=== PATIENT | female | born 1955 | race Caucasian/White ===

== ENCOUNTER 2017-06-16 15:26 | Emergency (ER) | payer OTHER, MEDICARE, SELFPAY | END 2017-06-16 17:50 | disposition home or self-care (01) | PROVIDERS: Emergency Provider Emergency Medicine; Family Provider Family Medicine; Visit Provider Emergency Medicine | DX: S00.83XA Contusion of other part of head, initial encounter (principal); S80.00XA Contusion of unspecified knee, initial encounter; W01.198A Fall on same level from slipping, tripping and stumbling with subsequent striking against other object, initial encounter; Y93.01 Activity, walking, marching and hiking; Y92.241 Library as the place of occurrence of the external cause; S16.1XXA Strain of muscle, fascia and tendon at neck level, initial encounter; S39.012A Strain of muscle, fascia and tendon of lower back, initial encounter; J45.909 Unspecified asthma, uncomplicated; F41.9 Anxiety disorder, unspecified; F32.9 Major depressive disorder, single episode, unspecified; Z88.0 Allergy status to penicillin; Z88.2 Allergy status to sulfonamides; Z88.8 Allergy status to other drugs, medicaments and biological substances; Z91.048 Other nonmedicinal substance allergy status; Z79.82 Long term (current) use of aspirin; Z79.4 Long term (current) use of insulin; Z79.51 Long term (current) use of inhaled steroids; Z79.52 Long term (current) use of systemic steroids; Z79.899 Other long term (current) drug therapy | CPT/HCPCS: 70450; 70486; 72125; 72131; 72170; 73562; 99282 ==

== ENCOUNTER → 2017-08-04 11:59 | Outpatient (CLI) | payer MEDICARE, OTHER, SELFPAY ==
[2017-08-04 14:32] LABS: Anion Gap 13.1 mEq/L (5-15); Blood Urea Nitrogen 47 mg/dL (7-18); Carbon Dioxide 25 mmol/L (21.0-32.0); Chloride 108 mmol/L (98-107); Creatinine,Serum 1.56 mg/dL (0.55-1.02); Estimated Glomerular Filt Rate 34 ml/min (>60); GFR (African American) 41 ML/MIN (>60); Glucose 170 mg/dL (74-106); Potassium 5.1 mmoL/L (3.5-5.1); Sodium 141 mmol/L (136-145)
== END ==
PROVIDERS: PCP Family Medicine; Visit Provider Internal Medicine Endocrinology, Diabetes & Metabolism
DX: N18.3 Chronic kidney disease, stage 3 (moderate) (principal); E87.5 Hyperkalemia
CPT/HCPCS: 36415; 80048

== ENCOUNTER → 2017-10-31 08:14 | Outpatient (CLI) | payer MEDICARE, SELFPAY ==
--- NOTE | 2017-10-31 08:17 | XR_ITS ---
XR DEXA axial skeleton HISTORY: ITS.REASON: OSTEOPOSIS, POST MENOPAUSAL, STAGE III CHRONIC KIDNEY DISEASE ORDERING PHYSICIAN: James Lang PATIENT AGE: 62 years COMPARISON: 10/05/2016 FINDINGS: The BMD measured at the left femoral neck is 0.692 g/cm squared with a T score of -2.5. This is considered Osteoporotic according to the World Health Organization criteria. Fracture risk is high. The hip density has decreased by 1% compared to the previous study. IMPRESSION: Osteoporosis with high fracture risk. Treatment recommended. Recommend follow-up exam October 2018
== END ==
PROVIDERS: Family Provider Family Medicine; PCP Family Medicine; Visit Provider Internal Medicine Nephrology
DX: Z78.0 Asymptomatic menopausal state (principal); M81.0 Age-related osteoporosis without current pathological fracture; N18.3 Chronic kidney disease, stage 3 (moderate)
CPT/HCPCS: 77080

== ENCOUNTER → 2017-11-03 14:28 | Outpatient (CLI) | payer MEDICARE, SELFPAY ==
[2017-11-03 14:37] LABS: Microscopic, Urine URINE MICROSCOPIC (MICROSCOPIC)
[2017-11-03 15:44] LABS: Basophils # 0.1 K/mm3 (0-0.2); Basophils % 0.6 % (0.1-2.0); Eosinophils # 0.2 K/mm3 (0.0-0.4); Eosinophils % 2.3 % (0.1-12.0); Hematocrit 38.1 % (37.0-47.0); Hemoglobin 12.3 g/dL (12.2-16.2); Lymphocytes # 1.5 K/mm3 (0.7-4.5); Lymphocytes % 16.2 K/mm3 (10-50); Mean Corpuscular HGB Conc 32.2 g/dL (31.8-35.4); Mean Corpuscular Hemoglobin 28.5 pg (27.0-31.2); Mean Corpuscular Volume 88.5 fl (81-99); Mean Platelet Volume 8.3 fl (7.4-10.4); Monocytes # 0.4 K/mm3 (0.1-1.0); Monocytes % 4.2 % (1.7-9.3); Neutrophils % 76.7 % (37.0-80.0); Platelet Count 216 K/mm3 (142-424); Red Blood Count 4.31 M/mm3 (4.20-5.40); Red Cell Distribution Width 15.1 % (11.5-17.5); White Blood Count 9.1 K/mm3 (4.8-10.8)
[2017-11-03 17:19] LABS: Appearance,Urine CLEAR (Clear); Bilirubin,Urine Negative (Negative); Blood, Urine Negative (Negative); Color,Urine YELLOW (Yellow); Glucose,Urine (UA) Negative (Negative); Ketones,Urine Negative (Negative); Leukocyte Esterase,Urine Negative (Negative); Nitrate,Urine Negative (Negative); PH,Urine 5.5 (5.0-8.5); Protein,Urine 2+ (Negative); Specific Gravity, Urine >= 1.030 (1.005-1.030); Urobilinogen,Urine 0.2 EU/dl (0.2)
[2017-11-03 17:58] LABS: Albumin Level 3.3 gm/dL (3.4-5.0); Anion Gap 14.3 mEq/L (5-15); Blood Urea Nitrogen 40 mg/dL (7-18); Calcium 8.8 mg/dL (8.5-10.1); Carbon Dioxide 27 mmol/L (21.0-32.0); Chloride 106 mmol/L (98-107); Creatinine,Serum 2.09 mg/dL (0.55-1.02); Estimated Glomerular Filt Rate 24 ml/min (>60); GFR (African American) 29 ML/MIN (>60); Glucose 251 mg/dL (74-106); Phosphorous 4.6 mg/dL (2.4-4.9); Potassium 5.3 mmoL/L (3.5-5.1); Sodium 142 mmol/L (136-145); Uric Acid 6.3 mg/dL (2.6-7.2)
[2017-11-05 06:41] LABS: Creatinine, Urine 167.7 mg/dL (Not Estab.); Microalbumin, Urine 326.7 ug/mL (Not Estab.)
[2017-11-06 05:46] LABS: Vitamin D 25 Hydroxy 41.2 ng/mL (30.0-100.0)
[2017-11-07 11:57] LABS: Calcium, Ionized 5.1 mg/dL (4.5-5.6); Parathyroid Hormone Intact 69 pg/mL (15-65)
== END ==
PROVIDERS: Visit Provider Internal Medicine Nephrology
DX: N18.3 Chronic kidney disease, stage 3 (moderate) (principal)
CPT/HCPCS: 36415; 80069; 81001; 82043; 82330; 82570; 82652; 83970; 84550; 85025

== ENCOUNTER → 2017-11-06 13:17 | Outpatient (POV) | payer MEDICARE, SELFPAY | PROVIDERS: Family Provider Family Medicine; PCP Family Medicine; Visit Provider Internal Medicine Nephrology | DX: Z00.00 Encounter for general adult medical examination without abnormal findings (principal) ==

== ENCOUNTER → 2018-03-09 09:31 | Outpatient (CLI) | payer MEDICARE, SELFPAY ==
[2018-03-09 10:36] LABS: Albumin Level 3.1 gm/dL (3.4-5.0); Anion Gap 11.6 mEq/L (5-15); Blood Urea Nitrogen 36 mg/dL (7-18); Carbon Dioxide 28 mmol/L (21.0-32.0); Chloride 109 mmol/L (98-107); Creatinine,Serum 1.64 mg/dL (0.55-1.02); Estimated Glomerular Filt Rate 32 ml/min (>60); GFR (African American) 39 ML/MIN (>60); Glucose 157 mg/dL (74-106); Potassium 4.6 mmoL/L (3.5-5.1); Sodium 144 mmol/L (136-145)
== END ==
PROVIDERS: PCP Family Medicine; Visit Provider Internal Medicine Nephrology
DX: N18.3 Chronic kidney disease, stage 3 (moderate) (principal)
CPT/HCPCS: 36415; 80069; 82652; 84080; 84681

== ENCOUNTER → 2018-03-19 13:15 | Outpatient (POV) | payer MEDICARE, SELFPAY | PROVIDERS: Family Provider Family Medicine; PCP Family Medicine; Visit Provider Internal Medicine Nephrology | DX: Z00.00 Encounter for general adult medical examination without abnormal findings (principal) ==

== ENCOUNTER → 2018-07-12 16:48 | Outpatient (CLI) | payer MEDICARE, SELFPAY ==
--- NOTE | 2018-07-12 16:54 | XR_ITS ---
XR foot LT min 3V HISTORY: ITS.REASON: LT FOOT PAIN ORDERING PHYSICIAN: Amaury Knight MD PATIENT AGE: 62 years COMPARISON: 01/15/2010 FINDINGS: There is irregularity of the distal aspect of the fifth metatarsal. This is unchanged may be due to old injury. Deformities involve the distal aspect of the first metatarsal consistent with prior bunionectomy. No acute fracture or dislocation. No lytic or blastic change. No significant arthritic change IMPRESSION: No change with no acute finding
== END ==
PROVIDERS: PCP Family Medicine; Visit Provider Family Medicine
DX: M79.672 Pain in left foot (principal)
CPT/HCPCS: 73630

== ENCOUNTER → 2018-09-27 12:01 | Outpatient (CLI) | payer MEDICARE, SELFPAY ==
--- NOTE | 2018-09-27 12:17 | XR_ITS ---
XR wrist LT min 3V HISTORY injury with pain ITS.REASON: LT HAND PAIN ORDERING PHYSICIAN: DIANA Sandoval PATIENT AGE: 63 years Comparison: None FINDINGS: Osteoarthritic changes are present at the first metacarpocarpal joint with some periarticular calcification. No acute fracture or dislocation. IMPRESSION: No acute finding
--- NOTE | 2018-09-27 12:17 | XR_ITS ---
XR hand LT min 3V HISTORY: Posttraumatic pain ITS.REASON: LT HAND PAIN ORDERING PHYSICIAN: DIANA Sandoval PATIENT AGE: 63 years COMPARISON: None FINDINGS: No obvious fracture or dislocation. There are osteoarthritic changes of the first metacarpal carpal joint with some bony debris about that joint. IMPRESSION: Osteoarthritis, no acute finding
[2018-09-27 12:22] LABS: Basophils % 0.4 % (0.1-2.0); Eosinophils # 0.1 K/mm3 (0.0-0.4); Eosinophils % 0.9 % (0.1-12.0); Hemoglobin 12.1 g/dL (12.2-16.2); Lymphocytes # 1.1 K/mm3 (0.7-4.5); Lymphocytes % 11.8 % (10-50); Mean Corpuscular HGB Conc 30.9 g/dL (31.8-35.4); Mean Corpuscular Volume 90.4 fl (81-99); Monocytes # 0.4 K/mm3 (0.1-1.0); Monocytes % 3.6 % (1.7-9.3); Neutrophils # 8.1 K/mm3 (1.8-7.8); Neutrophils % 83.4 % (37.0-80.0); Platelet Count 197 K/mm3 (142-424); Red Blood Count 4.32 M/mm3 (4.20-5.40); Red Cell Distribution Width 15.4 % (11.5-17.5); White Blood Count 9.7 K/mm3 (4.8-10.8)
[2018-09-27 12:50] LABS: Alanine Aminotransferase 28 U/L (12-78); Albumin Level 3.4 gm/dL (3.4-5.0); Alkaline Phosphatase 77 U/L (46-116); Anion Gap 13.6 mEq/L (5-15); Aspartate Amino Transferase 15 U/L (15-37); Bilirubin,Total 0.3 mg/dL (0.2-1.0); Blood Urea Nitrogen 34 mg/dL (7-18); CKMB Relative Index 2.9 U/L (0-4.0); Calcium 9.2 mg/dL (8.5-10.1); Carbon Dioxide 27 mmol/L (21.0-32.0); Chloride 107 mmol/L (98-107); Creatine Kinase 55 U/L (26-192); Creatine Kinase MB 1.6 ng/ml (0.0-3.6); Creatinine,Serum 1.48 mg/dL (0.55-1.02); Estimated Glomerular Filt Rate 36 ml/min (>60); Free T4 (Free Thyroxine) 0.84 ng/dl (0.76-1.46); GFR (African American) 43 ML/MIN (>60); Globulin 3.3 gm/dl (1.3-3.2); Glucose 206 mg/dL (74-106); Potassium 4.6 mmoL/L (3.5-5.1); Sodium 143 mmol/L (136-145); Thyroid Stimulating Hormone 1.12 uIU/ml (0.358-3.740); Total Protein,Serum 6.7 gm/dL (6.4-8.2); Troponin I < 0.02 ng/ml (0.00-0.06)
[2018-09-28 09:01] LABS: Vitamin B12 1431 pg/mL (232-1245)
== END ==
PROVIDERS: PCP Family Medicine; Visit Provider Physician Assistant
DX: R07.9 Chest pain, unspecified (principal); R42 Dizziness and giddiness; M79.642 Pain in left hand; M25.532 Pain in left wrist; Z79.899 Other long term (current) drug therapy
CPT/HCPCS: 36415; 73110; 73130; 80053; 82550; 82553; 82607; 82652; 84439; 84443; 84484; 85025; 93005

== ENCOUNTER → 2018-09-28 09:25 | Outpatient (CLI) | payer MEDICARE, SELFPAY | PROVIDERS: PCP Family Medicine; Visit Provider Family Medicine | DX: R07.9 Chest pain, unspecified (principal); R42 Dizziness and giddiness | CPT/HCPCS: 93225; 93226 ==

== ENCOUNTER → 2018-10-02 09:58 | Outpatient (CLI) | payer MEDICARE, SELFPAY ==
--- NOTE | 2018-10-02 10:02 | CA_ITS ---
PROCEDURE: 2-D M-mode and color Doppler study INDICATIONS FOR THE TEST: Chest pain COPD Heart Murmur Tobacco Smoking Palpitations Fatigue SyncopeX Edema HypertensionXDiabetes MellitusX Rheumatic Fever SOB JOYCE Obesity HyperlipidemiaX Family History HD Additional History DIZZINESS,PRE SYNCOPE PATIENT INFORMATION HEIGHT: 64 WEIGHT:171 GENDER: Female B/P:152/78 2-D/M-MODE INTERPRETATION: 2-D MEASUREMENTS OBSERVED VALUES IN CMS Right Ventricular Dimension (RVDd) 2.5 Interventricular Septum (Thickness)(IVsd) .9 Left Ventricular Internal Dimensions(LVIDd) 5.6 Left Ventricular Posterior Wall (Thickness)(LVPWd) 1.2 Aortic Root 3.9 Aortic Cusp Separation 2.1 Left Atrial Dimensions (LAD) 3.7 2D 1. Left atrium is mildly enlarged, left ventricle is normal size, mild concentric left ventricular hypertrophy, visually estimated ejection fraction 55% with no regional wall motion abnormality. 2. The right atrium and right ventricle are normal size and contractility. 3. The aortic valve is minimally thickened and fibrosed. 4. The mitral and tricuspid valvular grossly normal. 5. The pulmonic valve is poorly visualized. 6. No significant pericardial effusion noted. DOPPLER INTERROGATION: Doppler interrogation of the aortic, mitral and tricuspid valvular presence of mild mitral and tricuspid regurgitation, tricuspid regurgitation jet velocity is inadequate for calculation of the right ventricular systolic pressure, grade 1 diastolic dysfunction seen without tissue Doppler evidence of raised left atrial pressure. CONCLUSION: 1. Mildly enlarged left atrium, normal left ventricular size, mild concentric left ventricular hypertrophy, visually estimated ejection fraction 55% with no regional wall motion abnormality, grade 1 diastolic dysfunction seen without tissue Doppler evidence of raised left atrial pressure. 2. Mild mitral and tricuspid regurgitation 3. No significant pericardial effusion noted.
== END ==
PROVIDERS: PCP Family Medicine; Visit Provider Physician Assistant
DX: R42 Dizziness and giddiness (principal); R55 Syncope and collapse
CPT/HCPCS: 93306

== ENCOUNTER → 2018-10-22 07:53 | Outpatient (CLI) | payer MEDICARE, SELFPAY ==
[2018-10-22 07:57] LABS: Microscopic, Urine URINE MICROSCOPIC (MICROSCOPIC)
[2018-10-22 08:16] LABS: Basophils # 0.1 K/mm3 (0-0.2); Basophils % 0.8 % (0.1-2.0); Eosinophils # 0.3 K/mm3 (0.0-0.4); Eosinophils % 3.8 % (0.1-12.0); Hematocrit 35.8 % (37.0-47.0); Hemoglobin 11.6 g/dL (12.2-16.2); Lymphocytes # 2.5 K/mm3 (0.7-4.5); Lymphocytes % 28.3 % (10-50); Mean Corpuscular HGB Conc 32.3 g/dL (31.8-35.4); Mean Corpuscular Volume 86.7 fl (81-99); Mean Platelet Volume 8.4 fl (7.4-10.4); Monocytes # 0.5 K/mm3 (0.1-1.0); Monocytes % 5.9 % (1.7-9.3); Neutrophils # 5.3 K/mm3 (1.8-7.8); Neutrophils % 61.2 % (37.0-80.0); Platelet Count 213 K/mm3 (142-424); Red Blood Count 4.14 M/mm3 (4.20-5.40); Red Cell Distribution Width 15.1 % (11.5-17.5); White Blood Count 8.7 K/mm3 (4.8-10.8)
[2018-10-22 08:31] LABS: Appearance,Urine SL CLOUDY (Clear); Bilirubin,Urine Negative (Negative); Blood, Urine 2+ (Negative); Color,Urine YELLOW (Yellow); Glucose,Urine (UA) Negative (Negative); Ketones,Urine Negative (Negative); Leukocyte Esterase,Urine 2+ (Negative); Nitrate,Urine Negative (Negative); Protein,Urine 1+ (Negative); Urobilinogen,Urine 0.2 EU/dl (0.2)
[2018-10-22 09:14] LABS: Bacteria,Urine 2+ /lpf; RBC,Urine Occasional #/hpf (0-3); Squamous Epithelial Cell,Urine Occasional #/hpf (0-5)
[2018-10-22 09:24] LABS: Creatinine,Urine Random 85 mg/dL (20-320); Total Protein,Urine Random 76.7 mg/dL (0.0-11.9)
[2018-10-22 11:13] LABS: Albumin Level 3.4 gm/dL (3.4-5.0); Anion Gap 13.9 mEq/L (5-15); Blood Urea Nitrogen 40 mg/dL (7-18); Calcium 9.5 mg/dL (8.5-10.1); Carbon Dioxide 26 mmol/L (21.0-32.0); Chloride 108 mmol/L (98-107); Creatinine,Serum 1.73 mg/dL (0.55-1.02); Estimated Glomerular Filt Rate 30 ml/min (>60); GFR (African American) 36 ML/MIN (>60); Glucose 85 mg/dL (74-106); Phosphorous 4.2 mg/dL (2.4-4.9); Potassium 3.9 mmoL/L (3.5-5.1); Sodium 144 mmol/L (136-145)
[2018-10-23 07:08] LABS: Vitamin D 25 Hydroxy 59.5 ng/mL (30.0-100.0)
[2018-10-24 08:15] LABS: Parathyroid Hormone Intact 73 pg/mL (15-65)
[2018-10-25 07:09] LABS: Osteocalcin 5.9 ng/mL (.); Tandem-R Ostase 13.8 ug/L (.)
[2018-10-26 07:12] LABS: N-Telopeptide Cross-linked 14.9 nmol BCE/L (6.2-19.0)
== END ==
PROVIDERS: Visit Provider Internal Medicine Nephrology
DX: M81.0 Age-related osteoporosis without current pathological fracture (principal); N18.3 Chronic kidney disease, stage 3 (moderate); R82.90 Unspecified abnormal findings in urine
CPT/HCPCS: 36415; 80069; 81001; 82523; 82570; 82652; 83937; 83970; 84080; 84155; 85025; 87086; 87088; 87186

== ENCOUNTER → 2018-11-05 12:57 | Outpatient (POV) | payer MEDICARE, SELFPAY | PROVIDERS: Visit Provider Internal Medicine Nephrology | DX: Z00.00 Encounter for general adult medical examination without abnormal findings (principal) ==

== ENCOUNTER → 2019-03-15 12:53 | Outpatient (CLI) | payer MEDICARE, SELFPAY ==
--- NOTE | 2019-03-15 12:57 | CT_ITS ---
PROCEDURE: CT KNEE LT WO CON CLINICAL HISTORY: DERANGEMENT OF LT KNEE COMPARISON: No exams were available for comparison TECHNIQUE: Axial images obtained with sagittal and coronal reformats. All CT scans at the facility use one or more dose reduction, viz: automated exposure control, ma/kV adjustment per patient size (including targeted exams where dose is matched to indication, i.e. head), or iterative reconstruction technique. FINDINGS: No fracture or dislocation. No lytic or blastic change. Moderate to severe osteoarthritic changes are present at the patellofemoral joint and mild to moderate osteoarthritic changes are present at the medial compartment. There is a small knee joint effusion with a small Simpson's cyst measuring approximately 3 cm. The anterior and posterior cruciate ligaments are identified and have an unremarkable CT appearance although tears cannot be excluded by CT without intra-articular contrast. Fluid is present in the suprapatellar region. No hematomas are apparent. No soft tissue masses IMPRESSION: Osteoarthritic changes most severe patellofemoral joint with knee joint effusion and small Simpson's cyst. No acute fracture Dictated by: Leonel Allan MD 03/15/2019 19:10 Electronically signed by Leonel Allan MD in [place] 03/16/2019 06:39
== END ==
PROVIDERS: PCP Family Medicine; Visit Provider Family Medicine
DX: M23.92 Unspecified internal derangement of left knee (principal)
CPT/HCPCS: 73700

== ENCOUNTER → 2019-04-22 10:54 | Outpatient (CLI) | payer MEDICARE, SELFPAY ==
--- NOTE | 2019-04-22 11:02 | XR_ITS ---
PROCEDURE: XR DEXA AXIAL SKELETON CLINICAL HISTORY: OSTEOPOROSIS COMPARISON: No exams were available for comparison FINDINGS: The density of the left hip is 0.707 grams/centimeter sq with a T-score of -2.4 consistent with osteopenia. IMPRESSION: Osteopenia with moderate fracture risk. Treatment advised. Suggest follow-up exam April 2021 Dictated by: Leonel Allan MD 04/22/2019 11:45 Electronically signed by Leonel Allan MD in [place] 04/24/2019 06:18
== END ==
PROVIDERS: PCP Family Medicine; Visit Provider Internal Medicine Nephrology
DX: M81.0 Age-related osteoporosis without current pathological fracture (principal)
CPT/HCPCS: 77080

== ENCOUNTER → 2019-05-16 08:43 | Outpatient (CLI) | payer MEDICARE, SELFPAY ==
[2019-05-16 09:01] LABS: Basophils # 0.1 K/mm3 (0-0.2); Basophils % 0.9 % (0.1-2.0); Eosinophils # 0.2 K/mm3 (0.0-0.4); Eosinophils % 2.4 % (0.1-12.0); Hematocrit 38.4 % (37.0-47.0); Hemoglobin 12.1 g/dL (12.2-16.2); Lymphocytes # 1.8 K/mm3 (0.7-4.5); Lymphocytes % 22.2 % (10-50); Mean Corpuscular HGB Conc 31.4 g/dL (31.8-35.4); Mean Corpuscular Hemoglobin 28.5 pg (27.0-31.2); Mean Corpuscular Volume 90.7 fl (81-99); Monocytes # 0.4 K/mm3 (0.1-1.0); Monocytes % 5.1 % (1.7-9.3); Neutrophils # 5.6 K/mm3 (1.8-7.8); Neutrophils % 69.4 % (37.0-80.0); Platelet Count 246 K/mm3 (142-424); Red Blood Count 4.23 M/mm3 (4.20-5.40); Red Cell Distribution Width 15.7 % (11.5-17.5)
[2019-05-16 11:05] LABS: Albumin Level 3.3 gm/dL (3.4-5.0); Blood Urea Nitrogen 49 mg/dL (7-18); Calcium 8.8 mg/dL (8.5-10.1); Carbon Dioxide 24 mmol/L (21.0-32.0); Chloride 104 mmol/L (98-107); Creatinine,Serum 1.58 mg/dL (0.55-1.02); Estimated Glomerular Filt Rate 33 ml/min (>60); GFR (African American) 40 ML/MIN (>60); Glucose 257 mg/dL (74-106); Phosphorous 3.6 mg/dL (2.4-4.9); Sodium 136 mmol/L (136-145)
[2019-05-21 15:00] LABS: Tandem-R Ostase 12.1 ug/L (.)
== END ==
PROVIDERS: Visit Provider Internal Medicine Nephrology
DX: N18.3 Chronic kidney disease, stage 3 (moderate) (principal); M81.0 Age-related osteoporosis without current pathological fracture
CPT/HCPCS: 36415; 80069; 84080; 85025

== ENCOUNTER → 2019-05-20 12:26 | Outpatient (POV) | payer MEDICARE, SELFPAY | PROVIDERS: Visit Provider Internal Medicine Nephrology | DX: Z00.00 Encounter for general adult medical examination without abnormal findings (principal) ==

== ENCOUNTER → 2019-06-04 11:47 | Outpatient (CLI) | payer MEDICARE, SELFPAY ==
--- NOTE | 2019-06-04 11:50 | CA_ITS ---
APPROVED REPORT Bilateral Lower Extremity Venous Study for DVT. Proof Carrier: DONNIE Indications Lower Extremity Pain: Lower Extremity Edema: Left Vein Imaging CFV (L): compressive, spontaneous, phasic, augmentation SFJ (L): compressive, spontaneous, phasic, augmentation FEM (L): compressive, spontaneous, phasic, augmentation POP (L): Partially Compressible, Thrombus DFV (L): compressive, spontaneous, phasic, augmentation PTV (L): Compressible GSV (L): Compressible Peroneals (L):Not Visualized Findings Acute DVT is visualized in the POPLITEAL vein of the left lower extremity. PARTIAL COMPRESSIBILTY AND PARTIAL COLOR FLOW REPORT CALLED TO [facility] Conclusion Acute DVT is visualized in the POPLITEAL vein of the left lower extremity. PARTIAL COMPRESSIBILTY AND PARTIAL COLOR FLOW REPORT CALLED TO [facility] Electronically signed by : Leonel Allan MD 06/05/2019 19:08:57
== END ==
PROVIDERS: PCP Family Medicine; Visit Provider Family Medicine
DX: M79.662 Pain in left lower leg (principal); M79.89 Other specified soft tissue disorders
CPT/HCPCS: 93971

== ENCOUNTER → 2019-09-27 16:21 | Outpatient (CLI) | payer MEDICARE, SELFPAY ==
--- NOTE | 2019-09-27 16:29 | XR_ITS ---
PROCEDURE: XR MULTIPLE SPINE 6+V CLINICAL INDICATION: BACK PAIN COMPARISON: LS5 LUMBAR SPINE 5 VIEWS from 05/12/[address] LUMBAR SPINE W/O CONTRAST from 06/16/2017 FINDINGS: Thoracic spine: Epidural stimulator device is present at the T8-T9 level. There is mild multilevel degenerative disc disease in the midthoracic spine with mild wedge deformity involving T6, T7, and T8 which may be chronic. No lytic or blastic change evident. There is mild midthoracic kyphosis. Lumbar spine: Postsurgical changes with prior posterior fusion with inter pedicular screws at L3-L4 and L5 with connecting rods with prominent bony bridging laterally with bony hypertrophy. There is normal alignment with degenerative disc disease at L2-L3 L3-L4 and L4-5 and L5-S1. Prior laminectomy at L3-L4 and L5. These findings are similar when compared to 05/12/2015 IMPRESSION: 1. Thoracic spondylosis with kyphosis with mild wedging of mid dorsal vertebral bodies which may be chronic. 2. Postsurgical and degenerative changes of the lumbar spine as described above not significantly changed Dictated by: Leonel Allan MD 09/27/2019 18:47 Electronically signed by Leonel Allan MD in [place] 09/27/2019 18:47
== END ==
PROVIDERS: PCP Family Medicine; Visit Provider Family Medicine
DX: S39.012A Strain of muscle, fascia and tendon of lower back, initial encounter (principal)
CPT/HCPCS: 72084

== ENCOUNTER → 2019-11-05 11:12 | Outpatient (CLI) | payer MEDICARE, SELFPAY ==
[2019-11-05 12:04] LABS: Creatinine,Urine Random 71 mg/dL (Not Estab.)
[2019-11-05 13:31] LABS: Albumin Level 4.1 g/dl (3.5-5.0); Anion Gap 10.7 mEq/L (5-15); Blood Urea Nitrogen 46 mg/dl (7-17); Calcium 9.4 mg/dl (8.4-10.2); Carbon Dioxide 23 mmol/L (22.0-30.0); Chloride 107 mmol/L (98-107); Estimated Glomerular Filt Rate 25 ml/min (>60); GFR (African American) 30 ML/MIN (>60); Glucose 203 mg/dl (74-100); Phosphorous 4.6 mg/dl (2.5-4.5); Potassium 4.7 mmoL/L (3.5-5.1); Sodium 136 mmol/L (136-145)
[2019-11-06 08:42] LABS: Vitamin D 25 Hydroxy 43.4 ng/mL (30.0-100.0)
[2019-11-08 11:20] LABS: Tandem-R Ostase 16.2 ug/L (.)
== END ==
PROVIDERS: Visit Provider Internal Medicine Nephrology
DX: M81.0 Age-related osteoporosis without current pathological fracture (principal); N18.3 Chronic kidney disease, stage 3 (moderate)
CPT/HCPCS: 36415; 80069; 82570; 82652; 84080; 84155

== ENCOUNTER → 2020-03-19 17:33 | Outpatient (CLI) | payer MEDICARE, SELFPAY ==
[2020-03-19 17:42] LABS: Microscopic, Urine URINE MICROSCOPIC (MICROSCOPIC)
[2020-03-19 17:54] LABS: Appearance,Urine CLEAR (Clear); Basophils # 0.1 K/mm3 (0-0.2); Basophils % 0.6 % (0.1-2.0); Bilirubin,Urine Negative (Negative); Blood, Urine Negative (Negative); Color,Urine YELLOW (Yellow); Eosinophils # 0.2 K/mm3 (0.0-0.4); Eosinophils % 1.5 % (0.1-12.0); Glucose,Urine (UA) 3+ (Negative); Hematocrit 36.4 % (37.0-47.0); Hemoglobin 11.7 g/dL (12.2-16.2); Ketones,Urine Negative (Negative); Leukocyte Esterase,Urine Negative (Negative); Lymphocytes # 1.7 K/mm3 (0.7-4.5); Lymphocytes % 17.5 % (10-50); Mean Corpuscular Hemoglobin 28.5 pg (27.0-31.2); Mean Platelet Volume 8.5 fl (7.4-10.4); Monocytes # 0.5 K/mm3 (0.1-1.0); Monocytes % 4.7 % (1.7-9.3); Neutrophils # 7.2 K/mm3 (1.8-7.8); Neutrophils % 75.6 % (37.0-80.0); Nitrate,Urine Negative (Negative); PH,Urine 5.5 (5.0-8.5); Platelet Count 201 K/mm3 (142-424); Protein,Urine 2+ (Negative); Red Cell Distribution Width 16.3 % (11.5-17.5); Specific Gravity, Urine >= 1.030 (1.005-1.030); Urobilinogen,Urine 0.2 EU/dl (0.2); White Blood Count 9.6 K/mm3 (4.8-10.8)
[2020-03-19 18:00] LABS: Amorphous Sediment,Urine 1+ /lpf; Squamous Epithelial Cell,Urine Occasional #/hpf (0-5)
[2020-03-19 18:01] LABS: Creatinine,Urine Random 128 mg/dL (Not Estab.)
[2020-03-19 18:41] LABS: Albumin Level 3.6 g/dl (3.5-5.0); Blood Urea Nitrogen 49 mg/dl (7-17); Calcium 9.9 mg/dl (8.4-10.2); Carbon Dioxide 23 mmol/L (22.0-30.0); Chloride 109 mmol/L (98-107); Estimated Glomerular Filt Rate 25 ml/min (>60); GFR (African American) 30 ML/MIN (>60); Glucose 312 mg/dl (74-100); Phosphorous 4.6 mg/dl (2.5-4.5); Sodium 137 mmol/L (136-145)
[2020-03-19 18:54] LABS: Intact Parathyroid Hormone 39.6 pg/mL (7.5-53.5)
[2020-03-19 18:59] LABS: 25-OH Vitamin D, Total 55.1 ng/mL (30-100)
[2020-03-24 04:24] LABS: Osteocalcin 0.6 ng/mL (.)
[2020-03-24 09:07] LABS: Tandem-R Ostase 16.6 ug/L (.)
[2020-03-25 05:35] LABS: N-Telopeptide Cross-linked 16.4 nmol BCE/L (6.2-19.0)
== END ==
PROVIDERS: Visit Provider Internal Medicine Nephrology
DX: M81.0 Age-related osteoporosis without current pathological fracture (principal); Z79.899 Other long term (current) drug therapy
CPT/HCPCS: 36415; 80069; 81001; 82306; 82523; 82570; 83937; 83970; 84080; 84155; 85025

== ENCOUNTER → 2020-03-23 09:19 | Outpatient (POV) | payer MEDICARE, SELFPAY ==
[2020-03-23 11:30] LABS: Chloride 111 mmol/L (98-107)
[2020-03-23 11:31] LABS: Potassium 5.3 mmoL/L (3.5-5.1); Sodium 141 mmol/L (136-145)
[2020-03-23 11:33] LABS: Blood Urea Nitrogen 39 mg/dl (7-17); Estimated Glomerular Filt Rate 28 ml/min (>60); GFR (African American) 34 ML/MIN (>60)
[2020-03-23 11:34] LABS: Anion Gap 10.3 mEq/L (5-15); Calcium 9.4 mg/dl (8.4-10.2); Carbon Dioxide 25 mmol/L (22.0-30.0); Glucose 102 mg/dl (74-100)
== END ==
PROVIDERS: Visit Provider Internal Medicine Nephrology
DX: N18.3 Chronic kidney disease, stage 3 (moderate) (principal)
CPT/HCPCS: 36415; 80048

== ENCOUNTER → 2020-05-07 11:33 | Outpatient (CLI) | payer MEDICARE, SELFPAY ==
[2020-05-07 12:49] LABS: Cholesterol 278 mg/dl (140-200)
[2020-05-07 12:50] LABS: Chol/HDL Ratio 5.9 (1-3.5); HDL Cholesterol 47 mg/dl (40-60)
[2020-05-07 13:00] LABS: Direct LDL Cholesterol 53.24 mg/dL (100-129)
[2020-05-07 13:02] LABS: Triglycerides 1519 mg/dl (30-150)
== END ==
PROVIDERS: Visit Provider Internal Medicine Endocrinology, Diabetes & Metabolism
DX: E78.2 Mixed hyperlipidemia (principal); E11.65 Type 2 diabetes mellitus with hyperglycemia; E11.29 Type 2 diabetes mellitus with other diabetic kidney complication; E11.49 Type 2 diabetes mellitus with other diabetic neurological complication; E87.5 Hyperkalemia; N18.30 Chronic kidney disease, stage 3 unspecified; Z68.28 Body mass index [BMI] 28.0-28.9, adult; Z79.4 Long term (current) use of insulin
CPT/HCPCS: 36415; 80061

== ENCOUNTER 2020-06-09 11:54 | Observation (INO) | payer MEDICARE, SELFPAY ==
[2020-06-09] VITALS (10 sets, daily range): BP systolic 80–135; BP diastolic 52–70; PULSE 66–76; RESP 16–20; TEMP 36.3–37; O2SAT 96–100; BMI 25.8; BMI 28.3; BMI 27.6
--- NOTE | 2020-06-09 12:26 | HMH.EDUTC ---
[facility] [place] Clinical Impression: Acute kidney injury, Dehydration Disposition: Still a Patient Condition on Discharge: Good Referrals: Amaury Knight MD [Primary Care Provider] - Medical Decision Making - Domenico Inquiry Pt receiving controlled substance: No Domenico was queried for this patient: No Vital Signs: 06/09/20 12:21 06/09/20 12:49 06/09/20 12:59 Temperature 97.8 F 98.0 F Temperature Source Oral Oral Pulse Rate [Radial] 66 71 Respiratory Rate 19 20 Blood Pressure [Orthostatic Lying Right Arm] 129/69 Blood Pressure [Orthostatic Sitting Right Arm] 113/63 Blood Pressure [Orthostatic Standing Right Arm] 110/58 L Blood Pressure [Right Arm] 80/63 L 109/52 L Blood Pressure Mean [Right Arm] 68 71 Blood Pressure Source [Right Arm] Automatic Cuff Automatic Cuff Blood Pressure Position [Right Arm] Sitting Sitting 02 Sat by Pulse Oximetry 99 100 Oxygen Delivery Method Room Air 06/09/20 13:00 06/09/20 13:47 Temperature Temperature Source Pulse Rate [Radial] 71 66 Respiratory Rate 18 18 Blood Pressure [Orthostatic Lying Right Arm] Blood Pressure [Orthostatic Sitting Right Arm] Blood Pressure [Orthostatic Standing Right Arm] Blood Pressure [Right Arm] 129/56 L 121/60 Blood Pressure Mean [Right Arm] 80 80 Blood Pressure Source [Right Arm] Automatic Cuff Automatic Cuff Blood Pressure Position [Right Arm] Sitting Sitting 02 Sat by Pulse Oximetry 96 97 Oxygen Delivery Method Room Air Room Air - Lab Data Lab Results 06/09/20 12:34: Urine Color Yellow, Urine Appearance Clear, Urine pH 5.0, Ur Specific [place] >= 1.030, Urine Protein 2+, Urine Glucose (UA) Negative, Urine Ketones Negative, Urine Blood Negative, Urine Nitrate Negative, Urine Bilirubin Negative, Urine Urobilinogen 0.2, Ur Leukocyte Esterase Negative, Urine RBC 3-5, Urine WBC 3-5, Ur Squamous Epith Cells 3-5 06/09/20 12:34: WBC 13.5 H, RBC 4.38, Hgb 12.6, Hct 40.2, MCV 91.7, MCH 28.8, MCHC 31.4 L, RDW 16.4, Plt Count 260, MPV 8.9, Neut % (Auto) 76.3, Lymph % (Auto) 17.4, [place] % (Auto) 4.4, Eos % (Auto) 1.4, Baso % (Auto) 0.5, Neut # (Auto) 10.3 H, Lymph # (Auto) 2.3, [place] # (Auto) 0.6, Eos # (Auto) 0.2, Baso # (Auto) 0.1 06/09/20 12:34: Sodium 134 L, Potassium 5.2 H, Chloride 102, Carbon Dioxide 21 L, Anion Gap 16.2 H, BUN 86 H, Creatinine 3.90 H, Estimated Creat Clear 17, Estimated GFR 12 L*, Est GFR ( Amer) 14 L*, Glucose 276 H, Calcium 9.6, Total Bilirubin 0.5, AST 27, ALT 25, Alkaline Phosphatase 88, Troponin I 0.01, Total Protein 6.8, Albumin 4.3, Globulin 2.5, Albumin/Globulin Ratio 1.7 Result diagrams: 06/09/20 12:34 06/09/20 12:34 Orders (Tests/Meds): ED MEDICATIONS Generic Name Dose Route Start Last Admin Trade Name Freq PRN Reason Stop Dose Admin Sodium Chloride 1,000 mls @ 100 mls/hr 06/09/20 13:15 Sod Chlor 0.9% 1000ml Bag IV 07/09/20 13:14 .Q10H MANUEL Discontinued Medications Generic Name Dose Route Start Last Admin Trade Name Freq PRN Reason Stop Dose Admin Sodium Chloride 1,000 ml 06/09/20 13:09 06/09/20 13:13 Sodium Chloride 0.9% 1000ml Bag IV 06/09/20 13:10 1,000 ml BOLUS ONE Administration ORDERS Category Date Time Status Troponin I Q3H Lab 06/09/20 16:00 Ordered Troponin I Q3H Lab 06/09/20 19:00 Ordered Medical Decision Narrative: Due to patient complaining of near syncope and feeling off in her head with vision disturbances and initially low BP recommended that patient be sent to ED for further treatment and evaluation discussed with patient and patient agreed to transfer to the ED, Called ED and spoke with Kathy Sumner RN and patient was transferred via wheelchair [facility] [place] - General Stated complaint: feeling weak, nausea, dizzy Time Seen by Provider: 06/09/20 12:26 Mode of Arrival: Ambulatory Source of Information: Patient Limitations: No Limitations Description of Symptoms (Recalled from Triage Doc. by RN): FATIGUE, DIZZINES
--- NOTE | 2020-06-09 12:38 | HMH.EDGENADL ---
ED Disposition Clinical Impression: Acute kidney injury, Dehydration Disposition: Admitted as Observation Condition on Discharge: Fair - Critical Care Critical Care Time: Yes Attestation: On 06/09/20, the high probability of a clinically significant, sudden or life threatening deterioration of the following system(s) required my full and direct attention, intervention and personal management. The time I documented below is in addition to time spent performing reported procedures but includes the following listed in this critical care notation. Total Critical Care Time: 35 Vital system(s) involved:: Renal Failure My critical care processes included: Assessment & monitoring of V/S, Initial and Re-exams, Data Review/Interpretation, Coordinating Care, Medication Orders and management, Documentation Medical Decision Making - Medical Records Medical records reviewed: Yes: I reviewed the patient's medical records. MR Comment: Reviewed prior echocardiogram result, below. prior labs reviewed, BUN and creatinine 39 and 1.8 on 03/23/2020. - Domenico Inquiry Pt receiving controlled substance: No Vital Signs: 06/09/20 12:21 06/09/20 12:49 06/09/20 12:59 Temperature 97.8 F 98.0 F Temperature Source Oral Oral Pulse Rate Pulse Rate [Radial] 66 71 Respiratory Rate 19 20 Blood Pressure Blood Pressure [Orthostatic Lying Right Arm] 129/69 Blood Pressure [Orthostatic Sitting Right Arm] 113/63 Blood Pressure [Orthostatic Standing Right Arm] 110/58 L Blood Pressure [Right Arm] 80/63 L 109/52 L Blood Pressure Mean [Right Arm] 68 71 Blood Pressure Source Blood Pressure Source [Right Arm] Automatic Cuff Automatic Cuff Blood Pressure Position Blood Pressure Position [Right Arm] Sitting Sitting 02 Sat by Pulse Oximetry 99 100 Oxygen Delivery Method Room Air 06/09/20 13:00 06/09/20 13:47 06/09/20 14:34 Temperature Temperature Source Pulse Rate Pulse Rate [Radial] 71 66 66 Respiratory Rate 18 18 20 Blood Pressure Blood Pressure [Orthostatic Lying Right Arm] Blood Pressure [Orthostatic Sitting Right Arm] Blood Pressure [Orthostatic Standing Right Arm] Blood Pressure [Right Arm] 129/56 L 121/60 129/60 Blood Pressure Mean [Right Arm] 80 80 83 Blood Pressure Source Blood Pressure Source [Right Arm] Automatic Cuff Automatic Cuff Automatic Cuff Blood Pressure Position Blood Pressure Position [Right Arm] Sitting Sitting Sitting 02 Sat by Pulse Oximetry 96 97 98 Oxygen Delivery Method Room Air Room Air 06/09/20 15:15 Temperature 98.6 F Temperature Source Oral Pulse Rate 68 Pulse Rate [Radial] Respiratory Rate 16 Blood Pressure 120/70 Blood Pressure [Orthostatic Lying Right Arm] Blood Pressure [Orthostatic Sitting Right Arm] Blood Pressure [Orthostatic Standing Right Arm] Blood Pressure [Right Arm] Blood Pressure Mean [Right Arm] Blood Pressure Source Automatic Cuff Blood Pressure Source [Right Arm] Blood Pressure Position Sitting Blood Pressure Position [Right Arm] 02 Sat by Pulse Oximetry Oxygen Delivery Method Room Air - Lab Data Lab Results 06/09/20 12:34: Urine Color Yellow, Urine Appearance Clear, Urine pH 5.0, Ur Specific [place] >= 1.030, Urine Protein 2+, Urine Glucose (UA) Negative, Urine Ketones Negative, Urine Blood Negative, Urine Nitrate Negative, Urine Bilirubin Negative, Urine Urobilinogen 0.2, Ur Leukocyte Esterase Negative, Urine RBC 3-5, Urine WBC 3-5, Ur Squamous Epith Cells 3-5 06/09/20 12:34: WBC 13.5 H, RBC 4.38, Hgb 12.6, Hct 40.2, MCV 91.7, MCH 28.8, MCHC 31.4 L, RDW 16.4, Plt Count 260, MPV 8.9, Neut % (Auto) 76.3, Lymph % (Auto) 17.4, [place] % (Auto) 4.4, Eos % (Auto) 1.4, Baso % (Auto) 0.5, Neut # (Auto) 10.3 H, Lymph # (Auto) 2.3, [place] # (Auto) 0.6, Eos # (Auto) 0.2, Baso # (Auto) 0.1 06/09/20 12:34: Sodium 134 L, Potassium 5.2 H, Chloride 102, Carbon Dioxide 21 L, Anion Gap 16.2 H, BUN 86 H, Creatinine 3.90 H, Estimated Creat Clear 17, Estimat
--- NOTE | 2020-06-09 12:49 | CT_ITS ---
PROCEDURE: CT HEAD/BRAIN WO CON CLINICAL INDICATION: dizziness, balance off dizziness and weakness with headache COMPARISON: CT HEADWO CT head/brain wo con from 11/06/2017 TECHNIQUE: Axial images obtained. All CT scans at the facility use one or more dose reduction, viz: automated exposure control, ma/kV adjustment per patient size (including targeted exams where dose is matched to indication, i.e. head), or iterative reconstruction technique. FINDINGS: No midline shift, mass effect, intracranial hemorrhage, hydrocephalus, or extra-axial fluid collection is evident. The calvarium has an unremarkable appearance. No mastoid effusion. No sinus air-fluid level. IMPRESSION: No acute intracranial finding Dictated by: Leonel Allan MD 06/09/2020 14:09 Leonel Allan MD in [place] 06/09/2020 14:09
[2020-06-09 12:58] LABS: Microscopic, Urine URINE MICROSCOPIC (MICROSCOPIC)
--- NOTE | 2020-06-09 12:58 | ECG_ITS ---
APPROVED REPORT Exam: Resting ECG HR:70 bpm ECG Measurements Heart Rate 70 AXES DC 164 P 16 QRSd 106 QRS -37 QT 422 T 6 QTc 455 Conclusion Normal sinus rhythm Left axis deviation Minimal voltage criteria for LVH, may be normal variant Septal infarct, age undetermined Abnormal ECG Electronically signed by : Kenny Sylvester, 06/10/2020 05:29:20
[2020-06-09 12:59] LABS: Appearance,Urine CLEAR (Clear); Basophils # 0.1 K/mm3 (0-0.2); Basophils % 0.5 % (0.1-2.0); Bilirubin,Urine Negative (Negative); Blood, Urine Negative (Negative); Color,Urine YELLOW (Yellow); Eosinophils # 0.2 K/mm3 (0.0-0.4); Eosinophils % 1.4 % (0.1-12.0); Glucose,Urine (UA) Negative (Negative); Hematocrit 40.2 % (37.0-47.0); Hemoglobin 12.6 g/dL (12.2-16.2); Ketones,Urine Negative (Negative); Leukocyte Esterase,Urine Negative (Negative); Lymphocytes # 2.3 K/mm3 (0.7-4.5); Lymphocytes % 17.4 % (10-50); Mean Corpuscular HGB Conc 31.4 g/dL (31.8-35.4); Mean Corpuscular Hemoglobin 28.8 pg (27.0-31.2); Mean Corpuscular Volume 91.7 fl (81-99); Mean Platelet Volume 8.9 fl (7.4-10.4); Monocytes # 0.6 K/mm3 (0.1-1.0); Monocytes % 4.4 % (1.7-9.3); Neutrophils # 10.3 K/mm3 (1.8-7.8); Neutrophils % 76.3 % (37.0-80.0); Nitrate,Urine Negative (Negative); Platelet Count 260 K/mm3 (142-424); Protein,Urine 2+ (Negative); Red Blood Count 4.38 M/mm3 (4.20-5.40); Red Cell Distribution Width 16.4 % (11.5-17.5); Specific Gravity, Urine >= 1.030 (1.005-1.030); Urobilinogen,Urine 0.2 EU/dl (0.2); White Blood Count 13.5 K/mm3 (4.8-10.8)
[2020-06-09 13:00] LABS: Chloride 102 mmol/L (98-107); Potassium 5.2 mmoL/L (3.5-5.1); Sodium 134 mmol/L (136-145)
[2020-06-09 13:02] LABS: Creatinine Clearance Estimated 17 mL/min (50-200); Estimated Glomerular Filt Rate 12 ml/min (>60); GFR (African American) 14 ML/MIN (>60)
[2020-06-09 13:03] LABS: Alanine Aminotransferase 25 U/L (12-78); Albumin Level 4.3 g/dl (3.5-5.0); Albumin/Globulin Ratio 1.7 (1.1-1.8); Alkaline Phosphatase 88 U/L (38-126); Anion Gap 16.2 mEq/L (5-15); Aspartate Amino Transferase 27 U/L (14-36); Bilirubin,Total 0.5 mg/dl (0.2-1.3); Calcium 9.6 mg/dl (8.4-10.2); Carbon Dioxide 21 mmol/L (22.0-30.0); Globulin 2.5 g/dL (1.3-3.2); Glucose 276 mg/dl (74-100); Total Protein,Serum 6.8 g/dl (6.3-8.2)
[2020-06-09 13:05] LABS: Blood Urea Nitrogen 86 mg/dl (7-17)
[2020-06-09 13:17] LABS: Troponin I 0.01 ng/ml (0.00-0.034)
--- NOTE | 2020-06-09 13:33 | XR_ITS ---
PROCEDURE: XR CHEST 2V CLINICAL HISTORY: weakness Weakness, COMPARISON: CR CXR CHEST(2 VIEWS-NOT PORTABLE) from 04/18/2013 FINDINGS: The cardiomediastinal silhouette and pulmonary vascularity are within normal limits. The lungs are clear without infiltrates, suspicious nodules, or pleural effusions. There is an epidural stimulator device present in the mid to lower thoracic region. IMPRESSION: No change with no acute finding Dictated by: Leonel Allna MD 06/09/2020 14:02 Leonel Allan MD in [place] 06/09/2020 14:02
[2020-06-09 14:50] LABS: Coronavirus 19 IgG Antibody Negative (Negative); Coronavirus 19 IgM Antibody Negative (Negative)
--- NOTE | 2020-06-09 17:05 | HMH.HP ---
*Admission Date: 06/09/20 <Shyla Bethea - 06/09/20 17:32> *Chief complaint: hypotension <Shyla Bethea - 06/09/20 17:32> *History of present illness: Ms. Murry is a 64-year-old female with a history of type 2 diabetes mellitus, kidney disease with right nephrectomy in 1999, fibromyalgia, arthritis, tendinitis in the left shoulder, irritable bowel syndrome, asthma, allergic rhinitis, rheumatoid arthritis, and factor 5 Leiden deficiency who initially presented to urgent treatment center not feeling well for about a week. She was then transferred over to the emergency room for evaluation. The following is from [facility] narrative.: Sent from the urgent treatment center. She says she has not felt right for a week. Her main symptoms today seem to be dizziness and weakness. No focal weakness, just generalized weakness. She describes her dizziness as both feeling like she is off balance when she tries to walk but also a sensation of presyncope. She has no loss of vision. She told the nurse that she sometimes sees random things at home, like visual hallucinations, frogs and other objects. She denies headache. However, she says she hurts all over. No specific chest pain or shortness of breath. No numbness or weakness of the extremities except for generalized weakness. No difficulty speaking. She has chronic tinnitus in her ear for years, has seen ear nose and throat for this. She also has some chronic complaints. States that she gets intermittent right upper quadrant pain. She has irritable bowel syndrome and gets constipation and diarrhea. She has chronic pain in her left hip and uses Voltaren gel. Chronic tinnitus as noted above. With evaluation in the emergency room CBC showed an elevated white blood cell count at 13,500 with a hemoglobin of 12.6 and hematocrit of 40.2. Differential was normal. Blood chemistries showed sodium of 134, potassium of 5.2, BUN 86 and a creatinine of 3.9. Her estimated GFR was 12. Blood sugar was 276. Liver function studies were all normal and troponin I was 0.01. Her urine showed 2+ protein. Covid IgG and IgM were both negative. Chest x-ray showed no change with no acute finding. CT of the brain without contrast revealed no acute intracranial finding. On admission to the ER blood pressure was noted to be 80/63. Been improved to 129/69. She was given a liter of IV fluids bolus and started on normal saline at 100 an hour. She was then admitted for further evaluation and treatment. To note: Patient is followed by an livestock broker, flame cutting machine operator, ophthalmic surgical assistant, dance coach, pain management, and ophthalmology. At the time of this exam patient states she feels much better after receiving the IV fluids in the emergency room. She states she has had diarrhea since yesterday and nausea but no vomiting. She has been trying to drink fluids. She denies chest pain. She has exertional shortness of breath. She states her blood sugars have been elevated at home. <Shyla Bethea 06/09/20 17:32> [facility] History Medical History: Reports:: Anxiety, Arrhythmia, Asthma, Deep Vein Thrombosis (Left leg 06/2019), Diabetes Mellitus Type 1, Diabetes Mellitus Type 2, Hyperlipidemia, Hypertension, Renal Disease, Renal Insufficiency Denies:: Cancer, MRSA <Mamta Betheahy 06/09/20 17:32> *Have you ever received a pneumonia vaccine?: No <Shyla Bethea 06/09/20 17:32> *Have you received a flu vaccine this season?: Yes <Shyla Bethea 06/09/20 17:32> Other Medical History: Reports: Anemia (Received iron), Arthritis (osteo), Cataracts (Bilateral cataract removal), Fibromyalgia, Sinus Problems <Shyla Bethea 06/09/20 17:32> Laterality Cases: Right: Carpal Tunnel Release, Bilateral: Arthroscopy Knee, Arthroscopy Shoulder, Tonsillectomy <Shyla Bethea 06/09/20 17:32> Other Surgeries: Yes: Hysterectomy-Partial, Tubal Ligation, Other <Shyla Bethea 06/09/20 17:32> Amputation: No <Shyla Bethea 06/09/20 17
[2020-06-09 17:17] LABS: POC Glucose,Bedside 270 (70-110)
--- NOTE | 2020-06-09 18:54 | PC.NURSE ---
End of shift note. Patient was admitted for CHANDRAKANT. She is a/ox4. She is on RA. Patients has a 20g in RAC with NS @ 100ml/hr. Patient is a diabetic and had a blood sugar of 270 at 1600, 10units were given per sliding scale protocol. Patient denies any pain just a little discomfort in her back. Patient is wearing TEDS for VTE. Patient is independent and uses the toilet for voiding. Patient has been very pleasant. Will continue to monitor.
[2020-06-09 21:10] LABS: POC Glucose,Bedside 247 (70-110)
[2020-06-10 04:00] VITALS: BP 121/56; PULSE 70; RESP 17; TEMP 36.4; O2SAT 95
--- NOTE | 2020-06-10 04:27 | PC.NURSE ---
A&OX4. PT HAS TOLERATED RA WELL THROUGHOUT SHIFT. RESPIRATIONS REGULAR AND UNLABORED. LUNG SOUNDS BILATERALLY CLEAR. HAND ECHO VASCULAR TECH EQUAL. +2 PULSES NOTED THROUGHOUT. ACTIVE BOWEL SOUNDS HEARD IN ALL 4 QUADRANTS. SOFT AND NONTENDER ABDOMEN. NO BM REPORTED. PT VOIDS PER BATHROOM INDEPENDENTLY.NO EDEMA NOTED. SKIN CDI. NO REPORTS OF PAIN THUS FAR. NS INFUSING AT 100ML/HR. PT HAS TEDS ON. PT IS CURRENTLY LYING IN BED SLEEPING. BED IN LOWEST POSITION. CALL LIGHT WITHIN REACH. VSS. WILL CONTINUE TO MONITOR.
[2020-06-10 05:22] VITALS: BMI 28.3
[2020-06-10 05:40] LABS: POC Glucose,Bedside 210 (70-110)
[2020-06-10 06:36] LABS: Chloride 110 mmol/L (98-107); Potassium 5.1 mmoL/L (3.5-5.1); Sodium 137 mmol/L (136-145)
[2020-06-10 06:39] LABS: Creatinine Clearance Estimated 25 mL/min (50-200); Estimated Glomerular Filt Rate 18 ml/min (>60); GFR (African American) 22 ML/MIN (>60)
[2020-06-10 06:40] LABS: Anion Gap 11.1 mEq/L (5-15); Carbon Dioxide 21 mmol/L (22.0-30.0); Glucose 183 mg/dl (74-100)
[2020-06-10 07:28] LABS: Calcium 8.2 mg/dl (8.4-10.2)
[2020-06-10 08:00] VITALS: BP 108/52; PULSE 70; RESP 17; TEMP 36.8; O2SAT 98
--- NOTE | 2020-06-10 08:45 | HMH.ACPN2 ---
<Shyla Bethea - Last Filed: 06/10/20 08:45> Internal Medicine - PN: Subj *Date: 06/10/20 *Time: 08:45 Interval history: Patient did sleep during the night. After breakfast this morning she developed some abdominal discomfort with bloating. She denies chest pain and shortness of breath. She ambulates to the bathroom without difficulty. Blood chemistries this morning showed a sodium of 137 and potassium of 5.1. BUN is 87 and creatinine is down to 2.7. GFR is 18. Exam Vital signs and Labs for Last 24 Hours: Temp Pulse Resp BP Pulse Ox 97.5 F L 70 17 121/56 L 95 06/10/20 04:00 06/10/20 04:00 06/10/20 04:00 06/10/20 04:00 06/10/20 04:00 Laboratory Results - last 24 hr 06/09/20 12:34: Urine Color Yellow, Urine Appearance Clear, Urine pH 5.0, Ur Specific [place] >= 1.030, Urine Protein 2+, Urine Glucose (UA) Negative, Urine Ketones Negative, Urine Blood Negative, Urine Nitrate Negative, Urine Bilirubin Negative, Urine Urobilinogen 0.2, Ur Leukocyte Esterase Negative, Urine RBC 3-5, Urine WBC 3-5, Ur Squamous Epith Cells 3-5 06/09/20 12:34: WBC 13.5 H, RBC 4.38, Hgb 12.6, Hct 40.2, MCV 91.7, MCH 28.8, MCHC 31.4 L, RDW 16.4, Plt Count 260, MPV 8.9, Neut % (Auto) 76.3, Lymph % (Auto) 17.4, [place] % (Auto) 4.4, Eos % (Auto) 1.4, Baso % (Auto) 0.5, Neut # (Auto) 10.3 H, Lymph # (Auto) 2.3, [place] # (Auto) 0.6, Eos # (Auto) 0.2, Baso # (Auto) 0.1 06/09/20 12:34: Sodium 134 L, Potassium 5.2 H, Chloride 102, Carbon Dioxide 21 L, Anion Gap 16.2 H, BUN 86 H, Creatinine 3.90 H, Estimated Creat Clear 17, Estimated GFR 12 L*, Est GFR ( Amer) 14 L*, Glucose 276 H, Calcium 9.6, Total Bilirubin 0.5, AST 27, ALT 25, Alkaline Phosphatase 88, Troponin I 0.01, Total Protein 6.8, Albumin 4.3, Globulin 2.5, Albumin/Globulin Ratio 1.7 06/09/20 12:34: SARS-CoV-2 IgG Ab (Rapid) Negative, SARS-CoV-2 IgM Ab (Rapid) Negative 06/09/20 16:29: POC Glucose 270 H 06/09/20 20:00: POC Glucose 247 H 06/10/20 05:30: POC Glucose 210 H 06/10/20 06:18: Sodium 137, Potassium 5.1, Chloride 110 H, Carbon Dioxide 21 L, Anion Gap 11.1, BUN 87 H, Creatinine 2.70 H D, Estimated Creat Clear 25, Estimated GFR 18 L*, Est GFR ( Amer) 22 L D, Glucose 183 H D, Calcium 8.2 L D I & O for Last 24 hours: Intake & Output 06/07/20 06/08/20 06/09/20 06/10/20 11:59 11:59 11:59 11:59 Intake Total 2058 Balance 2058 Weight 166 lb 5 oz - Constitutional no acute distress - *Routine Respiratory Exam Present: CTA bilaterally (Anteriorly and posteriorly) - *Routine Cardiovascular Exam Present: RRR - *Routine Abdominal Exam Present: soft, normoactive bowel sounds, distended. Absent: tenderness - *Routine Extremities Exam Absent: edema, calf tenderness - *Routine Neurological Exam Present: alert, oriented X3 Assessment and Plan (1) Acute kidney injury Status: Acute Category: Medical Code(s): N17.9 - Acute kidney failure, unspecified (2) Acquired solitary kidney Status: Chronic Category: Medical Code(s): Z90.5 - Acquired absence of kidney (3) Dehydration Status: Acute Category: Medical Code(s): E86.0 - Dehydration (4) Headache Status: Acute Qualifiers: Headache type: unspecified Headache chronicity pattern: acute headache Intractability: not intractable Category: Medical Code(s): R51 - Headache (5) Type 2 diabetes mellitus Status: Chronic Category: Medical Code(s): E11.9 - Type 2 diabetes mellitus without complications (6) Hyperglycemia due to diabetes mellitus Status: Chronic Category: Medical Code(s): E11.65 - Type 2 diabetes mellitus with hyperglycemia (7) Rheumatoid arthritis Status: Chronic Category: Medical Code(s): M06.9 - Rheumatoid arthritis, unspecified (8) Asthma Status: Chronic Category: Medical Code(s): J45.909 - Unspecified asthma, uncomplicated (9) Allergic rhinitis Status: Chronic Category: Medical Code(s): J30.9 - Allergic rhinitis, u
--- NOTE | 2020-06-10 09:22 | P.CONPHA_ITS ---
[facility] Pharmacy VTE Monitoring - Patient Demographics Admission date: 06/09/20 Report Date: 06/10/20 Time: 09:23 Allergies/Adverse Reactions: Patient Allergies Penicillins [PENICILLINS] Allergy (Intermediate, Verified 02/10/19 12:08) I-RASH adhesive tape Allergy (Unknown, Verified 06/09/20 15:31) Unknown allergy reaction pseudoephedrine [PSEUDOEPHEDRINE] Allergy (Unknown, Verified 02/10/19 12:08) TONGUE PEELS Sulfa (Sulfonamide Antibiotics) [SULFA (SULFONAMIDE ANTIBIOTICS)] Allergy (Unknown, Verified 02/10/19 12:08) KIDNEYS Height: 1.63 m Weight: 75.438 kg Patient Problems: Current Active Problems Headache (Acute) Acute kidney injury (Acute) Dehydration (Acute) Acquired solitary kidney (Chronic) Type 2 diabetes mellitus (Chronic) Hyperglycemia due to diabetes mellitus (Chronic) Rheumatoid arthritis (Chronic) Asthma (Chronic) Allergic rhinitis (Chronic) Prerenal azotemia (Acute) - VTE Risk Labs: VTE Related Lab Results Hgb 12.6 g/dL (12.2-16.2) 06/09/20 12:34 Hct 40.2 % (37.0-47.0) 06/09/20 12:34 Plt Count 260 K/mm3 (142-424) 06/09/20 12:34 BUN 87 mg/dl (7-17) H 06/10/20 06:18 Creatinine 2.70 mg/dl (0.52-1.04) H D 06/10/20 06:18 Estimated Creat Clear 25 mL/min (50-200) 06/10/20 06:18 Was VTE Risk Assessment Performed: Yes VTE Score: 4 VTE Risk Level: Low Risk Clinical Trial Participant: No - Prophylaxis VTE Prophylaxis Ordered?: Yes Types of VTE Prophylaxis: TEDS Knee High Location of Applied Device: Bilateral Lower Extremeties
--- NOTE | 2020-06-10 09:35 | HMH.PHAINT ---
Medication reconciliation completed using pharmacy claims data and patient interview.
[2020-06-10 12:05] LABS: POC Glucose,Bedside 250 (70-110)
[2020-06-10 14:36] VITALS: BMI 28.2
[2020-06-10 14:48] LABS: Blood Urea Nitrogen 87 mg/dl (7-17)
[2020-06-10 15:41] VITALS: BP 102/66; PULSE 76; RESP 17; TEMP 36.5; O2SAT 99
[2020-06-10 16:38] LABS: POC Glucose,Bedside 207 (70-110)
--- NOTE | 2020-06-10 16:50 | PC.NURSE ---
Routine reassessment completed. No acute changes noted. Lungs CTA, Heart at RR. BS present x4 quad. Pt. denies pain and needs, will continue to monitor.
--- NOTE | 2020-06-10 19:45 | PC.NURSE ---
Report given to Martine Brown RN.
[2020-06-10 20:00] VITALS: BP 129/59; PULSE 80; RESP 18; TEMP 36.9; O2SAT 95
[2020-06-10 21:44] LABS: POC Glucose,Bedside 429 (70-110)
[2020-06-11 04:00] VITALS: BP 138/72; PULSE 70; RESP 17; TEMP 36.5; O2SAT 93
--- NOTE | 2020-06-11 04:12 | PC.NURSE ---
Pt is alert and oriented. Pt rested well with eyes closed this shift thus far. No acute changes noted from previous shift. Follows commands appropriately. Tolerated RA well with no c/o SOA. RR noted even and unlabored. Bilateral lungs noted clear t/o upon auscultation. C/o of mild abdominal discomfort with palpation to lower abdomen. Denies N/V/D. No edema noted. TEDS noted to BLE. Tolerates independent ambulation in room well. VSS. Remains safe. Call light within reach. Will continue to monitor.
[2020-06-11 05:37] VITALS: BMI 29.0
[2020-06-11 06:00] LABS: POC Glucose,Bedside 192 (70-110)
[2020-06-11 06:50] LABS: Basophils # 0.1 K/mm3 (0-0.2); Basophils % 0.5 % (0.1-2.0); Eosinophils # 0.3 K/mm3 (0.0-0.4); Eosinophils % 2.9 % (0.1-12.0); Hematocrit 33.5 % (37.0-47.0); Hemoglobin 10.5 g/dL (12.2-16.2); Lymphocytes # 2.3 K/mm3 (0.7-4.5); Lymphocytes % 25.9 % (10-50); Mean Corpuscular HGB Conc 31.3 g/dL (31.8-35.4); Mean Corpuscular Hemoglobin 28.9 pg (27.0-31.2); Mean Corpuscular Volume 92.4 fl (81-99); Mean Platelet Volume 9.2 fl (7.4-10.4); Monocytes # 0.5 K/mm3 (0.1-1.0); Monocytes % 5.6 % (1.7-9.3); Neutrophils # 5.6 K/mm3 (1.8-7.8); Neutrophils % 65.1 % (37.0-80.0); Platelet Count 156 K/mm3 (142-424); Red Blood Count 3.63 M/mm3 (4.20-5.40); Red Cell Distribution Width 16.2 % (11.5-17.5); White Blood Count 8.7 K/mm3 (4.8-10.8)
[2020-06-11 06:55] LABS: Chloride 112 mmol/L (98-107); Potassium 4.7 mmoL/L (3.5-5.1); Sodium 139 mmol/L (136-145)
[2020-06-11 06:58] LABS: Anion Gap 10.7 mEq/L (5-15); Blood Urea Nitrogen 67 mg/dl (7-17); Carbon Dioxide 21 mmol/L (22.0-30.0); Creatinine Clearance Estimated 30 mL/min (50-200); Estimated Glomerular Filt Rate 21 ml/min (>60); GFR (African American) 26 ML/MIN (>60)
[2020-06-11 06:59] LABS: Calcium 7.8 mg/dl (8.4-10.2); Glucose 208 mg/dl (74-100)
[2020-06-11 08:00] VITALS: BP 165/65; PULSE 71; RESP 16; TEMP 36.8; O2SAT 99
--- NOTE | 2020-06-11 08:45 | HMH.ACPN2 ---
<Felisa Tabor - Last Filed: 06/11/20 08:45> Internal Medicine - PN: Subj *Date: 06/11/20 *Time: 08:45 Interval history: Patient states she is feeling better today. This is the first day she has been up and moving around her room. She slept better last night and ate a good breakfast this morning. Exam Vital signs and Labs for Last 24 Hours: Temp Pulse Resp BP Pulse Ox 97.7 F 70 17 138/72 93 L 06/11/20 04:00 06/11/20 04:00 06/11/20 04:00 06/11/20 04:00 06/11/20 04:00 Laboratory Results - last 24 hr 06/10/20 06:18: BUN 87 H 06/10/20 11:43: POC Glucose 250 H 06/10/20 16:12: POC Glucose 207 H 06/10/20 21:28: POC Glucose 429 H* 06/11/20 05:43: POC Glucose 192 H 06/11/20 06:16: WBC 8.7 D, RBC 3.63 L, Hgb 10.5 L, Hct 33.5 L, MCV 92.4, MCH 28.9, MCHC 31.3 L, RDW 16.2, Plt Count 156 D, MPV 9.2, Neut % (Auto) 65.1, Lymph % (Auto) 25.9, [place] % (Auto) 5.6, Eos % (Auto) 2.9, Baso % (Auto) 0.5, Neut # (Auto) 5.6, Lymph # (Auto) 2.3, [place] # (Auto) 0.5, Eos # (Auto) 0.3, Baso # (Auto) 0.1 06/11/20 06:16: Sodium 139, Potassium 4.7, Chloride 112 H, Carbon Dioxide 21 L, Anion Gap 10.7, BUN 67 H, Creatinine 2.30 H, Estimated Creat Clear 30, Estimated GFR 21 L, Est GFR ( Amer) 26 L, Glucose 208 H, Calcium 7.8 L I & O for Last 24 hours: Intake & Output 06/08/20 06/09/20 06/10/20 06/11/20 11:59 11:59 11:59 11:59 Intake Total 2419 / 2419 1863 / 1863 Output Total 1500 / 1500 Balance 2419 / 2419 363 / 363 Weight 166 lb 5 oz 170 lb 2 oz - Constitutional no acute distress - *Routine Respiratory Exam Present: CTA bilaterally - *Routine Cardiovascular Exam Present: RRR - *Routine Abdominal Exam Present: soft, normoactive bowel sounds. Absent: tenderness - *Routine Extremities Exam Absent: cyanosis, clubbing, edema - *Routine Skin Exam Present: warm. Absent: rash - *Routine Neurological Exam Present: alert, oriented X3 Assessment and Plan (1) Acute kidney injury Status: Acute Category: Medical Code(s): N17.9 - Acute kidney failure, unspecified (2) Acquired solitary kidney Status: Chronic Category: Medical Code(s): Z90.5 - Acquired absence of kidney (3) Dehydration Status: Acute Category: Medical Code(s): E86.0 - Dehydration (4) Headache Status: Acute Qualifiers: Headache type: unspecified Headache chronicity pattern: acute headache Intractability: not intractable Category: Medical Code(s): R51 - Headache (5) Type 2 diabetes mellitus Status: Chronic Category: Medical Code(s): E11.9 - Type 2 diabetes mellitus without complications (6) Hyperglycemia due to diabetes mellitus Status: Chronic Category: Medical Code(s): E11.65 - Type 2 diabetes mellitus with hyperglycemia (7) Rheumatoid arthritis Status: Chronic Category: Medical Code(s): M06.9 - Rheumatoid arthritis, unspecified (8) Asthma Status: Chronic Category: Medical Code(s): J45.909 - Unspecified asthma, uncomplicated (9) Allergic rhinitis Status: Chronic Category: Medical Code(s): J30.9 - Allergic rhinitis, unspecified (10) Prerenal azotemia Status: Acute Category: Medical Code(s): R79.89 - Other specified abnormal findings of blood chemistry - Assessment and plan all Dx Assessment and Plan for all problems:: Patient's creatinine is still elevated. We will continue IV fluids and recheck function tomorrow. <Amaury Knight - Last Filed: 06/11/20 09:41> Internal Medicine - PN: Subj *Date: 06/11/20 *Time: 09:39 Exam Vital signs and Labs for Last 24 Hours: Temp Pulse Resp BP Pulse Ox 97.7 F 70 17 138/72 93 L 06/11/20 04:00 06/11/20 04:00 06/11/20 04:00 06/11/20 04:00 06/11/20 04:00 Laboratory Results - last 24 hr 06/10/20 06:18: BUN 87 H 06/10/20 11:43: POC Glucose 250 H 06/10/20 16:12: POC Glucose 207 H 06/10/20 21:28: POC Glucose 429 H* 06/11/20 05:43: POC Glucose 192 H 06/11/20 06:16: WBC 8.7 D
[2020-06-11 11:49] LABS: POC Glucose,Bedside 313 (70-110)
[2020-06-11 16:00] VITALS: BP 145/72; PULSE 79; RESP 16; TEMP 36.8; O2SAT 97
[2020-06-11 16:22] LABS: POC Glucose,Bedside 256 (70-110)
--- NOTE | 2020-06-11 17:44 | PC.NURSE ---
patient has done well this shift. independent in room. continues with fluids. vitals stable. no complaints. fsbs has been coming down. brought home insulin and it was packaged by pharmacy. everything remains within normal limits. will continue to monitor.
[2020-06-11 20:00] VITALS: BP 147/74; PULSE 80; RESP 16; TEMP 36.6; O2SAT 100
[2020-06-11 21:45] VITALS: O2SAT 100
[2020-06-11 21:57] LABS: POC Glucose,Bedside 366 (70-110)
--- NOTE | 2020-06-12 03:56 | PC.NURSE ---
A&OX4. PT HAS TOLERATED RA WELL THROUGHOUT SHIFT. RESPIRATIONS REGULAR AND UNLABORED. LUNG SOUNDS BILATERALLY CLEAR. 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 +2 PULSES NOTED THROUGHOUT. ACTIVE BOWEL SOUNDS HEARD IN ALL 4 QUADRANTS. SOFT AND NONTENDER ABDOMEN. NO BM REPORTED. PT VOIDS PER BATHROOM INDEPENDENTLY. CLEAR YELLOW URINE NOTED. NO EDEMA NOTED. SKIN CDI. NO REPORTS OF PAIN THUS FAR. NS INFUSING AT 100ML/HR. PT HAS TEDS ON. IV WAS LEAKING AND A NEW ONE WAS INSERTED. PT TOLERATED WELL. PT IS CURRENTLY LYING IN BED SLEEPING. BED IN LOWEST POSITION. CALL LIGHT WITHIN REACH. VSS. WILL CONTINUE TO MONITOR
[2020-06-12 04:00] VITALS: BP 171/85; PULSE 76; RESP 16; TEMP 36.7; O2SAT 97
[2020-06-12 05:00] VITALS: BMI 29.9
[2020-06-12 06:04] LABS: POC Glucose,Bedside 102 (70-110)
[2020-06-12 07:16] LABS: Chloride 116 mmol/L (98-107); Sodium 141 mmol/L (136-145)
[2020-06-12 07:19] LABS: Blood Urea Nitrogen 59 mg/dl (7-17); Creatinine Clearance Estimated 43 mL/min (50-200); Estimated Glomerular Filt Rate 30 ml/min (>60); GFR (African American) 37 ML/MIN (>60)
[2020-06-12 07:20] LABS: Carbon Dioxide 20 mmol/L (22.0-30.0); Glucose 103 mg/dl (74-100)
[2020-06-12 08:00] VITALS: BP 159/78; PULSE 68; RESP 18; TEMP 36.6; O2SAT 99
--- NOTE | 2020-06-12 08:49 | HMH.ACPN2 ---
<Felisa Tabor - Last Filed: 06/12/20 08:49> Internal Medicine - PN: Subj *Date: 06/12/20 *Time: 08:49 Interval history: Patient states she is feeling much better today. She has been up and moving around her room. Her weakness has improved. She is eating well and denies any pain and is anxious to go home. Exam Vital signs and Labs for Last 24 Hours: Temp Pulse Resp BP Pulse Ox 98.1 F 76 16 171/85 H 97 06/12/20 04:00 06/12/20 04:00 06/12/20 04:00 06/12/20 04:00 06/12/20 04:00 Laboratory Results - last 24 hr 06/11/20 11:35: POC Glucose 313 H* 06/11/20 16:08: POC Glucose 256 H 06/11/20 21:40: POC Glucose 366 H* 06/12/20 05:57: POC Glucose 102 06/12/20 06:35: Sodium 141, Potassium 5.0, Chloride 116 H, Carbon Dioxide 20 L, Anion Gap 10.0, BUN 59 H, Creatinine 1.70 H D, Estimated Creat Clear 43, Estimated GFR 30 L, Est GFR ( Amer) 37 L D, Glucose 103 H, Calcium 8.0 L I & O for Last 24 hours: Intake & Output 06/09/20 06/10/20 06/11/20 06/12/20 11:59 11:59 11:59 11:59 Intake Total 2419 / 2419 2343 / 2343 3374 / 3374 Output Total 1500 / 1500 1050 / 1050 Balance 2419 / 2419 843 / 843 2324 / 2324 Weight 166 lb 5 oz 170 lb 2 oz 175 lb 6.4 oz - Constitutional no acute distress - *Routine Respiratory Exam Present: CTA bilaterally - *Routine Cardiovascular Exam Present: RRR - *Routine Abdominal Exam Present: soft, normoactive bowel sounds. Absent: tenderness - *Routine Extremities Exam Absent: cyanosis, clubbing, edema - *Routine Skin Exam Present: warm. Absent: rash - *Routine Neurological Exam Present: alert, oriented X3 Assessment and Plan (1) Acute kidney injury Status: Acute Category: Medical Code(s): N17.9 - Acute kidney failure, unspecified (2) Acquired solitary kidney Status: Chronic Category: Medical Code(s): Z90.5 - Acquired absence of kidney (3) Dehydration Status: Acute Category: Medical Code(s): E86.0 - Dehydration (4) Headache Status: Acute Qualifiers: Headache type: unspecified Headache chronicity pattern: acute headache Intractability: not intractable Category: Medical Code(s): R51 - Headache (5) Type 2 diabetes mellitus Status: Chronic Category: Medical Code(s): E11.9 - Type 2 diabetes mellitus without complications (6) Hyperglycemia due to diabetes mellitus Status: Chronic Category: Medical Code(s): E11.65 - Type 2 diabetes mellitus with hyperglycemia (7) Rheumatoid arthritis Status: Chronic Category: Medical Code(s): M06.9 - Rheumatoid arthritis, unspecified (8) Asthma Status: Chronic Category: Medical Code(s): J45.909 - Unspecified asthma, uncomplicated (9) Allergic rhinitis Status: Chronic Category: Medical Code(s): J30.9 - Allergic rhinitis, unspecified (10) Prerenal azotemia Status: Acute Category: Medical Code(s): R79.89 - Other specified abnormal findings of blood chemistry - Assessment and plan all Dx Assessment and Plan for all problems:: Patient's creatinine has improved and she is stable to be discharged home. <Amaury Knight - Last Filed: 06/12/20 15:22> Internal Medicine - PN: Subj *Date: 06/12/20 *Time: 15:22 Exam Vital signs and Labs for Last 24 Hours: Temp Pulse Resp BP Pulse Ox 97.9 F 68 18 159/78 H 99 06/12/20 08:00 06/12/20 08:00 06/12/20 08:00 06/12/20 08:00 06/12/20 08:00 Laboratory Results - last 24 hr 06/11/20 16:08: POC Glucose 256 H 06/11/20 21:40: POC Glucose 366 H* 06/12/20 05:57: POC Glucose 102 06/12/20 06:35: Sodium 141, Potassium 5.0, Chloride 116 H, Carbon Dioxide 20 L, Anion Gap 10.0, BUN 59 H, Creatinine 1.70 H D, Estimated Creat Clear 43, Estimated GFR 30 L, Est GFR ( Amer) 37 L D, Glucose 103 H, Calcium 8.0 L I & O for Last 24 hours: Intake & Output 06/10/20 06/11/20 06/12/20 06/13/20 11:59 11:59 11:59 11:59 Intake Total 2419 / 2419 2343 / 2343 3734 / 3734 Output
--- NOTE | 2020-06-12 12:33 | HMH.DCSUM ---
General - General Admission date:: 06/09/20 <Amaury Knight - 07/05/20 21:55> 06/09/20 <Felisa Tabor - 06/12/20 12:40> Discharge date: 06/12/20 <Felisa Tabor - 06/12/20 12:40> HPI HPI: Ms. Murry is a 64-year-old female with a history of type 2 diabetes mellitus, kidney disease with right nephrectomy in 1999, fibromyalgia, arthritis, tendinitis in the left shoulder, irritable bowel syndrome, asthma, allergic rhinitis, rheumatoid arthritis, and factor 5 Leiden deficiency who initially presented to urgent treatment center not feeling well for about a week. She was then transferred over to the emergency room for evaluation. The following is from [facility] narrative.: Sent from the urgent treatment center. She says she has not felt right for a week. Her main symptoms today seem to be dizziness and weakness. No focal weakness, just generalized weakness. She describes her dizziness as both feeling like she is off balance when she tries to walk but also a sensation of presyncope. She has no loss of vision. She told the nurse that she sometimes sees random things at home, like visual hallucinations, frogs and other objects. She denies headache. However, she says she hurts all over. No specific chest pain or shortness of breath. No numbness or weakness of the extremities except for generalized weakness. No difficulty speaking. She has chronic tinnitus in her ear for years, has seen ear nose and throat for this. She also has some chronic complaints. States that she gets intermittent right upper quadrant pain. She has irritable bowel syndrome and gets constipation and diarrhea. She has chronic pain in her left hip and uses Voltaren gel. Chronic tinnitus as noted above. With evaluation in the emergency room CBC showed an elevated white blood cell count at 13,500 with a hemoglobin of 12.6 and hematocrit of 40.2. Differential was normal. Blood chemistries showed sodium of 134, potassium of 5.2, BUN 86 and a creatinine of 3.9. Her estimated GFR was 12. Blood sugar was 276. Liver function studies were all normal and troponin I was 0.01. Her urine showed 2+ protein. Covid IgG and IgM were both negative. Chest x-ray showed no change with no acute finding. CT of the brain without contrast revealed no acute intracranial finding. On admission to the ER blood pressure was noted to be 80/63. Been improved to 129/69. She was given a liter of IV fluids bolus and started on normal saline at 100 an hour. She was then admitted for further evaluation and treatment. To note: Patient is followed by an collision repair technician, manager financial, labor and employment paralegal, sanitation worker, pain management, and ophthalmology. At the time of this exam patient states she feels much better after receiving the IV fluids in the emergency room. She states she has had diarrhea since yesterday and nausea but no vomiting. She has been trying to drink fluids. She denies chest pain. She has exertional shortness of breath. She states her blood sugars have been elevated at home. <Felisa Tabor - 06/12/20 12:40> Hospital Course Hospital Course: Patient was admitted and started on IV fluids. It was felt her acute symptoms were likely related to prerenal azotemia. She felt better after her first liter of fluids. Labs were repeated and did improve. Her head CT showed nothing acute as did her chest x-ray. She was able to began eating and ambulate without difficulty. Her azotemia improved but her renal functions were not quite back to baseline. She was kept for another few days on IV fluids and by 06/12/2020, her BUN was down to 59 and her creatinine was down to 1.70. She was felt stable to be discharged home. <Felisa Tabor - 06/12/20 12:40> Objective Vital signs: Temp Pulse Resp BP Pulse Ox 97.9 F 68 18 159/78 H 99 06/12/20 08:00 06/12/20 08:00 06/12/20 08:00 06/12/20 08:00 06/12/20 08:00 <Amaury Knight -
== END 2020-06-12 09:26 | disposition home or self-care (01) ==
LOC: UTC 11:57 → ER 12:27 → 2ND 15:40
PROVIDERS: Emergency Medicine; Admitting Provider Family Medicine; Emergency Provider Nurse Practitioner; PCP Family Medicine; Visit Provider Family Medicine
DX: N17.9 Acute kidney failure, unspecified (principal); Z90.5 Acquired absence of kidney; E11.65 Type 2 diabetes mellitus with hyperglycemia; M06.9 Rheumatoid arthritis, unspecified; E86.0 Dehydration; I10 Essential (primary) hypertension; D68.51 Activated protein C resistance; E78.5 Hyperlipidemia, unspecified; Z88.0 Allergy status to penicillin; Z88.2 Allergy status to sulfonamides; Z88.8 Allergy status to other drugs, medicaments and biological substances; Z79.51 Long term (current) use of inhaled steroids; Z79.52 Long term (current) use of systemic steroids; Z79.4 Long term (current) use of insulin; Z79.82 Long term (current) use of aspirin; Z79.899 Other long term (current) drug therapy
CPT/HCPCS: 36415; 70450; 71046; 80048; 80053; 81001; 82962; 84484; 85025; 86328; 93005; 96365; 99284; G0378

== ENCOUNTER → 2020-07-02 16:47 | Outpatient (CLI) | payer MEDICARE, SELFPAY ==
[2020-07-02 17:07] LABS: Basophils % 0.4 % (0.1-2.0); Eosinophils # 0.4 K/mm3 (0.0-0.4); Eosinophils % 3.8 % (0.1-12.0); Hematocrit 40.8 % (37.0-47.0); Hemoglobin 12.3 g/dL (12.2-16.2); Lymphocytes # 1.7 K/mm3 (0.7-4.5); Lymphocytes % 16.8 % (10-50); Mean Corpuscular HGB Conc 30.2 g/dL (31.8-35.4); Mean Corpuscular Hemoglobin 27.4 pg (27.0-31.2); Mean Corpuscular Volume 90.6 fl (81-99); Mean Platelet Volume 8.2 fl (7.4-10.4); Monocytes # 0.6 K/mm3 (0.1-1.0); Neutrophils # 7.6 K/mm3 (1.8-7.8); Neutrophils % 73.1 % (37.0-80.0); Platelet Count 247 K/mm3 (142-424); Red Blood Count 4.51 M/mm3 (4.20-5.40); Red Cell Distribution Width 16.4 % (11.5-17.5); White Blood Count 10.4 K/mm3 (4.8-10.8)
[2020-07-02 17:30] LABS: Blood Urea Nitrogen 46 mg/dl (7-17); Calcium 9.5 mg/dl (8.4-10.2); Carbon Dioxide 21 mmol/L (22.0-30.0); Chloride 110 mmol/L (98-107); Estimated Glomerular Filt Rate 27 ml/min (>60); GFR (African American) 32 ML/MIN (>60); Glucose 169 mg/dl (74-100); Phosphorous 3.4 mg/dl (2.5-4.5); Sodium 140 mmol/L (136-145); Uric Acid 5.5 mg/dl (2.5-6.2)
== END ==
PROVIDERS: Visit Provider Internal Medicine Nephrology
DX: N18.30 Chronic kidney disease, stage 3 unspecified (principal)
CPT/HCPCS: 36415; 80048; 80069; 84550; 85025

== ENCOUNTER → 2020-07-13 14:57 | Outpatient (CLI) | payer MEDICARE, SELFPAY | PROVIDERS: PCP Family Medicine; Visit Provider Family Medicine | DX: Z20.822 Contact with and (suspected) exposure to COVID-19 (principal); U07.1 COVID-19 | CPT/HCPCS: U0003 ==

== ENCOUNTER 2020-07-23 16:01 | Emergency (ER) | payer MEDICARE, SELFPAY ==
[2020-07-23] VITALS (7 sets, daily range): BP systolic 131–189; BP diastolic 61–83; PULSE 61–82; RESP 17–20; TEMP 37.2; O2SAT 95–100; BMI 29.2
--- NOTE | 2020-07-23 16:33 | CT_ITS ---
PROCEDURE: CT HEAD/BRAIN WO CON CLINICAL INDICATION: headache worse than any previous Left-sided headache COMPARISON: CT CT HEAD/BRAIN WO CON from 06/09/2020 TECHNIQUE: Axial images obtained. All CT scans at the facility use one or more dose reduction, viz: automated exposure control, ma/kV adjustment per patient size (including targeted exams where dose is matched to indication, i.e. head), or iterative reconstruction technique. FINDINGS: No midline shift, mass effect, intracranial hemorrhage, hydrocephalus, or extra-axial fluid collection is evident. Subacute right occipital cortical infarction the right posterior cerebral artery distribution and has developed since 06/09/2020. There also mild encephalomalacia change in the left frontal parietal junction. The calvarium has an unremarkable appearance. No mastoid effusion. No sinus air-fluid level. IMPRESSION: Subacute right occipital cortical infarct which has developed since 06/09/2020 Dictated by: Leonel Allan MD 07/23/2020 20:43 Leonel Allan MD in [place] 07/23/2020 20:43
--- NOTE | 2020-07-23 16:34 | HMH.EDEYEP ---
ED Disposition Clinical Impression: Occipital infarction Disposition: Xfer Short-Term Hosp Condition on Discharge: Fair Referrals: Amaury Knight MD [Primary Care Provider] - Time of Disposition: 19:39 - Critical Care Critical Care Time: No Attestation: On 07/23/20, the high probability of a clinically significant, sudden or life threatening deterioration of the following system(s) required my full and direct attention, intervention and personal management. The time I documented below is in addition to time spent performing reported procedures but includes the following listed in this critical care notation. Medical Decision Making - Medical Records Medical records reviewed: Yes: I reviewed the patient's medical records. MR Comment: 64 year old female here with C/O PERIODICALLY DARK SHADOWING ON HER LEFT EYE FOR APPROX ABOUT A WEEK. She has already had a CT scan about a month ago for the same problem and this showed no acute findings; She is unable to see an eye doctor because of Covid 19. Hence she came to the ER as she wanted a head CT. CT of the head today showed the following subacute right occipital cortical infarct, right posterior cerebral distribution. New from comparison of 06/09/2020. Vital signs are stable at this time; I spoke to Dr. Rudea at [facility] stroke team and he has accepted patient; patient will be transferred by ambulance, as a full work-up will be done at and hence he advised we do not need to do further work-up at this time - Domenico Inquiry Pt receiving controlled substance: No Vital Signs: 07/23/20 16:02 07/23/20 16:29 07/23/20 16:36 Temperature 98.9 F Temperature Source Oral Pulse Rate [Left Radial] 82 79 73 Respiratory Rate 20 Blood Pressure [Right Arm] 160/75 H 167/75 H 167/75 H Blood Pressure Mean [Right Arm] 103 105 105 Blood Pressure Source [Right Arm] Automatic Cuff Automatic Cuff Automatic Cuff Blood Pressure Position [Right Arm] Sitting Sitting Sitting 02 Sat by Pulse Oximetry 97 100 95 Oxygen Delivery Method Room Air Room Air Room Air 07/23/20 17:23 07/23/20 18:36 Temperature Temperature Source Pulse Rate [Left Radial] 69 61 Respiratory Rate Blood Pressure [Right Arm] 131/61 166/73 H Blood Pressure Mean [Right Arm] 84 104 Blood Pressure Source [Right Arm] Automatic Cuff Automatic Cuff Blood Pressure Position [Right Arm] Sitting Sitting 02 Sat by Pulse Oximetry 96 98 Oxygen Delivery Method Room Air Room Air - Lab Data Lab results reviewed: Yes: I reviewed the patient's lab results. Lab Results 07/23/20 19:15: WBC 10.5, RBC 4.23, Hgb 11.1 L, Hct 37.7, MCV 89.3, MCH 26.3 L, MCHC 29.5 L, RDW 16.1, Plt Count 239, MPV 8.1, Neut % (Auto) 80.2 H, Lymph % (Auto) 13.3, [place] % (Auto) 3.4, Eos % (Auto) 2.3, Baso % (Auto) 0.9, Neut # (Auto) 8.5 H, Lymph # (Auto) 1.4, [place] # (Auto) 0.4, Eos # (Auto) 0.3, Baso # (Auto) 0.1 07/23/20 19:15: Sodium 140, Potassium 5.6 H, Chloride 109 H, Carbon Dioxide 26, Anion Gap 10.6, BUN 38 H, Creatinine 1.90 H, Estimated Creat Clear 37, Estimated GFR 27 L, Est GFR ( Amer) 32 L, Glucose 100, Calcium 9.6, Total Bilirubin 0.5, AST 30, ALT 19, Alkaline Phosphatase 81, Total Protein 7.0, Albumin 4.2, Globulin 2.8, Albumin/Globulin Ratio 1.5 Result diagrams: 07/23/20 19:15 07/23/20 19:15 Orders (Tests/Meds): ED MEDICATIONS Discontinued Medications Generic Name Dose Route Start Last Admin Trade Name Rosalba PRN Reason Stop Dose Admin Ketorolac Tromethamine 60 mg 07/23/20 16:38 07/23/20 17:04 Ketorolac 60mg/2ml Vial IM 07/23/20 16:39 60 mg ONCE ONE Administration ORDERS Category Date Time Status CT head/brain wo con Stat Cat Scan 07/23/20 16:33 Taken Comprehensive Metabolic Panel Stat Lab 07/23/20 19:15 Results Renal Function Panel Routine Lab 07/23/20 19:15 Received Troponin I Stat Lab 07/23/20 19:15 Results EKG Request [ECG Request by /Nse] Stat Y 07/23/20
--- NOTE | 2020-07-23 17:07 | PC.NURSE ---
WENT IN AND SPOKE WITH PT REGARDING HER REFUSAL OF HER CT SCAN SHE IS JUST CONCERNED THAT SHE NEEDS A PRECERT I ADVISED HER WE DID NOT DUE PRECERTS IN THE ER AND INSURANCES DID NOT REQUIRE THEM SO I DID ADVISE HER I COULD NOT GUARANTEE HER WHAT INSURANCE WOULD PAY. SHE HAS DECIDED THAT SHE WANTS THE CT SO RADIOLOGY CALLED BACK
--- NOTE | 2020-07-23 17:57 | PC.NURSE ---
pt to rad
--- NOTE | 2020-07-23 18:22 | PC.NURSE ---
MD AWARE OF CT SCAN RESULTS FROM [facility].
--- NOTE | 2020-07-23 19:22 | PC.NURSE ---
call out to [facility] MD Stroke team
[2020-07-23 19:25] LABS: Basophils # 0.1 K/mm3 (0-0.2); Basophils % 0.9 % (0.1-2.0); Eosinophils # 0.3 K/mm3 (0.0-0.4); Eosinophils % 2.3 % (0.1-12.0); Hematocrit 37.7 % (37.0-47.0); Hemoglobin 11.1 g/dL (12.2-16.2); Lymphocytes # 1.4 K/mm3 (0.7-4.5); Lymphocytes % 13.3 % (10-50); Mean Corpuscular HGB Conc 29.5 g/dL (31.8-35.4); Mean Corpuscular Hemoglobin 26.3 pg (27.0-31.2); Mean Corpuscular Volume 89.3 fl (81-99); Mean Platelet Volume 8.1 fl (7.4-10.4); Monocytes # 0.4 K/mm3 (0.1-1.0); Monocytes % 3.4 % (1.7-9.3); Neutrophils # 8.5 K/mm3 (1.8-7.8); Neutrophils % 80.2 % (37.0-80.0); Platelet Count 239 K/mm3 (142-424); Red Blood Count 4.23 M/mm3 (4.20-5.40); Red Cell Distribution Width 16.1 % (11.5-17.5); White Blood Count 10.5 K/mm3 (4.8-10.8)
--- NOTE | 2020-07-23 19:25 | PC.NURSE ---
on the phone with
[2020-07-23 19:28] LABS: Chloride 109 mmol/L (98-107); Potassium 5.6 mmoL/L (3.5-5.1); Sodium 140 mmol/L (136-145)
[2020-07-23 19:30] LABS: Alanine Aminotransferase 19 U/L (12-78); Aspartate Amino Transferase 30 U/L (14-36); Blood Urea Nitrogen 38 mg/dl (7-17); Creatinine Clearance Estimated 37 mL/min (50-200); Estimated Glomerular Filt Rate 27 ml/min (>60); GFR (African American) 32 ML/MIN (>60)
--- NOTE | 2020-07-23 19:30 | PC.NURSE ---
GLUCOSE 73, ORANGE JUICE GIVEN TO PT. PT SITTING ON THE BED DRINKING OJ WITH NO COMPLAINTS AT THIS TIME. REPORT GIVEN TO Kathy SHAW RN
[2020-07-23 19:31] LABS: Albumin Level 4.2 g/dl (3.5-5.0); Albumin/Globulin Ratio 1.5 (1.1-1.8); Alkaline Phosphatase 81 U/L (38-126); Anion Gap 10.6 mEq/L (5-15); Bilirubin,Total 0.5 mg/dl (0.2-1.3); Calcium 9.6 mg/dl (8.4-10.2); Carbon Dioxide 26 mmol/L (22.0-30.0); Globulin 2.8 g/dL (1.3-3.2); Glucose 100 mg/dl (74-100)
[2020-07-23 19:42] LABS: Albumin Level 3.9 g/dl (3.5-5.0); Chloride 109 mmol/L (98-107); Potassium 5.8 mmoL/L (3.5-5.1); Sodium 141 mmol/L (136-145)
[2020-07-23 19:43] LABS: Troponin I < 0.01 ng/ml (0.00-0.034)
[2020-07-23 19:45] LABS: Anion Gap 11.8 mEq/L (5-15); Blood Urea Nitrogen 38 mg/dl (7-17); Calcium 9.5 mg/dl (8.4-10.2); Carbon Dioxide 26 mmol/L (22.0-30.0); Creatinine Clearance Estimated 37 mL/min (50-200); Estimated Glomerular Filt Rate 27 ml/min (>60); GFR (African American) 32 ML/MIN (>60); Glucose 96 mg/dl (74-100); Phosphorous 4.7 mg/dl (2.5-4.5)
--- NOTE | 2020-07-23 20:02 | ECG_ITS ---
APPROVED REPORT Exam: Resting ECG HR:66 bpm ECG Measurements Heart Rate 66 AXES WA 152 P 30 QRSd 98 QRS -27 QT 414 T 12 QTc 434 Conclusion Normal sinus rhythm Minimal voltage criteria for LVH, may be normal variant Borderline ECG Electronically signed by : Kenny Sylvester, 07/24/2020 18:05:37
--- NOTE | 2020-07-23 20:20 | PC.NURSE ---
called [facility] for transfer
[2020-07-23 20:43] LABS: POC Glucose,Bedside 73 (70-110)
== END 2020-07-23 20:41 | disposition short-term general hospital (02) ==
PROVIDERS: Internal Medicine Nephrology; Emergency Provider Emergency Medicine; PCP Family Medicine
DX: I63.9 Cerebral infarction, unspecified (principal); I10 Essential (primary) hypertension; E78.5 Hyperlipidemia, unspecified; F41.9 Anxiety disorder, unspecified; E11.9 Type 2 diabetes mellitus without complications; Z79.4 Long term (current) use of insulin; Z79.899 Other long term (current) drug therapy; R29.715 NIHSS score 15
CPT/HCPCS: 70450; 80053; 80069; 82962; 84484; 85025; 93005; 96372; 99284

== ENCOUNTER → 2020-08-31 13:33 | Outpatient (CLI) | payer MEDICARE, SELFPAY | PROVIDERS: PCP Family Medicine; Visit Provider Physician Assistant Medical | DX: I63.89 Other cerebral infarction (principal) | CPT/HCPCS: 93270; 93306 ==

== ENCOUNTER → 2020-09-09 07:49 | Outpatient (CLI) | payer MEDICARE, SELFPAY ==
[2020-09-09 07:52] LABS: Microscopic, Urine URINE MICROSCOPIC (MICROSCOPIC)
[2020-09-09 08:24] LABS: Basophils # 0.1 K/mm3 (0-0.2); Eosinophils # 0.5 K/mm3 (0.0-0.4); Eosinophils % 5.3 % (0.1-12.0); Hematocrit 37.8 % (37.0-47.0); Hemoglobin 11.1 g/dL (12.2-16.2); Lymphocytes # 3.3 K/mm3 (0.7-4.5); Lymphocytes % 35.5 % (10-50); Mean Corpuscular HGB Conc 29.5 g/dL (31.8-35.4); Mean Corpuscular Hemoglobin 26.3 pg (27.0-31.2); Mean Corpuscular Volume 89.1 fl (81-99); Mean Platelet Volume 8.1 fl (7.4-10.4); Monocytes # 0.6 K/mm3 (0.1-1.0); Monocytes % 6.4 % (1.7-9.3); Neutrophils # 4.8 K/mm3 (1.8-7.8); Neutrophils % 51.8 % (37.0-80.0); Platelet Count 227 K/mm3 (142-424); Red Blood Count 4.24 M/mm3 (4.20-5.40); Red Cell Distribution Width 16.4 % (11.5-17.5); White Blood Count 9.2 K/mm3 (4.8-10.8)
[2020-09-09 08:27] LABS: Appearance,Urine CLEAR (Clear); Bilirubin,Urine Negative (Negative); Blood, Urine Negative (Negative); Color,Urine YELLOW (Yellow); Glucose,Urine (UA) Negative (Negative); Ketones,Urine Negative (Negative); Leukocyte Esterase,Urine Negative (Negative); Nitrate,Urine Negative (Negative); Protein,Urine 1+ (Negative); Specific Gravity, Urine >= 1.030 (1.005-1.030); Urobilinogen,Urine 0.2 EU/dl (0.2)
[2020-09-09 08:43] LABS: Creatinine,Urine Random 138 mg/dL (Not Estab.)
[2020-09-09 08:45] LABS: WBC,Urine Occasional #/hpf (0-3)
[2020-09-09 09:00] LABS: Anion Gap 11.8 mEq/L (5-15); Blood Urea Nitrogen 37 mg/dl (7-17); Calcium 9.6 mg/dl (8.4-10.2); Carbon Dioxide 26 mmol/L (22.0-30.0); Chloride 110 mmol/L (98-107); Estimated Glomerular Filt Rate 28 ml/min (>60); GFR (African American) 34 ML/MIN (>60); Glucose 127 mg/dl (74-100); Phosphorous 4.9 mg/dl (2.5-4.5); Potassium 4.8 mmoL/L (3.5-5.1); Sodium 143 mmol/L (136-145)
[2020-09-09 09:12] LABS: Intact Parathyroid Hormone 86.7 pg/mL (7.5-53.5)
[2020-09-09 09:17] LABS: 25-OH Vitamin D, Total 61.3 ng/mL (30-100)
== END ==
PROVIDERS: Visit Provider Internal Medicine Nephrology
DX: N18.30 Chronic kidney disease, stage 3 unspecified (principal)
CPT/HCPCS: 36415; 80069; 81001; 82306; 82570; 83970; 84155; 85025

== ENCOUNTER 2020-09-16 14:54 | Emergency (ER) | payer MEDICARE, SELFPAY ==
[2020-09-16] VITALS (14 sets, daily range): BP systolic 145–195; BP diastolic 60–91; PULSE 72–86; RESP 16–18; TEMP 36.6–36.7; O2SAT 92–100; BMI 29.2
--- NOTE | 2020-09-16 14:57 | CT_ITS ---
PROCEDURE: CT CERVICAL SPINE WO CON CLINICAL INDICATION: fall Posttraumatic pain COMPARISON: CT CSWO CT CERVICAL SPINE W/O CONT from 06/16/2017 TECHNIQUE: Axial images obtained with sagittal and coronal reformats. All CT scans at the facility use one or more dose reduction, viz: automated exposure control, ma/kV adjustment per patient size (including targeted exams where dose is matched to indication, i.e. head), or iterative reconstruction technique. Axial spiral CT scanning performed of the cervical spine beginning at the base of the skull and continuing to the upper T-spine. 3-D multiplanar reconstruction with 3-D manipulation of volumetric data set in image rendering was completed by the radiologist and/or technologist with the supervision of the radiologist on independent workstation. FINDINGS: There is normal alignment. No acute fracture C2-C3: Partially calcified small broad-based central disc protrusion. C3-C4: Unremarkable. C4-C5: Right-sided facet and uncovertebral hypertrophy with right-sided foraminal narrowing. 2-3 mm anterolisthesis C4 on C5. C5-C6: Degenerative disc disease with endplate hypertrophic change and facet and uncovertebral hypertrophy on the right with right-sided lateral recess and foraminal narrowing there is 2 mm retrolisthesis of C5. C6-C7: Degenerative disc disease with endplate hypertrophic change with bilateral foraminal narrowing. C7-T1: Unremarkable IMPRESSION: No acute fracture. Multilevel cervical spondylosis as detailed above Dictated by: Leonel Allan MD 09/16/2020 16:00 Leonel Allan MD in [facility] 09/16/2020 16:00
--- NOTE | 2020-09-16 14:57 | CT_ITS ---
PROCEDURE: CT HEAD/BRAIN WO CON CLINICAL INDICATION: ams Altered mental status, altered level of consciousness, confusion, disorientation COMPARISON: CT CT HEAD/BRAIN WO CON from 07/23/2020 TECHNIQUE: Axial images obtained. All CT scans at the facility use one or more dose reduction, viz: automated exposure control, ma/kV adjustment per patient size (including targeted exams where dose is matched to indication, i.e. head), or iterative reconstruction technique. FINDINGS: No midline shift, mass effect, intracranial hemorrhage, hydrocephalus, or extra-axial fluid collection is evident. There is generalized atrophy with hypoattenuation of the periventricular white matter consistent with microangiopathic changes.. Encephalomalacia changes are present in the right occipital lobe presumed from an old infarction. The calvarium has an unremarkable appearance. No mastoid effusion. No sinus air-fluid level. IMPRESSION: Encephalomalacia change right occipital lobe presumed from an old infarction. No change with no acute finding. Dictated by: Leonel Allan MD 09/16/2020 15:54 Leonel Allan MD in [facility] 09/16/2020 15:54
--- NOTE | 2020-09-16 14:59 | HMH.EDGENADL ---
ED Disposition Clinical Impression: Hypoglycemia Disposition: Home, Self-Care Condition on Discharge: Good Referrals: Amaury Knight MD [Primary Care Provider] - 3 days Time of Disposition: 17:40 - Critical Care Critical Care Time: No Attestation: On , the high probability of a clinically significant, sudden or life threatening deterioration of the following system(s) required my full and direct attention, intervention and personal management. The time I documented below is in addition to time spent performing reported procedures but includes the following listed in this critical care notation. Medical Decision Making - Medical Records Medical records reviewed: Yes: I reviewed the patient's medical records. - Domenico Inquiry Pt receiving controlled substance: No Vital Signs: 09/16/20 14:54 09/16/20 15:10 09/16/20 15:15 Temperature 98.1 F Temperature Source Oral Pulse Rate 77 72 Pulse Rate [Right Radial] 73 Respiratory Rate 18 Blood Pressure Blood Pressure [Right Arm] 145/60 H Blood Pressure Mean Blood Pressure Mean [Right Arm] 88 Blood Pressure Source [Right Arm] Automatic Cuff Blood Pressure Position [Right Arm] Sitting 02 Sat by Pulse Oximetry 99 96 96 Oxygen Delivery Method Room Air 09/16/20 15:36 09/16/20 15:38 09/16/20 15:45 Temperature Temperature Source Pulse Rate 78 74 75 Pulse Rate [Right Radial] Respiratory Rate Blood Pressure 195/91 H Blood Pressure [Right Arm] Blood Pressure Mean 106 Blood Pressure Mean [Right Arm] Blood Pressure Source [Right Arm] Blood Pressure Position [Right Arm] 02 Sat by Pulse Oximetry 99 100 99 Oxygen Delivery Method 09/16/20 16:07 09/16/20 16:15 09/16/20 16:30 Temperature Temperature Source Pulse Rate 86 83 79 Pulse Rate [Right Radial] Respiratory Rate Blood Pressure 155/65 H Blood Pressure [Right Arm] Blood Pressure Mean 86 Blood Pressure Mean [Right Arm] Blood Pressure Source [Right Arm] Blood Pressure Position [Right Arm] 02 Sat by Pulse Oximetry 96 97 98 Oxygen Delivery Method 09/16/20 16:45 09/16/20 17:00 09/16/20 17:15 Temperature Temperature Source Pulse Rate 77 79 76 Pulse Rate [Right Radial] Respiratory Rate Blood Pressure 149/64 H Blood Pressure [Right Arm] Blood Pressure Mean 76 Blood Pressure Mean [Right Arm] Blood Pressure Source [Right Arm] Blood Pressure Position [Right Arm] 02 Sat by Pulse Oximetry 98 98 96 Oxygen Delivery Method - Lab Data Lab results reviewed: Yes: I reviewed the patient's lab results. Lab Results 09/16/20 15:05: WBC 12.4 H, RBC 4.00 L, Hgb 10.9 L, Hct 34.8 L, MCV 87.0, MCH 27.2, MCHC 31.2 L, RDW 16.4, Plt Count 228, MPV 8.3, Neut % (Auto) 77.1, Lymph % (Auto) 14.3, [place] % (Auto) 4.6, Eos % (Auto) 3.4, Baso % (Auto) 0.7, Neut # (Auto) 9.6 H, Lymph # (Auto) 1.8, [place] # (Auto) 0.6, Eos # (Auto) 0.4, Baso # (Auto) 0.1 09/16/20 15:05: Sodium 143, Potassium 4.6, Chloride 113 H, Carbon Dioxide 24, Anion Gap 10.6, BUN 33 H, Creatinine 1.90 H, Estimated Creat Clear 36, Estimated GFR 27 L, Est GFR ( Amer) 32 L, Glucose 76, Calcium 9.1, Total Bilirubin 0.4, AST 21, ALT 17, Alkaline Phosphatase 80, Total Protein 6.1 L, Albumin 3.6, Globulin 2.5, Albumin/Globulin Ratio 1.4 09/16/20 15:16: POC Glucose 99 09/16/20 15:51: Urine Color Yellow, Urine Appearance Clear, Urine pH 6.0, Ur Specific [place] >= 1.030, Urine Protein 2+, Urine Glucose (UA) Negative, Urine Ketones Negative, Urine Blood Negative, Urine Nitrate Negative, Urine Bilirubin Negative, Urine Urobilinogen 0.2, Ur Leukocyte Esterase Trace, Urine RBC None, Urine WBC 5-10, Ur Squamous Epith Cells 5-10, Urine Bacteria 1+ 09/16/20 17:31: POC Glucose 160 H Result diagrams: 09/16/20 15:05 09/16/20 15:05 - CT Data CT Scan: Head, C-Spine Time Received: 16:[address] Reviewed: Yes: I have viewed the radiologist's interpretation
--- NOTE | 2020-09-16 15:11 | ECG_ITS ---
APPROVED REPORT Exam: Resting ECG HR:73 bpm ECG Measurements Heart Rate 73 AXES NH 172 P 45 QRSd 104 QRS -27 QT 396 T 9 QTc 436 Conclusion Sinus rhythm with occasional premature ventricular complexes Otherwise normal ECG Electronically signed by : Kenny Sylvester, 09/16/2020 17:55:20
--- NOTE | 2020-09-16 15:18 | PC.NURSE ---
fsbs 99
[2020-09-16 15:20] LABS: Basophils # 0.1 K/mm3 (0-0.2); Basophils % 0.7 % (0.1-2.0); Eosinophils # 0.4 K/mm3 (0.0-0.4); Eosinophils % 3.4 % (0.1-12.0); Hematocrit 34.8 % (37.0-47.0); Hemoglobin 10.9 g/dL (12.2-16.2); Lymphocytes # 1.8 K/mm3 (0.7-4.5); Lymphocytes % 14.3 % (10-50); Mean Corpuscular HGB Conc 31.2 g/dL (31.8-35.4); Mean Corpuscular Hemoglobin 27.2 pg (27.0-31.2); Mean Platelet Volume 8.3 fl (7.4-10.4); Monocytes # 0.6 K/mm3 (0.1-1.0); Monocytes % 4.6 % (1.7-9.3); Neutrophils # 9.6 K/mm3 (1.8-7.8); Neutrophils % 77.1 % (37.0-80.0); Platelet Count 228 K/mm3 (142-424); Red Cell Distribution Width 16.4 % (11.5-17.5); White Blood Count 12.4 K/mm3 (4.8-10.8)
[2020-09-16 15:24] LABS: POC Glucose,Bedside 99 (70-110)
[2020-09-16 15:25] LABS: Chloride 113 mmol/L (98-107)
[2020-09-16 15:26] LABS: Potassium 4.6 mmoL/L (3.5-5.1); Sodium 143 mmol/L (136-145)
[2020-09-16 15:28] LABS: Blood Urea Nitrogen 33 mg/dl (7-17); Creatinine Clearance Estimated 36 mL/min (50-200); Estimated Glomerular Filt Rate 27 ml/min (>60); GFR (African American) 32 ML/MIN (>60)
[2020-09-16 15:29] LABS: Alanine Aminotransferase 17 U/L (12-78); Albumin Level 3.6 g/dl (3.5-5.0); Albumin/Globulin Ratio 1.4 (1.1-1.8); Alkaline Phosphatase 80 U/L (38-126); Anion Gap 10.6 mEq/L (5-15); Aspartate Amino Transferase 21 U/L (14-36); Bilirubin,Total 0.4 mg/dl (0.2-1.3); Calcium 9.1 mg/dl (8.4-10.2); Carbon Dioxide 24 mmol/L (22.0-30.0); Globulin 2.5 g/dL (1.3-3.2); Glucose 76 mg/dl (74-100); Total Protein,Serum 6.1 g/dl (6.3-8.2)
[2020-09-16 15:54] LABS: Microscopic, Urine URINE MICROSCOPIC (MICROSCOPIC)
[2020-09-16 15:57] LABS: Appearance,Urine CLEAR (Clear); Bilirubin,Urine Negative (Negative); Blood, Urine Negative (Negative); Color,Urine YELLOW (Yellow); Glucose,Urine (UA) Negative (Negative); Ketones,Urine Negative (Negative); Leukocyte Esterase,Urine TRACE (Negative); Nitrate,Urine Negative (Negative); Protein,Urine 2+ (Negative); Specific Gravity, Urine >= 1.030 (1.005-1.030); Urobilinogen,Urine 0.2 EU/dl (0.2)
[2020-09-16 16:09] LABS: Bacteria,Urine 1+ /lpf
--- NOTE | 2020-09-16 17:33 | ECG_ITS ---
APPROVED REPORT Exam: Resting ECG HR:75 bpm ECG Measurements Heart Rate 75 AXES NM 170 P 39 QRSd 98 QRS -29 QT 404 T 1 QTc 451 Conclusion Normal sinus rhythm Delayed r wave progression Abnormal ECG Electronically signed by : Kenny Sylvester, 09/18/2020 11:43:06
[2020-09-16 17:38] LABS: POC Glucose,Bedside 160 (70-110)
--- NOTE | 2020-09-16 17:54 | PC.NURSE ---
OFFERED WHEELCHAIR AT DISCHARGE BUT PATIENT REFUSED
== END 2020-09-16 17:53 | disposition home or self-care (01) ==
PROVIDERS: Emergency Provider Family Medicine; PCP Family Medicine
DX: E11.649 Type 2 diabetes mellitus with hypoglycemia without coma (principal); E11.65 Type 2 diabetes mellitus with hyperglycemia; Z79.4 Long term (current) use of insulin; W18.39XA Other fall on same level, initial encounter; Y92.009 Unspecified place in unspecified non-institutional (private) residence as the place of occurrence of the external cause; N28.9 Disorder of kidney and ureter, unspecified; M79.7 Fibromyalgia; J45.909 Unspecified asthma, uncomplicated; Z79.899 Other long term (current) drug therapy; Z90.79 Acquired absence of other genital organ(s); Z88.0 Allergy status to penicillin; Z88.2 Allergy status to sulfonamides
CPT/HCPCS: 70450; 72125; 80053; 81001; 82962; 85025; 93005; 99282

== ENCOUNTER 2020-10-09 15:00 | Outpatient (RCR) | payer MEDICARE, SELFPAY ==
--- NOTE | 2020-08-17 15:39 | HMH.OTOPEV ---
OT Inpatient Evaluation Rehab OT Outpatient Eval Start: 08/17/20 15:25 Freq: Status: Active Protocol: Document 08/17/20 15:25 GARTHLUIS ARMANDO (Rec: 08/17/20 15:39 HUMAIRA [id number]) Electronically Signed By Brooke Shea OT 08/17/20 15:25 Outpatient Therapy Subjective History Subjective History 65 year old female referred to skilled OP OT services stroke . Patient recieved CT scan on 07/23/20 with findings of subacute right occipital cortical infarct, right posterior cerebral distribution with left side weakness. PMH: Anxiety, Arrhythmia, Asthma, Deep Vein Thrombosis (Left leg 06/2019), Diabetes Mellitus Type 1, Diabetes Mellitus Type 2, Hyperlipidemia, Hypertension, Renal Disease, Renal Insufficiency. Patient verbalize having left side weakness with difficulty with FMC of snapping bra and lacing shoes. Patient verbalize having left side neglect and running into various items at home. Patient exhibit WFL of B UE shoulder and wrist. However Patient exhibit 2+ pitty edema swelling in L hand . Patient verbalize having compression gloves with swelling in L hand, however does not wear it as much as she should. Patient is currently living with her mother and goal is to move back home and live independently. 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
== END 2020-10-09 15:05 | disposition home or self-care (01) ==
LOC: OT 15:00
PROVIDERS: PCP Family Medicine; Visit Provider Family Medicine
DX: I63.89 Other cerebral infarction (principal)
CPT/HCPCS: 97014; 97110; 97140; 97164; 97165; 97530; 97763; G0283

== ENCOUNTER → 2020-10-16 15:19 | Outpatient (CLI) | payer MEDICARE, SELFPAY ==
--- NOTE | 2020-10-16 15:24 | XR_ITS ---
PROCEDURE: XR HIP RT 2-3V W/PELVIS CLINICAL INDICATION: RT HIP PAIN COMPARISON: CR PELAP PELVIS AP ONLY from 06/16/2017 FINDINGS: The right hip has an unremarkable appearance. No significant degenerative change, no fracture or dislocation. There is an epidural stimulator device present. The cephalad portion of the device is not visible on the images. Postsurgical changes lower lumbar spine. Multiple small calcific densities are present at the left ischial tuberosity not significantly changed. IMPRESSION: No acute findings. Dictated by: Leonel Allan MD 10/16/2020 17:22 Leonel Allan MD in [facility] 10/16/2020 17:22
== END ==
PROVIDERS: PCP Family Medicine; Visit Provider Family Medicine
DX: M25.551 Pain in right hip (principal)
CPT/HCPCS: 73502

== ENCOUNTER 2020-10-22 08:00 | Outpatient (RCR) | payer MEDICARE, SELFPAY ==
--- NOTE | 2020-08-17 15:03 | HMH.SLAPHASI ---
Speech & Language Evaluation Speech/Language Aphasia Evaluation Start: 08/17/20 14:55 Freq: once Status: Complete Protocol: Document 08/17/20 14:55 HILLARY (Rec: 08/17/20 14:59 HILLARY [id number]) Aphasia Assessment/Goals/Plan Assessment Date of Evaluation: 08/17/20 Evaluation Type Initial Certification Assessment/Problems CVA Does Patient Qualify for Service Yes Qualify/Failure Comment Patient exhibits impairments with visual scanning, delayed recall, short term memory, inferences, verbal absurdities , deductive reasoning, and analogies Plan Pt will be seen # times/week 2 for # weeks 8 Anticipate reaching STG in # weeks 4 Anticipate reaching LTG in # weeks 8 Pt/Guardian verbally ack understanding Yes of dx/prognosis/goals G -code Required No STG-Attending/Orientation/Memory Delayed Recall 90 Memory Recall 90 STG-Divergent Thinking Deal w/Abstract or Unique Concepts 90 Deductive Reasoning 90 Inductive Reasoning 90 Fci Goals Increase cognitive skills to communicate Yes w/family & friends Speech & Language HPI History Present Illness Rehab Services Assessed Speech therapy Is this evaluation r/t stroke? Yes Aphasia Evaluations Communication Speech Intelligibility Speech intelligibility was judged to be within functional limits Auditory Comprehension Yes: Word Level Sentences Following Directions Paragraph No: Conversation AC Comment Conversation is impaired due to decreased attention span Reading Comprehension Yes: Letter Naming Word Naming Sentences Paragraphs Verbal Expressive Language Yes: Automatic Speech Completing Sentences Repetition Abilities Word Level Naming Naming Actions/Objects Sentence Level Defining Words Written Language Yes: Signature Copy Shapes Copy Words Check Writing Sentence Writing
== END 2020-10-22 08:05 | disposition home or self-care (01) ==
LOC: ST 08:00
PROVIDERS: PCP Family Medicine; Visit Provider Family Medicine
DX: I63.89 Other cerebral infarction (principal); I69.328 Other speech and language deficits following cerebral infarction
CPT/HCPCS: 92507; 92523; 97129; 97130

== ENCOUNTER 2020-10-26 18:31 | Emergency (ER) | payer MEDICARE, SELFPAY ==
--- NOTE | 2020-10-26 18:37 | ECG_ITS ---
APPROVED REPORT Exam: Resting ECG HR:71 bpm ECG Measurements Heart Rate 71 AXES NC 170 P 42 QRSd 100 QRS 51 QT 396 T 19 QTc 430 Conclusion Normal sinus rhythm Normal ECG Electronically signed by : Kenny Sylvester, 10/29/2020 21:26:05
[2020-10-26 18:46] VITALS: BMI 29.2
--- NOTE | 2020-10-26 18:47 | CT_ITS ---
PROCEDURE INFORMATION: Exam: CT Head Without Contrast Exam date and time: 10/26/20 06:47 PM Age: 65 years old Clinical indication: Visual disturbance; Additional info: Visual disturbances TECHNIQUE: Imaging protocol: Computed tomography of the head without contrast. Radiation optimization: All CT scans at this facility use at least one of these dose optimization techniques: automated exposure control; mA and/or kV adjustment per patient size (includes targeted exams where dose is matched to clinical indication); or iterative reconstruction. Other technique: STROKE PROTOCOL was implemented. COMPARISON: CT HEAD/BRAIN WO CON 09/16/20 03:24 PM FINDINGS: Brain: Encephalomalacia in the right occipital lobe is stable since comparison 09/16/2020. Small vessel ischemic changes are present. No acute hemorrhage, mass effect, or midline shift. Cerebral ventricles: No ventriculomegaly. Bones/joints: Unremarkable. No acute fracture. Paranasal sinuses: Visualized sinuses are unremarkable. No fluid levels. Mastoid air cells: Visualized mastoid air cells are well aerated. Soft tissues: Unremarkable. IMPRESSION: 1. Encephalomalacia in the right occipital lobe is stable since comparison 09/16/2020. 2. No acute infarct detected. ASSESSMENT: ASPECTS ([place] Stroke Program Early CT Score) is 10.
[2020-10-26 18:48] VITALS: BP 178/81; PULSE 73; RESP 12; TEMP 36.7; O2SAT 99; BMI 29.2
--- NOTE | 2020-10-26 18:54 | XR_ITS ---
PROCEDURE INFORMATION: Exam: XR Chest Exam date and time: 10/26/20 06:54 PM Age: 65 years old Clinical indication: Other: Visual changes, possible CVA. Patient had a stroke 4 months ago; Prior surgery; Surgery date: 1-6 months; Surgery type: Spinal stimulator placed. ; Additional info: Visual changes, rule out CVA TECHNIQUE: Imaging protocol: XR of the chest. Views: 2 views. COMPARISON: CR XR CHEST 2V 06/09/20 01:48 PM FINDINGS: Tubes, catheters and devices: Dorsal column stimulator in the mid T-spine. Lungs: No acute cardiopulmonary findings. Pleural spaces: Unremarkable. No pleural effusion. No pneumothorax. Heart/Mediastinum: Unremarkable. No cardiomegaly. Bones/joints: Severe osteoarthritic changes both shoulders, with large osteophytes on the humeral head. Internal fixation lumbar spine. IMPRESSION: 1. Dorsal column stimulator in the mid T-spine. 2. No acute cardiopulmonary findings. 3. Severe osteoarthritic changes both shoulders, with large osteophytes on the humeral head. 4. Internal fixation lumbar spine.
--- NOTE | 2020-10-26 19:03 | HMH.EDNEU ---
ED Disposition Clinical Impression: Acute cerebellar ataxia, Double vision Disposition: Xfer Short-Term Hosp Condition on Discharge: Good Referrals: Amaury Knight MD [Primary Care Provider] - Forms: Transfer Record - ED Time of Disposition: 20:24 - Critical Care Critical Care Time: No Attestation: On 10/26/20, the high probability of a clinically significant, sudden or life threatening deterioration of the following system(s) required my full and direct attention, intervention and personal management. The time I documented below is in addition to time spent performing reported procedures but includes the following listed in this critical care notation. Medical Decision Making - Medical Records Medical records reviewed: Yes: I reviewed the patient's medical records. - Domenico Inquiry Pt receiving controlled substance: No Vital Signs: 10/26/20 18:48 10/26/20 19:23 10/26/20 19:25 Temperature 98.0 F Temperature Source Oral Pulse Rate 70 70 Pulse Rate [Right Brachial] 73 Respiratory Rate 12 12 16 Blood Pressure 172/88 H 174/85 H Blood Pressure [Right Arm] 178/81 H Blood Pressure Mean 114 Blood Pressure Mean [Right Arm] 113 Blood Pressure Source Blood Pressure Source [Right Arm] Automatic Cuff Blood Pressure Position Blood Pressure Position [Right Arm] Sitting 02 Sat by Pulse Oximetry 99 99 Oxygen Delivery Method Room Air 10/26/20 19:30 10/26/20 20:02 10/26/20 20:17 Temperature 98.0 F Temperature Source Oral Pulse Rate 71 75 Pulse Rate [Right Brachial] Respiratory Rate 12 13 17 Blood Pressure 188/85 H 209/95 H 201/75 H Blood Pressure [Right Arm] Blood Pressure Mean 119 109 Blood Pressure Mean [Right Arm] Blood Pressure Source Automatic Cuff Blood Pressure Source [Right Arm] Blood Pressure Position Sitting Blood Pressure Position [Right Arm] 02 Sat by Pulse Oximetry Oxygen Delivery Method Room Air - Lab Data Lab Results 10/26/20 18:47: WBC 7.8, RBC 4.06 L, Hgb 11.0 L, Hct 35.0 L, MCV 86.2, MCH 27.0, MCHC 31.3 L, RDW 17.1, Plt Count 209, MPV 8.3, Neut % (Auto) 72.1, Lymph % (Auto) 20.5, [place] % (Auto) 4.3, Eos % (Auto) 2.4, Baso % (Auto) 0.8, Neut # (Auto) 5.6, Lymph # (Auto) 1.6, [place] # (Auto) 0.3, Eos # (Auto) 0.2, Baso # (Auto) 0.1 10/26/20 18:47: Sodium 138, Potassium 5.5 H, Chloride 111 H, Carbon Dioxide 19 L, Anion Gap 13.5, BUN 40 H, Creatinine 1.80 H, Estimated Creat Clear 38, Estimated GFR 28 L, Est GFR ( Amer) 34 L, Glucose 215 H, Calcium 9.8, Total Bilirubin 0.5, Direct Bilirubin 0.1, Conjugated Bilirubin 0.0, Indirect Bilirubin 0.4, Unconjugated Bilirubin 0.4, AST 18, ALT 14, Alkaline Phosphatase 86, Troponin I < 0.01, Total Protein 6.6, Albumin 4.2 Result diagrams: 10/26/20 18:47 10/26/20 18:47 Orders (Tests/Meds): ORDERS Category Date Time Status CT head/brain wo con Stat Cat Scan 10/26/20 18:47 Taken Troponin I Q3H Lab 10/26/20 22:00 Ordered Troponin I Q3H Lab 10/27/20 01:00 Ordered Medical Decision Narrative: 65-year-old female who presents with acute double vision with ataxia and cerebellar dysfunction on focal neurologic exam. These findings are concerning for cerebellar stroke and with her history of posterior occipital stroke this is highly concerning. Initial CT noncontrast of the head demonstrates the previous acute occipital stroke but no other acute infarcts at this time. Due to the concern for acute cerebellar stroke she was consulted to [facility] accepted by Dr. Enriquez to be transferred to the emergency department. She was transferred for further evaluation and management and no other medications were given as she is out of the TPA window at the time of diagnosis. Neuro HPI - General Chief Complaint: Neuro Symptoms/Deficit Stated Complaint: vision problems headache Time Seen by Provider: 10/26/20 19:03 Mode of Arrival: Family Vehicle Limitations: No Limitations Description of
[2020-10-26 19:05] LABS: Basophils # 0.1 K/mm3 (0-0.2); Basophils % 0.8 % (0.1-2.0); Eosinophils # 0.2 K/mm3 (0.0-0.4); Eosinophils % 2.4 % (0.1-12.0); Lymphocytes # 1.6 K/mm3 (0.7-4.5); Lymphocytes % 20.5 % (10-50); Mean Corpuscular HGB Conc 31.3 g/dL (31.8-35.4); Mean Corpuscular Volume 86.2 fl (81-99); Mean Platelet Volume 8.3 fl (7.4-10.4); Monocytes # 0.3 K/mm3 (0.1-1.0); Monocytes % 4.3 % (1.7-9.3); Neutrophils # 5.6 K/mm3 (1.8-7.8); Neutrophils % 72.1 % (37.0-80.0); Platelet Count 209 K/mm3 (142-424); Red Blood Count 4.06 M/mm3 (4.20-5.40); Red Cell Distribution Width 17.1 % (11.5-17.5); White Blood Count 7.8 K/mm3 (4.8-10.8)
[2020-10-26 19:09] LABS: Chloride 111 mmol/L (98-107); Potassium 5.5 mmoL/L (3.5-5.1); Sodium 138 mmol/L (136-145)
[2020-10-26 19:11] LABS: Blood Urea Nitrogen 40 mg/dl (7-17)
[2020-10-26 19:12] LABS: Alanine Aminotransferase 14 U/L (12-78); Albumin Level 4.2 g/dl (3.5-5.0); Alkaline Phosphatase 86 U/L (38-126); Anion Gap 13.5 mEq/L (5-15); Aspartate Amino Transferase 18 U/L (14-36); Bilirubin,Direct 0.1 mg/dl (0.0-0.4); Bilirubin,Indirect 0.4 mg/dL (0.0-0.9); Bilirubin,Total 0.5 mg/dl (0.2-1.3); Bilirubin,Unconjugated 0.4 mg/dL (0.0-1.1); Calcium 9.8 mg/dl (8.4-10.2); Carbon Dioxide 19 mmol/L (22.0-30.0); Creatinine Clearance Estimated 38 mL/min (50-200); Estimated Glomerular Filt Rate 28 ml/min (>60); GFR (African American) 34 ML/MIN (>60); Glucose 215 mg/dl (74-100); Total Protein,Serum 6.6 g/dl (6.3-8.2)
--- NOTE | 2020-10-26 19:19 | PC.NURSE ---
calling [facility] at this time.
--- NOTE | 2020-10-26 19:21 | PC.NURSE ---
called [facility] for disk. spoke with robby.
[2020-10-26 19:23] VITALS: BP 172/88; PULSE 70; RESP 12; O2SAT 99
[2020-10-26 19:25] VITALS: BP 174/85; PULSE 70; RESP 16
[2020-10-26 19:28] LABS: Troponin I < 0.01 ng/ml (0.00-0.034)
[2020-10-26 19:30] VITALS: BP 188/85; PULSE 71; RESP 12
--- NOTE | 2020-10-26 19:31 | PC.NURSE ---
Dr. Enriquez at has accepted pt.
--- NOTE | 2020-10-26 19:31 | PC.NURSE ---
accepted by dr smith at
[2020-10-26 20:02] VITALS: BP 209/95; RESP 13
[2020-10-26 20:17] VITALS: BP 201/75; PULSE 75; RESP 17; TEMP 36.7; O2SAT 98
[2020-12-14 11:34] LABS: POC Glucose,Bedside 198 (70-110)
== END 2020-10-26 21:15 | disposition short-term general hospital (02) ==
PROVIDERS: Emergency Provider Student in an Organized Health Care Education/Training Program; PCP Family Medicine
DX: G11.9 Hereditary ataxia, unspecified (principal); H53.2 Diplopia; I10 Essential (primary) hypertension; I69.812 Visuospatial deficit and spatial neglect following other cerebrovascular disease; R26.9 Unspecified abnormalities of gait and mobility; E78.5 Hyperlipidemia, unspecified; M79.7 Fibromyalgia; N28.9 Disorder of kidney and ureter, unspecified; Z88.0 Allergy status to penicillin; Z88.2 Allergy status to sulfonamides; Z79.899 Other long term (current) drug therapy
CPT/HCPCS: 70450; 71046; 80048; 80076; 82962; 84484; 85025; 93005; 99283

== ENCOUNTER 2020-11-01 12:33 | Emergency (ER) | payer MEDICARE, SELFPAY ==
[2020-11-01 12:34] VITALS: BP 141/89; PULSE 79; RESP 18; TEMP 36.7; O2SAT 97; BMI 26.9
--- NOTE | 2020-11-01 12:40 | ECG_ITS ---
APPROVED REPORT Exam: Resting ECG HR:78 bpm ECG Measurements Heart Rate 78 AXES ME 176 P 93 QRSd 98 QRS -43 QT 402 T 24 QTc 458 Conclusion Normal sinus rhythm Left axis deviation Pulmonary disease pattern Minimal voltage criteria for LVH, may be normal variant Abnormal ECG Electronically signed by : Kenny Sylvester, 11/03/2020 08:51:49
--- NOTE | 2020-11-01 13:08 | HMH.EDGENADL ---
ED Disposition Clinical Impression: Vertigo Nausea & vomiting Qualifiers: Vomiting type: unspecified Vomiting Intractability: non-intractable Qualified Code(s): R11.2 - Nausea with vomiting, unspecified Disposition: Home, Self-Care Condition on Discharge: Good Instructions: DI for Nausea -- Adult Prescriptions: Promethazine HCl [Phenergan 25mg tab] 25 mg PO Q8 PRN #10 tab PRN Reason: Nausea And Vomiting Transmission Status: Pending to [id number] Referrals: Pao Katz MD [Primary Care Provider] - - Critical Care Critical Care Time: No Attestation: On 11/01/20, the high probability of a clinically significant, sudden or life threatening deterioration of the following system(s) required my full and direct attention, intervention and personal management. The time I documented below is in addition to time spent performing reported procedures but includes the following listed in this critical care notation. Medical Decision Making - Medical Records Medical records reviewed: Yes: I reviewed the patient's medical records. - Domenico Inquiry Pt receiving controlled substance: No Vital Signs: 11/01/20 12:34 11/01/20 13:40 Temperature 98.0 F Temperature Source Oral Pulse Rate 80 Pulse Rate [Left Radial] 79 Respiratory Rate 18 13 Blood Pressure 178/68 H Blood Pressure [Right Arm] 141/89 H Blood Pressure Mean [Right Arm] 106 Blood Pressure Source [Right Arm] Automatic Cuff Blood Pressure Position [Right Arm] Sitting 02 Sat by Pulse Oximetry 97 100 Oxygen Delivery Method Room Air - Lab Data Lab Results 11/01/20 13:00: WBC 7.5, RBC 4.13 L, Hgb 11.1 L, Hct 34.3 L, MCV 83.0, MCH 26.9 L, MCHC 32.4, RDW 16.9, Plt Count 172, MPV 8.4, Neut % (Auto) 69.6, Lymph % (Auto) 22.0, [place] % (Auto) 6.0, Eos % (Auto) 1.8, Baso % (Auto) 0.5, Neut # (Auto) 5.2, Lymph # (Auto) 1.6, [place] # (Auto) 0.5, Eos # (Auto) 0.1, Baso # (Auto) 0.0 11/01/20 13:00: Sodium 135 L, Potassium 4.8, Chloride 109 H, Carbon Dioxide 20 L, Anion Gap 10.8, BUN 35 H, Creatinine 2.10 H, Estimated Creat Clear 30, Estimated GFR 24 L, Est GFR ( Amer) 29 L, Glucose 295 H, Calcium 8.9, Total Bilirubin 0.6, AST 32, ALT 16, Alkaline Phosphatase 92, Total Protein 6.3, Albumin 3.9, Globulin 2.4, Albumin/Globulin Ratio 1.6 11/01/20 13:00: Lipase 62 Result diagrams: 11/01/20 13:00 11/01/20 13:00 Orders (Tests/Meds): ED MEDICATIONS Discontinued Medications Generic Name Dose Route Start Last Admin Trade Name Freq PRN Reason Stop Dose Admin Diazepam 5 mg 11/01/20 14:27 11/01/20 14:30 Diazepam 5mg Tablet PO 11/01/20 14:28 5 mg ONCE ONE Administration Sodium Chloride 1,000 mls @ 999 mls/hr 11/01/20 13:00 11/01/20 13:16 Sod Chlor 0.9% 1000ml Bag IV 11/01/20 14:00 Not Given .Q1H1M MANUEL Lactated Ringer's 1,000 mls @ 999 mls/hr 11/01/20 13:15 11/01/20 13:07 Lactated Ringer's 1000 Ml Bag IV 11/01/20 14:15 999 mls/hr .Q1H1M MANUEL Administration Ondansetron HCl 4 mg 11/01/20 12:58 11/01/20 13:07 Ondansetron 4mg/2ml Vial IV 11/01/20 12:59 4 mg ONCE ONE Administration Promethazine HCl 25 mg 11/01/20 13:04 11/01/20 13:16 Promethazine Hcl 25mg/Ml 1ml Vial IV 11/01/20 13:05 25 mg ONCE ONE Administration Sodium Chloride 25 ml 11/01/20 13:04 11/01/20 13:16 Sodium Chloride 0.9% 25ml Bag IV 11/01/20 13:05 25 ml ONCE ONE Administration - ECG Data Tracing #1 Normal ventricular rate of 78 bpm, ME interval 176 ms, normal QTC. Sinus rhythm with nonspecific ST changes. ECG initial impression date: 11/01/20 ECG initial impression time: 12:42 - Reevaluation(s) Time: 14:33 Reevaluation #1: On reevaluation, the patient is feeling much better. Repeat abdominal exam is benign. Patient is tolerating oral intake. Patient needs follow-up with PCP in 24 hours. Given strict return precautions. Verbalized understanding. Medical Decision Narrative: 65-year-
[2020-11-01 13:18] LABS: Basophils % 0.5 % (0.1-2.0); Eosinophils # 0.1 K/mm3 (0.0-0.4); Eosinophils % 1.8 % (0.1-12.0); Hematocrit 34.3 % (37.0-47.0); Hemoglobin 11.1 g/dL (12.2-16.2); Lymphocytes # 1.6 K/mm3 (0.7-4.5); Mean Corpuscular HGB Conc 32.4 g/dL (31.8-35.4); Mean Corpuscular Hemoglobin 26.9 pg (27.0-31.2); Mean Platelet Volume 8.4 fl (7.4-10.4); Monocytes # 0.5 K/mm3 (0.1-1.0); Neutrophils # 5.2 K/mm3 (1.8-7.8); Neutrophils % 69.6 % (37.0-80.0); Platelet Count 172 K/mm3 (142-424); Red Blood Count 4.13 M/mm3 (4.20-5.40); Red Cell Distribution Width 16.9 % (11.5-17.5); White Blood Count 7.5 K/mm3 (4.8-10.8)
[2020-11-01 13:33] LABS: Alanine Aminotransferase 16 U/L (12-78); Albumin Level 3.9 g/dl (3.5-5.0); Albumin/Globulin Ratio 1.6 (1.1-1.8); Alkaline Phosphatase 92 U/L (38-126); Anion Gap 10.8 mEq/L (5-15); Aspartate Amino Transferase 32 U/L (14-36); Bilirubin,Total 0.6 mg/dl (0.2-1.3); Blood Urea Nitrogen 35 mg/dl (7-17); Calcium 8.9 mg/dl (8.4-10.2); Carbon Dioxide 20 mmol/L (22.0-30.0); Chloride 109 mmol/L (98-107); Creatinine Clearance Estimated 30 mL/min (50-200); Estimated Glomerular Filt Rate 24 ml/min (>60); GFR (African American) 29 ML/MIN (>60); Globulin 2.4 g/dL (1.3-3.2); Glucose 295 mg/dl (74-100); Lipase 62 U/L (23-300); Potassium 4.8 mmoL/L (3.5-5.1); Sodium 135 mmol/L (136-145); Total Protein,Serum 6.3 g/dl (6.3-8.2)
[2020-11-01 13:40] VITALS: BP 178/68; PULSE 80; RESP 13; O2SAT 100
[2020-11-01 14:01] VITALS: BP 183/84; PULSE 84; RESP 16; O2SAT 95
--- NOTE | 2020-11-01 14:37 | PC.NURSE ---
Pt up to restroom with assistance of nurse, Kathy Sumner.
[2020-11-01 14:44] VITALS: BP 194/83; PULSE 85; RESP 16; O2SAT 97
[2020-11-01 15:22] VITALS: BP 190/80; PULSE 83; RESP 20; TEMP 36.8; O2SAT 99
== END 2020-11-01 15:24 | disposition home or self-care (01) ==
PROVIDERS: Emergency Provider Emergency Medicine; PCP Family Medicine
DX: R42 Dizziness and giddiness (principal); I63.89 Other cerebral infarction; H53.2 Diplopia; M79.7 Fibromyalgia; E11.65 Type 2 diabetes mellitus with hyperglycemia; Z88.0 Allergy status to penicillin; Z88.2 Allergy status to sulfonamides; Z79.899 Other long term (current) drug therapy
CPT/HCPCS: 80053; 83690; 85025; 93005; 96365; 96375; 99282; J2405

== ENCOUNTER 2020-11-26 15:52 | Emergency (ER) | payer MEDICARE, SELFPAY ==
[2020-11-26 15:53] VITALS: BP 136/77; PULSE 78; RESP 18; TEMP 36.6; O2SAT 97; BMI 26.6
--- NOTE | 2020-11-26 16:12 | XR_ITS ---
PROCEDURE INFORMATION: Exam: XR Right Hip Exam date and time: 11/26/2020 4:12 PM Age: 65 years old Clinical indication: Pain and injury or trauma; Sprain or strain; Right hip; Patient HX: Fall with RT hip pain TECHNIQUE: Imaging protocol: XR Right hip. Views: 2 or 3 views hip with pelvis when performed. COMPARISON: CR XR HIP RT 2-3V W/PELVIS 10/16/2020 3:34 PM FINDINGS: Tubes, catheters and devices: Spinal stimulator overlies the left pelvis. Bones/joints: There is no evidence of acute fracture. There is no evidence of joint malalignment or dislocation. Mild degenerative changes of the right hip. Postoperative changes of the lower lumbar spine. Soft tissues: There are no soft tissue masses or fluid collections. Vasculature: There are numerous benign phleboliths in the pelvis. IMPRESSION: 1. No evidence of acute fracture. 2. No evidence of acute dislocation. 3. Mild degenerative changes of the right hip.
--- NOTE | 2020-11-26 16:24 | PC.NURSE ---
PT TO RADIOLOGY
--- NOTE | 2020-11-26 16:32 | HMH.EDGENADL ---
ED Disposition Clinical Impression: Contusion of right hip Qualifiers: Encounter type: initial encounter Qualified Code(s): S70.01XA - Contusion of right hip, initial encounter Disposition: Home, Self-Care Condition on Discharge: Good Additional Instructions: Stay off of your feet as much as possible for the next 3 to 4 days. Use your walker when you do need to walk, such as to the bathroom. Take your [place] as needed for pain. Ice 20 minutes 4-5 times a day for the next 2 days. Follow-up with your primary care provider if not improved by Monday. Referrals: Amaury Knight MD [Primary Care Provider] - - Critical Care Critical Care Time: No Attestation: On 11/26/20, the high probability of a clinically significant, sudden or life threatening deterioration of the following system(s) required my full and direct attention, intervention and personal management. The time I documented below is in addition to time spent performing reported procedures but includes the following listed in this critical care notation. Medical Decision Making - Domenico Inquiry Pt receiving controlled substance: No Vital Signs: 11/26/20 15:53 11/26/20 18:20 Temperature 98 F 98.0 F Temperature Source Oral Oral Pulse Rate 78 Pulse Rate [Radial] 78 Respiratory Rate 18 16 Blood Pressure 136/77 Blood Pressure [Right Arm] 136/77 Blood Pressure Mean [Right Arm] 96 Blood Pressure Position [Right Arm] Sitting 02 Sat by Pulse Oximetry 97 Oxygen Delivery Method Nasal Cannula - Radiology Data #1 Image(s): Hip Image Reviewed: Yes I reviewed the patient's radiology image No fracture or dislocation seen. Medical Decision Narrative: X-rays are negative to my interpretation, but patient seems to have significant tenderness and pain with movement, therefore CT scan will be performed for further evaluation. 6:00 PM: CT negative. Patient appears comfortable sitting in a wheelchair. States that she has a walker at home that she does not normally use. She thinks that she will be able to get around with a walker, states she is at least willing to try. General Adult HPI - General Chief complaint: PAIN Stated complaint: AO 11/26@[id number] R Leg Time Seen by Provider: 11/26/20 16:35 Mode of Arrival: Wheelchair Limitations: No Limitations Description of Symptoms (Recalled from ER Triage Doc. by RN): to ed per pvt car with c/o rt hip pain after a fall at home. pt with hx of multliple falls due to hx of cvas. pt denies any syncopal episodes. pt states she is unable to walk due to pain - History of Present Illness HPI narrative: States that she fell at approximately 3:30 PM and hurt her right hip. She complains of pain in the lateral and posterior hip. She says she fell in the bedroom, was able to make it to the kitchen and then outside, but then after that could not put any weight on it. She says she was already having problems with pain in that area, treated by her primary care provider and pain management for piriformis . She says she is on a compounded topical medication for it. She also applies ice and had done that prior to her fall. Also has hydrocodone for pain. Denies any other injuries, denies new numbness or weakness. States that she has frequent falls since she had 2 strokes earlier this year. - Related Data Home Medications Medication Instructions Recorded Confirmed allopurinol 100 mg tablet 100 mg PO DAILY 11/06/17 06/10/20 hydrocodone 10 mg-acetaminophen 1 tab PO QID PRN 11/06/17 06/10/20 325 mg tablet insulin human U-100 NPH-regulr 60 unit SUB-Q QAM ml 11/06/17 06/09/20 70-30 mix 100 unit/mL subcutaneous susp mecobalamin (vitamin B12) 1,000 1,000 mcg SUBLINGUAL QHS 11/06/17 06/09/20 mcg disintegrating tablet,sublingual pravastatin 80 mg tablet 80 mg PO QHS 11/06/17 06/09/20 pregabalin 150 mg capsule 150 mg PO BID 11/06/17 06/09/20 duloxetine 60 mg capsule,delayed 60 mg PO DAILY 1
--- NOTE | 2020-11-26 16:39 | PC.NURSE ---
pt returning from rad.
--- NOTE | 2020-11-26 16:43 | CT_ITS ---
PROCEDURE INFORMATION: Exam: CT Right Lower Extremity Without Contrast, Hip Exam date and time: 11/26/2020 4:43 PM Age: 65 years old Clinical indication: Pain; Hip; Right; Additional info: Fall, hip pain, unable to bear weight TECHNIQUE: Imaging protocol: CT of the Right lower extremity without contrast was performed. Exam focused on the hip. 3D rendering (Not supervised by radiologist): MIP and/or 3D reconstructed images were created by the technologist. Radiation optimization: All CT scans at this facility use at least one of these dose optimization techniques: automated exposure control; mA and/or kV adjustment per patient size (includes targeted exams where dose is matched to clinical indication); or iterative reconstruction. COMPARISON: CR XR HIP RT 2-3V W/PELVIS 11/26/2020 4:22 PM FINDINGS: Bones/joints: Mild degenerative changes of the right hip. There is no evidence of acute fracture. There is no evidence of joint malalignment or dislocation. Soft tissues: There are no soft tissue masses or fluid collections. IMPRESSION: 1. Mild degenerative changes of the right hip. 2. No evidence of acute fracture. 3. No evidence of acute dislocation.
[2020-11-26 18:20] VITALS: BP 136/77; PULSE 78; RESP 16; TEMP 36.7; O2SAT 96
== END 2020-11-26 18:41 | disposition home or self-care (01) ==
PROVIDERS: Emergency Provider Emergency Medicine; PCP Family Medicine
DX: S70.01XA Contusion of right hip, initial encounter (principal); W01.0XXA Fall on same level from slipping, tripping and stumbling without subsequent striking against object, initial encounter; Z91.81 History of falling; Y92.019 Unspecified place in single-family (private) house as the place of occurrence of the external cause; Z86.73 Personal history of transient ischemic attack (TIA), and cerebral infarction without residual deficits; E11.9 Type 2 diabetes mellitus without complications; Z79.4 Long term (current) use of insulin; Z79.899 Other long term (current) drug therapy
CPT/HCPCS: 73502; 73700; 99282

== ENCOUNTER → 2020-12-08 14:30 | Outpatient (POV) | payer MEDICARE, SELFPAY | PROVIDERS: Visit Provider Dermatology | DX: Z00.00 Encounter for general adult medical examination without abnormal findings (principal) ==

== ENCOUNTER → 2020-12-11 09:23 | Outpatient (CLI) | payer MEDICARE, SELFPAY | PROVIDERS: PCP Family Medicine; Visit Provider Physician Assistant Medical | DX: R56.9 Unspecified convulsions (principal) | CPT/HCPCS: 95816 ==

== ENCOUNTER 2021-01-08 11:00 | Outpatient (RCR) | payer MEDICARE, SELFPAY ==
--- NOTE | 2020-12-09 09:32 | HMH.PTOPEV ---
PT Outpatient Evaluation Rehab PT Outpatient Evaluation Start: 12/09/20 09:21 Freq: Status: Active Protocol: Document 12/09/20 09:21 ALVA (Rec: 12/09/20 09:32 ALVA [id number]) Electronically Signed By Aramis Londono, PT 12/09/20 09:21 Outpatient Therapy Subjective History Subjective History Pt reports injury to R hip d/t fall at home on 11/26/20. Pt reports CVA's in October, and have led to L sided weakness, and balance issues which likely caused fall. Pt reports x5 falls since last CVA. Pt reports [id number]-[id number]/ groin R hip pain with referred pain down lateral aspect L thigh. Chief Complaint Pain,Stiff,Swelling,Weakness Symptom Type Ache,Sharp,Dull Symptoms Relieved By Rest/Positioning,Ice, Prescription Meds Symptoms Aggravated By Standing,Physical Activity, Walking Prior Functional Limitations Standing,Walking,Stairs, Balance Current Functional Limitations Housework,Standing,Walking, Stairs,Balance Symptom Description Constant but Variable Level of pain today (0-10) 6 Pain scale - at its best (0-10) 4 Pain scale - at its worst (0-10) 9 Hip/Knee Eval Gait Observation General Gait Pattern Observation Antalgic Gait,Narrow Based Gait,Ataxic Gait,Shuffling Step Assistive Device Assistive Devices None / NA Palpation Tenderness right Knee Palpation Overall Comment 3/4 R GLUT, PIRI, PSOAS Hip Palpation Findings Tenderness,Trigger Point MMT Hip Flexion Strength Grade 4- Good- Hip Abduction Strength Grade 4- Good- Hip Extension Strength Grade 4- Good- Hip External Rotation Strength Grade 4 Good Hip Internal Rotation Strength Grade 3+ Fair+ Knee Extension Strength Grade 5 Normal Knee Flexion Strength Grade 5 Normal ROM Hip Flexion w/Knee Flexed Passive Range 0-110 of Motion (degrees) Hip Flexion w/Knee Extended Passive 0-40 Range of Motion (degrees) Hip Abduction Passive Range of Motion ( 0-35 degrees) Hip Extension Passive Range of Motion ( 0-15 degrees) Hip External Rotation Passive Range of 0-30 Motion (degrees) Hip Internal Rotation Passive Range of 0-35 Motion (degrees) Outpatient Therapy Assessment Impairments Problem
--- NOTE | 2021-01-08 11:33 | HMH.RHREAS ---
Rehab Reassessment Rehab OP Re-assessment Start: 01/08/21 11:07 Freq: Status: Active Protocol: Document 01/08/21 11:07 ALVA (Rec: 01/08/21 11:33 ALVA [id number]) Electronically Signed By Aramis Londono, PT 01/08/21 11:07 Rehab Re-assessment Subjective Subjective Pt reports 5/10 R hip pain on VAS w/activity, and feels 50% better overall since I eval Objective Objective Notes AROM: R HIP FLX W/KNEE EXTENDED 0-90, R HIP IR 0-35, R HIP IR 40 MMT: R HIP FLX 4/5, R HIP ABD 4--4/5, R HIP ADD 4/5, R HIP IR/ER 4/5 TTP: R HIP GLUT MED 3/4, R HIP PIRI 2-3/4 Assessment Progress Assessment Slower Than Expected Assessment Notes IMPROVED ROM, AND SLIGHT IMPROVEMENT IN STRENGTH, STILL TTP ISSUES Patient goals met STG'S 11/07 LTG'S 07/12 Goals Not Met STG'S 09/07, LTG'S 03/12 Plan Plan Pt to cont. w/skilled P.T. to make further improvements in ROM, strength, and TTP to allow for optimal function Frequency of Therapy 2-3x/wk Duration of therapy 3-4wks Time and Billing Re-Eval Time 15 Re-Eval Billing Units 0 PHYSICIAN CERTIFICATION: I certify the specified therapy services for Harini Murry are required, authorized, and reviewed every 30 days.
== END 2021-01-08 11:05 | disposition home or self-care (01) ==
LOC: PT 11:00
PROVIDERS: PCP Family Medicine; Visit Provider Family Medicine
DX: M25.551 Pain in right hip (principal)
CPT/HCPCS: 20560; 97014; 97110; 97140; 97163; 97164; G0283

== ENCOUNTER → 2021-01-27 11:50 | Outpatient (CLI) | payer MEDICARE, SELFPAY ==
[2021-01-27 12:51] LABS: Creatinine,Urine Random 38 mg/dL (Not Estab.)
[2021-01-27 12:58] LABS: Chloride 117 mmol/L (98-107); Sodium 144 mmol/L (136-145)
[2021-01-27 12:59] LABS: Albumin Level 4.3 g/dl (3.5-5.0)
[2021-01-27 13:01] LABS: Blood Urea Nitrogen 41 mg/dl (7-17); Carbon Dioxide 20 mmol/L (22.0-30.0); Estimated Glomerular Filt Rate 30 ml/min (>60); GFR (African American) 37 ML/MIN (>60)
[2021-01-27 13:02] LABS: Phosphorous 3.9 mg/dl (2.5-4.5)
[2021-01-27 13:08] LABS: Glucose 39 mg/dl (74-100)
== END ==
PROVIDERS: Visit Provider Internal Medicine Nephrology
DX: N18.30 Chronic kidney disease, stage 3 unspecified (principal)
CPT/HCPCS: 36415; 80069; 82043; 82570

== ENCOUNTER → 2021-02-01 11:20 | Outpatient (POV) | payer MEDICARE, SELFPAY | PROVIDERS: Visit Provider Internal Medicine Nephrology | DX: Z00.00 Encounter for general adult medical examination without abnormal findings (principal) ==

== ENCOUNTER 2021-02-23 13:02 | Emergency (ER) | payer MEDICARE, SELFPAY ==
[2021-02-23 13:04] VITALS: BP 144/69; PULSE 63; RESP 16; TEMP 36.5; O2SAT 94; BMI 29.2
--- NOTE | 2021-02-23 13:13 | CT_ITS ---
PROCEDURE: CT HEAD/BRAIN WO CON CLINICAL INDICATION: fall, head injury COMPARISON: CT CT HEAD/BRAIN WO CON from 10/26/2020 TECHNIQUE: Axial images obtained. All CT scans at the facility use one or more dose reduction, viz: automated exposure control, ma/kV adjustment per patient size (including targeted exams where dose is matched to indication, i.e. head), or iterative reconstruction technique. FINDINGS: No midline shift, mass effect, intracranial hemorrhage, hydrocephalus, or extra-axial fluid collection is evident. 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 Minimal encephalomalacia change right parietal frontal junction. The calvarium has an unremarkable appearance. No mastoid effusion. No sinus air-fluid level. IMPRESSION: No acute intracranial finding Dictated by: Leonel Allan MD 02/23/2021 13:49 Leonel Allan MD in [facility] 02/23/2021 13:49
--- NOTE | 2021-02-23 13:13 | XR_ITS ---
PROCEDURE: XR CHEST PORTABLE CLINICAL HISTORY: syncope COMPARISON: CR CXR CHEST(2 VIEWS-NOT PORTABLE) from 04/18/2013 CR XR CHEST 2V from 06/09/2020 CR XR CHEST 2V from 10/26/2020 FINDINGS: There is mild cardiomegaly without failure. The lungs are clear without infiltrates, suspicious nodules, or pleural effusions. An epidural stimulator device overlies the mid to lower thoracic spine. Severe degenerative changes are present in the shoulders IMPRESSION: No acute findings. Dictated by: Leonel Allan MD 02/23/2021 14:25 Leonel Allan MD in [facility] 02/23/2021 14:25
--- NOTE | 2021-02-23 13:15 | HMH.EDGENADL ---
ED Disposition Clinical Impression: Hypoglycemia, Orthostatic syncope Disposition: Home, Self-Care Condition on Discharge: Fair Additional Instructions: You have been evaluated for fall and head injury. This is possibly due to low blood glucose. Please do not take your insulin without eating. Use care when going from seated to standing to avoid falls. Follow-up with your primary care doctor in 1 to 2 days for symptom recheck. Return to the emergency department at once for any new or worsening symptoms. Referrals: Amaury Knight MD [Primary Care Provider] - Time of Disposition: 16:15 - Critical Care Critical Care Time: No Attestation: On , the high probability of a clinically significant, sudden or life threatening deterioration of the following system(s) required my full and direct attention, intervention and personal management. The time I documented below is in addition to time spent performing reported procedures but includes the following listed in this critical care notation. Medical Decision Making - Medical Records Medical records reviewed: Yes: I reviewed the patient's medical records. - Domenico Inquiry Pt receiving controlled substance: No Vital Signs: 02/23/21 13:04 Temperature 97.7 F Temperature Source Oral Pulse Rate [Right Radial] 63 Respiratory Rate 16 Blood Pressure [Right Arm] 144/69 H Blood Pressure Mean [Right Arm] 94 Blood Pressure Source [Right Arm] Automatic Cuff Blood Pressure Position [Right Arm] Sitting 02 Sat by Pulse Oximetry 94 L Oxygen Delivery Method Room Air - Lab Data Lab Results 02/23/21 13:18: WBC 9.3, RBC 3.86 L, Hgb 10.6 L, Hct 34.5 L, MCV 89.5, MCH 27.5, MCHC 30.8 L, RDW 16.8, Plt Count 222, MPV 8.4, Neut % (Auto) 78.1, Lymph % (Auto) 13.7, [place] % (Auto) 5.3, Eos % (Auto) 2.3, Baso % (Auto) 0.7, Neut # (Auto) 7.3, Lymph # (Auto) 1.3, [place] # (Auto) 0.5, Eos # (Auto) 0.2, Baso # (Auto) 0.1 02/23/21 13:18: Sodium 142, Potassium 4.9, Chloride 113 H, Carbon Dioxide 21 L, Anion Gap 12.9, BUN 44 H, Creatinine 2.00 H, Estimated Creat Clear 35, Estimated GFR 25 L, Est GFR ( Amer) 30 L, Glucose 37 L*, Calcium 9.1, Magnesium 1.6, Total Bilirubin 0.3, AST 22, ALT 14, Alkaline Phosphatase 65, Troponin I < 0.01, Total Protein 5.9 L, Albumin 3.6, Globulin 2.3, Albumin/Globulin Ratio 1.6, TSH 0.96 02/23/21 15:19: Urine Color Yellow, Urine Appearance Clear, Urine pH 6.0, Ur Specific [place] 1.025, Urine Protein 1+, Urine Glucose (UA) Negative, Urine Ketones Negative, Urine Blood Negative, Urine Nitrate Negative, Urine Bilirubin Negative, Urine Urobilinogen 0.2, Ur Leukocyte Esterase Negative, Urine RBC None, Urine WBC Occasional, Ur Squamous Epith Cells None, Urine Bacteria Trace 02/23/21 16:13: POC Glucose 55 L Result diagrams: 02/23/21 13:18 02/23/21 13:18 Orders (Tests/Meds): ED MEDICATIONS Discontinued Medications Generic Name Dose Route Start Last Admin Trade Name Rosalba PRN Reason Stop Dose Admin Dextrose 50 ml 02/23/21 13:17 02/23/21 13:18 Dextrose 50% 50ml Syringe (Crash Cart) IVP 02/23/21 13:18 50 ml ONCE ONE Administration ORDERS Category Date Time Status Glucose,Random Stat Lab 02/23/21 15:57 Ordered Troponin I Q3H Lab 02/23/21 16:15 Ordered Troponin I Q3H Lab 02/23/21 19:15 Ordered ECG Request by /Cherri Stat Y 02/23/21 13:13 Ordered Medical Decision Narrative: In summary this is a 65-year-old female with history of insulin-dependent diabetes and CVAs presenting to the emergency department after syncopal episode. Patient clinically stable on arrival. Vital signs within normal limits. Bedside fingerstick blood glucose is 43. Patient given one amp of D50. Concern for intracranial injury from the fall. Also concern for metabolic or cardiac derangement. Will obtain CBC, CMP, chest x-ray, EKG, troponin profile, noncontrast head CT. EKG shows sinus rhythm. No evidence of ischemia or arrhythmia. Initial laboratory results ar
--- NOTE | 2021-02-23 13:23 | PC.NURSE ---
pt to CT
[2021-02-23 13:36] LABS: Basophils # 0.1 K/mm3 (0-0.2); Basophils % 0.7 % (0.1-2.0); Eosinophils # 0.2 K/mm3 (0.0-0.4); Eosinophils % 2.3 % (0.1-12.0); Hematocrit 34.5 % (37.0-47.0); Hemoglobin 10.6 g/dL (12.2-16.2); Lymphocytes # 1.3 K/mm3 (0.7-4.5); Lymphocytes % 13.7 % (10-50); Mean Corpuscular HGB Conc 30.8 g/dL (31.8-35.4); Mean Corpuscular Hemoglobin 27.5 pg (27.0-31.2); Mean Corpuscular Volume 89.5 fl (81-99); Mean Platelet Volume 8.4 fl (7.4-10.4); Monocytes # 0.5 K/mm3 (0.1-1.0); Monocytes % 5.3 % (1.7-9.3); Neutrophils # 7.3 K/mm3 (1.8-7.8); Neutrophils % 78.1 % (37.0-80.0); Platelet Count 222 K/mm3 (142-424); Red Blood Count 3.86 M/mm3 (4.20-5.40); Red Cell Distribution Width 16.8 % (11.5-17.5); White Blood Count 9.3 K/mm3 (4.8-10.8)
[2021-02-23 13:45] LABS: Chloride 113 mmol/L (98-107)
[2021-02-23 13:46] LABS: Potassium 4.9 mmoL/L (3.5-5.1); Sodium 142 mmol/L (136-145)
[2021-02-23 13:48] LABS: Alanine Aminotransferase 14 U/L (12-78); Aspartate Amino Transferase 22 U/L (14-36); Blood Urea Nitrogen 44 mg/dl (7-17); Creatinine Clearance Estimated 35 mL/min (50-200); Estimated Glomerular Filt Rate 25 ml/min (>60); GFR (African American) 30 ML/MIN (>60)
[2021-02-23 13:49] LABS: Albumin Level 3.6 g/dl (3.5-5.0); Albumin/Globulin Ratio 1.6 (1.1-1.8); Alkaline Phosphatase 65 U/L (38-126); Anion Gap 12.9 mEq/L (5-15); Bilirubin,Total 0.3 mg/dl (0.2-1.3); Calcium 9.1 mg/dl (8.4-10.2); Carbon Dioxide 21 mmol/L (22.0-30.0); Globulin 2.3 g/dL (1.3-3.2); Magnesium 1.6 mg/dl (1.6-2.3); Total Protein,Serum 5.9 g/dl (6.3-8.2)
[2021-02-23 13:50] LABS: Glucose 37 mg/dl (74-100)
--- NOTE | 2021-02-23 13:55 | ECG_ITS ---
APPROVED REPORT Exam: Resting ECG HR:63 bpm ECG Measurements Heart Rate 63 AXES [place] 182 P 58 QRSd 108 QRS -20 QT 436 T 13 QTc 446 Conclusion Normal sinus rhythm Normal ECG Electronically signed by : Kenny Sylvester MD 02/23/2021 17:33:16
[2021-02-23 14:04] LABS: Troponin I < 0.01 ng/ml (0.00-0.034)
[2021-02-23 14:20] LABS: Thyroid Stimulating Hormone 0.96 uIU/mL (0.465-4.68)
[2021-02-23 15:24] LABS: Microscopic, Urine URINE MICROSCOPIC (MICROSCOPIC)
[2021-02-23 15:26] LABS: Appearance,Urine CLEAR (Clear); Bilirubin,Urine Negative (Negative); Blood, Urine Negative (Negative); Color,Urine YELLOW (Yellow); Glucose,Urine (UA) Negative (Negative); Ketones,Urine Negative (Negative); Leukocyte Esterase,Urine Negative (Negative); Nitrate,Urine Negative (Negative); Protein,Urine 1+ (Negative); Specific Gravity, Urine 1.025 (1.005-1.030); Urobilinogen,Urine 0.2 EU/dl (0.2)
[2021-02-23 15:40] LABS: Bacteria,Urine Trace /lpf; WBC,Urine Occasional #/hpf (0-3)
--- NOTE | 2021-02-23 16:15 | PC.NURSE ---
notified ER of pt fsbs 55, stated to order tray for pt pt states she is hungry contacted dietary for tray
[2021-02-23 16:21] LABS: POC Glucose,Bedside 55 (70-110)
[2021-02-23 17:31] LABS: POC Glucose,Bedside 127 (70-110)
[2021-02-23 18:10] VITALS: BP 148/70; PULSE 78; RESP 16; TEMP 36.6; O2SAT 97
== END 2021-02-23 18:14 | disposition home or self-care (01) ==
PROVIDERS: Emergency Provider Emergency Medicine; PCP Family Medicine
DX: R55 Syncope and collapse (principal); E11.649 Type 2 diabetes mellitus with hypoglycemia without coma; Z79.4 Long term (current) use of insulin; I10 Essential (primary) hypertension; E78.5 Hyperlipidemia, unspecified; Z86.73 Personal history of transient ischemic attack (TIA), and cerebral infarction without residual deficits; F41.9 Anxiety disorder, unspecified; M79.7 Fibromyalgia; Z88.0 Allergy status to penicillin; Z88.2 Allergy status to sulfonamides; Z79.899 Other long term (current) drug therapy
CPT/HCPCS: 70450; 71045; 80053; 81001; 82962; 83735; 84443; 84484; 85025; 93005; 96374; 99283

== ENCOUNTER → 2021-02-24 11:05 | Outpatient (CLI) | payer MEDICARE, SELFPAY ==
--- NOTE | 2021-02-24 11:10 | XR_ITS ---
PROCEDURE: XR HIP LT 2-3V W/PELVIS CLINICAL INDICATION: LT HIP PAIN COMPARISON: CR XR HIP RT 2-3V W/PELVIS from 11/26/2020 FINDINGS: Epidural stimulator generator device is present left hip at the femoral acetabular junction obscuring the bone and the joint at this region. No obvious acute fracture or dislocation of the visible bone. No evidence of femoral neck fracture. Hyperostosis is present at the ischial tuberosity. Postsurgical changes lumbar spine. There is some soft tissue calcification inferior to the ischial tuberosity in could be related to prior trauma/ligamentous injury IMPRESSION: As above, no change with no acute finding Dictated by: Leonel Allan MD 02/24/2021 12:39 Leonel Allan MD in [facility] 02/24/2021 12:39
--- NOTE | 2021-02-24 11:10 | XR_ITS ---
PROCEDURE: XR KNEE LT 3V CLINICAL INDICATION: ACUTE PAIN OF LT KNEE COMPARISON: CR KNEE3R KNEE-3 VIEWS-RT from 06/16/2017 CR KNEE3L KNEE-3 VIEWS-LT from 06/16/2017 FINDINGS: No fracture or dislocation. No lytic or blastic change. There is normal mineralization. Osteoarthritic changes are present involving all 3 compartments worse at the medial compartment and patellofemoral joint. There is some cortical irregularity involving the articular surface of the medial femoral condyle. There is increased density in the suprapatellar region suggesting knee joint effusion. IMPRESSION: Osteoarthritis of the knee overall not significantly changed with knee joint effusion Dictated by: Leonel Allan MD 02/24/2021 12:38 Leonel Allan MD in [facility] 02/24/2021 12:38
== END ==
PROVIDERS: PCP Family Medicine; Visit Provider Physician Assistant
DX: M25.552 Pain in left hip (principal); M25.562 Pain in left knee
CPT/HCPCS: 73502; 73562

== ENCOUNTER 2021-03-16 09:49 | Emergency (ER) | payer MEDICARE, SELFPAY ==
[2021-03-16 09:51] VITALS: BP 112/43; PULSE 78; RESP 20; TEMP 36.5; O2SAT 99; BMI 29.2
[2021-03-16 10:15] VITALS: BMI 29.2
--- NOTE | 2021-03-16 10:17 | CT_ITS ---
PROCEDURE: CT HEAD/BRAIN WO CON CLINICAL INDICATION: AMS COMPARISON: CT CT HEAD/BRAIN WO CON from 02/23/2021 TECHNIQUE: Axial images obtained. All CT scans at the facility use one or more dose reduction, viz: automated exposure control, ma/kV adjustment per patient size (including targeted exams where dose is matched to indication, i.e. head), or iterative reconstruction technique. FINDINGS: No midline shift, mass effect, intracranial hemorrhage, hydrocephalus, or extra-axial fluid collection is evident. There is generalized atrophy with hypoattenuation of the periventricular white matter consistent with microangiopathic changes.. Encephalomalacia changes are present in the right parietal occipital junction the calvarium has an unremarkable appearance. No mastoid effusion. No sinus air-fluid level. IMPRESSION: No change with no acute finding. Chronic encephalomalacia changes of the right parietal occipital junction the Dictated by: Leonel Allan MD 03/16/2021 11:59 Leonel Allan MD in [facility] 03/16/2021 11:59
--- NOTE | 2021-03-16 10:17 | XR_ITS ---
PROCEDURE: XR CHEST PORTABLE CLINICAL HISTORY: AMS COMPARISON: CR XR CHEST 2V from 06/09/2020 CR XR CHEST 2V from 10/26/2020 CR XR CHEST PORTABLE from 02/23/2021 FINDINGS: Borderline cardiomegaly without failure skewing left lung base and left CP angle. The lungs are clear without infiltrates, suspicious nodules, or pleural effusions. Epidural stimulator device noted over the lower thoracic spine. Degenerative changes are present in the shoulders IMPRESSION: No acute findings. Dictated by: Leonel Allan MD 03/16/2021 11:57 Leonel Allan MD in [facility] 03/16/2021 11:57
[2021-03-16 10:30] VITALS: BP 115/56; PULSE 69; O2SAT 97
[2021-03-16 10:32] LABS: Basophils # 0.1 K/mm3 (0-0.2); Basophils % 0.9 % (0.1-2.0); Eosinophils # 0.4 K/mm3 (0.0-0.4); Eosinophils % 4.2 % (0.1-12.0); Hematocrit 36.4 % (37.0-47.0); Hemoglobin 11.2 g/dL (12.2-16.2); Lymphocytes # 2.3 K/mm3 (0.7-4.5); Mean Corpuscular HGB Conc 30.7 g/dL (31.8-35.4); Mean Corpuscular Hemoglobin 28.2 pg (27.0-31.2); Mean Corpuscular Volume 91.9 fl (81-99); Mean Platelet Volume 8.1 fl (7.4-10.4); Monocytes # 0.4 K/mm3 (0.1-1.0); Monocytes % 4.5 % (1.7-9.3); Neutrophils # 5.7 K/mm3 (1.8-7.8); Neutrophils % 64.4 % (37.0-80.0); Platelet Count 216 K/mm3 (142-424); Red Blood Count 3.96 M/mm3 (4.20-5.40); Red Cell Distribution Width 16.4 % (11.5-17.5); White Blood Count 8.8 K/mm3 (4.8-10.8)
[2021-03-16 10:34] LABS: Chloride 112 mmol/L (98-107); Potassium 4.4 mmoL/L (3.5-5.1); Sodium 141 mmol/L (136-145)
[2021-03-16 10:37] LABS: Alanine Aminotransferase 16 U/L (12-78); Albumin Level 3.6 g/dl (3.5-5.0); Albumin/Globulin Ratio 1.5 (1.1-1.8); Alkaline Phosphatase 69 U/L (38-126); Aspartate Amino Transferase 22 U/L (14-36); Bilirubin,Total 0.3 mg/dl (0.2-1.3); Blood Urea Nitrogen 41 mg/dl (7-17); Carbon Dioxide 18 mmol/L (22.0-30.0); Creatinine Clearance Estimated 28 mL/min (50-200); Estimated Glomerular Filt Rate 19 ml/min (>60); GFR (African American) 23 ML/MIN (>60); Globulin 2.4 g/dL (1.3-3.2); Glucose 210 mg/dl (74-100)
[2021-03-16 10:38] LABS: Anion Gap 15.4 mEq/L (5-15); Lactic Acid 1.8 mmol/L (0.7-2.1)
--- NOTE | 2021-03-16 10:39 | ECG_ITS ---
APPROVED REPORT Exam: Resting ECG HR:76 bpm ECG Measurements Heart Rate 76 AXES [place] 168 P 18 QRSd 106 QRS -27 QT 402 T 9 QTc 452 Conclusion Sinus rhythm with occasional premature ventricular complexes Possible Anterior infarct, age undetermined Abnormal ECG Electronically signed by : Kenny Sylvester MD 03/17/2021 20:45:20
[2021-03-16 10:54] LABS: Troponin I < 0.01 ng/ml (0.00-0.034)
[2021-03-16 11:00] VITALS: BP 124/56; PULSE 71; O2SAT 97
[2021-03-16 12:00] VITALS: BP 137/58; PULSE 72; RESP 18; O2SAT 95
--- NOTE | 2021-03-16 12:58 | HMH.EDGENADL ---
ED Disposition Clinical Impression: Confusion Disposition: Home, Self-Care Condition on Discharge: Good Instructions: DI for Altered Mental Status Additional Instructions: Take home medication as directed. Follow-up with your PCP tomorrow. Return emergency department for slurred speech, change in vision, weakness in arm or leg. Referrals: Amaury Knight MD [Primary Care Provider] - Time of Disposition: 13:04 - Critical Care Critical Care Time: No Attestation: On 03/16/21, the high probability of a clinically significant, sudden or life threatening deterioration of the following system(s) required my full and direct attention, intervention and personal management. The time I documented below is in addition to time spent performing reported procedures but includes the following listed in this critical care notation. Medical Decision Making - Medical Records Medical records reviewed: Yes: I reviewed the patient's medical records. - Domenico Inquiry Pt receiving controlled substance: No Vital Signs: 03/16/21 09:51 03/16/21 10:30 03/16/21 11:00 Temperature 97.7 F Temperature Source Oral Pulse Rate 69 71 Pulse Rate [Left Radial] 78 Respiratory Rate 20 Blood Pressure 115/56 L 124/56 L Blood Pressure [Right Arm] 112/43 L Blood Pressure Mean 75 66 Blood Pressure Mean [Right Arm] 66 Blood Pressure Source [Right Arm] Automatic Cuff Blood Pressure Position [Right Arm] Sitting 02 Sat by Pulse Oximetry 99 97 97 Oxygen Delivery Method Room Air 03/16/21 12:00 Temperature Temperature Source Pulse Rate 72 Pulse Rate [Left Radial] Respiratory Rate 18 Blood Pressure 137/58 L Blood Pressure [Right Arm] Blood Pressure Mean 74 Blood Pressure Mean [Right Arm] Blood Pressure Source [Right Arm] Blood Pressure Position [Right Arm] 02 Sat by Pulse Oximetry 95 Oxygen Delivery Method - Lab Data Lab results reviewed: Yes: I reviewed the patient's lab results. Lab Results 03/16/21 10:15: WBC 8.8, RBC 3.96 L, Hgb 11.2 L, Hct 36.4 L, MCV 91.9, MCH 28.2, MCHC 30.7 L, RDW 16.4, Plt Count 216, MPV 8.1, Neut % (Auto) 64.4, Lymph % (Auto) 26.0, [place] % (Auto) 4.5, Eos % (Auto) 4.2, Baso % (Auto) 0.9, Neut # (Auto) 5.7, Lymph # (Auto) 2.3, [place] # (Auto) 0.4, Eos # (Auto) 0.4, Baso # (Auto) 0.1 03/16/21 10:15: Sodium 141, Potassium 4.4, Chloride 112 H, Carbon Dioxide 18 L, Anion Gap 15.4 H, BUN 41 H, Creatinine 2.50 H, Estimated Creat Clear 28, Estimated GFR 19 L*, Est GFR ( Amer) 23 L, Glucose 210 H, Calcium 9.0, Total Bilirubin 0.3, AST 22, ALT 16, Alkaline Phosphatase 69, Troponin I < 0.01, Total Protein 6.0 L, Albumin 3.6, Globulin 2.4, Albumin/Globulin Ratio 1.5 03/16/21 10:15: Lactate 1.8 03/16/21 13:00: Urine Color Yellow, Urine Appearance Clear, Urine pH 5.5, Ur Specific [place] 1.020, Urine Protein 1+, Urine Glucose (UA) Negative, Urine Ketones Negative, Urine Blood Negative, Urine Nitrate Negative, Urine Bilirubin Negative, Urine Urobilinogen 0.2, Ur Leukocyte Esterase Negative, Urine RBC None, Urine WBC None, Ur Squamous Epith Cells Occasional, Urine Bacteria None Result diagrams: 03/16/21 10:15 03/16/21 10:15 Orders (Tests/Meds): ED MEDICATIONS Discontinued Medications Generic Name Dose Route Start Last Admin Trade Name Freq PRN Reason Stop Dose Admin Sodium Chloride 1,000 mls @ 999 mls/hr 03/16/21 11:30 03/16/21 12:15 Sod Chlor 0.9% 1000ml Bag IV 03/16/21 12:30 999 mls/hr .Q1H1M MANUEL Administration ORDERS Category Date Time Status Blood Culture Stat Micro 03/16/21 10:15 Received - CT Data CT Scan: Head Time Received: 11:[address] Reviewed: Yes: I have reviewed the patient's CT results Preliminary Findings: Normal/NAD Findings Narrative: Chronic changes without acute finding. - ECG Data Tracing #1 I reviewed this ECG and interpreted as documented below: 76 bpm, sinus rhythm with occasional PVC, no significant ST elevation or depre
[2021-03-16 13:18] LABS: Microscopic, Urine URINE MICROSCOPIC (MICROSCOPIC)
[2021-03-16 13:24] LABS: Appearance,Urine CLEAR (Clear); Bilirubin,Urine Negative (Negative); Blood, Urine Negative (Negative); Color,Urine YELLOW (Yellow); Glucose,Urine (UA) Negative (Negative); Ketones,Urine Negative (Negative); Leukocyte Esterase,Urine Negative (Negative); Nitrate,Urine Negative (Negative); PH,Urine 5.5 (5.0-8.5); Protein,Urine 1+ (Negative); Urobilinogen,Urine 0.2 EU/dl (0.2)
[2021-03-16 13:35] LABS: Squamous Epithelial Cell,Urine Occasional #/hpf (0-5)
--- NOTE | 2021-03-16 13:39 | PC.NURSE ---
DR MÁRQUEZ SPEAKING WITH DR TURCIOS
--- NOTE | 2021-03-16 13:43 | PC.NURSE ---
spoke with Dr Knight and notified nurses that pt will be going home.
[2021-03-16 14:00] VITALS: BP 169/71; PULSE 73; RESP 20; TEMP 37.2; O2SAT 98
== END 2021-03-16 14:10 | disposition home or self-care (01) ==
PROVIDERS: Emergency Provider Family Medicine; PCP Family Medicine
DX: R41.0 Disorientation, unspecified (principal); E11.65 Type 2 diabetes mellitus with hyperglycemia; I10 Essential (primary) hypertension; E78.5 Hyperlipidemia, unspecified; F41.9 Anxiety disorder, unspecified; Z88.0 Allergy status to penicillin; Z88.2 Allergy status to sulfonamides; Z91.048 Other nonmedicinal substance allergy status; Z79.899 Other long term (current) drug therapy
CPT/HCPCS: 70450; 71045; 80053; 81001; 83605; 84484; 85025; 87040; 93005; 96365; 99284

== ENCOUNTER 2021-03-18 12:52 | Emergency (ER) | payer MEDICARE, SELFPAY ==
[2021-03-18 12:53] VITALS: BP 136/61; PULSE 70; RESP 16; TEMP 36.6; O2SAT 98; BMI 29.2
--- NOTE | 2021-03-18 13:20 | CT_ITS ---
PROCEDURE: CT HEAD/BRAIN WO CON CLINICAL INDICATION: near syncope Visual changes the COMPARISON: CT CT HEAD/BRAIN WO CON from 07/23/[address] HEAD/BRAIN WO CON from 03/16/2021 TECHNIQUE: Axial images obtained. All CT scans at the facility use one or more dose reduction, viz: automated exposure control, ma/kV adjustment per patient size (including targeted exams where dose is matched to indication, i.e. head), or iterative reconstruction technique. FINDINGS: No midline shift, mass effect, intracranial hemorrhage, hydrocephalus, or extra-axial fluid collection is evident. Prominent area of encephalomalacia is present involving the right parietal occipital region consistent with an old posterior cerebellar infarction. The calvarium has an unremarkable appearance. No mastoid effusion. No sinus air-fluid level. IMPRESSION: No change with no acute finding. 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
--- NOTE | 2021-03-18 13:38 | PC.NURSE ---
pt gone to ct
[2021-03-18 13:46] LABS: Basophils # 0.1 K/mm3 (0-0.2); Basophils % 0.9 % (0.1-2.0); Eosinophils # 0.3 K/mm3 (0.0-0.4); Eosinophils % 3.6 % (0.1-12.0); Hematocrit 34.5 % (37.0-47.0); Hemoglobin 10.6 g/dL (12.2-16.2); Lymphocytes # 1.4 K/mm3 (0.7-4.5); Lymphocytes % 18.2 % (10-50); Mean Corpuscular HGB Conc 30.7 g/dL (31.8-35.4); Mean Corpuscular Hemoglobin 28.4 pg (27.0-31.2); Mean Corpuscular Volume 92.6 fl (81-99); Mean Platelet Volume 8.1 fl (7.4-10.4); Monocytes # 0.4 K/mm3 (0.1-1.0); Monocytes % 5.8 % (1.7-9.3); Neutrophils # 5.4 K/mm3 (1.8-7.8); Neutrophils % 71.4 % (37.0-80.0); Platelet Count 193 K/mm3 (142-424); Red Blood Count 3.73 M/mm3 (4.20-5.40); Red Cell Distribution Width 16.7 % (11.5-17.5); White Blood Count 7.5 K/mm3 (4.8-10.8)
[2021-03-18 13:49] LABS: Chloride 111 mmol/L (98-107); Potassium 4.7 mmoL/L (3.5-5.1); Sodium 140 mmol/L (136-145)
[2021-03-18 13:51] LABS: Blood Urea Nitrogen 46 mg/dl (7-17); Creatinine Clearance Estimated 33 mL/min (50-200); Estimated Glomerular Filt Rate 24 ml/min (>60); GFR (African American) 29 ML/MIN (>60)
[2021-03-18 13:52] LABS: Alanine Aminotransferase 14 U/L (12-78); Albumin Level 3.6 g/dl (3.5-5.0); Albumin/Globulin Ratio 1.6 (1.1-1.8); Alkaline Phosphatase 70 U/L (38-126); Anion Gap 14.7 mEq/L (5-15); Aspartate Amino Transferase 22 U/L (14-36); Bilirubin,Total 0.3 mg/dl (0.2-1.3); Calcium 8.9 mg/dl (8.4-10.2); Carbon Dioxide 19 mmol/L (22.0-30.0); Globulin 2.2 g/dL (1.3-3.2); Glucose 218 mg/dl (74-100); Total Protein,Serum 5.8 g/dl (6.3-8.2)
--- NOTE | 2021-03-18 14:00 | HMH.EDGENADL ---
ED Disposition Clinical Impression: Vasovagal near syncope Disposition: Home, Self-Care Condition on Discharge: Good Instructions: DI for Syncope in Adults (Fainting) Referrals: Amaury Knight MD [Primary Care Provider] - - Critical Care Critical Care Time: No Attestation: On 03/18/21, the high probability of a clinically significant, sudden or life threatening deterioration of the following system(s) required my full and direct attention, intervention and personal management. The time I documented below is in addition to time spent performing reported procedures but includes the following listed in this critical care notation. Medical Decision Making - Medical Records Medical records reviewed: Yes: I reviewed the patient's medical records. - Domenico Inquiry Pt receiving controlled substance: No - Lab Data Lab Results 03/18/21 13:30: WBC 7.5, RBC 3.73 L, Hgb 10.6 L, Hct 34.5 L, MCV 92.6, MCH 28.4, MCHC 30.7 L, RDW 16.7, Plt Count 193, MPV 8.1, Neut % (Auto) 71.4, Lymph % (Auto) 18.2, [place] % (Auto) 5.8, Eos % (Auto) 3.6, Baso % (Auto) 0.9, Neut # (Auto) 5.4, Lymph # (Auto) 1.4, [place] # (Auto) 0.4, Eos # (Auto) 0.3, Baso # (Auto) 0.1 03/18/21 13:30: Sodium 140, Potassium 4.7, Chloride 111 H, Carbon Dioxide 19 L, Anion Gap 14.7, BUN 46 H, Creatinine 2.10 H, Estimated Creat Clear 33, Estimated GFR 24 L, Est GFR ( Amer) 29 L D, Glucose 218 H, Calcium 8.9, Total Bilirubin 0.3, AST 22, ALT 14, Alkaline Phosphatase 70, Troponin I < 0.01, Total Protein 5.8 L, Albumin 3.6, Globulin 2.2, Albumin/Globulin Ratio 1.6 Result diagrams: 03/18/21 13:30 03/18/21 13:30 Orders (Tests/Meds): ORDERS Category Date Time Status Complete Blood Count Auto Diff Stat Lab 03/18/21 13:19 Ordered Comprehensive Metabolic Panel Stat Lab 03/18/21 13:19 Ordered Troponin I Q3H Lab 03/18/21 16:30 Ordered Troponin I Q3H Lab 03/18/21 19:30 Ordered Urinalysis and Microscopic Stat Lab 03/18/21 13:20 Ordered - CT Data CT Scan: Head Time Received: 14:[address] Reviewed: Yes: I have reviewed the patient's CT results, I have viewed the radiologist's interpretation Findings Narrative: IMPRESSION: No change with no acute finding. 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 Repeat neurologic exam is normal. CT unremarkable. I do believe the patient's symptoms are consistent with vasovagal episode near syncope. Patient needs to follow-up with her neurologist and PCP as previously instructed. Given strict return precautions for any change in symptoms. Verbalized understanding. Medical Decision Narrative: 65-year-old female presented to the emergency department with some lightheadedness and blurred vision. Patient symptoms sound consistent with near syncopal episode. She does have a longstanding history of TIAs. Patient had similar symptoms 2 days ago which prompted her to come to the emergency department. She had negative work-up at this time. Normal neurologic exam. Work-up initiated. General Adult HPI - General Chief complaint: Weakness Stated complaint: WEAKNESS Time Seen by Provider: 03/18/21 14:00 - History of Present Illness HPI narrative: This is a 65-year-old female presented to the emergency department with some weakness. Patient is a longstanding history of TIA and anxiety. She states that today she got up quickly to go to the bathroom, and when she got there she got very lightheaded. She felt like her vision was blurry. Patient states that she thought she was going to pass out, however never lost consciousness. She was able to make it back to her bedroom at the time of the event. She states that shortly afterwards her symptoms resolved. She had very concerned by this because she felt like she could not see at the time. She felt like her vision just went black. She had no focal visual fi
[2021-03-18 14:10] LABS: Troponin I < 0.01 ng/ml (0.00-0.034)
[2021-03-18 14:42] VITALS: BP 135/61; PULSE 70; RESP 16; TEMP 36.6; O2SAT 98
[2021-03-18 14:43] VITALS: BP 128/65; PULSE 65; RESP 20; TEMP 36.6; O2SAT 98
== END 2021-03-18 14:43 | disposition home or self-care (01) ==
PROVIDERS: Emergency Provider Emergency Medicine; PCP Family Medicine
DX: R55 Syncope and collapse (principal)
CPT/HCPCS: 70450; 80053; 84484; 85025; 99282

== ENCOUNTER → 2021-04-16 09:41 | Outpatient (CLI) | payer MEDICARE, SELFPAY | PROVIDERS: PCP Family Medicine; Visit Provider Specialist | DX: R55 Syncope and collapse (principal); R41.0 Disorientation, unspecified | CPT/HCPCS: 95819 ==

== ENCOUNTER → 2021-06-08 11:17 | Outpatient (POV) | payer MEDICARE, SELFPAY | PROVIDERS: Visit Provider Dermatology | DX: Z00.00 Encounter for general adult medical examination without abnormal findings (principal) ==

== ENCOUNTER → 2021-06-15 10:01 | Outpatient (POV) | payer MEDICARE, SELFPAY | PROVIDERS: Visit Provider Dermatology | DX: Z00.00 Encounter for general adult medical examination without abnormal findings (principal) ==

== ENCOUNTER → 2021-07-06 12:07 | Outpatient (CLI) | payer MEDICARE, SELFPAY ==
[2021-07-09 00:07] LABS: D001-IgE D pteronyssinus <0.10 kU/L (Class 0); D002-IgE D farinae <0.10 kU/L (Class 0); E001-IgE Cat Dander <0.10 kU/L (Class 0); E005-IgE Dog Dander <0.10 kU/L (Class 0); E072-IgE Mouse Urine <0.10 kU/L (Class 0); G002-IgE Bermuda Grass <0.10 kU/L (Class 0); G006-IgE Timothy Grass <0.10 kU/L (Class 0); I006-IgE Cockroach, German <0.10 kU/L (Class 0); Immunoglobulin E, Total 5 IU/mL (6-495); M001-IgE Penicillium chrysogen <0.10 kU/L (Class 0); M002-IgE Cladosporium herbarum <0.10 kU/L (Class 0); M003-IgE Aspergillus fumigatus <0.10 kU/L (Class 0); M006-IgE Alternaria alternata <0.10 kU/L (Class 0); T001-IgE Maple/Box Elder <0.10 kU/L (Class 0); T003-IgE Common Silver Birch <0.10 kU/L (Class 0); T006-IgE Cedar, Mountain <0.10 kU/L (Class 0); T007-IgE Oak, White <0.10 kU/L (Class 0); T008-IgE Elm, American <0.10 kU/L (Class 0); T010-IgE Walnut <0.10 kU/L (Class 0); T011-IgE Maple Leaf Sycamore <0.10 kU/L (Class 0); T014-IgE Cottonwood <0.10 kU/L (Class 0); T015-IgE Ash, White <0.10 kU/L (Class 0); T022-IgE Pecan, Hickory <0.10 kU/L (Class 0); T070-IgE White Mulberry <0.10 kU/L (Class 0); W001-IgE Ragweed, Short <0.10 kU/L (Class 0); W011-IgE Thistle, Russian <0.10 kU/L (Class 0); W014-IgE Pigweed, Common <0.10 kU/L (Class 0); W018-IgE Sheep Sorrel <0.10 kU/L (Class 0)
== END ==
PROVIDERS: Visit Provider Otolaryngology
DX: J30.9 Allergic rhinitis, unspecified (principal)
CPT/HCPCS: 36415; 82785; 86003

== ENCOUNTER → 2021-07-21 14:36 | Outpatient (CLI) | payer MEDICARE, SELFPAY ==
--- NOTE | 2021-07-21 14:40 | XR_ITS ---
FINAL REPORT CLINICAL HISTORY: foot pain, WEIGHTBEARING VIEWS FOR DR CHAMBERS. PATIENT IS DIABETIC. FINDINGS: LEFT FOOT Three views demonstrate no acute fracture or dislocation. There are presumed postoperative changes at the medial head of the first metatarsal. There is erosion at the head of the fifth metatarsal of uncertain significance. IMPRESSION: Erosion at the head of the fifth metatarsal. Reviewed, Interpreted and Dictated by Jesus Manuel Ellington III, MD Transcribed by Shyla Cantrell Authenticated by Jesus Manuel Ellington III, MD on 07/21/2021 04:00:05 PM [facility]
--- NOTE | 2021-07-21 14:40 | XR_ITS ---
FINAL REPORT CLINICAL HISTORY: foot pain, WEIGHTBEARING VIEWS FOR DR CHAMBERS. DIABETIC. FINDINGS: RIGHT FOOT Three views demonstrate no acute fracture or dislocation. The joint spaces appear normal. The visualized bony structures are well aligned. No soft tissue abnormality is seen. IMPRESSION: No acute process. Reviewed, Interpreted and Dictated by Jesus Manuel Ellington III, MD Transcribed by Shyla Cantrell Authenticated by Jesus Manuel Ellington III, MD on 07/21/2021 03:59:43 PM [facility]
== END ==
PROVIDERS: PCP Family Medicine; Visit Provider Podiatrist
DX: M79.671 Pain in right foot (principal); M79.672 Pain in left foot
CPT/HCPCS: 73630

== ENCOUNTER → 2021-07-29 08:46 | Outpatient (CLI) | payer MEDICARE, SELFPAY ==
[2021-07-29 09:09] LABS: Basophils # 0.2 K/mm3 (0-0.2); Basophils % 3.1 % (0.1-2.0); Eosinophils # 0.3 K/mm3 (0.0-0.4); Eosinophils % 4.7 % (0.1-12.0); Hematocrit 36.5 % (37.0-47.0); Hemoglobin 11.1 g/dL (12.2-16.2); Lymphocytes # 2.2 K/mm3 (0.7-4.5); Lymphocytes % 31.9 % (10-50); Mean Corpuscular HGB Conc 30.3 g/dL (31.8-35.4); Mean Corpuscular Hemoglobin 27.8 pg (27.0-31.2); Mean Corpuscular Volume 91.7 fl (81-99); Mean Platelet Volume 9.1 fl (7.4-10.4); Monocytes # 0.4 K/mm3 (0.1-1.0); Monocytes % 5.1 % (1.7-9.3); Neutrophils # 3.7 K/mm3 (1.8-7.8); Neutrophils % 55.2 % (37.0-80.0); Platelet Count 250 K/mm3 (142-424); Red Blood Count 3.98 M/mm3 (4.20-5.40); Red Cell Distribution Width 16.6 % (11.5-17.5); White Blood Count 6.7 K/mm3 (4.8-10.8)
[2021-07-29 10:19] LABS: Albumin Level 3.7 g/dl (3.5-5.0); Anion Gap 10.1 mEq/L (5-15); Blood Urea Nitrogen 42 mg/dl (7-17); Calcium 9.4 mg/dl (8.4-10.2); Carbon Dioxide 26 mmol/L (22.0-30.0); Chloride 109 mmol/L (98-107); Estimated Glomerular Filt Rate 27 ml/min (>60); GFR (African American) 32 ML/MIN (>60); Glucose 227 mg/dl (74-100); Phosphorous 4.1 mg/dl (2.5-4.5); Potassium 5.1 mmoL/L (3.5-5.1); Sodium 140 mmol/L (136-145)
[2021-07-29 10:31] LABS: Intact Parathyroid Hormone 141.9 pg/mL (7.5-53.5)
[2021-07-29 10:32] LABS: Creatinine,Urine Random 202 mg/dL (Not Estab.); Microalbumin/Creatinine Ratio 661.3
[2021-07-29 10:37] LABS: 25-OH Vitamin D, Total 57.1 ng/mL (30-100)
[2021-08-02 16:20] LABS: Tandem-R Ostase 9.4 ug/L (.)
[2021-08-04 22:16] LABS: C-Telopeptide Serum 247 pg/mL (.)
== END ==
PROVIDERS: PCP Family Medicine; Visit Provider Internal Medicine Nephrology
DX: N18.32 Chronic kidney disease, stage 3b (principal)
CPT/HCPCS: 36415; 80069; 82043; 82306; 82523; 82570; 83970; 84080; 85025

== ENCOUNTER → 2021-08-04 12:45 | Outpatient (CLI) | payer MEDICARE, SELFPAY ==
[2021-08-04 12:58] LABS: Adenovirus F 40/41, stool Not Detected (NotDetected); Astrovirus Not Detected (NotDetected); Campylobacter Not Detected (NotDetected); Cryptosporidium Not Detected (NotDetected); Cyclospora Cayetanesis Not Detected (NotDetected); Entamoeba histolytica Not Detected (NotDetected); Enteroaggregative E coli Not Detected (NotDetected); Enteropathogenic E coli Not Detected (NotDetected); Enterotoxigenic E coli Not Detected (NotDetected); Giardia lamblia Not Detected (NotDetected); Norovirus Not Detected (NotDetected); Plesimonas Shigalloides, PCR Not Detected (NotDetected); Rotavirus A Not Detected (NotDetected); Salmonella, PCR Not Detected (NotDetected); Sapovirus Not Detected (NotDetected); Shiga-like toxin E coli Not Detected (NotDetected); Shigella Enterovasive E coli Not Detected (NotDetected); Vibrio Cholerae Not Detected (NotDetected); Vibrio, PCR Not Detected (NotDetected); Yersinia Entercolitica, PCR Not Detected (NotDetected)
[2021-08-04 16:12] LABS: Clostridium Difficile A/B, PCR Detected (NotDetected)
== END ==
PROVIDERS: PCP Family Medicine; Visit Provider Family Medicine
DX: R19.7 Diarrhea, unspecified (principal); A04.72 Enterocolitis due to Clostridium difficile, not specified as recurrent
CPT/HCPCS: 87506

== ENCOUNTER → 2021-08-09 12:01 | Outpatient (POV) | payer MEDICARE, SELFPAY | PROVIDERS: Visit Provider Internal Medicine Nephrology | DX: Z00.00 Encounter for general adult medical examination without abnormal findings (principal) ==

== ENCOUNTER → 2021-08-10 14:27 | Outpatient (CLI) | payer MEDICARE, SELFPAY | PROVIDERS: Visit Provider Nurse Practitioner | DX: Z20.822 Contact with and (suspected) exposure to COVID-19 (principal) | CPT/HCPCS: C9803; U0003; U0005 ==

== ENCOUNTER 2021-08-16 12:04 | Observation (INO) | payer MEDICARE, SELFPAY ==
[2021-08-16] VITALS (10 sets, daily range): BP systolic 104–196; BP diastolic 54–89; PULSE 65–76; RESP 16–18; TEMP 37; O2SAT 97–98; BMI 29.2; BMI 28.3
--- NOTE | 2021-08-16 12:58 | XR_ITS ---
FINAL REPORT CLINICAL HISTORY: presyncope COMPARISON: March 16, 2021 FINDINGS: The heart size is normal. The mediastinum is normal. There is no focal infiltrate or edema. There are no pleural effusions. There is no pneumothorax. A spinal stimulator is present. There are degenerative changes of the shoulders. IMPRESSION: No acute cardiopulmonary process Reviewed, Interpreted and Dictated by Jesus Manuel Ellington III, MD Transcribed by Narayan Diaz Authenticated by Jesus Manuel Ellington III, MD on 08/16/2021 02:07:33 PM [facility]
--- NOTE | 2021-08-16 13:01 | ECG_ITS ---
APPROVED REPORT Exam: Resting ECG HR:68 bpm ECG Measurements Heart Rate 68 AXES TN 190 P 61 QRSd 110 QRS 121 QT 416 T 24 QTc 433 Conclusion SINUS RHYTHM WITH OCCASIONAL VENTRICULAR PREMATURE COMPLEXES POSSIBLE RIGHT VENTRICULAR HYPERTROPHY [SOME/ALL OF: PROMINENT R IN V1, LATE TRANSITION, RAD, CHOLO, SSS] NONSPECIFIC T-WAVE ABNORMALITY ABNORMAL ECG UNCONFIRMED REPORT Electronically signed by : Kenny Sylvester MD 08/18/2021 21:05:36
--- NOTE | 2021-08-16 13:22 | HMH.EDGENADL ---
ED Disposition Clinical Impression: Anemia Disposition: Admitted As Inpatient Condition on Discharge: Good - Critical Care Critical Care Time: No Attestation: On 08/16/21, the high probability of a clinically significant, sudden or life threatening deterioration of the following system(s) required my full and direct attention, intervention and personal management. The time I documented below is in addition to time spent performing reported procedures but includes the following listed in this critical care notation. Medical Decision Making - Medical Records Medical records reviewed: Yes: I reviewed the patient's medical records. - Domenico Inquiry Pt receiving controlled substance: No Vital Signs: 08/16/21 12:06 08/16/21 13:25 08/16/21 13:31 Temperature 98.6 F Temperature Source Oral Pulse Rate 67 65 Pulse Rate [Left Radial] 69 Respiratory Rate 18 Blood Pressure 153/69 H 154/68 H Blood Pressure [Right Arm] 104/54 L Blood Pressure Mean 96 Blood Pressure Mean [Right Arm] 70 Blood Pressure Source [Right Arm] Automatic Cuff Blood Pressure Position [Right Arm] Sitting 02 Sat by Pulse Oximetry 98 97 97 Oxygen Delivery Method Room Air 08/16/21 14:30 08/16/21 15:00 08/16/21 16:15 Temperature 98.6 F Temperature Source Pulse Rate 68 65 65 Pulse Rate [Left Radial] Respiratory Rate 18 Blood Pressure 196/89 H 191/81 H 191/81 H Blood Pressure [Right Arm] Blood Pressure Mean 101 116 Blood Pressure Mean [Right Arm] Blood Pressure Source [Right Arm] Blood Pressure Position [Right Arm] 02 Sat by Pulse Oximetry 97 97 Oxygen Delivery Method Room Air - Lab Data Lab results reviewed: Yes: I reviewed the patient's lab results. Lab Results 08/16/21 13:08: WBC 7.6, RBC 3.01 L, Hgb 8.4 L, Hct 27.4 L, MCV 91.1, MCH 28.0, MCHC 30.7 L, RDW 17.3, Plt Count 197, MPV 9.0, Neut % (Auto) 75.0, Lymph % (Auto) 15.6, [place] % (Auto) 5.5, Eos % (Auto) 3.4, Baso % (Auto) 0.5, Neut # (Auto) 5.7, Lymph # (Auto) 1.2, [place] # (Auto) 0.4, Eos # (Auto) 0.3, Baso # (Auto) 0.0 08/16/21 13:08: Sodium 133 L, Potassium 5.2 H, Chloride 108 H, Carbon Dioxide 22, Anion Gap 8.2, BUN 37 H, Creatinine 2.20 H, Estimated Creat Clear 31, Estimated GFR 22 L, Est GFR ( Amer) 27 L, Glucose 244 H, Calcium 7.9 L, Total Bilirubin 0.3, AST 19, ALT 11 L, Alkaline Phosphatase 52, Troponin I < 0.01, Total Protein 5.6 L, Albumin 3.4 L, Globulin 2.2, Albumin/Globulin Ratio 1.5 08/16/21 14:10: SARS-CoV-2 (PCR) Not detected, Influenza A Untype (PCR) Not detected, Influenza Type B (PCR) Not detected 08/16/21 15:40: Troponin I < 0.01 Result diagrams: 08/16/21 17:00 08/16/21 17:00 Orders (Tests/Meds): ED MEDICATIONS Generic Name Dose Route Start Last Admin Trade Name Freq PRN Reason Stop Dose Admin Allopurinol 100 mg 08/16/21 21:00 Allopurinol 100mg Tablet PO 09/15/21 20:59 BID MANUEL Buspirone HCl 20 mg 08/16/21 18:26 Buspirone Hcl 10 Mg Tablet PO 09/15/21 18:25 BID PRN Anxiety Carvedilol 25 mg 08/16/21 21:00 Carvedilol 25mg Tablet PO 09/15/21 20:59 BID MANUEL Furosemide 40 mg 08/16/21 18:26 Furosemide 40 Mg Tablet PO 09/15/21 18:25 NEEDED PRN overload Insulin Human Lispro 0 unit 08/16/21 21:00 Humalog 100 Units/Ml 3ml Vial (Ssi) SQ 09/15/21 20:59 ACHS MANUEL Protocol Non-Formulary Medication 60 mg 08/17/21 09:00 Duloxetine Hcl [Cymbalta] PO 09/16/21 08:59 DAILY MANUEL Non-Formulary Medication 80 mg 08/16/21 18:30 Pravastatin Sodium [Pravachol] PO 09/15/21 18:29 QHS MANUEL Non-Formulary Medication 150 mg 08/16/21 21:00 Pregabalin [Lyrica 150mg Cap] PO 09/15/21 20:59 BID MANUEL Pantoprazole Sodium 40 mg 08/16/21 21:00 Pantoprazole 40mg Tablet PO 09/15/21 20:59 BID MANUEL ORDERS Category Date Time Status Consult to On-Call Ssis Developer [CONS] Routine Cons 08/16/21 16:46 Active Consult
[2021-08-16 13:32] LABS: Basophils % 0.5 % (0.1-2.0); Eosinophils # 0.3 K/mm3 (0.0-0.4); Eosinophils % 3.4 % (0.1-12.0); Hematocrit 27.4 % (37.0-47.0); Hemoglobin 8.4 g/dL (12.2-16.2); Lymphocytes # 1.2 K/mm3 (0.7-4.5); Lymphocytes % 15.6 % (10-50); Mean Corpuscular HGB Conc 30.7 g/dL (31.8-35.4); Mean Corpuscular Volume 91.1 fl (81-99); Monocytes # 0.4 K/mm3 (0.1-1.0); Monocytes % 5.5 % (1.7-9.3); Neutrophils # 5.7 K/mm3 (1.8-7.8); Platelet Count 197 K/mm3 (142-424); Red Blood Count 3.01 M/mm3 (4.20-5.40); Red Cell Distribution Width 17.3 % (11.5-17.5); White Blood Count 7.6 K/mm3 (4.8-10.8)
[2021-08-16 13:42] LABS: Chloride 108 mmol/L (98-107); Potassium 5.2 mmoL/L (3.5-5.1); Sodium 133 mmol/L (136-145)
[2021-08-16 13:44] LABS: Blood Urea Nitrogen 37 mg/dl (7-17); Creatinine Clearance Estimated 31 mL/min (50-200); Estimated Glomerular Filt Rate 22 ml/min (>60); GFR (African American) 27 ML/MIN (>60)
[2021-08-16 13:45] LABS: Alanine Aminotransferase 11 U/L (12-78); Albumin Level 3.4 g/dl (3.5-5.0); Albumin/Globulin Ratio 1.5 (1.1-1.8); Alkaline Phosphatase 52 U/L (38-126); Anion Gap 8.2 mEq/L (5-15); Aspartate Amino Transferase 19 U/L (14-36); Bilirubin,Total 0.3 mg/dl (0.2-1.3); Calcium 7.9 mg/dl (8.4-10.2); Carbon Dioxide 22 mmol/L (22.0-30.0); Globulin 2.2 g/dL (1.3-3.2); Glucose 244 mg/dl (74-100); Total Protein,Serum 5.6 g/dl (6.3-8.2)
[2021-08-16 13:57] LABS: Troponin I < 0.01 ng/ml (0.00-0.034)
--- NOTE | 2021-08-16 14:02 | PC.NURSE ---
DR FALL TALKING TO DR TURCIOS
--- NOTE | 2021-08-16 14:06 | PC.NURSE ---
CARE MANAGEMENT NOTIFIED OF ADMISSION
[2021-08-16 14:18] LABS: Coronavirus 19, PCR Not Detected (NotDetected); Influenza A, PCR Not Detected (NotDetected); Influenza B, PCR Not Detected (NotDetected)
--- NOTE | 2021-08-16 15:37 | PC.NURSE ---
updated family about pt and current status
[2021-08-16 16:39] LABS: Troponin I < 0.01 ng/ml (0.00-0.034)
--- NOTE | 2021-08-16 16:45 | PC.NURSE ---
pt arrived to floor via wheelchair at 16:15
--- NOTE | 2021-08-16 16:54 | PC.NURSE ---
called corrosion control technician general surgeon to notify of the consult
[2021-08-16 17:22] LABS: Basophils # 0.1 K/mm3 (0-0.2); Basophils % 0.7 % (0.1-2.0); Eosinophils # 0.1 K/mm3 (0.0-0.4); Eosinophils % 1.2 % (0.1-12.0); Lymphocytes % 12.3 % (10-50); Mean Corpuscular HGB Conc 30.9 g/dL (31.8-35.4); Mean Corpuscular Hemoglobin 27.8 pg (27.0-31.2); Mean Corpuscular Volume 89.8 fl (81-99); Mean Platelet Volume 8.6 fl (7.4-10.4); Monocytes # 0.4 K/mm3 (0.1-1.0); Monocytes % 4.6 % (1.7-9.3); Neutrophils # 6.9 K/mm3 (1.8-7.8); Neutrophils % 81.2 % (37.0-80.0); Platelet Count 237 K/mm3 (142-424); Red Blood Count 4.12 M/mm3 (4.20-5.40); Red Cell Distribution Width 16.9 % (11.5-17.5); White Blood Count 8.5 K/mm3 (4.8-10.8)
[2021-08-16 17:28] LABS: Alanine Aminotransferase 11 U/L (12-78); Albumin Level 3.8 g/dl (3.5-5.0); Albumin/Globulin Ratio 1.6 (1.1-1.8); Alkaline Phosphatase 51 U/L (38-126); Anion Gap 9.4 mEq/L (5-15); Aspartate Amino Transferase 18 U/L (14-36); Bilirubin,Total 0.3 mg/dl (0.2-1.3); Blood Urea Nitrogen 35 mg/dl (7-17); Calcium 8.8 mg/dl (8.4-10.2); Carbon Dioxide 24 mmol/L (22.0-30.0); Chloride 109 mmol/L (98-107); Creatinine Clearance Estimated 35 mL/min (50-200); Estimated Glomerular Filt Rate 27 ml/min (>60); GFR (African American) 32 ML/MIN (>60); Globulin 2.4 g/dL (1.3-3.2); Glucose 232 mg/dl (74-100); Potassium 5.4 mmoL/L (3.5-5.1); Sodium 137 mmol/L (136-145); Total Protein,Serum 6.2 g/dl (6.3-8.2)
--- NOTE | 2021-08-16 17:59 | HMH.HP ---
*Admission Date: 08/16/21 <Shyla Bethea - 08/16/21 18:50> *Chief complaint: fainted; hypotension <Shyla Bethea 08/16/21 18:50> *History of present illness: Ms. Murry is a 66-year-old female with a history of type 2 diabetes mellitus, kidney disease, fibromyalgia, arthritis, irritable bowel syndrome, asthma, right occipital CVA in 2020, hypertension, chronic back pain, depression and anxiety, and osteopenia who was in the waiting room waiting to be seen by Dr. Hazel for foot issue when she suddenly began to feel dizzy and then apparently passed out. She was then evaluated in the office of Dr. Hazel and found to be hypotensive. She was then taken to the ER for evaluation. In the emergency room blood pressure was 104/54. Chest x-ray showed no acute cardiopulmonary process. Laboratory data showed a normal white blood cell count with a hemoglobin of 8.4 and HCT 27.4. Blood chemistries show a sodium of 133 and potassium of 5.2 chloride of 108 CO2 of 22 with a BUN of 37 and creatinine of 2.2. Blood sugar was noted to be 244. Liver function studies were not elevated. At the time of this exam patient states she had no cardiac or respiratory difficulty to use prior to her fainting. She states she ate breakfast this a.m. and took her insulin as usual. She continues to deny chest pain and shortness of breath. She states she has had these episodes in the past and was told it might be a low blood pressure or blood sugar. Now she would just like to go to the bathroom. She states she has not voided all day. She is also hungry. To note also patient has just completed a course of Flagyl for C. difficile. <Shyla Bethea - 08/17/21 04:48> [facility] History Medical History: Reports:: Anxiety, Arrhythmia, Asthma, Cerebrovascular Accident, Deep Vein Thrombosis, Diabetes Mellitus Type 1, Diabetes Mellitus Type 2, Hyperlipidemia, Hypertension, Kidney Stones, MRSA, Osteoporosis, Renal Disease, Renal Insufficiency, Seizures Denies:: Cancer <Shyla Bethea 08/16/21 18:50> *Have you ever received a pneumonia vaccine?: No <NeemaShyla 08/16/21 18:50> *Have you received a flu vaccine this season?: Yes <Bethea,Shyla 08/16/21 18:50> Other Medical History: Reports: Anemia, Arthritis, Cataracts, Fibromyalgia, Osteoporosis, Sinus Problems <Shyla Bethea 08/16/21 18:50> Laterality Cases: Right: Carpal Tunnel Release, Bilateral: Arthroscopy Knee, Arthroscopy Shoulder, Cataract, Tonsillectomy <Shyla Bethea 08/16/21 18:50> Other Surgeries: Yes: Colonoscopy, Hysterectomy-Partial, Tubal Ligation, Other <BetheaShyla bradshaw 08/16/21 18:50> Amputation: No <Shyla Bethea 08/16/21 18:50> Fractures: Yes (rt 4 5th digit on hand) <Shyla Bethea 08/16/21 18:50> Comment: Lumbar disc and fusion 2005; right carpal tunnel release 2006; spinal cord stimulator 2007; she is also had left knee arthroscopy x2; her right kidney was removed as well. <Shyla Bethea 08/16/21 18:50> - *Social History Smoking Status: Never smoker <Bethea,Shyla 08/16/21 18:50> Alcohol Intake: never <Shyla Bethea 08/16/21 18:50> Alcohol Intake Frequency:: 0-2 drinks per day <Shyla Bethea 08/16/21 18:50> Substance Use Type: denies use <Shyla Bethea 08/16/21 18:50> *Occupational Status:: disabled <Shyla Bethea 08/16/21 18:50> Housing: house <Shyla Bethea 08/16/21 18:50> Household Members: family <Shyla Bethea 08/16/21 18:50> *Travel in the last 8 weeks: None <Shyla Bethea 08/16/21 18:50> - Psychiatric History Pschychiatric History:: Reports:: Anxiety <Shyla Bethea 08/16/21 18:50> Family Hx:: Diabetes, Hypertension, Stroke, Thyroid Disorder <Shyla Bethea 08/16/21 18:50> Review of Systems - Constitutional Denies fever(s) <Shyla Bethea 08/16/21 18:50> - Eyes Denies change in vision <Shyla Bethea - 08/16/21 18:50> - ENT Denies ear pain, Denies sore throat <Shyla Bethea - 08/16/21 18:50> - *Cardiovascular Denies chest pa
[2021-08-16 18:40] LABS: Hemoglobin 11.4 g/dL (12.2-16.2)
[2021-08-16 21:56] LABS: POC Glucose,Bedside 246 (70-110)
[2021-08-17] VITALS (8 sets, daily range): BP systolic 157–174; BP diastolic 68–92; PULSE 60–90; RESP 16; TEMP 36.8–36.9; O2SAT 97–98; BMI 28.0
[2021-08-17 06:44] LABS: Basophils # 0.1 K/mm3 (0-0.2); Mean Corpuscular HGB Conc 31.2 g/dL (31.8-35.4); Monocytes # 0.4 K/mm3 (0.1-1.0); White Blood Count 6.6 K/mm3 (4.8-10.8)
[2021-08-17 06:57] LABS: Basophils % 1.2 % (0.1-2.0); Chloride 109 mmol/L (98-107); Eosinophils # 0.3 K/mm3 (0.0-0.4); Eosinophils % 3.9 % (0.1-12.0); Hematocrit 30.3 % (37.0-47.0); Lymphocytes # 1.9 K/mm3 (0.7-4.5); Lymphocytes % 29.4 % (10-50); Mean Corpuscular Volume 89.6 fl (81-99); Mean Platelet Volume 8.7 fl (7.4-10.4); Monocytes % 6.3 % (1.7-9.3); Neutrophils # 3.9 K/mm3 (1.8-7.8); Neutrophils % 59.2 % (37.0-80.0); Platelet Count 232 K/mm3 (142-424); Potassium 4.8 mmoL/L (3.5-5.1); Red Blood Count 3.38 M/mm3 (4.20-5.40); Red Cell Distribution Width 17.1 % (11.5-17.5); Sodium 134 mmol/L (136-145)
[2021-08-17 06:58] LABS: Hemoglobin 9.5 g/dL (12.2-16.2)
[2021-08-17 07:00] LABS: Alanine Aminotransferase 11 U/L (12-78); Albumin Level 2.9 g/dl (3.5-5.0); Albumin/Globulin Ratio 1.4 (1.1-1.8); Alkaline Phosphatase 42 U/L (38-126); Anion Gap 7.8 mEq/L (5-15); Aspartate Amino Transferase 19 U/L (14-36); Bilirubin,Total 0.3 mg/dl (0.2-1.3); Blood Urea Nitrogen 35 mg/dl (7-17); Carbon Dioxide 22 mmol/L (22.0-30.0); Creatinine Clearance Estimated 35 mL/min (50-200); Estimated Glomerular Filt Rate 27 ml/min (>60); GFR (African American) 32 ML/MIN (>60); Globulin 2.1 g/dL (1.3-3.2)
[2021-08-17 07:01] LABS: Calcium 7.6 mg/dl (8.4-10.2); Glucose 230 mg/dl (74-100)
--- NOTE | 2021-08-17 07:19 | P.CONPHA_ITS ---
[facility] Pharm[facility] VTE Monitoring - Patient Demographics Admission date: 08/16/21 Report Date: 08/17/21 Time: 07:19 Allergies/Adverse Reactions: Patient Allergies Penicillins [PENICILLINS] Allergy (Intermediate, Verified 08/16/21 11:29) I-RASH adhesive tape Allergy (Unknown, Verified 08/16/21 11:29) Unknown allergy reaction pseudoephedrine [PSEUDOEPHEDRINE] Allergy (Unknown, Verified 08/16/21 11:29) TONGUE PEELS Sulfa (Sulfonamide Antibiotics) [SULFA (SULFONAMIDE ANTIBIOTICS)] Allergy (Unknown, Verified 08/16/21 11:29) KIDNEYS Height: 1.63 m Weight: 74.571 kg Patient Problems: Current Active Problems Renal insufficiency (Acute) Type 2 diabetes mellitus (Chronic) Anemia (Acute) Syncope and collapse (Acute) - VTE Risk Labs: VTE Related Lab Results Hgb 9.5 g/dL (12.2-16.2) L D 08/17/21 06:15 Hct 30.3 % (37.0-47.0) L 08/17/21 06:15 Plt Count 232 K/mm3 (142-424) 08/17/21 06:15 BUN 35 mg/dl (7-17) H 08/17/21 06:15 Creatinine 1.90 mg/dl (0.52-1.04) H 08/17/21 06:15 Estimated Creat Clear 35 mL/min (50-200) 08/17/21 06:15 Was VTE Risk Assessment Performed: Yes VTE Score: 7 VTE Risk Level: Moderate Risk - Prophylaxis VTE Prophylaxis Ordered?: Yes Types of VTE Prophylaxis: TEDS Knee High Location of Applied Device: Bilateral Lower Extremeties
--- NOTE | 2021-08-17 07:32 | HMH.GSCON ---
*Admission Date: 08/16/21 *Reason for consult:: Symptomatic anemia unexplained *History of present illness: Patient is a 66 yo female w/ multiple comorbidites including type 2 diabetes mellitus, kidney disease, fibromyalgia, arthritis, irritable bowel syndrome, asthma, right occipital CVA in 2020, hypertension, chronic back pain, depression and anxiety, and osteopenia. She is on prednisone and Plavix. She was in the waiting room waiting to be seen by Dr. Hazel for foot issue when she suddenly began to feel dizzy and then apparently experienced syncopal episode.. She was then evaluated in the office of Dr. Hazel and found to be hypotensive. She was then taken to the ER for evaluation. She presented to ER with prescynope and visual changes. Laboratory results were remarkable for unexplained microcytic anemia. Patient was be admitted for furtherowrkup for unexplained anemia. ER placed consults to Surgery and GI and started on pantaprazole. Patient admitted in stable condition. Patient states that she has been weak for about 3 weeks. Denies any symptoms of hematemesis or hematochezia. On admission hemoglobin was 8.4 with hematocrit 27.4%. BUN 37 with creatinine of 2.2. She has solitary kidney. Patient has just recently completed a course of metronidazole for C. difficile colitis. After admission her hemoglobin went from 8.4 to 11.4 to 9.5 this morning without apparent transfusion. Her baseline hemoglobin seems to be in the 10-11 range. She had a colonoscopy in [address] Pal which revealed diverticulosis. She had an EGD in [address] Pal which revealed mild reflux gastritis. She does give a history of similar syncopal episodes over a period of time without clear identifiable etiology. Review of Systems - Review of Systems Review of systems:: pertinent systems reviewed and negative unless documented below - *Neurologic Reports abnormal walking (Unsteady), Reports headache(s), Denies abnormal speech [facility] History I have reviewed the patient's past medical history: Yes Medical History: Reports:: Anxiety, Arrhythmia, Asthma, Cerebrovascular Accident, Deep Vein Thrombosis, Diabetes Mellitus Type 1, Diabetes Mellitus Type 2, Hyperlipidemia, Hypertension, Kidney Stones, MRSA, Osteoporosis, Renal Disease, Renal Insufficiency, Seizures Denies:: Cancer *Have you ever received a pneumonia vaccine?: No *Have you received a flu vaccine this season?: Yes Other Medical History: Reports: Anemia, Arthritis, Cataracts, Fibromyalgia, Osteoporosis, Sinus Problems Laterality Cases: Right: Carpal Tunnel Release, Bilateral: Arthroscopy Knee, Arthroscopy Shoulder, Cataract, Tonsillectomy Other Surgeries: Yes: Colonoscopy, Hysterectomy-Partial, Tubal Ligation, Other Amputation: No Fractures: Yes (rt 4 5th digit on hand) - *Social History Smoking Status: Never smoker Alcohol Intake: never Alcohol Intake Frequency:: 0-2 drinks per day Substance Use Type: denies use *Occupational Status:: disabled Housing: house Household Members: family *Travel in the last 8 weeks: None - Psychiatric History Pschychiatric History:: Reports:: Anxiety Family Hx:: Diabetes, Hypertension, Stroke, Thyroid Disorder Meds Home Medications Medication Instructions Recorded Confirmed Type mecobalamin (vitamin B12) 1,000 1,000 mcg SUBLINGUAL QHS 11/06/17 08/16/21 History mcg disintegrating tablet,sublingual pravastatin 80 mg tablet 80 mg PO QHS 11/06/17 08/16/21 History pregabalin 150 mg capsule 150 mg PO BID 11/06/17 08/16/21 History prednisone 5 mg tablet 5 mg PO DAILY 30 Days #90 tab 06/10/18 08/16/21 History Promethazine HCl [Phenergan 25mg 25 mg PO Q8 PRN #10 tab 11/01/20 08/16/21 Rx tab] allopurinol 100 mg tablet 100 mg PO BID tab 04/13/21 08/16/21 History carvedilol 25 mg tablet 25 mg PO BID tab 04/13/21 08/16/21 History cholecalciferol (vitamin D3) 125 125 mcg PO DAILY 04/13/21 08/16/21 History mcg (5,000 unit) capsule clopidogrel 75 mg tab
--- NOTE | 2021-08-17 08:32 | HMH.ACPN2 ---
<Shyla Bethea - Last Filed: 08/17/21 09:15> Internal Medicine - PN: Subj *Date: 08/17/21 *Time: 09:15 Interval history: Patient states that she did sleep last night. She feels very weak this morning. She is voiding QS. She has had no further stools. She states she ate a good breakfast. She ambulates in the room. She denies chest pain and shortness of breath. She has been seen by Dr. Deluna. Note appreciated. No plans for immediate procedures. Vary H&H. This morning hemoglobin is 9.5 with hematocrit of 30.3. Renal function is stable and slightly better with a creatinine of 1.9.. Exam Vital signs and Labs for Last 24 Hours: Temp Pulse Resp BP Pulse Ox 98.5 F 79 16 157/92 H 97 08/17/21 07:34 08/17/21 07:34 08/17/21 07:34 08/17/21 07:34 08/17/21 07:34 Laboratory Results - last 24 hr 08/16/21 13:08: WBC 7.6, RBC 3.01 L, Hgb 8.4 L, Hct 27.4 L, MCV 91.1, MCH 28.0, MCHC 30.7 L, RDW 17.3, Plt Count 197, MPV 9.0, Neut % (Auto) 75.0, Lymph % (Auto) 15.6, [place] % (Auto) 5.5, Eos % (Auto) 3.4, Baso % (Auto) 0.5, Neut # (Auto) 5.7, Lymph # (Auto) 1.2, [place] # (Auto) 0.4, Eos # (Auto) 0.3, Baso # (Auto) 0.0 08/16/21 13:08: Sodium 133 L, Potassium 5.2 H, Chloride 108 H, Carbon Dioxide 22, Anion Gap 8.2, BUN 37 H, Creatinine 2.20 H, Estimated Creat Clear 31, Estimated GFR 22 L, Est GFR ( Amer) 27 L, Glucose 244 H, Calcium 7.9 L, Total Bilirubin 0.3, AST 19, ALT 11 L, Alkaline Phosphatase 52, Troponin I < 0.01, Total Protein 5.6 L, Albumin 3.4 L, Globulin 2.2, Albumin/Globulin Ratio 1.5 08/16/21 14:10: SARS-CoV-2 (PCR) Not detected, Influenza A Untype (PCR) Not detected, Influenza Type B (PCR) Not detected 08/16/21 15:40: Troponin I < 0.01 08/16/21 17:00: WBC 8.5, RBC 4.12 L D, Hgb 11.4 L D, Hct 37.0, MCV 89.8, MCH 27.8, MCHC 30.9 L, RDW 16.9, Plt Count 237, MPV 8.6, Neut % (Auto) 81.2 H, Lymph % (Auto) 12.3, [place] % (Auto) 4.6, Eos % (Auto) 1.2, Baso % (Auto) 0.7, Neut # (Auto) 6.9, Lymph # (Auto) 1.0, [place] # (Auto) 0.4, Eos # (Auto) 0.1, Baso # (Auto) 0.1 08/16/21 17:00: Sodium 137, Potassium 5.4 H, Chloride 109 H, Carbon Dioxide 24, Anion Gap 9.4, BUN 35 H, Creatinine 1.90 H, Estimated Creat Clear 35, Estimated GFR 27 L, Est GFR ( Amer) 32 L, Glucose 232 H, Calcium 8.8, Total Bilirubin 0.3, AST 18, ALT 11 L, Alkaline Phosphatase 51, Total Protein 6.2 L, Albumin 3.8 D, Globulin 2.4, Albumin/Globulin Ratio 1.6 08/16/21 20:41: POC Glucose 246 H 08/17/21 06:15: WBC 6.6, RBC 3.38 L, Hgb 9.5 L D, Hct 30.3 L, MCV 89.6, MCH 28.0, MCHC 31.2 L, RDW 17.1, Plt Count 232, MPV 8.7, Neut % (Auto) 59.2, Lymph % (Auto) 29.4, [place] % (Auto) 6.3, Eos % (Auto) 3.9, Baso % (Auto) 1.2, Neut # (Auto) 3.9, Lymph # (Auto) 1.9, [place] # (Auto) 0.4, Eos # (Auto) 0.3, Baso # (Auto) 0.1 08/17/21 06:15: Sodium 134 L, Potassium 4.8, Chloride 109 H, Carbon Dioxide 22, Anion Gap 7.8, BUN 35 H, Creatinine 1.90 H, Estimated Creat Clear 35, Estimated GFR 27 L, Est GFR ( Amer) 32 L, Glucose 230 H, Calcium 7.6 L, Total Bilirubin 0.3, AST 19, ALT 11 L, Alkaline Phosphatase 42, Total Protein 5.0 L, Albumin 2.9 L D, Globulin 2.1, Albumin/Globulin Ratio 1.4 I & O for Last 24 hours: Intake & Output 08/14/21 08/15/21 08/16/21 08/17/21 11:59 11:59 11:59 11:59 Intake Total 660 / 660 Balance 660 / 660 Weight 164 lb 6.4 oz - Constitutional no acute distress Comments: Ambulating in room. She appears more steady gait padilla. - *Routine Respiratory Exam Present: CTA bilaterally (Anteriorly and posteriorly) - *Routine Cardiovascular Exam Present: RRR Comments: Monitor showing sinus rhythm in the 60s - *Routine Abdominal Exam Present: soft, normoactive bowel sounds. Absent: tenderness - *Routine Extremities Exam Present: edema (Left lower extremity) - *Routine Neurological Exam Present: alert, oriented X3 Poor short-term memory Assessment and Plan (1) Syncope and collapse Status: Acute Category: Medical Code(s): R5
--- NOTE | 2021-08-17 11:19 | HMH.PHAINT ---
Home med rec completed. Verified via primary care physician office, insurance lists, and pt
[2021-08-17 14:29] LABS: Hematocrit 31.9 % (37.0-47.0)
--- NOTE | 2021-08-17 18:32 | PC.NURSE ---
AOX4. ABLE TO MAKE NEEDS KNOWN TO STAFF. TOLERATING RA WELL. DENIED PAIN. NO N/V/D THIS SHIFT.
[2021-08-17 22:00] LABS: POC Glucose,Bedside 339 (70-110)
[2021-08-17 22:00] LABS: POC Glucose,Bedside 242 (70-110)
[2021-08-18] VITALS: BP 139/60; PULSE 60; PULSE 69; RESP 18; TEMP 36.8; O2SAT 98
[2021-08-18 04:00] VITALS: BP 138/70; PULSE 68; PULSE 70; RESP 16; TEMP 36.8; O2SAT 90
[2021-08-18 05:00] VITALS: BMI 27.9
[2021-08-18 05:08] LABS: POC Glucose,Bedside 216 (70-110)
[2021-08-18 06:36] LABS: Chloride 108 mmol/L (98-107)
[2021-08-18 06:37] LABS: Potassium 5.1 mmoL/L (3.5-5.1); Sodium 132 mmol/L (136-145)
[2021-08-18 06:39] LABS: Blood Urea Nitrogen 38 mg/dl (7-17); Creatinine Clearance Estimated 39 mL/min (50-200); Estimated Glomerular Filt Rate 30 ml/min (>60); GFR (African American) 36 ML/MIN (>60)
[2021-08-18 06:40] LABS: Anion Gap 4.1 mEq/L (5-15); Calcium 7.5 mg/dl (8.4-10.2); Carbon Dioxide 25 mmol/L (22.0-30.0); Glucose 193 mg/dl (74-100)
[2021-08-18 06:53] LABS: Hematocrit 30.2 % (37.0-47.0); Hemoglobin 9.6 g/dL (12.2-16.2)
--- NOTE | 2021-08-18 06:59 | HMH.GSPN ---
Subjective Patient reports: no new complaints Progress Note: A&P (1) Syncope and collapse Status: Acute (2) Anemia Status: Acute Assessment and plan: Stable hemoglobin this morning. Causative factor for anemia remains equivocal. No sign of definitive acute/ongoing blood loss. Continue management as per primary service. Discussion with regard to outpatient endoscopy will be ongoing. The patient will follow up with Dr. Deluna soon after discharge. (3) Renal insufficiency Status: Acute (4) Type 2 diabetes mellitus Status: Chronic (5) HBP (high blood pressure) Status: Acute Exam Vital signs and Labs for Last 24 Hours: Temp Pulse Resp BP Pulse Ox 98.3 F 68 16 138/70 90 L 08/18/21 04:00 08/18/21 04:00 08/18/21 04:00 08/18/21 04:00 08/18/21 04:00 Laboratory Results - last 24 hr 08/17/21 06:15: Sodium 134 L, Potassium 4.8, Chloride 109 H, Carbon Dioxide 22, Anion Gap 7.8, BUN 35 H, Creatinine 1.90 H, Estimated Creat Clear 35, Estimated GFR 27 L, Est GFR ( Amer) 32 L, Glucose 230 H, Calcium 7.6 L, Total Bilirubin 0.3, AST 19, ALT 11 L, Alkaline Phosphatase 42, Total Protein 5.0 L, Albumin 2.9 L D, Globulin 2.1, Albumin/Globulin Ratio 1.4 08/17/21 14:19: Hgb 10.0 L, Hct 31.9 L 08/17/21 16:47: POC Glucose 339 H* 08/17/21 20:14: POC Glucose 242 H 08/18/21 05:01: POC Glucose 216 H 08/18/21 06:03: Hgb 9.6 L, Hct 30.2 L 08/18/21 06:03: Sodium 132 L, Potassium 5.1, Chloride 108 H, Carbon Dioxide 25, Anion Gap 4.1 L, BUN 38 H, Creatinine 1.70 H, Estimated Creat Clear 39, Estimated GFR 30 L, Est GFR ( Amer) 36 L, Glucose 193 H, Calcium 7.5 L I & O for Last 24 hours: Intake & Output 08/15/21 08/16/21 08/17/21 08/18/21 11:59 11:59 11:59 11:59 Intake Total 660 / 660 600 / 600 Balance 660 / 660 600 / 600 Weight 164 lb 3.91 oz 163 lb 11.2 oz - Constitutional no acute distress - *Routine Cardiovascular Exam Absent: tachycardia
[2021-08-18 07:36] VITALS: BP 139/77; PULSE 77; RESP 16; TEMP 36.8; O2SAT 96
[2021-08-18 08:00] VITALS: PULSE 70
--- NOTE | 2021-08-18 08:21 | HMH.ACPN2 ---
<Felisa Tabor - Last Filed: 08/18/21 08:21> Internal Medicine - PN: Subj *Date: 08/18/21 *Time: 08:21 Interval history: Patient states she is feeling better this morning. She denies any chest pain, shortness of breath, or dizziness. She states she has been up moving around her room and as far as long as she goes slow. She slept well last night and ate a good breakfast. Exam Vital signs and Labs for Last 24 Hours: Temp Pulse Resp BP Pulse Ox 98.2 F 77 16 139/77 96 08/18/21 07:36 08/18/21 07:36 08/18/21 07:36 08/18/21 07:36 08/18/21 07:36 Laboratory Results - last 24 hr 08/17/21 14:19: Hgb 10.0 L, Hct 31.9 L 08/17/21 16:47: POC Glucose 339 H* 08/17/21 20:14: POC Glucose 242 H 08/18/21 05:01: POC Glucose 216 H 08/18/21 06:03: Hgb 9.6 L, Hct 30.2 L 08/18/21 06:03: Sodium 132 L, Potassium 5.1, Chloride 108 H, Carbon Dioxide 25, Anion Gap 4.1 L, BUN 38 H, Creatinine 1.70 H, Estimated Creat Clear 39, Estimated GFR 30 L, Est GFR ( Amer) 36 L, Glucose 193 H, Calcium 7.5 L I & O for Last 24 hours: Intake & Output 08/15/21 08/16/21 08/17/21 08/18/21 11:59 11:59 11:59 11:59 Intake Total 660 / 660 1080 / 1080 Balance 660 / 660 1080 / 1080 Weight 164 lb 3.91 oz 163 lb 11.2 oz - Constitutional no acute distress - *Routine Cardiovascular Exam Present: RRR - *Routine Abdominal Exam Present: soft, normoactive bowel sounds. Absent: tenderness - *Routine Extremities Exam Present: edema (Bilateral lower extremity). Absent: cyanosis, clubbing - *Routine Skin Exam Present: warm. Absent: rash - *Routine Neurological Exam Present: alert, oriented X3 Assessment and Plan (1) Syncope and collapse Status: Acute Category: Medical Code(s): R55 - Syncope and collapse (2) Anemia Status: Acute Category: Medical Code(s): D64.9 - Anemia, unspecified (3) Renal insufficiency Status: Acute Category: Medical Code(s): N28.9 - Disorder of kidney and ureter, unspecified (4) Type 2 diabetes mellitus Status: Chronic Qualifiers: Diabetes mellitus usp insulin use: with rn long term care use Diabetes mellitus complication status: with neurologic complications Diabetes mellitus complication detail: with polyneuropathy Qualified Code(s): E11.42 - Type 2 diabetes mellitus with diabetic polyneuropathy; Z79.4 - long-term (current) use of insulin Category: Medical Code(s): E11.9 - Type 2 diabetes mellitus without complications (5) HBP (high blood pressure) Status: Acute Category: Medical Code(s): I10 - Essential (primary) hypertension - Assessment and plan all Dx Assessment and Plan for all problems:: Patient stable to be discharged today. She will likely need an outpatient endoscopy and already has an echo and a stress test scheduled for tomorrow morning. <Amaury Knight - Last Filed: 08/18/21 20:41> Internal Medicine - PN: Subj *Date: 08/18/21 *Time: 20:40 Exam Vital signs and Labs for Last 24 Hours: Temp Pulse Resp BP Pulse Ox 98.2 F 70 16 139/77 96 08/18/21 07:36 08/18/21 08:00 08/18/21 07:36 08/18/21 07:36 08/18/21 07:36 Laboratory Results - last 24 hr 08/17/21 16:47: POC Glucose 339 H* 08/17/21 20:14: POC Glucose 242 H 08/18/21 05:01: POC Glucose 216 H 08/18/21 06:03: Hgb 9.6 L, Hct 30.2 L 08/18/21 06:03: Sodium 132 L, Potassium 5.1, Chloride 108 H, Carbon Dioxide 25, Anion Gap 4.1 L, BUN 38 H, Creatinine 1.70 H, Estimated Creat Clear 39, Estimated GFR 30 L, Est GFR ( Amer) 36 L, Glucose 193 H, Calcium 7.5 L I & O for Last 24 hours: Intake & Output 08/16/21 08/17/21 08/18/21 08/19/21 11:59 11:59 11:59 11:59 Intake Total 660 / 660 1080 / 1080 Balance 660 / 660 1080 / 1080 Weight 164 lb 3.91 oz 163 lb 11.2 oz Assessment and Plan (1) Syncope and collapse Status: Acute Category: Medical Code(s): R55 - Syncope and collapse (2) Anemia Status: Acute Category: Medical Code
--- NOTE | 2021-08-18 09:18 | HMH.PHAINT ---
Discharge counseling complete. Informed pt of new med, how to take it, and possible side effects to watch for. Pt was understanding and had no questions or concerns.
--- NOTE | 2021-08-18 09:31 | PC.NURSE ---
PT STATED SHE WOULD PREFER TO TAKE MORNING MEDICATIONS AT HOME
--- NOTE | 2021-08-18 22:08 | HMH.DCSUM ---
General - General Admission date:: 08/16/21 <Amaury Knight - 09/22/21 22:06> 08/16/21 <Felisa Tabor - 08/18/21 22:13> Discharge date: 08/18/21 <Felisa Tabor - 08/18/21 22:13> HPI HPI: Ms. Murry is a 66-year-old female with a history of type 2 diabetes mellitus, kidney disease, fibromyalgia, arthritis, irritable bowel syndrome, asthma, right occipital CVA in 2020, hypertension, chronic back pain, depression and anxiety, and osteopenia who was in the waiting room waiting to be seen by Dr. Hazel for foot issue when she suddenly began to feel dizzy and then apparently passed out. She was then evaluated in the office of Dr. Hazel and found to be hypotensive. She was then taken to the ER for evaluation. In the emergency room blood pressure was 104/54. Chest x-ray showed no acute cardiopulmonary process. Laboratory data showed a normal white blood cell count with a hemoglobin of 8.4 and HCT 27.4. Blood chemistries show a sodium of 133 and potassium of 5.2 chloride of 108 CO2 of 22 with a BUN of 37 and creatinine of 2.2. Blood sugar was noted to be 244. Liver function studies were not elevated. At the time of this exam patient states she had no cardiac or respiratory difficulty to use prior to her fainting. She states she ate breakfast this a.m. and took her insulin as usual. She continues to deny chest pain and shortness of breath. She states she has had these episodes in the past and was told it might be a low blood pressure or blood sugar. Now she would just like to go to the bathroom. She states she has not voided all day. She is also hungry. To note also patient has just completed a course of Flagyl for C. difficile. <Felisa Tabor - 08/18/21 22:13> Hospital Course Hospital Course: The patient was placed on telemetry and home meds were ordered by Dr. Knight. She was seen in consultation by Dr. Deluna due to anemia. On admission, her hemoglobin was 8.4 but this improved to 11.4 and then went back down to 9.5. Dr. Deluna felt her baseline hemoglobin seem to be in the 10-11 range. She had a colonoscopy in [address] Pal which revealed diverticulosis and she had an EGD in [address] Pal which revealed mild reflux gastritis. He felt it was unclear if the anemia was what was causing her potential syncope. She had had similar syncopal episodes with unclear etiology. He did not want to pursue immediate endoscopy procedure measures endoscopic measures. He felt her hemoglobin should continue to be monitored. 08/17/2021, she was weak but was able to eat and ambulate in the room. Her renal functions were stable and had improved slightly. Her blood pressure was initially elevated but did improve with the addition of losartan. Dr. Moy saw the patient in follow-up and felt the patient would need an endoscopy on an outpatient basis and should follow-up with Dr. Deluna after discharge. By 08/18/2021 she was feeling better and had no further syncopal episodes. She was stable to be discharged home and already has an echo and a stress test scheduled for tomorrow morning. <Felisa Tabor - 08/18/21 22:13> Objective Vital signs: Temp Pulse Resp BP Pulse Ox 98.2 F 70 16 139/77 96 08/18/21 07:36 08/18/21 08:00 08/18/21 07:36 08/18/21 07:36 08/18/21 07:36 <Amaury Knight - 09/22/21 22:06> Temp Pulse Resp BP Pulse Ox 98.2 F 70 16 139/77 96 08/18/21 07:36 08/18/21 08:00 08/18/21 07:36 08/18/21 07:36 08/18/21 07:36 <Felisa Tabor - 08/18/21 22:13> Narrative: - Constitutional no acute distress - *Routine Cardiovascular Exam Present: RRR - *Routine Abdominal Exam Present: soft, normoactive bowel sounds. Absent: tenderness - *Routine Extremities Exam Present: edema (Bilateral lower extremity). Absent: cyanosis, clubbing - *Routine Skin Exam Present: warm. Absent: rash - *Routine Neurological Exam Present: alert, oriented
[2021-08-19 01:54] LABS: POC Glucose,Bedside 282 (70-110)
== END 2021-08-18 09:30 | disposition home or self-care (01) ==
LOC: ER 12:15 → 2ND 16:46
PROVIDERS: Admitting Provider Family Medicine; Emergency Provider Student in an Organized Health Care Education/Training Program; PCP Family Medicine; Visit Provider Family Medicine
DX: D64.9 Anemia, unspecified (principal); E11.42 Type 2 diabetes mellitus with diabetic polyneuropathy; Z79.4 Long term (current) use of insulin; Z79.899 Other long term (current) drug therapy; R55 Syncope and collapse; I10 Essential (primary) hypertension; Z88.8 Allergy status to other drugs, medicaments and biological substances; Z79.02 Long term (current) use of antithrombotics/antiplatelets; N28.9 Disorder of kidney and ureter, unspecified; Z20.822 Contact with and (suspected) exposure to COVID-19
CPT/HCPCS: G0378; 36415; 71045; 80048; 80053; 82962; 84484; 85014; 85018; 85025; 93005; 99284; C9803; U0003; U0005

== ENCOUNTER 2021-08-19 14:15 | Observation (INO) | payer MEDICARE, SELFPAY ==
[2021-08-19 14:16] VITALS: BP 122/76; PULSE 83; RESP 18; TEMP 37.1; O2SAT 97
[2021-08-19 15:17] LABS: Microscopic, Urine URINE MICROSCOPIC (MICROSCOPIC)
[2021-08-19 15:22] LABS: Chloride 100 mmol/L (98-107); Potassium 5.9 mmoL/L (3.5-5.1); Sodium 127 mmol/L (136-145)
--- NOTE | 2021-08-19 15:24 | HMH.EDGENADL ---
ED Disposition Clinical Impression: Hyperglycemia Altered mental status Qualifiers: Altered mental status type: disorientation Qualified Code(s): R41.0 - Disorientation, unspecified Disposition: Admitted as Observation Condition on Discharge: [facility] - Critical Care Critical Care Time: No Attestation: On 08/19/21, the high probability of a clinically significant, sudden or life threatening deterioration of the following system(s) required my full and direct attention, intervention and personal management. The time I documented below is in addition to time spent performing reported procedures but includes the following listed in this critical care notation. Medical Decision Making - Domenico Inquiry Pt receiving controlled substance: No Vital Signs: 08/19/21 14:16 08/19/21 15:30 08/19/21 16:00 Temperature 98.7 F Temperature Source Oral Pulse Rate 79 79 Pulse Rate [Right Radial] 83 Respiratory Rate 18 Blood Pressure 164/77 H 202/82 H Blood Pressure [Right Arm] 122/76 Blood Pressure Mean [Right Arm] 91 Blood Pressure Source [Right Arm] Automatic Cuff Blood Pressure Position [Right Arm] Sitting 02 Sat by Pulse Oximetry 97 99 97 Oxygen Delivery Method Room Air - Lab Data Lab Results 08/19/21 14:53: Urine Color Yellow, Urine Appearance Clear, Urine pH 5.5, Ur Specific [place] 1.020, Urine Protein 2+, Urine Glucose (UA) 3+, Urine Ketones Negative, Urine Blood Negative, Urine Nitrate Negative, Urine Bilirubin Negative, Urine Urobilinogen 0.2, Ur Leukocyte Esterase Negative, Urine RBC None, Urine WBC None, Ur Squamous Epith Cells None, Urine Bacteria None 08/19/21 15:00: WBC 7.6, RBC 3.92 L, Hgb 10.9 L, Hct 35.6 L, MCV 91.0, MCH 27.9, MCHC 30.6 L, RDW 16.3, Plt Count 237, MPV 8.6, Neut % (Auto) 81.5 H, Lymph % (Auto) 13.2, [place] % (Auto) 4.2, Eos % (Auto) 0.5, Baso % (Auto) 0.7, Neut # (Auto) 6.2, Lymph # (Auto) 1.0, [place] # (Auto) 0.3, Eos # (Auto) 0.0, Baso # (Auto) 0.1 08/19/21 15:00: Sodium 127 L, Potassium 5.9 H, Chloride 100, Carbon Dioxide 22, Anion Gap 10.9, BUN 48 H D, Creatinine 1.90 H, Estimated Creat Clear 37, Estimated GFR 27 L, Est GFR ( Amer) 32 L, Glucose 501 H*, Calcium 7.9 L, Total Bilirubin 0.4, AST 19, ALT 15 D, Alkaline Phosphatase 61, Total Protein 6.4 D, Albumin 3.9, Globulin 2.5, Albumin/Globulin Ratio 1.6 08/19/21 15:00: Troponin I < 0.01 08/19/21 15:00: Acetone Level None detected 08/19/21 15:38: VBG pH 7.24 L, VBG pCO2 46.3, VBG pO2 43.9 H, VBG HCO3 19.5 L, VBG Total CO2 20.9 L, VBG O2 Saturation 73.7 H, VBG Base Excess -7.9 L 08/19/21 17:19: POC Glucose 442 H* Result diagrams: 08/19/21 15:00 08/19/21 15:00 Orders (Tests/Meds): ED MEDICATIONS Generic Name Dose Route Start Last Admin Trade Name Freq PRN Reason Stop Dose Admin Sodium Chloride 10 ml 08/19/21 15:11 Sodium Chloride 0.9% 10ml Flush Syringe IV 09/18/21 15:10 NEEDED PRN Maintain IV Site Discontinued Medications Generic Name Dose Route Start Last Admin Trade Name Freq PRN Reason Stop Dose Admin Insulin Human Regular 10 unit 08/19/21 15:48 08/19/21 16:11 Insulin Human Regular 100 Units/Ml 10ml Vial IVP 08/19/21 15:49 10 unit ONCE ONE Administration Sodium Chloride 1,000 ml 08/19/21 15:48 08/19/21 16:11 Sodium Chloride 0.9% 1000ml Bag IV 08/19/21 15:49 1,000 ml BOLUS ONE Administration ORDERS Category Date Time Status Rapid PCR Covid and Flu A/B Stat Lab 08/19/21 17:30 Received Troponin I Q3H Lab 08/19/21 18:30 Ordered Troponin I Q3H Lab 08/19/21 21:30 Ordered - CT Data CT Scan: Head Time Received: 16:[address] Reviewed: Yes: I have viewed the radiologist's interpretation Findings Narrative: Procedure(s): CT head/brain wo con Accession Number(s): [id number] cc: Jesus Manuel Ellington MD; Amaury Knight MD; Kyle Javier MD~ FINAL REPORT CLINICAL HISTORY: spacial disorientation, shuffling gait COMPARISON: 03/18/2021
[2021-08-19 15:25] LABS: Alanine Aminotransferase 15 U/L (12-78); Albumin Level 3.9 g/dl (3.5-5.0); Albumin/Globulin Ratio 1.6 (1.1-1.8); Alkaline Phosphatase 61 U/L (38-126); Anion Gap 10.9 mEq/L (5-15); Aspartate Amino Transferase 19 U/L (14-36); Bilirubin,Total 0.4 mg/dl (0.2-1.3); Blood Urea Nitrogen 48 mg/dl (7-17); Calcium 7.9 mg/dl (8.4-10.2); Carbon Dioxide 22 mmol/L (22.0-30.0); Creatinine Clearance Estimated 37 mL/min (50-200); Estimated Glomerular Filt Rate 27 ml/min (>60); GFR (African American) 32 ML/MIN (>60); Globulin 2.5 g/dL (1.3-3.2); Total Protein,Serum 6.4 g/dl (6.3-8.2)
[2021-08-19 15:26] LABS: Appearance,Urine CLEAR (Clear); Bilirubin,Urine Negative (Negative); Blood, Urine Negative (Negative); Color,Urine YELLOW (Yellow); Glucose,Urine (UA) 3+ (Negative); Ketones,Urine Negative (Negative); Leukocyte Esterase,Urine Negative (Negative); Nitrate,Urine Negative (Negative); PH,Urine 5.5 (5.0-8.5); Protein,Urine 2+ (Negative); Urobilinogen,Urine 0.2 EU/dl (0.2)
[2021-08-19 15:29] LABS: Glucose 501 mg/dl (74-100)
[2021-08-19 15:30] VITALS: BP 164/77; PULSE 79; O2SAT 99
[2021-08-19 15:30] LABS: Basophils # 0.1 K/mm3 (0-0.2); Basophils % 0.7 % (0.1-2.0); Eosinophils % 0.5 % (0.1-12.0); Hematocrit 35.6 % (37.0-47.0); Hemoglobin 10.9 g/dL (12.2-16.2); Lymphocytes % 13.2 % (10-50); Mean Corpuscular HGB Conc 30.6 g/dL (31.8-35.4); Mean Corpuscular Hemoglobin 27.9 pg (27.0-31.2); Mean Platelet Volume 8.6 fl (7.4-10.4); Monocytes # 0.3 K/mm3 (0.1-1.0); Monocytes % 4.2 % (1.7-9.3); Neutrophils # 6.2 K/mm3 (1.8-7.8); Neutrophils % 81.5 % (37.0-80.0); Platelet Count 237 K/mm3 (142-424); Red Blood Count 3.92 M/mm3 (4.20-5.40); Red Cell Distribution Width 16.3 % (11.5-17.5); White Blood Count 7.6 K/mm3 (4.8-10.8)
--- NOTE | 2021-08-19 15:30 | PC.NURSE ---
Drake from lab called for a critical on patient, Blood Glucose 501 mg/dl repeated and confirmed.
--- NOTE | 2021-08-19 15:38 | CT_ITS ---
FINAL REPORT CLINICAL HISTORY: spacial disorientation, shuffling gait COMPARISON: 03/18/2021 FINDINGS: Axial images of the head were obtained without contrast. Coronal reformatted images were also obtained.This study was performed with techniques to keep radiation doses as low as reasonably achievable (ALARA). Individualized dose reduction techniques using automated exposure control or adjustment of mA and/or kV according to the patient's size were employed. There is age-appropriate atrophy. There are several chronic left lacunar infarcts. There is right occipital encephalomalacia which is chronic and stable. There is left occipital encephalomalacia which is new and consistent with an interval infarct. There is no evidence of intracranial hemorrhage or mass. The ventricular size is within normal limits. There is no evidence of shift of the midline structures. No abnormal extra axial fluid collection is identified. No skull abnormality is seen on the bone window images. IMPRESSION: No acute intracranial abnormality. New left occipital encephalomalacia consistent with an interval infarct. Other chronic changes. Reviewed, Interpreted and Dictated by Jesus Manuel Ellington III, MD Transcribed by Verna Tom Authenticated by Jesus Manuel Ellington III, MD on 08/19/2021 04:37:23 PM [facility]
--- NOTE | 2021-08-19 15:45 | ECG_ITS ---
APPROVED REPORT Exam: Resting ECG HR:76 bpm ECG Measurements Heart Rate 76 AXES UT 184 P 44 QRSd 116 QRS -28 QT 393 T 12 QTc 423 Conclusion SINUS RHYTHM MODERATE INTRAVENTRICULAR CONDUCTION DELAY [105+ ms QRS DURATION, 80+ ms Q/S IN V1/V2, NO Q AND 60+ ms R IN I/aVL/V5/V6] ABNORMAL ECG UNCONFIRMED REPORT Electronically signed by : Kenny Sylvester MD 08/19/2021 20:18:14
[2021-08-19 15:50] LABS: Acetone, Serum (Rapid) None Detected (None Detect)
[2021-08-19 15:59] LABS: VBG Base Excess -7.9 mmol/L (-2.4-2.3); VBG HCO3 19.5 mmol/L (23-30); VBG Oxygen Saturation 73.7 % (50-70); VBG PCO2 46.3 mmol/L (35-51); VBG PH 7.24 mmol/L (7.31-7.41); VBG PO2 43.9 mmol/L (28-40); VBG Total CO2 20.9 mmol/L (23-27)
[2021-08-19 16:00] VITALS: BP 202/82; PULSE 79; O2SAT 97
[2021-08-19 16:09] LABS: Troponin I < 0.01 ng/ml (0.00-0.034)
[2021-08-19 17:26] LABS: POC Glucose,Bedside 442 (70-110)
[2021-08-19 17:37] LABS: Coronavirus 19, PCR Not Detected (NotDetected); Influenza A, PCR Not Detected (NotDetected); Influenza B, PCR Not Detected (NotDetected)
[2021-08-19 18:48] VITALS: BP 181/81; PULSE 77; RESP 16; TEMP 36.9; O2SAT 98
--- NOTE | 2021-08-19 19:13 | PC.NURSE ---
PT ARRIVED TO FLOOR VIA W/C FROM ED W/STAFF @ 191
[2021-08-19 19:25] VITALS: BP 177/73; PULSE 77; RESP 18; TEMP 37.1; O2SAT 98
--- NOTE | 2021-08-19 19:31 | PC.NURSE ---
Spoke with KURT VERA from ER and received report. Gave report to Aggie VERA 2nd floor.
[2021-08-19 19:32] VITALS: BMI 29.3
[2021-08-19 19:37] LABS: Troponin I < 0.01 ng/ml (0.00-0.034)
[2021-08-19 20:00] VITALS: PULSE 90; O2SAT 98
[2021-08-19 22:11] LABS: POC Glucose,Bedside 348 (70-110)
[2021-08-20] VITALS: PULSE 70
[2021-08-20 04:00] VITALS: PULSE 70
[2021-08-20 05:23] VITALS: BMI 27.4
[2021-08-20 06:27] LABS: POC Glucose,Bedside 234 (70-110)
[2021-08-20 06:41] LABS: Chloride 108 mmol/L (98-107); Potassium 4.6 mmoL/L (3.5-5.1); Sodium 132 mmol/L (136-145)
[2021-08-20 06:44] LABS: Blood Urea Nitrogen 37 mg/dl (7-17); Creatinine Clearance Estimated 38 mL/min (50-200); Estimated Glomerular Filt Rate 30 ml/min (>60); GFR (African American) 36 ML/MIN (>60)
[2021-08-20 06:45] LABS: Anion Gap 5.6 mEq/L (5-15); Calcium 7.2 mg/dl (8.4-10.2); Carbon Dioxide 23 mmol/L (22.0-30.0); Glucose 216 mg/dl (74-100)
--- NOTE | 2021-08-20 07:36 | P.CONPHA_ITS ---
[facility] Pharmacy VTE Monitoring - Patient Demographics Admission date: 08/20/21 Report Date: 08/20/21 Time: 07:36 Allergies/Adverse Reactions: Patient Allergies Penicillins [PENICILLINS] Allergy (Intermediate, Verified 08/19/21 12:55) I-RASH adhesive tape Allergy (Unknown, Verified 08/19/21 12:55) Unknown allergy reaction pseudoephedrine [PSEUDOEPHEDRINE] Allergy (Unknown, Verified 08/19/21 12:55) TONGUE PEELS Sulfa (Sulfonamide Antibiotics) [SULFA (SULFONAMIDE ANTIBIOTICS)] Allergy (Unknown, Verified 08/19/21 12:55) KIDNEYS Height: 1.63 m Weight: 72.983 kg Patient Problems: Current Active Problems Hyperglycemia (Acute) Altered mental status (Acute) - VTE Risk Labs: VTE Related Lab Results Hgb 10.9 g/dL (12.2-16.2) L 08/19/21 15:00 Hct 35.6 % (37.0-47.0) L 08/19/21 15:00 Plt Count 237 K/mm3 (142-424) 08/19/21 15:00 BUN 37 mg/dl (7-17) H 08/20/21 06:02 Creatinine 1.70 mg/dl (0.52-1.04) H 08/20/21 06:02 Estimated Creat Clear 38 mL/min (50-200) 08/20/21 06:02 Was VTE Risk Assessment Performed: Yes VTE Score: 2 VTE Risk Level: Low Risk Clinical Trial Participant: No - Prophylaxis VTE Prophylaxis Ordered?: Yes Types of VTE Prophylaxis: TEDS Knee High Location of Applied Device: Bilateral Lower Extremeties
[2021-08-20 07:45] VITALS: BP 148/37; PULSE 79; RESP 24; TEMP 36.8; O2SAT 95
[2021-08-20 08:00] VITALS: PULSE 80
--- NOTE | 2021-08-20 08:34 | HMH.HP ---
*Admission Date: 08/20/21 <Felisa Tabor 08/20/21 08:39> *Chief complaint: disoriented <Felisa Tabor 08/20/21 08:39> *History of present illness: Ms. Murry is a 66-year-old female who was just discharged from [facility] on 08/18/2021 after an admission for syncope and anemia. She had an echo and a stress test scheduled for the morning of 08/19/2021 and states she felt so bad she could not have them done. She states she was disoriented at home and went to see Dr. Partida yesterday. She complained at that appointment of a headache, confusion, visual changes, and difficulty ambulating. They wanted to get a CT of her head to rule out a new stroke as she has had 2 previous strokes in the last year, but according to the neurology note, they were unable to schedule due to prior authorization. She therefore presented to the emergency room for evaluation and a head CT. Her head CT showed nothing acute, but it did show a new left occipital encephalomalacia consistent with an interval infarct. Her sugar was elevated at 501. Her sodium was low and her blood gas showed a pH of 7.24 with a PO2 of 43.9 and HCO3 of 19.5. She was admitted and started on insulin. <Felisa Tabor 08/20/21 08:39> [facility] History I have reviewed the patient's past medical history: Yes <Felisa Tabor 08/20/21 08:39> Medical History: Reports:: Anxiety, Arrhythmia, Asthma, Cerebrovascular Accident, Deep Vein Thrombosis, Diabetes Mellitus Type 1, Diabetes Mellitus Type 2, Hyperlipidemia, Hypertension, Kidney Stones, MRSA, Osteoporosis, Renal Disease, Renal Insufficiency, Seizures Denies:: Cancer, Internal Pacemaker <Felisa Tabor 08/20/21 08:39> *Have you ever received a pneumonia vaccine?: No <Felisa Tabor 08/20/21 08:39> *Have you received a flu vaccine this season?: Yes <Felisa Tabor 08/20/21 08:39> Other Medical History: Reports: Anemia, Arthritis, Cataracts, Fibromyalgia, Osteoporosis, Sinus Problems <Felisa Tabor 08/20/21 08:39> Laterality Cases: Right: Carpal Tunnel Release, Bilateral: Arthroscopy Knee, Arthroscopy Shoulder, Tonsillectomy <Felisa Tabor 08/20/21 08:39> Other Surgeries: Yes: Colonoscopy, Hysterectomy-Partial, Tubal Ligation, Other. No: Pacemaker <Felisa Tabor 08/20/21 08:39> Amputation: No <Felisa Tabor 08/20/21 08:39> Fractures: Yes (rt 4 5th digit on hand) <Felisa Tabro 08/20/21 08:39> - *Social History Last grade of school completed: Some college <Felisa Tabor 08/20/21 08:39> Smoking Status: Never smoker <Felisa Tabor 08/20/21 08:39> Alcohol Intake: never <Felisa Tabor 08/20/21 08:39> Alcohol Intake Frequency:: 0-2 drinks per day <Felisa Tabor 08/20/21 08:39> Substance Use Type: denies use <Felisa Tabor 08/20/21 08:39> *Occupational Status:: disabled <Felisa Tabor 08/20/21 08:39> Housing: house <Felisa Tabor 08/20/21 08:39> Household Members: other <Felisa Tabor 08/20/21 08:39> *Travel in the last 8 weeks: None <Felisa Tabor 08/20/21 08:39> - Psychiatric History Pschychiatric History:: Reports:: Anxiety <Felisa Tabor 08/20/21 08:39> Family Hx:: Diabetes, Hypertension, Stroke, Thyroid Disorder <Felisa Tabor 08/20/21 08:39> Review of Systems - Constitutional Reports weakness, Denies chills, Denies fever(s) <Felisa Tabor 08/20/21 08:39> - Eyes Denies blurry vision, Denies double vision <Felisa Tabor 08/20/21 08:39> - ENT Denies nasal congestion, Denies sore throat <Felisa Tabor 08/20/21 08:39> - *Cardiovascular Denies chest pain, Denies shortness of breath <Felisa Tabor 02/18/22 08:39> - *Respiratory Denies cough, Denies shortness of breath <Felisa Tabor 08/20/21 08:39> - *Gastrointestinal Denies abdominal pain, Denies loose stools, Denies nausea, Denies vomiting <Felisa Tabor 08/20/21 08:39> - *Genitourinary Denies difficulty urinating, Denies painful urination (Male) <Felisa Tabor 08/20/21 08:39> -
--- NOTE | 2021-08-20 08:37 | HMH.PHAINT ---
Addendum entered and electronically signed by Linda Encarnacion PharmD 08/20/21 09:02: HOME MEDICATION LIST VERIFIED USING LIST FROM [facility] OFFICE AND PREVIOUS ADMISSION ON 08/18/21 Original Note: Home med rec complete
--- NOTE | 2021-08-21 21:32 | HMH.DCSUM ---
General - General Admission date:: 08/19/21 <Amaury Knight - 09/22/21 22:24> 08/19/21 <Felisa Tabor - 08/21/21 21:34> Discharge date: 08/20/21 <Felisa Tabor - 08/21/21 21:34> HPI HPI: Ms. Murry is a 66-year-old female who was just discharged from [facility] on 08/18/2021 after an admission for syncope and anemia. She had an echo and a stress test scheduled for the morning of 08/19/2021 and states she felt so bad she could not have them done. She states she was disoriented at home and went to see Dr. Partida yesterday. She complained at that appointment of a headache, confusion, visual changes, and difficulty ambulating. They wanted to get a CT of her head to rule out a new stroke as she has had 2 previous strokes in the last year, but according to the neurology note, they were unable to schedule due to prior authorization. She therefore presented to the emergency room for evaluation and a head CT. Her head CT showed nothing acute, but it did show a new left occipital encephalomalacia consistent with an interval infarct. Her sugar was elevated at 501. Her sodium was low and her blood gas showed a pH of 7.24 with a PO2 of 43.9 and HCO3 of 19.5. She was admitted and started on insulin. <Felisa Tabor - 08/21/21 21:34> Hospital Course Hospital Course: The patient's blood sugar improved as did her mental status. The blood gas from the ER was a venous sample so she was not acidotic. Her CT scan of her head was reviewed and she had no focal neurologic findings. She was scheduled for an EEG on 08/23/2021 with a follow-up with Dr. Partida on 08/26/2021. It was felt she was stable to discharge home and will keep her follow-up appointments. <Felisa Tabor - 08/21/21 21:34> Objective Vital signs: Temp Pulse Resp BP Pulse Ox 98.3 F 80 24 148/37 H 95 08/20/21 07:45 08/20/21 08:00 08/20/21 07:45 08/20/21 07:45 08/20/21 07:45 <Amaury Knight - 09/22/21 22:24> Temp Pulse Resp BP Pulse Ox 98.3 F 80 24 148/37 H 95 08/20/21 07:45 08/20/21 08:00 08/20/21 07:45 08/20/21 07:45 08/20/21 07:45 <Felisa Tabor - 08/21/21 21:34> Narrative: - Constitutional no acute distress - *Routine HEENT Exam Head: Present: normocephalic Eye: Present: EOMI, PERRL ENT: Present: mucous membranes moist - *Routine Neck Exam Present: supple. Absent: lymphadenopathy - *Routine Respiratory Exam Present: CTA bilaterally - *Routine Cardiovascular Exam Present: RRR - *Routine Abdominal Exam Present: soft, normoactive bowel sounds. Absent: tenderness - *Routine Rectal Exam Rectal:: deferred - *Routine Genitalia Exam Genitalia:: deferred - *Routine Extremities Exam Present: edema (bilateral LE's and left hand). Absent: cyanosis, clubbing - *Routine Skin Exam Present: warm. Absent: rash - *Routine Neurological Exam Present: alert, oriented X3 <Felisa Tabor 08/21/21 21:34> DS: Diagnosis - Discharge Diagnosis (1) Altered mental status Status: Acute (2) Hyperglycemia Status: Acute (3) HBP (high blood pressure) Status: Chronic (4) Rheumatoid arthritis Status: Chronic (5) Type 2 diabetes mellitus Status: Chronic (6) History of CVA (cerebrovascular accident) Status: Acute <Felisa Tabor 08/21/21 21:32> (1) Altered mental status Status: Acute (2) Hyperglycemia Status: Acute (3) HBP (high blood pressure) Status: Chronic (4) Rheumatoid arthritis Status: Chronic (5) Type 2 diabetes mellitus Status: Chronic (6) History of CVA (cerebrovascular accident) Status: Acute <Amaury Knight - 09/22/21 22:24> Discharge Plan - Patient Discharge Instructions ACTIVITY: Continue current activity <Felisa Tabor 08/21/21 21:34> DIET: continue same diet <Felisa Tabor 08/21/21 21:34> Patient Instructions: Type 2 Diabetes, DI for Hyp
== END 2021-08-20 10:13 | disposition home or self-care (01) ==
LOC: ER 17:36 → 2ND 17:49
PROVIDERS: Admitting Provider Family Medicine; Emergency Provider Emergency Medicine; PCP Family Medicine; Visit Provider Family Medicine
DX: R41.82 Altered mental status, unspecified (principal); E11.65 Type 2 diabetes mellitus with hyperglycemia; I10 Essential (primary) hypertension; R26.9 Unspecified abnormalities of gait and mobility; M06.9 Rheumatoid arthritis, unspecified; Z20.822 Contact with and (suspected) exposure to COVID-19; Z79.4 Long term (current) use of insulin; Z79.02 Long term (current) use of antithrombotics/antiplatelets; Z88.0 Allergy status to penicillin; Z88.2 Allergy status to sulfonamides; Z88.8 Allergy status to other drugs, medicaments and biological substances; Z79.899 Other long term (current) drug therapy; Z86.73 Personal history of transient ischemic attack (TIA), and cerebral infarction without residual deficits; R51.9 Headache, unspecified; D64.9 Anemia, unspecified; Z90.5 Acquired absence of kidney
CPT/HCPCS: G0378; 36415; 70450; 80048; 80053; 81001; 82009; 82803; 82962; 84484; 85025; 93005; 96365; 96375; 99285; C9803; U0003; U0005

== ENCOUNTER → 2021-08-23 09:51 | Outpatient (CLI) | payer MEDICARE, SELFPAY | PROVIDERS: PCP Family Medicine; Visit Provider Nurse Practitioner Family | DX: R41.82 Altered mental status, unspecified; R26.9 Unspecified abnormalities of gait and mobility; H53.9 Unspecified visual disturbance; Z86.73 Personal history of transient ischemic attack (TIA), and cerebral infarction without residual deficits | CPT/HCPCS: 95816 ==

== ENCOUNTER → 2021-08-31 12:11 | Outpatient (CLI) | payer MEDICARE, SELFPAY ==
--- NOTE | 2021-08-31 12:11 | CA_ITS ---
APPROVED REPORT Exam: Pharmacologic Technologist: Evi Cabello, Ht: 5 ft 4 in Wt: 175 lbs BSA: 1.85 m2 HR: 68 bpm BP: 130/70 mmHg Medical History Medications: Aspirin,,,,, Losartan,,,,, Allopurinol,,,,, Lyrica,,,,, Carvedilol,,,,, Buspirone,,,,, Lasix,,,,, PERCOCET,,,,, INSULIN,,,,, ProMETHAZINE,,,,, Plavix,,,,, DulOXETINE,,,,, Stress Test Details Test: LEXISCAN HR Resting HR: 69 bpm Max Heart Rate (APMHR): 155.942663 bpm Max HR Achieved: 82 bpm Target HR (85% APMHR): 131.857573 bpm % of APMHR: 52.90 Recovery HR: 78 bpm BP Resting BP: 130/70 mmHg Max BP: 131/61 mmHg Recovery BP: 131.0/61.0 mmHg ECG Resting ECG: NSR, 1degree AVB, Right [place]y Deviation, low voltage QRS Clinical Exercise duration: 04:03 min Highest Stage Achieved: Stress ECG Conclusion Symptoms: None Arrhythmias/Ectopy: Occ isolated PVC ST-T Changes: No significant changes Conclusion: Unremarkable Lexiscan stress. Myoview images reported separately. Test Summary REST . . . . . . . Resting REST 03:54 . . 69 . 130/ 70 . . Stage 1 01:00 . . 77 . . . . Stage 2 01:00 . . 80 . 116/ 53 . . Stage 3 01:00 . . 79 . 129/ 56 . . Stage 4 01:00 . . 79 . 123/ 60 . . Stage 4 01:03 . . 79 . 123/ 60 . Stop exercise at 04:03 RECOVERY 01:00 . . 79 . 124/ 61 . . RECOVERY 02:00 . . 79 . 124/ 61 . . RECOVERY 03:00 . . 79 . 131/ 61 . . RECOVERY 03:14 . . 78 . 131/ 61 . . Electronically signed by : Gil King MD 08/31/2021 19:27:10
--- NOTE | 2021-08-31 12:33 | NM_ITS ---
APPROVED REPORT Exam: Nuclear Stress Test Indication: Abnormal EKG, SOB, Fatigue, HTN, DM, High cholesterol, Family history Patient Location: Outpatient Stress Tech: Evi Berry [place] Tech:Mechelle Alan, ARRT, RT (R)(N) Ht: 5 ft 4 in Wt: 170 lbs Bra Size: 42DD HR: 69 bpm BP: 130/70 mmHg BSA: 1.83 m2 BMI: 29.1 History: Abnormal EKG, SOB, Fatigue, HTN, DM, High cholesterol, Family history Procedure: Patient received a 0.4 mg of intravenous Lexiscan, resting heart rate 69 bpm, resting blood pressure 130/70 mmHg, with Lexiscan maximum heart rate achived was 82 bpm which is Less than 85 % of the maximum predicted heart rate and blood pressure was 131/61 mmHg. With Lexiscan, patient denied any complaint of chest pain. Electrocardiogram Resting electrocardiogram showed sinus rhythm, with Lexiscan there is less than 1.[address] segment depression noted from the baseline EKG. The EKG portion of the Lexiscan is nondiagnostic. Cardiac Stress and Resting SPECT Images: Cardiac Stress and Resting SPECT images were obtained using technetium 99m Myoview 32.1 mCi stress and 10.19 mCi at rest. Patient unable to lay on stomach for prone images. Gated SPECT analysis of segmental wall motion and calculation of the ejection fraction also done. Cardiac stress and rest SPECT images show uniform myocardial activity without segmental perfusion abnormality, compared right ejection fraction 60% with no regional wall motion abnormality, right ventricle is normal size and contractility. Conclusion: 1. The EKG portion of the Lexiscan is nondiagnostic. 2. No scintigraphic evidence of reversible ischemia seen, compared right ejection fraction 60% with no regional wall motion abnormality, right ventricle is normal size and contractility. 3. Normal Lexiscan Myoview study. Electronically signed by : Gil King MD 08/31/2021 19:37:38
--- NOTE | 2021-08-31 13:41 | HMH.ITSHM ---
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 []DICLOFENAC AZELASTINE ASA PREGABLIN PREDNISONE PRAVASTATIN VITAMIN B12 INSULIN FUROSEMIDE CLOPIDOGREL VITAMIN D3 CARVEDILOL BUSPIRONE ALLOPURINOL PROMETHAZINE MONTELUKAST LOSARTAN HYDROCODONE FEXOFENADINE DULOXETINE
--- NOTE | 2021-08-31 13:54 | CA_ITS ---
APPROVED REPORT EXAM: Comprehensive 2D, Doppler, and color-flow Echocardiogram Hide Puller: Maggie Dowling, MARIA ISABEL, RVS Ht: 5 ft 4 in Wt: 167lbs BSA: 1.81 BP: 106/47 mmHg Indications: SOB, ABN EKG, HTN, STROKE, BLINDNESS,HLD,DM 2D Dimensions IVSd 1.43 cm LA Volume 57.60 mL PWd 1.19 cm LA Volume Index 31.80 mL/m2 (M/F) 16-34 LVDd 4.59 cm LVOT 1.89 cm (M/F) 1.5-2.5 M-Mode Dimensions RVDd 2.19 cm (0.9-2.6) LA Diam 3.90 cm (1.9-4.0) LVDd 5.11 cm (3.5-5.7) Ao Diam 3.17 cm (2.0-3.7) LVDs 3.48 cm (3.5-5.7) IVSd 1.48 cm (0.6-1.1) PWd 1.36 cm (0.6-1.1) EF (Teich) 59.60% EPSs 0.61 cm FS 31.90% EDV (Teich) 124.40 mL TAPSE 2.06 (<1.7) ESV (Teich) 50.20 mL LV Diastology E Decel Time 283.00 (160-240 msec) E/A Ratio 0.96 MED E' 6.00 (< 7 cm/sec) MED A' 9.90 cm/s E'/MED E' Ratio 13.30 (>14) LAT E' 7.00 (<10 cm/sec) LAT A' 8.20 cm/s E/LAT E' Ratio 11.40 (>14) Aortic Valve LVOT Max 100.00 (70-110 cm/s) LVOT VTI 21.59 cm AoV Peak Fidel. 134.00 (50-130 cm/s) AO Peak GR. 7.10 mmHg AO Mean GR. 3.40 (<5 mmHg) AO VTI 29.05 (18-25 cm) SHELL (VTI) 2.09 (2.5-4.5 cm2) Mitral Valve MV A Velocity 83.00 (40-130 cm/s) E/A Ratio 0.96 MV Decel. Time 283.00 (160-240 ms) MV Mean Gr. 1.60 (<2mmHg) MV PHT 70.00 ms Pulmonary Valve PV Peak Velocity 104.00 (50-150 cm/s) Left Ventricle Left atrium is mildly enlarged, left ventricle is normal size, mild concentric left ventricular hypertrophy, visually estimated ejection fraction 55% with no regional wall motion abnormality, grade 1 diastolic dysfunction seen without tissue Doppler evidence of raise left atrial pressure. Right Ventricle Right atrium and right ventricle are normal size and contractility. Aortic Valve Aortic valve is minimally thickened and fibrosed, there is no aortic stenosis or aortic insufficiency. Mitral Valve Mitral valve is grossly normal, there is trace mitral regurgitation. Tricuspid Valve Tricuspid grossly normal, there is trace tricuspid regurgitation, tricuspid regurgitation jet velocity is inadequate for calculation of the right ventricular systolic pressure. Pulmonic Valve Pulmonic valve is poorly visualized. Great Vessels Aortic root is normal size. Inferior vena cava is poorly visualized. Pericardium No significant pericardial effusion. Conclusion 1. Mildly enlarged left atrium, normal left ventricular size, mild concentric left ventricular hypertrophy, visually estimated ejection fraction 55% with no regional wall motion abnormality, grade 1 diastolic dysfunction seen without tissue Doppler evidence of raise left atrial pressure. 2. Thickened and calcified aortic valve without aortic stenosis or aortic insufficiency. 3. Trace mitral and tricuspid regurgitation. 4. No significant pericardial effusion. 5. Inferior vena cava is poorly visualized. Electronically signed by : Gil King MD 08/31/2021 19:56:40
--- NOTE | 2021-08-31 13:54 | CA_ITS ---
FINAL REPORT TECHNIQUE: Color Doppler, duplex Doppler and deleon scale sonography of the bilateral neck vasculature was performed. Velocities were measured in the carotid arteries. Stenosis evaluation based on velocity criteria. CLINICAL HISTORY: cva, htn, hld, dm, partial blindness, FINDINGS: The peak systolic velocity of the right common carotid artery is 70 cm/sec and internal carotid artery 93 cm/sec. The diastolic velocity in the internal carotid artery is 27 cm/sec. The ICA/CCA ratio is 1.3. Visually, no significant plaque is seen. These findings are consistent with less than 50% stenosis. The external carotid artery is patent. The right vertebral artery is patent with antegrade flow. The peak systolic velocity of the left common carotid artery is 65 cm/sec and internal carotid artery 131 cm/sec. The diastolic velocity in the internal carotid artery is 39 cm/sec. The ICA/CCA ratio is 2.0. Visually, no significant plaque is seen. These findings are consistent with less than 50% stenosis. The external carotid artery is patent. The left vertebral artery is patent with antegrade flow. IMPRESSION: No evidence of significant carotid stenosis. Bilateral patent vertebral arteries. Reviewed, Interpreted and Dictated by Jesus Manuel Ellington III, MD Transcribed by Verna Tom Authenticated by Jesus Manuel Ellington III, MD on 09/01/2021 06:05:45 AM [facility]
== END ==
PROVIDERS: PCP Family Medicine; Referring Provider Urology; Visit Provider Urology
DX: R06.00 Dyspnea, unspecified (principal); R53.83 Other fatigue; R94.31 Abnormal electrocardiogram [ECG] [EKG]; H53.2 Diplopia; I63.9 Cerebral infarction, unspecified
CPT/HCPCS: 78452; 93017; 93306; 93880; A9502; J2785

== ENCOUNTER → 2021-09-03 14:20 | Outpatient (CLI) | payer MEDICARE, SELFPAY | PROVIDERS: PCP Family Medicine; Visit Provider Internal Medicine Cardiovascular Disease | DX: I48.0 Paroxysmal atrial fibrillation (principal); R06.00 Dyspnea, unspecified; Z86.73 Personal history of transient ischemic attack (TIA), and cerebral infarction without residual deficits | CPT/HCPCS: 93270; 94762 ==

== ENCOUNTER → 2021-09-15 08:16 | Outpatient (CLI) | payer MEDICARE, SELFPAY ==
[2021-09-15 09:17] LABS: Basophils # 0.1 K/mm3 (0-0.2); Basophils % 0.9 % (0.1-2.0); Eosinophils # 0.5 K/mm3 (0.0-0.4); Eosinophils % 6.6 % (0.1-12.0); Hematocrit 34.3 % (37.0-47.0); Hemoglobin 10.6 g/dL (12.2-16.2); Lymphocytes # 2.7 K/mm3 (0.7-4.5); Lymphocytes % 36.3 % (10-50); Mean Corpuscular HGB Conc 30.8 g/dL (31.8-35.4); Mean Corpuscular Hemoglobin 28.1 pg (27.0-31.2); Mean Corpuscular Volume 91.2 fl (81-99); Monocytes # 0.4 K/mm3 (0.1-1.0); Monocytes % 5.8 % (1.7-9.3); Neutrophils # 3.7 K/mm3 (1.8-7.8); Neutrophils % 50.4 % (37.0-80.0); Platelet Count 190 K/mm3 (142-424); Red Blood Count 3.76 M/mm3 (4.20-5.40); Red Cell Distribution Width 16.8 % (11.5-17.5); White Blood Count 7.4 K/mm3 (4.8-10.8)
[2021-09-15 10:11] LABS: Anion Gap 11.1 mEq/L (5-15); Blood Urea Nitrogen 55 mg/dl (7-17); Calcium 8.5 mg/dl (8.4-10.2); Carbon Dioxide 24 mmol/L (22.0-30.0); Chloride 110 mmol/L (98-107); Estimated Glomerular Filt Rate 19 ml/min (>60); GFR (African American) 23 ML/MIN (>60); Glucose 91 mg/dl (74-100); Potassium 5.1 mmoL/L (3.5-5.1); Sodium 140 mmol/L (136-145)
== END ==
PROVIDERS: Visit Provider Internal Medicine Cardiovascular Disease
DX: I48.0 Paroxysmal atrial fibrillation (principal); R06.00 Dyspnea, unspecified; R60.9 Edema, unspecified; R94.31 Abnormal electrocardiogram [ECG] [EKG]; Z86.73 Personal history of transient ischemic attack (TIA), and cerebral infarction without residual deficits; I63.9 Cerebral infarction, unspecified; Z01.812 Encounter for preprocedural laboratory examination; Z11.52 Encounter for screening for COVID-19
CPT/HCPCS: 36415; 80048; 85025; C9803; U0003; U0005

== ENCOUNTER 2021-09-17 07:22 | Day surgery (SDC) | payer MEDICARE, SELFPAY ==
--- NOTE | 2021-09-17 06:58 | P.PN_ITS ---
[facility] Anesthesia Checklist - Patient Identification Patient Identification: Arm Band - Structural Data Admitted From: Home Planned Operative Procedure/s: REYNALDO Consent for Planned Operative Procedure(s) Verified: Yes - NPO Status Verified Time NPO: 00:00 - Airway Assessment C-Spine Mobility Assessed: Yes TMJ Mobility Assessed: Yes Dentition: Poor Dentition - Neurological Assessment Level of Consciousness: Awake Hx Seizures: Yes Numbness or tingling in extremities: No - Anesthesia Plan Anesthesia Risk discussed: Yes Anesthesia Plan: Verified ASA Class: III Anesthesia Type: MAC [facility] History I have reviewed the patient's past medical history: Yes Medical History: Reports:: Anxiety, Arrhythmia, Asthma, Cerebrovascular Accident, Deep Vein Thrombosis, Diabetes Mellitus Type 1, Diabetes Mellitus Type 2, Hyperlipidemia, Hypertension, Kidney Stones, MRSA, Osteoporosis, Renal Disease (Single kidney), Renal Insufficiency, Seizures Denies:: Cancer, Internal Pacemaker *Have you ever received a pneumonia vaccine?: No *Have you received a flu vaccine this season?: No Other Medical History: Reports: Anemia, Arthritis, Cataracts, Fibromyalgia, Osteoporosis, Sinus Problems Anesthesia experience/problems:: None Laterality Cases: Right: Carpal Tunnel Release, Bilateral: Arthroscopy Knee, Arthroscopy Shoulder, Tonsillectomy Other Surgeries: Yes: Colonoscopy, Hysterectomy-Partial, Tubal Ligation, Other. No: Pacemaker Amputation: No Fractures: Yes (rt 4 5th digit on hand) - *Social History Smoking Status: Never smoker Alcohol Intake: never Alcohol Intake Frequency:: 0-2 drinks per day Substance Use Type: denies use *Occupational Status:: disabled Housing: house Household Members: other *Travel in the last 8 weeks: None - Psychiatric History Pschychiatric History:: Reports:: Anxiety Family Hx:: Diabetes, Hypertension, Stroke, Thyroid Disorder
[2021-09-17 07:14] VITALS: BMI 27.8
[2021-09-17 07:34] VITALS: BP 153/96; PULSE 70; PULSE 74; RESP 18; TEMP 36.6; O2SAT 95
--- NOTE | 2021-09-17 07:40 | CA_ITS ---
APPROVED REPORT EXAM: Comprehensive 2D, Doppler, and color-flow Echocardiogram Juvenile Correctional Officer: RT Cathie(R) Ht: 5 ft 4 in Wt: 162lbs BSA: 1.79 BP: 123/53 mmHg Indications: CVA, edema, SOB Procedure After obtaining informed consent, patient underwent transesophageal echo in the Suspension Cord Tier. Type of Sedation : Conscious Sedation Sedation was administered by Eric LazcanoNMelanie. Transesophageal probe was inserted and advanced into esophagus without difficulty by Dr. Thierno Casillas. The REYNALDO was performed without complications. Throughout the procedure, the blood pressure, pulse oximetry, cardiac rhythm, and rate were monitored. The patient tolerated the procedure without adverse effects. Recovery from conscious sedation was uneventful and vital signs were stable. Left Ventricle Left ventricle is normal size, mild concentric left ventricular hypertrophy, estimated ejection fraction 55% with no regional wall motion abnormality. Right Ventricle Right ventricle is normal size and contractility. Atria Left atrium is mildly enlarged, left atrial appendage free of thrombus, there is adequate appendage flow by spectral Doppler. Right atrium is normal size. Intra-atrial septum is intact, there is no flow across the interatrial septum, agitated saline contrast study did not identify intracardiac shunt. Aortic Valve Aortic valve is minimally thickened and fibrosed, there is no aortic stenosis or aortic insufficiency. Mitral Valve Mitral valve is grossly normal, there is trace mitral regurgitation. Tricuspid Valve Tricuspid valve grossly normal, there is trace tricuspid regurgitation, tricuspid regurgitation jet velocity is inadequate for calculation of the right ventricular systolic pressure. Pulmonic Valve Pulmonic valve is grossly normal. Great Vessels Aortic root is normal size. Ascending, arch and descending thoracic aorta is normal, there is nonmobile atheromatous plaque seen in the descending thoracic aorta. Inferior vena cava is poorly visualized. Pericardium No significant pericardial effusion noted. Conclusion 1. Mildly enlarged left atrium, normal left ventricular size, preserved left ventricular systolic function, visually estimated ejection fraction 55% with no regional wall motion abnormality. 2. No thrombus seen in left atrium, right atrium or left atrial appendage. 3. Agitated saline contrast study did not identify intracardiac shunt. 4. Nonmobile atheromatous plaque seen in the descending thoracic aorta. 5. No significant pericardial effusion noted. Electronically signed by : Gil King MD 09/17/2021 10:41:34
[2021-09-17 08:20] LABS: POC Glucose,Bedside 124 (70-110)
[2021-09-17 08:27] VITALS: BP 165/80; PULSE 66; RESP 20; TEMP 35.8; O2SAT 100
[2021-09-17 08:44] LABS: POC Glucose,Bedside 154 (70-110)
[2021-09-17 09:00] VITALS: BP 171/84; PULSE 69; RESP 20; O2SAT 96
== END 2021-09-17 09:32 | disposition home or self-care (01) ==
LOC: CATHLAB 07:23
PROVIDERS: PCP Family Medicine; Visit Provider Internal Medicine Cardiovascular Disease
DX: I95.9 Hypotension, unspecified (principal); R06.00 Dyspnea, unspecified; R94.31 Abnormal electrocardiogram [ECG] [EKG]; Z86.73 Personal history of transient ischemic attack (TIA), and cerebral infarction without residual deficits; E11.9 Type 2 diabetes mellitus without complications; Z79.4 Long term (current) use of insulin; Z79.899 Other long term (current) drug therapy
CPT/HCPCS: 82962; 93312

== ENCOUNTER → 2021-10-13 21:14 | Outpatient (CLI) | payer MEDICARE, SELFPAY | PROVIDERS: PCP Family Medicine; Visit Provider Nurse Practitioner Family | DX: G47.33 Obstructive sleep apnea (adult) (pediatric) (principal); R09.02 Hypoxemia | CPT/HCPCS: 95810 ==

== ENCOUNTER → 2021-10-20 15:27 | Outpatient (CLI) | payer MEDICARE, SELFPAY ==
--- NOTE | 2021-10-20 | CA_ITS ---
FINAL REPORT TECHNIQUE: Color Doppler, duplex Doppler and compression sonography of the left lower extremity deep venous systems was performed. CLINICAL HISTORY: Hx of DVT in left popliteal vein 2019. Diabetes, HTN. Denies trauma. Patient takes Plavix and ASA 81 mg daily due to history of CVA's. FINDINGS: There is no evidence of deep venous thrombosis from the level of the groin to the calf. The veins are patent and compressible. IMPRESSION: No evidence of deep venous thrombosis left lower extremity. Reviewed, Interpreted and Dictated by Jesus Manuel Ellington III, MD Transcribed by Narayan Diaz Authenticated by Jesus Manuel Ellington III, MD on 10/20/2021 04:54:21 PM [facility]
== END ==
PROVIDERS: PCP Family Medicine; Visit Provider Nurse Practitioner Family
DX: R60.0 Localized edema (principal)
CPT/HCPCS: 93971

== ENCOUNTER → 2021-10-21 16:40 | Outpatient (CLI) | payer MEDICARE, SELFPAY ==
[2021-10-21 21:09] LABS: Occult Blood,Stool Negative (Negative)
== END ==
PROVIDERS: Visit Provider Surgery
DX: D64.9 Anemia, unspecified (principal)
CPT/HCPCS: 82272; G0328

== ENCOUNTER → 2021-10-25 15:26 | Outpatient (CLI) | payer MEDICARE, SELFPAY ==
--- NOTE | 2021-10-25 15:33 | XR_ITS ---
FINAL REPORT CLINICAL HISTORY: RT SHOULDER PAIN, FALL FINDINGS: 3 views of the right shoulder were obtained. There is no acute fracture or dislocation. There are marked, advanced hypertrophic changes of osteoarthritis the glenohumeral joint with joint space narrowing and prominent osteophytes. There is an intra-articular loose body measuring 1.7 cm in the sub coracoid recess. IMPRESSION: Advanced osteoarthritis with an intra-articular loose body in the subcoracoid recess. Reviewed, Interpreted and Dictated by James Zaman MD Transcribed by Narayan Diaz Authenticated by James Zaman MD on 10/25/2021 04:52:35 PM [facility]
== END ==
PROVIDERS: PCP Family Medicine; Visit Provider Family Medicine
DX: M25.511 Pain in right shoulder (principal)
CPT/HCPCS: 73030

== ENCOUNTER 2021-11-11 09:17 | Day surgery (SDC) | payer MEDICARE, SELFPAY ==
[2021-11-11 09:35] VITALS: BMI 27.8
[2021-11-11 10:05] VITALS: PULSE 69
--- NOTE | 2021-11-11 11:20 | HMH.LOOP ---
[facility] Loop Recorder Date: 11/11/21 Time: 11:20 Procedure Performed:: Implantation of loop recorder Indication:: History of syncope Cryptogenic CVA Technique:: Patient was brought to the cardiac Activities Leader. After informed consent obtained, 1% lidocaine with epinephrine was used to anesthetize the site along the left anterior aspect of the chest near the sternal border. Using the preformed scalpel, an incision was made and using the supplied preloaded apparatus, the loop recorder was placed subcutaneously without difficulty. Following the deployment of the loop recorder interrogation of the device was performed to ensure appropriate voltage was being detected (0.11 mV). Once this was verified, Steri-Strips were placed over the incision and the patient was prepped to discharge home. Patient tolerated the procedure well with minimal discomfort. Impression:: Successful implantation of loop recorder Serial Number:: [employer] Lux-Dx model M301 Serial #[id number] Plan:: Routine postop care
[2021-11-11 11:21] VITALS: BP 164/89; PULSE 66; RESP 18; O2SAT 98
[2021-11-11 11:28] VITALS: BP 164/89; PULSE 67; RESP 18; O2SAT 97
== END 2021-11-11 11:38 | disposition home or self-care (01) ==
LOC: CATHLAB 09:19
PROVIDERS: PCP Family Medicine; Visit Provider Internal Medicine
DX: I12.9 Hypertensive chronic kidney disease with stage 1 through stage 4 chronic kidney disease, or unspecified chronic kidney disease (principal); E11.22 Type 2 diabetes mellitus with diabetic chronic kidney disease; R55 Syncope and collapse; E78.5 Hyperlipidemia, unspecified; N18.9 Chronic kidney disease, unspecified; R29.6 Repeated falls; R94.31 Abnormal electrocardiogram [ECG] [EKG]; I69.30 Unspecified sequelae of cerebral infarction; Z79.4 Long term (current) use of insulin; Z79.899 Other long term (current) drug therapy
CPT/HCPCS: 33285

== ENCOUNTER 2021-11-25 12:25 | Emergency (ER) | payer MEDICARE, SELFPAY ==
[2021-11-25] VITALS (11 sets, daily range): BP systolic 127–148; BP diastolic 58–95; PULSE 70–90; RESP 18; TEMP 36.5; O2SAT 94–100; BMI 27.1
--- NOTE | 2021-11-25 12:26 | PC.NURSE ---
Jovanna RN at [facility] at
--- NOTE | 2021-11-25 12:35 | HMH.EDGENADL ---
ED Disposition Clinical Impression: Gastroenteritis, Dehydration Abdominal pain Qualifiers: Abdominal location: upper abdomen, unspecified Qualified Code(s): R10.10 - Upper abdominal pain, unspecified Disposition: Home, Self-Care Condition on Discharge: Good Instructions: DI for Dehydration -- Adult, DI for Abdominal Pain-Adult, DI for Nausea -- Adult, DI for Vomiting -- Adult Additional Instructions: Phenergan as needed for nausea and vomiting. Rest and drink plenty of fluids. Resume your usual medications tonight. Follow-up with primary care provider next week. Return to the emergency department if vomiting returns, severe abdominal pain, fever. Prescriptions: Promethazine HCl [Phenergan 12.5mg tablet] 12.5 mg PO Q6HP PRN #8 tab PRN Reason: Nausea And Vomiting Transmission Status: Received by [id number] Referrals: Provider,Referral, [Primary Care Provider] - - Critical Care Critical Care Time: No Attestation: On , the high probability of a clinically significant, sudden or life threatening deterioration of the following system(s) required my full and direct attention, intervention and personal management. The time I documented below is in addition to time spent performing reported procedures but includes the following listed in this critical care notation. Medical Decision Making - Domenico Inquiry Pt receiving controlled substance: Yes Domenico was queried for this patient: Yes Risks and benefits of using a controlled substance: were not discussed with pt by me Vital Signs: 11/25/21 12:25 11/25/21 12:54 11/25/21 13:24 Temperature 97.7 F Temperature Source Oral Pulse Rate 90 89 Pulse Rate [Right Radial] 70 Respiratory Rate 18 Blood Pressure 148/95 H 137/79 Blood Pressure [Right Arm] 137/65 Blood Pressure Mean 99 109 Blood Pressure Mean [Right Arm] 89 Blood Pressure Source Blood Pressure Source [Right Arm] Automatic Cuff Blood Pressure Position Blood Pressure Position [Right Arm] Sitting 02 Sat by Pulse Oximetry 100 98 98 Oxygen Delivery Method Room Air 11/25/21 13:54 11/25/21 14:24 11/25/21 14:31 Temperature Temperature Source Pulse Rate 88 86 87 Pulse Rate [Right Radial] Respiratory Rate Blood Pressure 143/72 H 127/66 127/66 Blood Pressure [Right Arm] Blood Pressure Mean 95 94 Blood Pressure Mean [Right Arm] Blood Pressure Source Automatic Cuff Blood Pressure Source [Right Arm] Blood Pressure Position Sitting Blood Pressure Position [Right Arm] 02 Sat by Pulse Oximetry 95 96 99 Oxygen Delivery Method Room Air 11/25/21 14:54 11/25/21 15:24 11/25/21 15:54 Temperature Temperature Source Pulse Rate 86 88 86 Pulse Rate [Right Radial] Respiratory Rate 18 18 18 Blood Pressure 133/70 143/58 H 128/69 Blood Pressure [Right Arm] Blood Pressure Mean 89 80 86 Blood Pressure Mean [Right Arm] Blood Pressure Source Blood Pressure Source [Right Arm] Blood Pressure Position Blood Pressure Position [Right Arm] 02 Sat by Pulse Oximetry 94 L 96 95 Oxygen Delivery Method 11/25/21 16:54 Temperature Temperature Source Pulse Rate 89 Pulse Rate [Right Radial] Respiratory Rate 18 Blood Pressure 146/64 H Blood Pressure [Right Arm] Blood Pressure Mean 91 Blood Pressure Mean [Right Arm] Blood Pressure Source Blood Pressure Source [Right Arm] Blood Pressure Position Blood Pressure Position [Right Arm] 02 Sat by Pulse Oximetry 94 L Oxygen Delivery Method - Lab Data Lab Results 11/25/21 12:30: WBC 11.2 H, RBC 4.57, Hgb 13.1, Hct 40.4, MCV 88.5, MCH 28.6, MCHC 32.3, RDW 17.7 H, Plt Count 304, MPV 9.4, Neut % (Auto) 68.5, Lymph % (Auto) 23.0, [place] % (Auto) 6.2, Eos % (Auto) 0.7, Baso % (Auto) 1.6, Neut # (Auto) 7.7, Lymph # (Auto) 2.6, [place] # (Auto) 0.7, Eos # (Auto) 0.1, Baso # (Auto) 0.2 11/25/21 12:30: Sodium 137, Potassium 4.8, Chloride 105, Carbon Dioxide 19 L, Anion G
--- NOTE | 2021-11-25 12:37 | PC.NURSE ---
fsbs 270
--- NOTE | 2021-11-25 12:38 | PC.NURSE ---
ED MD at
[2021-11-25 12:41] LABS: POC Glucose,Bedside 270 (70-110)
--- NOTE | 2021-11-25 12:42 | CT_ITS ---
FINAL REPORT TECHNIQUE: Thin section axial images were obtained from the lung bases to the pubic symphysis without IV contrast. Oral contrast was administered. Coronal reformatted images were submitted. This study was performed with techniques to keep radiation doses as low as reasonably achievable (ALARA). Individualized dose reduction techniques using automated exposure control or adjustment of mA and/or kV according to the patient's size were employed. CLINICAL HISTORY: abdo pain, vomiting oral contrast FINDINGS: The lung bases are clear. 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 There are no left renal or ureteral stones. There is no left hydronephrosis or perinephric stranding. The gallbladder is present. The remaining unenhanced solid abdominal organs are unremarkable. There is no evidence of small bowel obstruction. The appendix is normal. There is diverticulosis without evidence of diverticulitis. There is no lymphadenopathy or ascites. There has been hysterectomy. There is abnormal attenuation in the anterior abdominal wall that may be due to subcutaneous injections. No acute osseous abnormality is identified. A spinal stimulator is present. IMPRESSION: No acute intra-abdominal or intrapelvic process. Reviewed, Interpreted and Dictated by Mary Hopper MD Transcribed by Narayan Diaz Authenticated by Mary Hopper MD on 11/25/2021 03:52:23 PM [facility]
[2021-11-25 12:44] LABS: Chloride 105 mmol/L (98-107); Potassium 4.8 mmoL/L (3.5-5.1); Sodium 137 mmol/L (136-145)
[2021-11-25 12:45] LABS: Basophils # 0.2 K/mm3 (0-0.2); Basophils % 1.6 % (0.1-2.0); Eosinophils # 0.1 K/mm3 (0.0-0.4); Eosinophils % 0.7 % (0.1-12.0); Hematocrit 40.4 % (37.0-47.0); Hemoglobin 13.1 g/dL (12.2-16.2); Lymphocytes # 2.6 K/mm3 (0.7-4.5); Mean Corpuscular HGB Conc 32.3 g/dL (31.8-35.4); Mean Corpuscular Hemoglobin 28.6 pg (27.0-31.2); Mean Corpuscular Volume 88.5 fl (81-99); Mean Platelet Volume 9.4 fl (7.4-10.4); Monocytes # 0.7 K/mm3 (0.1-1.0); Monocytes % 6.2 % (1.7-9.3); Neutrophils # 7.7 K/mm3 (1.8-7.8); Neutrophils % 68.5 % (37.0-80.0); Platelet Count 304 K/mm3 (142-424); Red Blood Count 4.57 M/mm3 (4.20-5.40); Red Cell Distribution Width 17.7 % (11.5-17.5); White Blood Count 11.2 K/mm3 (4.8-10.8)
[2021-11-25 12:47] LABS: Alanine Aminotransferase 35 U/L (12-78); Albumin Level 4.5 g/dl (3.5-5.0); Albumin/Globulin Ratio 1.8 (1.1-1.8); Alkaline Phosphatase 98 U/L (38-126); Anion Gap 17.8 mEq/L (5-15); Aspartate Amino Transferase 36 U/L (14-36); Bilirubin,Total 0.8 mg/dl (0.2-1.3); Blood Urea Nitrogen 49 mg/dl (7-17); Carbon Dioxide 19 mmol/L (22.0-30.0); Creatinine Clearance Estimated 24 mL/min (50-200); Estimated Glomerular Filt Rate 18 ml/min (>60); GFR (African American) 22 ML/MIN (>60); Globulin 2.5 g/dL (1.3-3.2); Glucose 306 mg/dl (74-100); Lipase 175 U/L (23-300)
--- NOTE | 2021-11-25 12:47 | ECG_ITS ---
APPROVED REPORT Exam: Resting ECG HR:89 bpm ECG Measurements Heart Rate 89 AXES OK 154 P 44 QRSd 110 QRS -52 QT 389 T 38 QTc 436 Conclusion SINUS RHYTHM WITH FREQUENT VENTRICULAR PREMATURE COMPLEXES LEFT AXIS DEVIATION [QRS AXIS < -30] ABNORMAL ECG UNCONFIRMED REPORT Electronically signed by : Kenny Sylvester MD 11/26/2021 10:31:14
--- NOTE | 2021-11-25 13:04 | PC.NURSE ---
Kathy Wyatt, RN at
[2021-11-25 13:09] LABS: Troponin I 0.02 ng/ml (0.00-0.034)
--- NOTE | 2021-11-25 13:12 | PC.NURSE ---
Zelda in radiology notified that pt is finished with po contrast
[2021-11-25 13:19] LABS: Acetone, Serum (Rapid) None Detected (None Detect)
--- NOTE | 2021-11-25 13:21 | PC.NURSE ---
Rt advised of VBG ordered
[2021-11-25 13:48] LABS: VBG Base Excess -8.1 mmol/L (-2.4-2.3); VBG HCO3 17.9 mmol/L (23-30); VBG Oxygen Saturation 69.4 % (50-70); VBG PH 7.33 mmol/L (7.31-7.41); VBG PO2 37.4 mmol/L (28-40)
--- NOTE | 2021-11-25 14:30 | PC.NURSE ---
checked on pt at this time, pt resting in bed on L side. Family at BS. Informed pt they will be down soon to get pt for her CT scan. States no needs at this time. Will continue to monitor
--- NOTE | 2021-11-25 14:34 | PC.NURSE ---
patient to CT with psychology technician by wheelchair
--- NOTE | 2021-11-25 14:41 | PC.NURSE ---
patient back to ED from CT by wheelchair with radio television technical director; I helped assist patient to restroom so she could provide a UA; no complications patient helped back onto stretcher and hooked to monitor; no other needs at this time
[2021-11-25 14:57] LABS: Microscopic, Urine URINE MICROSCOPIC (MICROSCOPIC)
[2021-11-25 14:59] LABS: Appearance,Urine CLEAR (Clear); Blood, Urine 1+ (Negative); Color,Urine YELLOW (Yellow); Glucose,Urine (UA) 1+ (Negative); Ketones,Urine Negative (Negative); Leukocyte Esterase,Urine Negative (Negative); Nitrate,Urine Negative (Negative); PH,Urine 5.5 (5.0-8.5); Protein,Urine 3+ (Negative); Specific Gravity, Urine >= 1.030 (1.005-1.030); Urobilinogen,Urine 0.2 EU/dl (0.2)
[2021-11-25 15:10] LABS: Bilirubin,Urine 1+ (Negative)
[2021-11-25 15:16] LABS: WBC,Urine Occasional #/hpf (0-3)
[2021-11-25 15:17] LABS: Bacteria,Urine Trace /lpf; Fine Granular Casts,Urine Occasional #/lpf (0); RBC,Urine Occasional #/hpf (0-3)
[2021-11-25 15:18] LABS: Squamous Epithelial Cell,Urine Occasional #/hpf (0-5)
--- NOTE | 2021-11-25 16:14 | PC.NURSE ---
ED MD speaking with patient at BS regarding update on POC at this time
--- NOTE | 2021-11-25 16:18 | PC.NURSE ---
2nd troponin sent to lab
[2021-11-25 16:47] LABS: Troponin I 0.02 ng/ml (0.00-0.034)
--- NOTE | 2021-11-25 17:07 | PC.NURSE ---
Kathy B, RN at discussing discharge instructions; family at BS
== END 2021-11-25 17:12 | disposition home or self-care (01) ==
PROVIDERS: Emergency Provider Emergency Medicine
DX: K52.9 Noninfective gastroenteritis and colitis, unspecified (principal); R42 Dizziness and giddiness; R94.31 Abnormal electrocardiogram [ECG] [EKG]; E86.0 Dehydration; D64.9 Anemia, unspecified; R53.82 Chronic fatigue, unspecified; I95.9 Hypotension, unspecified; Z20.822 Contact with and (suspected) exposure to COVID-19; I12.9 Hypertensive chronic kidney disease with stage 1 through stage 4 chronic kidney disease, or unspecified chronic kidney disease; N18.9 Chronic kidney disease, unspecified; I49.9 Cardiac arrhythmia, unspecified; E78.5 Hyperlipidemia, unspecified; M81.0 Age-related osteoporosis without current pathological fracture; M19.90 Unspecified osteoarthritis, unspecified site; H26.9 Unspecified cataract; F41.9 Anxiety disorder, unspecified; Z79.02 Long term (current) use of antithrombotics/antiplatelets; Z79.4 Long term (current) use of insulin; Z79.52 Long term (current) use of systemic steroids; Z79.82 Long term (current) use of aspirin; Z79.899 Other long term (current) drug therapy; Z88.0 Allergy status to penicillin; Z88.2 Allergy status to sulfonamides; Z88.8 Allergy status to other drugs, medicaments and biological substances; Z91.048 Other nonmedicinal substance allergy status; Z86.718 Personal history of other venous thrombosis and embolism; Z86.73 Personal history of transient ischemic attack (TIA), and cerebral infarction without residual deficits
CPT/HCPCS: 74176; 80053; 81001; 82009; 82803; 82962; 83690; 84484; 85025; 93005; 96375; 99285; J2405

== ENCOUNTER 2022-01-04 07:04 | Emergency (ER) | payer MEDICARE, SELFPAY ==
[2022-01-04] VITALS (8 sets, daily range): BP systolic 142–183; BP diastolic 70–92; PULSE 90–108; RESP 15–18; TEMP 36.7–37; O2SAT 94–100; BMI 25.7
--- NOTE | 2022-01-04 07:26 | CT_ITS ---
FINAL REPORT CLINICAL HISTORY: ABD PAIN COMPARISON: November 25, 2021 FINDINGS: Axial CT images of the abdomen and pelvis were obtained without intravenous contrast. Coronal reformatted images were also obtained.This study was performed with techniques to keep radiation doses as low as reasonably achievable (ALARA). Individualized dose reduction techniques using automated exposure control or adjustment of mA and/or kV according to the patient's size were employed. Abdomen: There is mild bibasilar atelectasis or scarring. There has been a right nephrectomy. There is no evidence of left renal stone or hydronephrosis. The gallbladder is present. The liver, spleen and pancreas have an unremarkable, unenhanced appearance. No mass or adenopathy is seen. No inflammatory process is identified. There is degenerative and postoperative change of the lumbar spine. Pelvis: Images of the pelvis reveal no evidence of ureteral dilation or ureteral stone.No mass or abnormal fluid collection is identified. The appendix is normal. There has been hysterectomy. There is diverticulosis of the sigmoid colon. IMPRESSION: No left side renal or ureteral stone, or hydronephrosis. No mass or inflammatory process. Reviewed, Interpreted and Dictated by Jesus Manuel Ellington III, MD Transcribed by Narayan Diaz Authenticated and [facility]
[2022-01-04 07:30] LABS: Appearance,Urine CLOUDY (Clear); Bilirubin,Urine Negative (Negative); Blood, Urine 3+ (Negative); Color,Urine YELLOW (Yellow); Glucose,Urine (UA) Negative (Negative); Ketones,Urine Negative (Negative); Leukocyte Esterase,Urine 2+ (Negative); Microscopic, Urine URINE MICROSCOPIC (MICROSCOPIC); Nitrate,Urine POSITIVE (Negative); Protein,Urine 2+ (Negative); Urobilinogen,Urine 0.2 EU/dl (0.2)
[2022-01-04 07:39] LABS: Lipase 72 U/L (23-300)
[2022-01-04 07:40] LABS: Alanine Aminotransferase 18 U/L (12-78); Albumin Level 3.9 g/dl (3.5-5.0); Albumin/Globulin Ratio 1.5 (1.1-1.8); Alkaline Phosphatase 82 U/L (38-126); Amylase 83 U/L (30-110); Anion Gap 12.5 mEq/L (5-15); Aspartate Amino Transferase 20 U/L (14-36); Bilirubin,Total 0.3 mg/dl (0.2-1.3); Blood Urea Nitrogen 32 mg/dl (7-17); Carbon Dioxide 24 mmol/L (22.0-30.0); Chloride 105 mmol/L (98-107); Creatinine Clearance Estimated 29 mL/min (50-200); Estimated Glomerular Filt Rate 24 ml/min (>60); GFR (African American) 29 ML/MIN (>60); Globulin 2.6 g/dL (1.3-3.2); Glucose 172 mg/dl (74-100); Potassium 4.5 mmoL/L (3.5-5.1); Sodium 137 mmol/L (136-145); Total Protein,Serum 6.5 g/dl (6.3-8.2)
[2022-01-04 07:44] LABS: Basophils # 0.1 K/mm3 (0-0.2); Basophils % 0.4 % (0.1-2.0); Eosinophils # 0.2 K/mm3 (0.0-0.4); Eosinophils % 1.5 % (0.1-12.0); Hemoglobin 11.3 g/dL (12.2-16.2); Lymphocytes # 2.3 K/mm3 (0.7-4.5); Lymphocytes % 19.2 % (10-50); Mean Corpuscular HGB Conc 33.4 g/dL (31.8-35.4); Mean Corpuscular Hemoglobin 28.9 pg (27.0-31.2); Mean Corpuscular Volume 86.6 fl (81-99); Mean Platelet Volume 7.7 fl (7.4-10.4); Monocytes # 0.8 K/mm3 (0.1-1.0); Monocytes % 6.5 % (1.7-9.3); Neutrophils # 8.7 K/mm3 (1.8-7.8); Neutrophils % 72.5 % (37.0-80.0); Platelet Count 252 K/mm3 (142-424); Red Blood Count 3.92 M/mm3 (4.20-5.40); Red Cell Distribution Width 17.1 % (11.5-17.5); White Blood Count 11.9 K/mm3 (4.8-10.8)
[2022-01-04 07:46] LABS: Bacteria,Urine Trace /lpf; RBC,Urine Occasional #/hpf (0-3); Squamous Epithelial Cell,Urine Occasional #/hpf (0-5); WBC,Urine TNTC #/hpf (0-3)
--- NOTE | 2022-01-04 07:47 | PC.NURSE ---
WARM BLANKET PROVIDED, FAMILY AT BEDSIDE. NO NEEDS AT THIS TIME
--- NOTE | 2022-01-04 07:56 | PC.NURSE ---
ED MD AT BEDSIDE
--- NOTE | 2022-01-04 08:02 | HMH.EDABDPAI ---
ED Disposition Clinical Impression: Pyelonephritis UTI (urinary tract infection) Qualifiers: Urinary tract infection type: acute cystitis Hematuria presence: without hematuria Qualified Code(s): N30.00 - Acute cystitis without hematuria Disposition: Home, Self-Care Condition on Discharge: Fair Instructions: DI for Acute Abdominal Pain, Urinary Tract Infection Additional Instructions: Follow-up with your primary care physician in 3 days if you do not feel better. Take all medications as prescribed. Return to the emergency department immediately if you feel worse in any way. Prescriptions: Ciprofloxacin/Ciprofloxa HCl [Ciprofloxacin ER 500 mg Tab] 500 mg PO BID #14 tab Transmission Status: Pending to [facility] Ondansetron [Ondansetron Odt 8mg Tab] 8 mg PO QID 4 Days #16 tab Transmission Status: Pending to [facility] Referrals: Amaury Knight MD [Primary Care Provider] - - Critical Care Critical Care Time: No Attestation: On 01/04/22, the high probability of a clinically significant, sudden or life threatening deterioration of the following system(s) required my full and direct attention, intervention and personal management. The time I documented below is in addition to time spent performing reported procedures but includes the following listed in this critical care notation. Medical Decision Making - Medical Records Medical records reviewed: Yes: I reviewed the patient's medical records. - Domenico Inquiry Pt receiving controlled substance: No Vital Signs: 01/04/22 07:05 01/04/22 07:15 01/04/22 07:32 Temperature 98.6 F Temperature Source Oral Pulse Rate 108 H 103 H Pulse Rate [Brachial] 107 H Respiratory Rate 18 Blood Pressure 142/92 H 155/74 H Blood Pressure [Left Arm] 142/92 H Blood Pressure Mean 99 104 Blood Pressure Mean [Left Arm] 108 Blood Pressure Source [Left Arm] Automatic Cuff Blood Pressure Position [Left Arm] Sitting 02 Sat by Pulse Oximetry 100 99 96 Oxygen Delivery Method Room Air 01/04/22 08:41 Temperature Temperature Source Pulse Rate 96 H Pulse Rate [Brachial] Respiratory Rate Blood Pressure 173/70 H Blood Pressure [Left Arm] Blood Pressure Mean 117 Blood Pressure Mean [Left Arm] Blood Pressure Source [Left Arm] Blood Pressure Position [Left Arm] 02 Sat by Pulse Oximetry 96 Oxygen Delivery Method - Lab Data Lab results reviewed: Yes: I reviewed the patient's lab results. Lab Results 01/04/22 07:10: Urine Color Yellow, Urine Appearance Cloudy, Urine pH 6.0, Ur Specific [place] 1.020, Urine Protein 2+, Urine Glucose (UA) Negative, Urine Ketones Negative, Urine Blood 3+, Urine Nitrate Positive, Urine Bilirubin Negative, Urine Urobilinogen 0.2, Ur Leukocyte Esterase 2+ A, Urine RBC Occasional, Urine WBC Tntc, Ur Squamous Epith Cells Occasional, Urine Bacteria Trace 01/04/22 07:20: WBC 11.9 H, RBC 3.92 L, Hgb 11.3 L, Hct 34.0 L, MCV 86.6, MCH 28.9, MCHC 33.4, RDW 17.1, Plt Count 252, MPV 7.7, Neut % (Auto) 72.5, Lymph % (Auto) 19.2, [place] % (Auto) 6.5, Eos % (Auto) 1.5, Baso % (Auto) 0.4, Neut # (Auto) 8.7 H, Lymph # (Auto) 2.3, [place] # (Auto) 0.8, Eos # (Auto) 0.2, Baso # (Auto) 0.1 01/04/22 07:20: Sodium 137, Potassium 4.5, Chloride 105, Carbon Dioxide 24, Anion Gap 12.5, BUN 32 H, Creatinine 2.10 H, Estimated Creat Clear 29, Estimated GFR 24 L, Est GFR ( Amer) 29 L, Glucose 172 H, Calcium 10.0, Total Bilirubin 0.3, AST 20, ALT 18, Alkaline Phosphatase 82, Total Protein 6.5, Albumin 3.9, Globulin 2.6, Albumin/Globulin Ratio 1.5, Amylase 83 01/04/22 07:20: ESR 42 H 01/04/22 07:20: Lipase 72 01/04/22 07:20: C-Reactive Protein 21.9 H 01/04/22 07:40: Lactate 1.1 Result diagrams: 01/04/22 07:20 01/04/22 07:20 Orders (Tests/Meds): ED MEDICATIONS Discontinued Medications Generic Name Dose Route Start Last Admin Trade Name Freq PRN Reason Stop Dose Admin Sodium Chloride 1,000 mls @ 999 mls/hr 01/04
[2022-01-04 08:05] LABS: Lactic Acid 1.1 mmol/L (0.7-2.1)
--- NOTE | 2022-01-04 08:12 | PC.NURSE ---
due to labs CT will be without contrast
[2022-01-04 08:18] LABS: C-Reactive Protein 21.9 mg/L (0-4)
--- NOTE | 2022-01-04 08:22 | PC.NURSE ---
PT TO CT PER WC AT THIS TIME
--- NOTE | 2022-01-04 08:32 | PC.NURSE ---
pt back from rad
[2022-01-04 08:34] LABS: Erythrocyte Sedimentation Rate 42 mm/hr (0-30)
--- NOTE | 2022-01-04 08:42 | PC.NURSE ---
PT RESTING WITH EYES CLOSED, FAMILY AT BEDSIDE. B/P CUFF ADJUSTED, B/P REMAINS ELEVATED. MD AWARE. NO NEW ORDERS
--- NOTE | 2022-01-04 09:09 | PC.NURSE ---
ED UPDATING PT ON POC. QUESTIONS ANSWERED BY
--- NOTE | 2022-01-04 10:15 | PC.NURSE ---
1015 MADE AWARE OF B/P. NO NEW ORDERS. PT STATES SHE DID NOT TAKE HER MEDS LAST NIGHT OR THIS AM
== END 2022-01-04 10:20 | disposition home or self-care (01) ==
PROVIDERS: Emergency Provider Emergency Medicine; PCP Family Medicine
DX: N12 Tubulo-interstitial nephritis, not specified as acute or chronic; N30.00 Acute cystitis without hematuria; Z79.82 Long term (current) use of aspirin; Z79.4 Long term (current) use of insulin; Z79.899 Other long term (current) drug therapy; Z88.0 Allergy status to penicillin; Z88.2 Allergy status to sulfonamides; J45.909 Unspecified asthma, uncomplicated; I10 Essential (primary) hypertension; E11.9 Type 2 diabetes mellitus without complications; E78.5 Hyperlipidemia, unspecified; M81.0 Age-related osteoporosis without current pathological fracture; F41.9 Anxiety disorder, unspecified
CPT/HCPCS: 74176; 80053; 81001; 82150; 83605; 83690; 85025; 85651; 86140; 87086; 87088; 87186; 96365; 96375; 99284; J0696; J2405

== ENCOUNTER 2022-01-06 18:52 | Emergency (ER) | payer MEDICARE, SELFPAY ==
[2022-01-06 18:53] VITALS: BP 137/69; PULSE 82; RESP 18; TEMP 37.1; O2SAT 96; BMI 25.7
[2022-01-06 19:29] LABS: Microscopic, Urine URINE MICROSCOPIC (MICROSCOPIC)
[2022-01-06 19:54] LABS: Basophils # 0.1 K/mm3 (0-0.2); Basophils % 1.3 % (0.1-2.0); Eosinophils # 0.1 K/mm3 (0.0-0.4); Hematocrit 36.4 % (37.0-47.0); Hemoglobin 11.3 g/dL (12.2-16.2); Lymphocytes # 1.5 K/mm3 (0.7-4.5); Lymphocytes % 20.5 % (10-50); Mean Corpuscular HGB Conc 31.1 g/dL (31.8-35.4); Mean Corpuscular Hemoglobin 28.8 pg (27.0-31.2); Mean Corpuscular Volume 92.6 fl (81-99); Mean Platelet Volume 8.5 fl (7.4-10.4); Monocytes # 0.5 K/mm3 (0.1-1.0); Monocytes % 6.6 % (1.7-9.3); Neutrophils % 69.6 % (37.0-80.0); Platelet Count 279 K/mm3 (142-424); Red Blood Count 3.93 M/mm3 (4.20-5.40); Red Cell Distribution Width 17.6 % (11.5-17.5); White Blood Count 7.2 K/mm3 (4.8-10.8)
[2022-01-06 19:56] LABS: Appearance,Urine CLEAR (Clear); Blood, Urine Negative (Negative); Color,Urine YELLOW (Yellow); Glucose,Urine (UA) Negative (Negative); Ketones,Urine TRACE (Negative); Leukocyte Esterase,Urine Negative (Negative); Nitrate,Urine Negative (Negative); Protein,Urine 2+ (Negative); Specific Gravity, Urine >= 1.030 (1.005-1.030); Urobilinogen,Urine 0.2 EU/dl (0.2)
[2022-01-06 20:01] LABS: Bilirubin,Urine 1+ (Negative)
[2022-01-06 20:07] LABS: Alanine Aminotransferase 19 U/L (12-78); Albumin/Globulin Ratio 1.5 (1.1-1.8); Alkaline Phosphatase 75 U/L (38-126); Anion Gap 15.6 mEq/L (5-15); Aspartate Amino Transferase 25 U/L (14-36); Bilirubin,Total 0.4 mg/dl (0.2-1.3); Blood Urea Nitrogen 34 mg/dl (7-17); Carbon Dioxide 22 mmol/L (22.0-30.0); Chloride 103 mmol/L (98-107); Creatinine Clearance Estimated 25 mL/min (50-200); Estimated Glomerular Filt Rate 20 ml/min (>60); GFR (African American) 25 ML/MIN (>60); Globulin 2.7 g/dL (1.3-3.2); Glucose 151 mg/dl (74-100); Potassium 4.6 mmoL/L (3.5-5.1); Sodium 136 mmol/L (136-145); Total Protein,Serum 6.7 g/dl (6.3-8.2)
[2022-01-06 20:08] LABS: Lactic Acid 1.6 mmol/L (0.7-2.1)
[2022-01-06 20:13] LABS: C-Reactive Protein 60.3 mg/L (0-4)
[2022-01-06 20:16] LABS: Bacteria,Urine 1+ /lpf; RBC,Urine Occasional #/hpf (0-3)
[2022-01-06 20:26] LABS: Procalcitonin 0.173 ng/mL (0.0-2.0)
[2022-01-06 20:59] LABS: Erythrocyte Sedimentation Rate 86 mm/hr (0-30)
[2022-01-06 21:53] LABS: POC Glucose,Bedside 85 (70-110)
--- NOTE | 2022-01-06 23:25 | PC.NURSE ---
PATIENT TRANSPORTED TO BATHROOM VIA WHEELCHAIR WITH ASSISTANCE PER MYSELF. PATIENT VOIDED 500ML OF URINE. PATIENT PLACED BACK IN W/C AND TRANSPORTED BACK TO ROOM. PATIENT TOLERATED WELL. BLANKETS APPLIED AND PATIENT RESTING IN BED.
--- NOTE | 2022-01-07 00:16 | HMH.EDWEAK ---
ED Disposition Clinical Impression: E. coli UTI (urinary tract infection), Renal insufficiency Disposition: Home, Self-Care Condition on Discharge: Good Instructions: DI for Urinary Tract Infection (UTI) Additional Instructions: fluids and use meds for follow up Referrals: Amaury Knight MD [Primary Care Provider] - - Critical Care Critical Care Time: No Attestation: On 01/06/22, the high probability of a clinically significant, sudden or life threatening deterioration of the following system(s) required my full and direct attention, intervention and personal management. The time I documented below is in addition to time spent performing reported procedures but includes the following listed in this critical care notation. Medical Decision Making - Medical Records Medical records reviewed: Yes: I reviewed the patient's medical records. - Domenico Inquiry Pt receiving controlled substance: No Vital Signs: 01/06/22 18:53 Temperature 98.7 F Temperature Source Oral Pulse Rate [Right] 82 Respiratory Rate 18 Blood Pressure [Right Arm] 137/69 Blood Pressure Mean [Right Arm] 91 02 Sat by Pulse Oximetry 96 - Lab Data Lab results reviewed: Yes: I reviewed the patient's lab results. Lab Results 01/06/22 19:02: Urine Color Yellow, Urine Appearance Clear, Urine pH 5.0, Ur Specific [place] >= 1.030, Urine Protein 2+, Urine Glucose (UA) Negative, Urine Ketones Trace, Urine Blood Negative, Urine Nitrate Negative, Urine Bilirubin 1+ A, Urine Urobilinogen 0.2, Ur Leukocyte Esterase Negative, Urine RBC Occasional, Urine WBC 3-5, Ur Squamous Epith Cells 5-10, Urine Bacteria 1+ 01/06/22 19:38: WBC 7.2 D, RBC 3.93 L, Hgb 11.3 L, Hct 36.4 L, MCV 92.6, MCH 28.8, MCHC 31.1 L, RDW 17.6 H, Plt Count 279, MPV 8.5, Neut % (Auto) 69.6, Lymph % (Auto) 20.5, [place] % (Auto) 6.6, Eos % (Auto) 2.0, Baso % (Auto) 1.3, Neut # (Auto) 5.0, Lymph # (Auto) 1.5, [place] # (Auto) 0.5, Eos # (Auto) 0.1, Baso # (Auto) 0.1, ESR 86 H 01/06/22 19:38: Sodium 136, Potassium 4.6, Chloride 103, Carbon Dioxide 22, Anion Gap 15.6 H, BUN 34 H, Creatinine 2.40 H, Estimated Creat Clear 25, Estimated GFR 20 L, Est GFR ( Amer) 25 L, Glucose 151 H, Calcium 10.0, Total Bilirubin 0.4, AST 25, ALT 19, Alkaline Phosphatase 75, C-Reactive Protein 60.3 H D, Total Protein 6.7, Albumin 4.0, Globulin 2.7, Albumin/Globulin Ratio 1.5, Procalcitonin 0.173 01/06/22 19:38: Lactate 1.6 01/06/22 21:46: POC Glucose 85 Result diagrams: 01/06/22 19:38 01/06/22 19:38 Orders (Tests/Meds): ED MEDICATIONS Generic Name Dose Route Start Last Admin Trade Name Freq PRN Reason Stop Dose Admin Sodium Chloride 1,000 mls @ 999 mls/hr 01/06/22 21:45 01/06/22 21:45 Sod Chlor 0.9% 1000ml Bag IV 01/06/22 22:45 999 mls/hr .[id number] MANUEL Administration Discontinued Medications Generic Name Dose Route Start Last Admin Trade Name Freq PRN Reason Stop Dose Admin Ondansetron HCl 4 mg 01/06/22 21:43 01/06/22 21:45 Ondansetron 4mg/2ml Vial IV 01/06/22 21:44 4 mg ONCE ONE Administration ORDERS Category Date Time Status Blood Culture Stat Micro 01/06/22 19:38 Ordered Medical Decision Narrative: has acute uti with culture reviewed and has sirs and feels better after fluids - has renal insuff Weakness HPI - General Chief complaint: Weakness Stated complaint: Crying upset Time Seen by Provider: 01/06/22 23:00 Mode of Arrival: Ambulatory Source of Information: Patient, Medical Record Limitations: No Limitations Description of Symptoms (Recalled from ER Triage Doc. by RN): pt states was diagnosed with UTI on monday in er. today pt c/o being weak and just not feeling well - History of Present Illness HPI Narrative: not feeling well today with recent uti - no vomiting and has episodes of confusion MD Complaint: generalized weakness Onset (ago): day(s) Duration: intermittent Location: generalized Migration: none Severity: moderate
[2022-01-07 00:35] VITALS: BP 124/72; PULSE 80; RESP 16; TEMP 37.1; O2SAT 99
== END 2022-01-07 00:36 | disposition home or self-care (01) ==
PROVIDERS: Emergency Provider Emergency Medicine; PCP Family Medicine
DX: N39.0 Urinary tract infection, site not specified (principal); N28.9 Disorder of kidney and ureter, unspecified; Z79.82 Long term (current) use of aspirin; Z79.4 Long term (current) use of insulin; Z79.51 Long term (current) use of inhaled steroids; Z79.899 Other long term (current) drug therapy; Z88.0 Allergy status to penicillin; Z88.2 Allergy status to sulfonamides; F41.9 Anxiety disorder, unspecified; J45.909 Unspecified asthma, uncomplicated; E11.9 Type 2 diabetes mellitus without complications; E78.5 Hyperlipidemia, unspecified; I10 Essential (primary) hypertension; M81.0 Age-related osteoporosis without current pathological fracture; Z86.73 Personal history of transient ischemic attack (TIA), and cerebral infarction without residual deficits
CPT/HCPCS: 80053; 81001; 82962; 83605; 84145; 85025; 85651; 86140; 87040; 96365; 96375; 99284; J2405

== ENCOUNTER → 2022-01-25 08:03 | Outpatient (CLI) | payer MEDICARE, SELFPAY ==
[2022-01-25 08:40] VITALS: PULSE 112; PULSE 98
== END ==
PROVIDERS: PCP Family Medicine; Visit Provider Internal Medicine Pulmonary Disease
DX: R06.02 Shortness of breath (principal); J44.9 Chronic obstructive pulmonary disease, unspecified
CPT/HCPCS: 94060; 94727; 94729

== ENCOUNTER → 2022-01-31 15:52 | Outpatient (CLI) | payer MEDICARE, SELFPAY | PROVIDERS: PCP Family Medicine; Visit Provider Specialist | DX: G47.33 Obstructive sleep apnea (adult) (pediatric); Z86.73 Personal history of transient ischemic attack (TIA), and cerebral infarction without residual deficits | CPT/HCPCS: 94762 ==

== ENCOUNTER → 2022-02-10 08:03 | Outpatient (CLI) | payer MEDICARE, SELFPAY ==
[2022-02-10 09:02] LABS: Chloride 107 mmol/L (98-107)
[2022-02-10 09:03] LABS: Potassium 4.1 mmoL/L (3.5-5.1); Sodium 139 mmol/L (136-145)
[2022-02-10 09:06] LABS: Calcium 9.6 mg/dl (8.4-10.2); Glucose 169 mg/dl (74-100); Phosphorous 4.9 mg/dl (2.5-4.5)
[2022-02-10 09:16] LABS: Blood Urea Nitrogen 31 mg/dl (7-17); Estimated Glomerular Filt Rate 22 ml/min (>60); GFR (African American) 27 ML/MIN (>60)
[2022-02-10 09:25] LABS: Anion Gap 13.1 mEq/L (5-15); Carbon Dioxide 23 mmol/L (22.0-30.0)
[2022-02-10 12:21] LABS: Basophils # 0.1 K/mm3 (0-0.2); Basophils % 1.2 % (0.1-2.0); Eosinophils # 0.3 K/mm3 (0.0-0.4); Eosinophils % 3.2 % (0.1-12.0); Hematocrit 36.8 % (37.0-47.0); Hemoglobin 11.3 g/dL (12.2-16.2); Lymphocytes # 2.9 K/mm3 (0.7-4.5); Lymphocytes % 34.2 % (10-50); Mean Corpuscular HGB Conc 30.6 g/dL (31.8-35.4); Mean Corpuscular Volume 94.9 fl (81-99); Monocytes # 0.7 K/mm3 (0.1-1.0); Monocytes % 7.9 % (1.7-9.3); Neutrophils # 4.6 K/mm3 (1.8-7.8); Neutrophils % 53.5 % (37.0-80.0); Platelet Count 300 K/mm3 (142-424); Red Blood Count 3.88 M/mm3 (4.20-5.40); White Blood Count 8.6 K/mm3 (4.8-10.8)
== END ==
PROVIDERS: PCP Family Medicine; Visit Provider Internal Medicine Nephrology
DX: N18.4 Chronic kidney disease, stage 4 (severe) (principal)
CPT/HCPCS: 36415; 80069; 85025

== ENCOUNTER → 2022-02-14 13:15 | Outpatient (POV) | payer MEDICARE, SELFPAY | PROVIDERS: Visit Provider Internal Medicine Nephrology | DX: Z00.00 Encounter for general adult medical examination without abnormal findings (principal) ==

== ENCOUNTER → 2022-02-14 13:26 | Outpatient (CLI) | payer MEDICARE, SELFPAY ==
--- NOTE | 2022-02-14 13:39 | MM_ITS ---
PROCEDURE INFORMATION: Exam: MG Bilateral Screening 3D Mammography Exam date and time: 02/14/2022 1:42 PM Age: 66 years old Clinical indication: Screening examination TECHNIQUE: Imaging protocol: Bilateral Screening tomosynthesis and 2D mammography including computer-aided detection (CAD) when performed. COMPARISON: No relevant prior studies available. FINDINGS: MAMMOGRAPHY: Breast composition: The breasts are heterogeneously dense, which may obscure small masses. Mass: None. Architectural distortion: None. Calcifications: No suspicious calcifications. Asymmetric density: None. Skin thickening: None. Axillary adenopathy: None. IMPRESSION: No mammographic evidence of malignancy. Annual screening is recommended unless otherwise clinically indicated. ASSESSMENT: BI-RADS Category 1: Negative
== END ==
PROVIDERS: PCP Family Medicine; Visit Provider Family Medicine
DX: Z12.31 Encounter for screening mammogram for malignant neoplasm of breast (principal)
CPT/HCPCS: 77063; 77067

== ENCOUNTER 2022-02-19 16:03 | Emergency (ER) | payer MEDICARE, SELFPAY ==
[2022-02-19 16:10] VITALS: BP 111/65; PULSE 101; RESP 17; TEMP 36.9; O2SAT 99; BMI 24.7
[2022-02-19 16:35] VITALS: BP 111/65; PULSE 101; RESP 17; TEMP 36.9; O2SAT 99
--- NOTE | 2022-02-19 16:37 | HMH.EDUTC ---
[facility] [place] [facility] Disposition Clinical Impression: Exposure to COVID-19 virus Disposition: Home, Self-Care Condition on Discharge: Good Instructions: DI for COVID-19 (Suspected or Confirmed ) Additional Instructions: covid swab was sent to lab, call tomorrow for results. self isolate until test results are known to be negative No sign of a bacterial infection. Likely viral. Viruses can take 7-14 days to run their course. Nasal saline and bulb syringe or nose Genia to remove nasal drainage to help with nasal congestion. Hard to eat, drink, sleep with nasal congestion so important to keep this cleaned out. Monitor temp. Tylenol or Motrin as needed for pain or fever Encourage fluids, water, Gatorade, Powerade, Pedialyte if infant/toddler/child Warm salt water gargles Warm fluids Sore throat lozenges Sleep elevated Humidifier/vaporizer Follow-up immediately for new or worsening symptoms or no noticeable improvement over the next 48-72 hours. Referrals: Amaury Knight MD [Primary Care Provider] - Time of Disposition: 16:40 Medical Decision Making - Domenico Inquiry Pt receiving controlled substance: No Vital Signs: 02/19/22 16:10 02/19/22 16:35 Temperature 98.4 F 98.4 F Temperature Source Oral Pulse Rate 101 H Pulse Rate [Right Brachial] 101 H Respiratory Rate 17 17 Blood Pressure 111/65 Blood Pressure [Right Arm] 111/65 Blood Pressure Mean [Right Arm] 80 Blood Pressure Source [Right Arm] Automatic Cuff Blood Pressure Position [Right Arm] Sitting 02 Sat by Pulse Oximetry 99 Oxygen Delivery Method Room Air Orders (Tests/Meds): ORDERS Category Date Time Status Covid-19 Nasal PCR ([facility]) Routine Lab 02/19/22 16:20 Received [facility] [place] HPI - General Chief complaint: [facility]gent [facility] Stated complaint: exposed to covid, weak Time Seen by Provider: 02/19/22 16:37 Mode of Arrival: Ambulatory Source of Information: Patient Limitations: No Limitations Description of Symptoms (Recalled from Triage Doc. by RN): PATIENT C/O WEAKNESS, BODY ACHES AND FATIGUE. RECENTLY EXPOSED TO COVID HEENT Symptoms (Recalled from RN notes): No Resp Symptoms (Recalled from RN notes): No Skin Symptoms (Recalled from RN notes): No MS Symptoms (Recalled from RN notes): No Functional Status (Recalled from RN notes): WNL - History of Present Illness Provider Complaint: 66 yr old female presents for weakness and body aches. pt states on monday she was around a family member that tested + for covid on tu - Related Data Home Medications Medication Instructions Recorded Confirmed mecobalamin (vitamin B12) 1,000 1,000 mcg SUBLINGUAL HS 11/06/17 02/07/22 mcg disintegrating tablet,sublingual pregabalin 150 mg capsule 150 mg PO BID 11/06/17 02/07/22 allopurinol 100 mg tablet 100 mg PO BID tab 04/13/21 02/07/22 cholecalciferol (vitamin D3) 125 125 mcg PO DAILY 04/13/21 02/07/22 mcg (5,000 unit) capsule clopidogrel 75 mg tablet 75 mg PO DAILY tab 04/13/21 02/07/22 buspirone 10 mg tablet 20 mg PO BID tab 08/10/21 02/07/22 Duloxetine HCl [Cymbalta] 60 mg PO DAILY 08/16/21 02/07/22 Fexofenadine HCl 180 mg PO DAILY 08/16/21 02/07/22 Hydrocodone/Acetaminophen 1 tab PO QIDP PRN 08/16/21 02/07/22 [Hydrocodone-Acetamin 10-325 mg] Montelukast Sodium 10 mg PO PM 08/16/21 02/07/22 Diclofenac Sodium [Diclofenac Sod 1 g TOPICAL NEEDED PRN 08/17/21 02/07/22 100gm Topical Gel] Aspirin [Aspirin 81mg EC Tab] 81 mg PO DAILY 08/19/21 02/07/22 insulin human U-100 NPH-regulr 40 unit SQ BID ml 08/26/21 02/07/22 70-30 mix 100 unit/mL subcutaneous susp furosemide 40 mg tablet 20 mg PO Q OTHER DAY PRN tab 09/03/21 02/07/22 insulin aspart U-100 100 unit/mL 1 sliding scale dose SQ 09/20/21 02/07/22 (3 mL) subcutaneous pen USEASDIRECTD prednisone 5 mg tablet 2.5 mg PO DAILY 30 Days #15 tab 11/09/21 02/07/22 losartan 50 mg tablet 25 mg PO HS tab 11/18/21 02/07/22 Previous Rx's Medication Instructions Recorde
== END 2022-02-19 17:02 | disposition home or self-care (01) ==
PROVIDERS: Emergency Provider Nurse Practitioner Family; PCP Family Medicine
DX: Z20.822 Contact with and (suspected) exposure to COVID-19 (principal); R53.1 Weakness; R52 Pain, unspecified; R53.83 Other fatigue
CPT/HCPCS: 99212; C9803; G0463; U0003; U0005

== ENCOUNTER 2022-02-27 21:07 | Emergency (ER) | payer MEDICARE, SELFPAY ==
[2022-02-27 21:09] VITALS: BP 110/54; PULSE 97; RESP 22; TEMP 36.8; O2SAT 96; BMI 25.2
--- NOTE | 2022-02-27 21:26 | ECG_ITS ---
APPROVED REPORT Exam: Resting ECG HR:99 bpm ECG Measurements Heart Rate 99 AXES WV 149 P 32 QRSd 98 QRS -30 QT 362 T 46 QTc 418 Conclusion SINUS RHYTHM BORDERLINE LEFT AXIS DEVIATION [QRS AXIS < -20] BORDERLINE ECG UNCONFIRMED REPORT Electronically signed by : Kenny Sylvester MD 02/28/2022 20:10:25
--- NOTE | 2022-02-27 21:59 | XR_ITS ---
PROCEDURE INFORMATION: Exam: XR Chest Exam date and time: 02/27/2022 10:13 PM Age: 66 years old Clinical indication: Dyspnea and shortness of breath; Additional info: SOA, dyspnea TECHNIQUE: Imaging protocol: Radiologic exam of the chest. Views: 2 views. COMPARISON: CR XR CHEST PORTABLE 08/16/2021 1:11 PM FINDINGS: Tubes, catheters and devices: Spinal stimulator projects over the lower thoracic spine. Lungs: Unremarkable. No consolidation. Pleural spaces: Unremarkable. No pleural effusion. No pneumothorax. Heart/Mediastinum: Unremarkable. No cardiomegaly. Bones/joints: Large bony exostosis projecting off the caudal aspect of the humeral head bilaterally. IMPRESSION: No acute findings.
[2022-02-27 22:08] LABS: Basophils # 0.1 K/mm3 (0-0.2); Basophils % 1.1 % (0.1-2.0); Eosinophils # 0.2 K/mm3 (0.0-0.4); Eosinophils % 2.1 % (0.1-12.0); Hematocrit 36.2 % (37.0-47.0); Hemoglobin 11.4 g/dL (12.2-16.2); Lymphocytes # 2.5 K/mm3 (0.7-4.5); Lymphocytes % 27.3 % (10-50); Mean Corpuscular HGB Conc 31.5 g/dL (31.8-35.4); Mean Corpuscular Hemoglobin 28.8 pg (27.0-31.2); Mean Corpuscular Volume 91.4 fl (81-99); Mean Platelet Volume 8.3 fl (7.4-10.4); Monocytes # 0.6 K/mm3 (0.1-1.0); Monocytes % 6.5 % (1.7-9.3); Neutrophils # 5.6 K/mm3 (1.8-7.8); Platelet Count 325 K/mm3 (142-424); Red Blood Count 3.96 M/mm3 (4.20-5.40); Red Cell Distribution Width 16.5 % (11.5-17.5)
[2022-02-27 22:12] LABS: Alanine Aminotransferase 20 U/L (12-78); Albumin Level 3.9 g/dl (3.5-5.0); Alkaline Phosphatase 84 U/L (38-126); Anion Gap 11.6 mEq/L (5-15); Aspartate Amino Transferase 24 U/L (14-36); Bilirubin,Direct 0.1 mg/dl (0.0-0.4); Blood Urea Nitrogen 33 mg/dl (7-17); Calcium 9.8 mg/dl (8.4-10.2); Carbon Dioxide 23 mmol/L (22.0-30.0); Chloride 106 mmol/L (98-107); Creatinine Clearance Estimated 23 mL/min (50-200); Estimated Glomerular Filt Rate 18 ml/min (>60); GFR (African American) 22 ML/MIN (>60); Glucose 178 mg/dl (74-100); Magnesium 1.5 mg/dl (1.6-2.3); Potassium 4.6 mmoL/L (3.5-5.1); Sodium 136 mmol/L (136-145); Total Protein,Serum 6.2 g/dl (6.3-8.2)
[2022-02-27 22:14] LABS: Bilirubin,Total 0.1 mg/dl (0.2-1.3)
[2022-02-27 22:17] LABS: C-Reactive Protein 8.1 mg/L (0-4)
[2022-02-27 22:26] LABS: Coronavirus 19, PCR Not Detected (NotDetected); Influenza A, PCR Not Detected (NotDetected); Influenza B, PCR Not Detected (NotDetected)
[2022-02-27 22:26] LABS: NT Pro Brain Natriuretic Pep. 775 pg/mL (0-125); Troponin I 0.03 ng/ml (0.00-0.034)
[2022-02-27 22:31] LABS: Procalcitonin 0.147 ng/mL (0.0-2.0)
[2022-02-27 22:39] LABS: Erythrocyte Sedimentation Rate 33 mm/hr (0-30)
--- NOTE | 2022-02-27 23:06 | HMH.EDSOB ---
Discharge Plan Disposition Patient Disposition: Home, Self-Care Chief Complaint: Shortness of Breath/Dyspnea Prescriptions Prescriptions: No Action clopidogrel 75 mg tablet 75 mg PO DAILY cholecalciferol (vitamin D3) 125 mcg (5,000 unit) capsule 125 mcg PO DAILY buspirone 10 mg tablet 20 mg PO BID furosemide 40 mg tablet 20 mg PO Q OTHER DAY PRN (Reason: DIURETIC) insulin aspart U-100 [Novolog Flexpen U-100 Insulin] 100 unit/mL (3 mL) insulin pen 1 sliding scale dose SQ USEASDIRECTD fluticasone propionate [Flonase Allergy Relief] 50 mcg/actuation spray,suspension 1 spray NS DAILY 90 Days Qty: 16 3RF Rx Instructions: administer into each nostril sertraline [Zoloft] 50 mg tablet 50 mg PO DAILY Qty: 30 1RF mecobalamin (vitamin B12) 1,000 mcg tablet,disintegrating 1,000 mcg SUBLINGUAL HS pregabalin [Lyrica] 150 mg capsule 150 mg PO BID allopurinol 100 mg tablet 100 mg PO BID prednisone 5 mg tablet 2.5 mg PO DAILY 30 Days Qty: 15 albuterol sulfate 90 mcg/actuation HFA aerosol inhaler 2 inh IH Q6H PRN (Reason: shortness of breath or wheezing) 30 Days Qty: 8.5 0RF rosuvastatin [Crestor] 20 mg tablet 20 mg PO DAILY Qty: 30 3RF fexofenadine 180 MG tablet 180 mg PO DAILY duloxetine 60 MG capsule,delayed release(DR/EC) 60 mg PO DAILY hydrocodone-acetaminophen 1 EACH tablet 1 tab PO QIDP PRN (Reason: pain) Rx Instructions: 10/325mg montelukast 10 MG tablet 10 mg PO PM diclofenac sodium 100 GM gel 1 g TOPICAL NEEDED PRN (Reason: (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) Pain Per Pt) insulin NPH and regular human 100 unit/mL (70-30) suspension 40 unit SQ BID aspirin 81 MG tablet,delayed release (DR/EC) 81 mg PO DAILY losartan 50 mg tablet 25 mg PO HS promethazine 12.5 MG tablet 12.5 mg PO Q6HP PRN (Reason: Nausea And Vomiting) Qty: 8 0RF ondansetron 8 MG tablet,disintegrating 8 mg PO QID 4 Days Qty: 16 0RF Rx Instructions: Take 1 tablet every 6 hours as needed for nausea or vomiting Referrals Follow up/Referrals: Amaury Knight MD [Primary Care Provider] - See instructions Clinical Impressions Clinical Impression: CKD (chronic kidney disease), Acute exacerbation of chronic obstructive airways disease Instructions Patient Instructions: DI for Shortness of Breath Discharge ED Provider: Rell Muñoz Resp/SOB HPI General Chief Complaint: Shortness of Breath/Dyspnea Stated Complaint: DIZZY NAUSE,sob,wEAKNESS Time Seen by Provider: 02/27/22 23:06 Mode of Arrival: Family Vehicle Source of Information: Patient, Relative and Medical Record Limitations: short term disability Description of Symptoms (Recalled from ER Triage Doc. by RN): Pt c/o weakness, SOA, cough, and dyspnea. States they were exposed to covid 2 wks ago, tested negative for covid 1 wk ago. States she started zoloft 02/15 and isn't sure if this is doing something to me . Stated her weakness and dyspnea began around 9 am and has not improved. Denies fever. History of Present Illness has hx of cough and sob - started zoloft - has weakness and sob started tonnadia LIRIANO Complaint: shortness of breath Onset (ago): hour(s) Severity: moderate Known history of: diabetes Associated symptoms: denies other symptoms Treatment prior to arrival: none Related Data Home oxygen amount: none Home Medications Medication Instructions Recorded Confirmed mecobalamin (vitamin B12) 1,000 1,000 mcg sublingual HS Supplement 11/06/17 02/07/22 mcg disintegrating tablet,sublingual pregabalin 150 mg capsule (Lyrica) 150 mg PO BID Pain 11/06/17 02/07/22 allopurinol 100 mg tablet 100 mg PO BID Gout 04/13/21 02/07/22 cholecalciferol (vitamin D3) 125 125 mcg PO DAILY Supplement 04/13/21 02/07/22 mcg (5,000 unit) capsule clopidogrel 75 mg tablet 75 mg PO DAILY platelet inhibitor 04/13/21 02/07/22 buspirone 10 mg tablet 20 mg P
[2022-02-27 23:18] LABS: Microscopic, Urine URINE MICROSCOPIC (MICROSCOPIC)
[2022-02-27 23:29] LABS: Appearance,Urine CLEAR (Clear); Blood, Urine Negative (Negative); Color,Urine YELLOW (Yellow); Glucose,Urine (UA) Negative (Negative); Ketones,Urine TRACE (Negative); Leukocyte Esterase,Urine Negative (Negative); Nitrate,Urine Negative (Negative); Protein,Urine 2+ (Negative); Specific Gravity, Urine >= 1.030 (1.005-1.030); Urobilinogen,Urine 0.2 EU/dl (0.2)
[2022-02-27 23:31] LABS: Bacteria,Urine 2+ /lpf; Bilirubin,Urine 1+ (Negative); RBC,Urine Occasional #/hpf (0-3)
[2022-02-28 00:32] VITALS: BP 116/68; PULSE 78; RESP 19; TEMP 36.8; O2SAT 97
== END 2022-02-28 00:53 | disposition home or self-care (01) ==
PROVIDERS: Emergency Provider Emergency Medicine; PCP Family Medicine
DX: J44.1 Chronic obstructive pulmonary disease with (acute) exacerbation (principal); R94.31 Abnormal electrocardiogram [ECG] [EKG]; R42 Dizziness and giddiness; R53.1 Weakness; R11.2 Nausea with vomiting, unspecified; Z20.822 Contact with and (suspected) exposure to COVID-19; N18.9 Chronic kidney disease, unspecified; E11.621 Type 2 diabetes mellitus with foot ulcer; Z79.4 Long term (current) use of insulin; Z79.51 Long term (current) use of inhaled steroids; Z79.52 Long term (current) use of systemic steroids; Z79.82 Long term (current) use of aspirin; Z79.02 Long term (current) use of antithrombotics/antiplatelets; Z79.899 Other long term (current) drug therapy; Z90.5 Acquired absence of kidney; Z88.0 Allergy status to penicillin; Z88.2 Allergy status to sulfonamides; Z88.8 Allergy status to other drugs, medicaments and biological substances; Z91.048 Other nonmedicinal substance allergy status; Z87.891 Personal history of nicotine dependence
CPT/HCPCS: 71046; 80048; 80076; 81001; 83735; 83880; 84145; 84484; 85025; 85651; 86140; 87086; 93005; 96360; 99285; C9803; U0003; U0005

== ENCOUNTER → 2022-03-08 08:01 | Outpatient (CLI) | payer MEDICARE, SELFPAY ==
[2022-03-08 10:15] LABS: Anion Gap 12.9 mEq/L (5-15); Blood Urea Nitrogen 45 mg/dl (7-17); Calcium 9.4 mg/dl (8.4-10.2); Carbon Dioxide 25 mmol/L (22.0-30.0); Chloride 105 mmol/L (98-107); Estimated Glomerular Filt Rate 18 ml/min (>60); GFR (African American) 22 ML/MIN (>60); Glucose 186 mg/dl (74-100); Potassium 4.9 mmoL/L (3.5-5.1); Sodium 138 mmol/L (136-145)
== END ==
PROVIDERS: PCP Family Medicine; Visit Provider Internal Medicine Nephrology
DX: N17.9 Acute kidney failure, unspecified (principal)
CPT/HCPCS: 36415; 80048

== ENCOUNTER 2022-03-11 15:42 | Emergency (ER) | payer MEDICARE, SELFPAY ==
[2022-03-11 15:42] VITALS: BP 188/87; PULSE 78; RESP 16; TEMP 36.6; O2SAT 98; BMI 23.3
[2022-03-11 15:46] VITALS: BP 188/87; PULSE 69; O2SAT 94
--- NOTE | 2022-03-11 15:56 | ECG_ITS ---
APPROVED REPORT Exam: Resting ECG HR:82 bpm ECG Measurements Heart Rate 82 AXES DC 165 P 62 QRSd 105 QRS 36 QT 383 T 51 QTc 422 Conclusion SINUS RHYTHM WITH OCCASIONAL VENTRICULAR PREMATURE COMPLEXES BORDERLINE ECG UNCONFIRMED REPORT Electronically signed by : Kenny Sylvester MD 03/13/2022 15:26:56
[2022-03-11 16:00] VITALS: BP 171/88; PULSE 82; RESP 16; O2SAT 100
--- NOTE | 2022-03-11 16:04 | XR_ITS ---
PROCEDURE INFORMATION: Exam: XR Left Hip Exam date and time: 03/11/2022 4:48 PM Age: 66 years old Clinical indication: Injury or trauma; Fall; Blunt trauma (contusions or hematomas); Left; Hip; Additional info: Left hip pain fall TECHNIQUE: Imaging protocol: Radiologic exam of the Left hip. Views: 2 or 3 views hip with pelvis when performed. COMPARISON: CT ABDOMEN PELVIS WO CON 01/04/2022 8:20 AM FINDINGS: Tubes, catheters and devices: Spinal stimulator battery pack projects over the left iliac bone. Bones/joints: No acute fracture or dislocation. Both hip joints are preserved. The SI joints and pubic symphysis are unremarkable. Spinal fixation hardware partially visualized on this exam at the L4 and L5 levels. Soft tissues: Unremarkable. IMPRESSION: No acute findings.
--- NOTE | 2022-03-11 16:04 | CT_ITS ---
PROCEDURE INFORMATION: Exam: CT Thoracic Spine Without Contrast Exam date and time: 03/11/2022 4:21 PM Age: 66 years old Clinical indication: Injury or trauma; Fall; Blunt trauma (contusions or hematomas); Additional info: Fall pain TECHNIQUE: Imaging protocol: Computed tomography of the thoracic spine without contrast. Radiation optimization: All CT scans at this facility use at least one of these dose optimization techniques: automated exposure control; mA and/or kV adjustment per patient size (includes targeted exams where dose is matched to clinical indication); or iterative reconstruction. COMPARISON: CR XR MULTIPLE SPINE 6+V 09/27/2019 4:32 PM FINDINGS: Tubes, catheters and devices: Spinal stimulator enters the canal at T9-10 and extends to the cephalad aspect of the T8 level. Bones/joints: Mild disc space narrowing and small endplate osteophytes are seen at multiple mid to lower thoracic levels. Vacuum disc at T8-9 and T10-11. No acute fracture or subluxation. Mild dextroconvex thoracic curvature. Soft tissues: Unremarkable. IMPRESSION: No acute findings.
--- NOTE | 2022-03-11 16:04 | CT_ITS ---
PROCEDURE INFORMATION: Exam: CT Lumbar Spine Without Contrast Exam date and time: 03/11/2022 4:25 PM Age: 66 years old Clinical indication: Injury or trauma; Fall; Blunt trauma (contusions or hematomas); Additional info: Fall pain TECHNIQUE: Imaging protocol: Computed tomography of the lumbar spine without contrast. Radiation optimization: All CT scans at this facility use at least one of these dose optimization techniques: automated exposure control; mA and/or kV adjustment per patient size (includes targeted exams where dose is matched to clinical indication); or iterative reconstruction. COMPARISON: CR XR MULTIPLE SPINE 6+V 09/27/2019 4:32 PM FINDINGS: Bones/joints: No acute fracture. Normal alignment. Gary and pedicle screw fixation hardware at L3, L4 and L5. Multilevel posterior osseous fusion. Small disc bulges at L1-L2 and L5-S1. Prominent posterior osteophyte at L4-L5. Moderate central canal stenosis at L4-L5. Soft tissues: Unremarkable. IMPRESSION: No acute findings.
--- NOTE | 2022-03-11 16:04 | XR_ITS ---
PROCEDURE INFORMATION: Exam: XR Chest Exam date and time: 03/11/2022 4:48 PM Age: 66 years old Clinical indication: Pain; Chest pressure; Additional info: Chest pain TECHNIQUE: Imaging protocol: Radiologic exam of the chest. Views: 1 view. COMPARISON: CR XR CHEST 2V 02/27/2022 10:13 PM FINDINGS: Tubes, catheters and devices: Spinal stimulator projects over the lower thoracic spine. Lungs: Unremarkable. No consolidation. Pleural spaces: Unremarkable. No pleural effusion. No pneumothorax. Heart/Mediastinum: Unremarkable. No cardiomegaly. Diaphragm: Chronic elevation of the right hemidiaphragm. Bones/joints: Severe degenerative changes at both glenohumeral joints. IMPRESSION: No acute findings.
--- NOTE | 2022-03-11 16:04 | CT_ITS ---
PROCEDURE INFORMATION: Exam: CT Head Without Contrast Exam date and time: 03/11/2022 4:14 PM Age: 66 years old Clinical indication: Injury or trauma; Fall; Blunt trauma (contusions or hematomas) TECHNIQUE: Imaging protocol: Computed tomography of the head without contrast. Radiation optimization: All CT scans at this facility use at least one of these dose optimization techniques: automated exposure control; mA and/or kV adjustment per patient size (includes targeted exams where dose is matched to clinical indication); or iterative reconstruction. COMPARISON: CT HEAD/BRAIN WO CON 08/19/2021 3:46 PM FINDINGS: Brain: The brain demonstrates diffuse volume loss. White matter hypodensities most consistent with chronic small vessel ischemic change. No visible evolving territorial infarct. No hemorrhage. Chronic bilateral parietooccipital infarcts are again demonstrated. Several chronic lacunar infarcts are again demonstrated. Cerebral ventricles: The ventricles are enlarged in keeping with volume loss. Paranasal sinuses: Visualized sinuses are unremarkable. No fluid levels. Mastoid air cells: Visualized mastoid air cells are well aerated. Bones/joints: Unremarkable. No acute fracture. Soft tissues: Unremarkable. IMPRESSION: No acute intracranial abnormality seen.
--- NOTE | 2022-03-11 16:04 | CT_ITS ---
PROCEDURE INFORMATION: Exam: CT Cervical Spine Without Contrast Exam date and time: 03/11/2022 4:18 PM Age: 66 years old Clinical indication: Injury or trauma; Fall; Blunt trauma; Additional info: Fall pain TECHNIQUE: Imaging protocol: Computed tomography of the cervical spine without contrast. Radiation optimization: All CT scans at this facility use at least one of these dose optimization techniques: automated exposure control; mA and/or kV adjustment per patient size (includes targeted exams where dose is matched to clinical indication); or iterative reconstruction. COMPARISON: CT CERVICAL SPINE WO CON 09/16/2020 3:24 PM FINDINGS: Bones/joints: 2 mm of grade 1 degenerative anterolisthesis of C4 on C5 and C7 on T1. 1-2 mm of degenerative retrolisthesis of C5 on C6 and C6 on C7. No acute fracture seen. Severe degenerative changes at C1-C2. Advanced cervical degenerative disc disease with uncovertebral arthropathy at C5-C6 and C6-C7. Partially calcified central disc protrusions versus disc extrusions at C2-C3 and C5-C6, as before. No severe central spinal canal stenosis. There are neural foraminal stenoses due to uncovertebral and facet arthropathy. Anterior subluxation of the left temporomandibular joint may reflect TMJ dysfunction. Lungs: Lung apices are normal. Soft tissues: Unremarkable. IMPRESSION: No cervical spine fracture seen.
[2022-03-11 17:05] LABS: Basophils # 0.1 K/mm3 (0-0.2); Basophils % 0.8 % (0.1-2.0); Eosinophils # 0.1 K/mm3 (0.0-0.4); Eosinophils % 1.5 % (0.1-12.0); Hemoglobin 10.2 g/dL (12.2-16.2); Lymphocytes # 1.5 K/mm3 (0.7-4.5); Lymphocytes % 16.7 % (10-50); Mean Corpuscular HGB Conc 30.9 g/dL (31.8-35.4); Mean Corpuscular Hemoglobin 28.1 pg (27.0-31.2); Mean Corpuscular Volume 91.1 fl (81-99); Mean Platelet Volume 8.1 fl (7.4-10.4); Monocytes # 0.6 K/mm3 (0.1-1.0); Monocytes % 6.7 % (1.7-9.3); Neutrophils # 6.6 K/mm3 (1.8-7.8); Neutrophils % 74.3 % (37.0-80.0); Platelet Count 293 K/mm3 (142-424); Red Blood Count 3.62 M/mm3 (4.20-5.40); Red Cell Distribution Width 16.1 % (11.5-17.5); White Blood Count 8.9 K/mm3 (4.8-10.8)
[2022-03-11 17:09] LABS: Chloride 104 mmol/L (98-107); Potassium 4.9 mmoL/L (3.5-5.1); Sodium 137 mmol/L (136-145)
[2022-03-11 17:12] LABS: Anion Gap 13.9 mEq/L (5-15); Blood Urea Nitrogen 54 mg/dl (7-17); Carbon Dioxide 24 mmol/L (22.0-30.0); Creatinine Clearance Estimated 21 mL/min (50-200); Estimated Glomerular Filt Rate 18 ml/min (>60); GFR (African American) 21 ML/MIN (>60); Glucose 251 mg/dl (74-100)
[2022-03-11 17:24] LABS: Troponin I 0.02 ng/ml (0.00-0.034)
--- NOTE | 2022-03-11 18:57 | PC.NURSE ---
pt up to bathroom with assist pt walt well
[2022-03-11 20:09] VITALS: BP 171/88; PULSE 82; RESP 16; TEMP 36.7; O2SAT 100
--- NOTE | 2022-03-11 20:54 | HMH.EDGENADL ---
Discharge Plan Disposition Patient Disposition: Home, Self-Care Condition: Good Prescriptions Prescriptions: No Action clopidogrel 75 mg tablet 75 mg PO DAILY cholecalciferol (vitamin D3) 125 mcg (5,000 unit) capsule 125 mcg PO DAILY buspirone 10 mg tablet 20 mg PO BID furosemide 40 mg tablet 20 mg PO Q OTHER DAY PRN (Reason: DIURETIC) insulin aspart U-100 [Novolog Flexpen U-100 Insulin] 100 unit/mL (3 mL) insulin pen 1 sliding scale dose SQ USEASDIRECTD fluticasone propionate [Flonase Allergy Relief] 50 mcg/actuation spray,suspension 1 spray NS DAILY 90 Days Qty: 16 3RF Rx Instructions: administer into each nostril metoclopramide HCl 5 mg tablet 5 mg PO sertraline [Zoloft] 50 mg tablet 50 mg PO DAILY Qty: 30 1RF mecobalamin (vitamin B12) 1,000 mcg tablet,disintegrating 1,000 mcg SUBLINGUAL HS pregabalin [Lyrica] 150 mg capsule 150 mg PO BID allopurinol 100 mg tablet 100 mg PO BID prednisone 5 mg tablet 2.5 mg PO DAILY 30 Days Qty: 15 albuterol sulfate 90 mcg/actuation HFA aerosol inhaler 2 inh IH Q6H PRN (Reason: shortness of breath or wheezing) 30 Days Qty: 8.5 0RF rosuvastatin [Crestor] 20 mg tablet 20 mg PO DAILY Qty: 30 3RF fexofenadine 180 MG tablet 180 mg PO DAILY duloxetine 60 MG capsule,delayed release(DR/EC) 60 mg PO DAILY hydrocodone-acetaminophen 1 EACH tablet 1 tab PO QIDP PRN (Reason: pain) Rx Instructions: 10/325mg montelukast 10 MG tablet 10 mg PO PM diclofenac sodium 100 GM gel 1 g TOPICAL NEEDED PRN (Reason: (Framing Manager Use Only) Pain Per Pt) insulin NPH and regular human 100 unit/mL (70-30) suspension 40 unit SQ BID aspirin 81 MG tablet,delayed release (DR/EC) 81 mg PO DAILY losartan 50 mg tablet 25 mg PO HS promethazine 12.5 MG tablet 12.5 mg PO Q6HP PRN (Reason: Nausea And Vomiting) Qty: 8 0RF ondansetron 8 MG tablet,disintegrating 8 mg PO QID 4 Days Qty: 16 0RF Rx Instructions: Take 1 tablet every 6 hours as needed for nausea or vomiting Referrals Follow up/Referrals: Provider,Referral, MD [Primary Care Provider] - See instructions Activity Restrictions/Add. Instructions Additional Instructions/Restrictions: Follow up with your PCP. Take the norco 10s for pain. You can use heating pad for pain. Return with worsening symptoms or concerns. Your imaging here was normal. Clinical Impressions Clinical Impression: Muscle strain Discharge ED Provider: Magalys Ornelas General Adult HPI General Chief complaint: Chest Pain Stated complaint: fall, back pain Time Seen by Provider: 03/11/22 15:50 Mode of Arrival: EMS Source of Information: Patient Limitations: Physical Limitations Description of Symptoms (Recalled from ER Triage Doc. by RN): to ed per squad with multiple c/o pt states fell yesterday ? syncopal episode fell on lt side. c/o lt side groin pain, lt lumbar pain, lt elbow pain, nausea, chest pain worse with inspiration and movement. pt poor historian states she has had multiple cva's and forgets alot History of Present Illness HPI narrative: The patient is a 66-year-old female who presents after fall. The patient states that yesterday she had a syncopal episode and fell on her left side. Since then she has had left-sided groin pain and pain with ambulation. She also notes some chest pain and diffuse spinal pain. Denies headache. She is not on a blood thinner. She is worried that she may have broken her neurostimulator. Related Data Home Medications Medication Instructions Recorded Confirmed mecobalamin (vitamin B12) 1,000 1,000 mcg sublingual HS Supplement 11/06/17 02/07/22 mcg disintegrating tablet,sublingual pregabalin 150 mg capsule (Lyrica) 150 mg PO BID Pain 11/06/17 02/07/22 allopurinol 100 mg tablet 100 mg PO BID Gout 04/13/21 02/07/22 cholecalciferol (vitamin D3) 125 125 mcg PO DAILY Supplem
== END 2022-03-11 20:11 | disposition home or self-care (01) ==
PROVIDERS: Emergency Provider Emergency Medicine
DX: R55 Syncope and collapse (principal); R07.9 Chest pain, unspecified; R94.31 Abnormal electrocardiogram [ECG] [EKG]; R10.30 Lower abdominal pain, unspecified; M25.552 Pain in left hip; M79.652 Pain in left thigh; M25.522 Pain in left elbow; M54.50 Low back pain, unspecified; M54.6 Pain in thoracic spine; R06.02 Shortness of breath; R53.82 Chronic fatigue, unspecified; R11.2 Nausea with vomiting, unspecified; I95.9 Hypotension, unspecified; N18.9 Chronic kidney disease, unspecified; E11.621 Type 2 diabetes mellitus with foot ulcer; Z79.02 Long term (current) use of antithrombotics/antiplatelets; Z79.4 Long term (current) use of insulin; Z79.51 Long term (current) use of inhaled steroids; Z79.52 Long term (current) use of systemic steroids; Z79.899 Other long term (current) drug therapy; Z79.82 Long term (current) use of aspirin; Z88.0 Allergy status to penicillin; Z88.2 Allergy status to sulfonamides; Z88.8 Allergy status to other drugs, medicaments and biological substances; Z91.048 Other nonmedicinal substance allergy status
CPT/HCPCS: 70450; 71045; 72125; 72128; 72131; 73502; 80048; 84484; 85025; 93005; 96374; 99284; 99285

== ENCOUNTER 2022-04-09 14:29 | Observation (INO) | payer MEDICARE, SELFPAY ==
[2022-04-09] VITALS (9 sets, daily range): BP systolic 107–181; BP diastolic 55–72; PULSE 84–92; RESP 16–22; TEMP 36.6–36.9; O2SAT 92–100; BMI 25.7; BMI 25.4
--- NOTE | 2022-04-09 15:59 | PC.NURSE ---
pt lying in bed, got her a pillow, nothing else needed
[2022-04-09 16:16] LABS: Basophils # 0.1 K/mm3 (0-0.2); Basophils % 0.7 % (0.1-2.0); Eosinophils # 0.2 K/mm3 (0.0-0.4); Eosinophils % 1.7 % (0.1-12.0); Hematocrit 29.1 % (37.0-47.0); Hemoglobin 9.4 g/dL (12.2-16.2); Lymphocytes # 1.1 K/mm3 (0.7-4.5); Mean Corpuscular HGB Conc 32.3 g/dL (31.8-35.4); Mean Corpuscular Hemoglobin 29.2 pg (27.0-31.2); Mean Corpuscular Volume 90.5 fl (81-99); Monocytes # 0.8 K/mm3 (0.1-1.0); Monocytes % 6.8 % (1.7-9.3); Neutrophils # 8.9 K/mm3 (1.8-7.8); Neutrophils % 80.7 % (37.0-80.0); Platelet Count 213 K/mm3 (142-424); Red Blood Count 3.22 M/mm3 (4.20-5.40); Red Cell Distribution Width 16.7 % (11.5-17.5)
[2022-04-09 16:20] LABS: Alanine Aminotransferase 16 U/L (12-78); Albumin Level 3.4 g/dl (3.5-5.0); Albumin/Globulin Ratio 1.5 (1.1-1.8); Alkaline Phosphatase 101 U/L (38-126); Anion Gap 14.6 mEq/L (5-15); Aspartate Amino Transferase 22 U/L (14-36); Bilirubin,Total 0.7 mg/dl (0.2-1.3); Blood Urea Nitrogen 45 mg/dl (7-17); Calcium 8.7 mg/dl (8.4-10.2); Carbon Dioxide 24 mmol/L (22.0-30.0); Chloride 100 mmol/L (98-107); Creatinine Clearance Estimated 24 mL/min (50-200); Estimated Glomerular Filt Rate 19 ml/min (>60); GFR (African American) 23 ML/MIN (>60); Globulin 2.2 g/dL (1.3-3.2); Glucose 190 mg/dl (74-100); Potassium 4.6 mmoL/L (3.5-5.1); Sodium 134 mmol/L (136-145); Total Protein,Serum 5.6 g/dl (6.3-8.2)
--- NOTE | 2022-04-09 16:40 | PC.NURSE ---
helped pt to restroom, got urine sample, also helped pt change into some new undergarments and cleaned her up
--- NOTE | 2022-04-09 16:46 | PC.NURSE ---
MARK LIRIANO at
--- NOTE | 2022-04-09 16:47 | PC.NURSE ---
ED MD AT BEDSIDE FOR EVALUATION
--- NOTE | 2022-04-09 16:53 | CT_ITS ---
PROCEDURE INFORMATION: Exam: CT Abdomen And Pelvis Without Contrast Exam date and time: 04/09/2022 4:59 PM Age: 66 years old Clinical indication: Abdominal pain; Acute; Additional info: Abdominal pain, constipation TECHNIQUE: Imaging protocol: Computed tomography of the abdomen and pelvis without contrast. Radiation optimization: All CT scans at this facility use at least one of these dose optimization techniques: automated exposure control; mA and/or kV adjustment per patient size (includes targeted exams where dose is matched to clinical indication); or iterative reconstruction. COMPARISON: CT ABDOMEN PELVIS WO CON 01/04/2022 8:20 AM FINDINGS: Lungs: Patchy scarring or atelectasis in the lung bases. Small cluster of 2-3 mm nodular densities in the central right lower lobe on series 3, image 7 are unchanged from 01/04/2022, without measurable calcification. This may represent tree in bud configuration related to small airways disease. Consider chronic atypical infection or chronic non infectious bronchiolitis. Heart: Mild cardiomegaly. Mediastinal space: The visualized distal esophagus is largely contracted without gross abnormality. Liver: Normal contour. No mass lesions. No intrahepatic biliary ductal dilatation. Gallbladder and bile ducts: Normal. No calcified stones. No ductal dilation. Pancreas: Mild pancreatic atrophy without acute abnormality. No pancreatic ductal dilatation. Spleen: Granulomatous calcifications in the spleen without acute splenic abnormality. Adrenal glands: Normal. No adrenal mass. Kidneys and ureters: Right nephrectomy. No hydronephrosis or hydroureter. No urinary tract stones are identified. Stomach and bowel: The stomach is largely contracted without gross abnormality. The small bowel is nondilated with no gross abnormality. Moderate fluid content throughout the mid and proximal colon suggesting developing diarrheal state. Large volume solid stool content in the distal colon with moderate rectal fecal distension measuring 6.5 cm in diameter. Mild wall thickening and adjacent stranding at the distal rectum is suspicious for mild changes of associated stercoral colitis. No evidence of perforation or abscess.Moderate diverticulosis involving the distal colon without evidence of acute diverticulitis. Appendix: The appendix is normal in caliber and demonstrates no evidence of appendicitis. Intraperitoneal space: No free fluid or air. Vasculature: No acute process. No abdominal aortic aneurysm. Mild calcific atherosclerosis. Lymph nodes: No adenopathy. Urinary bladder: Unremarkable as visualized. Reproductive: Prior hysterectomy. Bones/joints: No acute osseous abnormalities. Spinal stimulator without gross complication. L3-L5 laminectomy and fusion without gross hardware complication. Soft tissues: Soft tissue changes in the lower abdomen suggesting chronic injection granulomata/fibrosis. IMPRESSION: 1. There is moderate solid stool content throughout the distal colon suggesting constipation, with rectal fecal distension suspicious for an element of rectal fecal impaction. Mild wall thickening and adjacent stranding at the distal rectum is suspicious for mild associated stercoral colitis. No perforation or abscess. 2. Moderate fluid content in the mid and proximal colonic segments suggest developing diarrheal state or could relate to distal colonic obstruction from fecal impaction. 3. Distal colonic diverticulosis without diverticulitis. 4. Small cluster of 2-3 mm nodular densities in the central right lower lobe suggesting changes of small airways disease, consider chronic atypical in
--- NOTE | 2022-04-09 16:54 | HMH.EDGENADL ---
Discharge Plan Disposition Patient Disposition: Admitted as Observation Condition: Fair Clinical Impressions Clinical Impression: Acute constipation, Lower abdominal pain Discharge ED Provider: Kyle Javier General Adult HPI General Chief complaint: Abdominal Pain Stated complaint: possible consitpation, abd pain Time Seen by Provider: 04/09/22 16:40 Mode of Arrival: Wheelchair Limitations: No Limitations Description of Symptoms (Recalled from ER Triage Doc. by RN): PT REPORTS LOWER ABDOMINAL PAIN FOR 2-3 DAYS. PT REPORTS HX OF STROKES AND LOSS OF SHORT TERM MEMORY. STATES SHE FEELS CONSTIPATED AND UNSURE OF LAST BM History of Present Illness HPI narrative: Complains of abdominal pain for a couple of days. Vomited today. States that she has been trying to have a bowel movement for a couple of days, but only a small amount came out, she says the wrist is too hard to come out. She was into an Dr. Knight's office yesterday for routine visit for flu shot and mentioned her constipation, and was given samples of Trulance. She has also taken several tablets of docusate without improvement. She is on chronic pain medication, hydrocodone, but says she has never had problems with constipation in the past. No other abdominal conditions, no history of diverticulitis. She has not had fever or urinary symptoms. She has had 2 prior strokes. Related Data Home Medications Medication Instructions Recorded Confirmed mecobalamin (vitamin B12) 1,000 1,000 mcg sublingual HS Supplement 11/06/17 03/24/22 mcg disintegrating tablet,sublingual pregabalin 150 mg capsule (Lyrica) 150 mg PO BID Pain 11/06/17 03/24/22 allopurinol 100 mg tablet 100 mg PO BID Gout 04/13/21 03/24/22 cholecalciferol (vitamin D3) 125 125 mcg PO DAILY Supplement 04/13/21 03/24/22 mcg (5,000 unit) capsule clopidogrel 75 mg tablet 75 mg PO DAILY platelet inhibitor 04/13/21 03/24/22 buspirone 10 mg tablet 20 mg PO BID Anxiety 08/10/21 03/24/22 duloxetine 60 mg capsule,delayed 60 mg PO DAILY Depression 08/16/21 03/24/22 release fexofenadine 180 mg tablet 180 mg PO DAILY Allergy symptoms 08/16/21 03/24/22 hydrocodone 10 mg-acetaminophen 1 tab PO QIDP PRN pain 08/16/21 03/24/22 325 mg tablet montelukast 10 mg tablet 10 mg PO PM Allergy symptoms 08/16/21 03/24/22 diclofenac sodium 3 % topical gel 1 g topical NEEDED PRN (Gas Prover Use 08/17/21 03/24/22 Only) Pain Per Pt aspirin 81 mg tablet,delayed 81 mg PO DAILY heart health 08/19/21 03/24/22 release insulin human U-100 NPH-regulr 40 unit SQ BID Diabetes 08/26/21 03/24/22 70-30 mix 100 unit/mL subcutaneous susp furosemide 40 mg tablet 20 mg PO Q OTHER DAY PRN DIURETIC 09/03/21 03/24/22 insulin aspart U-100 100 unit/mL 1 sliding scale dose SQ 09/20/21 03/24/22 (3 mL) subcutaneous pen (Novolog USEASDIRECTD Flexpen U-100 Insulin aspart) prednisone 5 mg tablet 2.5 mg PO DAILY Fibromyalgia 30 11/09/21 03/24/22 days #15 tabs Previous Rx's Medication Instructions Recorded promethazine 12.5 mg tablet 12.5 mg PO Q6HP PRN Nausea And 11/25/21 Vomiting #8 tabs ondansetron 8 mg disintegrating 8 mg PO QID Nausea & vomiting 4 01/04/22 tablet days #16 tabs albuterol sulfate 90 mcg/actuation 2 inh inhalation Q6H PRN shortness 01/25/22 aerosol inhaler of breath or wheezing 30 days #8.5 grams rosuvastatin 20 mg tablet (Crestor) 20 mg PO DAILY #30 tabs 01/31/22 vortioxetine 5 mg tablet 5 mg PO DAILY #30 tabs 03/16/22 (Trintellix) fluticasone propionate 50 1 spray intranasal DAILY 90 days 03/24/22 mcg/actuation nasal #16 grams spray,suspension (Flonase Allergy Relief) Allergies Allergy/AdvReac Type Severity Reaction Status Date / Time Penicillins [PENICILLINS] Allergy Intermediate I-RASH Verified 03/24/22 10:42 adhesive tape Allergy Unknown Unknown Verified 03/24/22 10:42 allergy reaction pseudoephedrine Allergy Unknown TONGUE Verified 03/24/22 10:42 [PSEUDOEPHEDRINE] PEELS Rodriguez
--- NOTE | 2022-04-09 17:02 | PC.NURSE ---
PT TO CT AT THIS TIME PER STRETCHER
--- NOTE | 2022-04-09 17:02 | PC.NURSE ---
Pt gone to RAD for CT
--- NOTE | 2022-04-09 17:10 | PC.NURSE ---
Pt back from RAD
[2022-04-09 17:28] LABS: Lipase 56 U/L (23-300)
[2022-04-09 17:38] LABS: Microscopic, Urine URINE MICROSCOPIC (MICROSCOPIC)
[2022-04-09 17:45] LABS: Appearance,Urine CLEAR (Clear); Bilirubin,Urine Negative (Negative); Blood, Urine TRACE-I (Negative); Color,Urine YELLOW (Yellow); Glucose,Urine (UA) Negative (Negative); Ketones,Urine Negative (Negative); Leukocyte Esterase,Urine Negative (Negative); Nitrate,Urine Negative (Negative); Protein,Urine 1+ (Negative); Urobilinogen,Urine 0.2 EU/dl (0.2)
--- NOTE | 2022-04-09 17:53 | PC.NURSE ---
pt lying in bed, got her a warm blanket
[2022-04-09 18:05] LABS: RBC,Urine Occasional #/hpf (0-3); Squamous Epithelial Cell,Urine Occasional #/hpf (0-5)
--- NOTE | 2022-04-09 18:59 | PC.NURSE ---
ED MD AT BEDSIDE TO DISCUSS POC WITH PT AND MOTHER
--- NOTE | 2022-04-09 21:26 | PC.NURSE ---
MARK LIRIANO speaking with Dr. Suarez
[2022-04-09 21:49] LABS: Coronavirus 19, PCR Not Detected (NotDetected); Influenza A, PCR Not Detected (NotDetected); Influenza B, PCR Not Detected (NotDetected)
[2022-04-10 04:00] VITALS: BP 171/71; PULSE 90; RESP 18; TEMP 36.9; O2SAT 95
--- NOTE | 2022-04-10 05:03 | PC.NURSE ---
Addendum entered by Enedelia Collins RN 04/10/22 06:54: Pt alert and oriented x 4, with periods of confusion. Easily reoriented. Original Note: pt admitted for constipation. She has had bowel leakage since admitted to floor (liquid, brown, small). PT received miralax, and iv fluids started per order. ABD soft, tender, distended. BS active x 4. Pt was given her second soap carlyn enema around 0300. After enema, pt did have a small bm (type 3 on [facility] stool chart).Pt has rested in intervals. Call light in reach. Bed in lowest position.
[2022-04-10 05:41] LABS: POC Glucose,Bedside 148 (70-110)
[2022-04-10 07:50] VITALS: BP 158/62; PULSE 95; RESP 16; TEMP 37.3; O2SAT 95
[2022-04-10 08:00] VITALS: O2SAT 95
--- NOTE | 2022-04-10 11:46 | EXP.HPDC ---
General Admission date:: 04/09/22 Discharge date: 04/10/22 *Admission Date: 04/09/22 *Chief complaint: Constipation *History of present illness: Ms. Murry is a 66 year old patient of Dr. Clarke who presented to [facility] ER last evening complaining of a one week history of constipation. She saw Dr. Hayes a few days ago in the office and was started on Trulance and she got some Colace OTC to take as well. Yesterday she was experiencing more abdominal pain and actually vomited once. Patient was disimpacted in the ER last night by the ER doctor and was given an enema but was still unable to have a bowel movement so arrangements were made to admit patient for further treatment. [facility] Medical History (Updated 04/10/22 @ 11:59 by Victorino Suarez MD) Abnormal electrocardiography Allergic rhinitis Allergic rhinitis, unspecified Chronic back pain Chronic narcotic use CKD (chronic kidney disease) Diabetic foot Diffusion capacity of lung (dl), decreased Dizziness Dyspnea Dyspnea on exertion Edema Fatigue Fibromyalgia Generalized anxiety disorder Gout History of asthma History of CVA (cerebrovascular accident) Hypotension Nocturnal hypoxemia Nocturnal hypoxia Type 2 diabetes mellitus Surgical History History of arthroscopic knee surgery History of carpal tunnel release History of right nephrectomy History of spinal fusion Family History Diabetes Hypertension Thyroid disorder Stroke Social History (Updated 04/09/22 @ 23:13 by Enedelia Collins RN) Smoking Status: Never smoker second hand exposure: No alcohol intake: never substance use type: denies use current occupational status: retired Travel in the last 8 weeks: None household members: family housing: house number of children: 0 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 [employer] current occupational exposures/hazards: No caffeine: No Review of Systems Constitutional Constitutional: Denies headache(s) and Denies weakness Eyes Eyes: Denies change in vision ENT Ears, Nose, Mouth, and Throat: Denies headache(s) *Cardiovascular Cardiovascular: Denies chest pain *Respiratory Respiratory: Denies cough *Gastrointestinal Gastrointestinal: Reports as per HPI *Genitourinary Genitourinary: Denies difficulty voiding *Musculoskeletal Musculoskeletal: Denies numbness Integumentary/Breasts Skin/Breast: Denies wounds *Neurologic Neurologic: Denies headache(s), Denies numbness and Denies weakness Exam Data for Last 24 hours Vital signs and Labs for Last 24 Hours: Temp Pulse Resp BP Pulse Ox 99.1 F 95 H 16 158/62 H 95 04/10/22 07:50 04/10/22 07:50 04/10/22 07:50 04/10/22 07:50 04/10/22 07:50 Laboratory Results - last 24 hr 04/09/22 14:50: WBC 11.0 H, RBC 3.22 L, Hgb 9.4 L, Hct 29.1 L, MCV 90.5, MCH 29.2, MCHC 32.3, RDW 16.7, Plt Count 213, MPV 9.0, Neut % (Auto) 80.7 H, Lymph % (Auto) 10.0, Harvey % (Auto) 6.8, Eos % (Auto) 1.7, Baso % (Auto) 0.7, Neut # (Auto) 8.9 H, Lymph # (Auto) 1.1, Harvey # (Auto) 0.8, Eos # (Auto) 0.2, Baso # (Auto) 0.1 04/09/22 14:50: Sodium 134 L, Potassium 4.6, Chloride 100, Carbon Dioxide 24, Anion Gap 14.6, BUN 45 H, Creatinine 2.50 H, Estimated Creat Clear 24, Estimated GFR 19 L*, Est GFR ( Amer) 23 L, Glucose 190 H, Calcium 8.7, Total Bilirubin 0.7, AST 22, ALT 16, Alkaline Phosphatase 101, Total Protein 5.6 L, Albumin 3.4 L, Globulin 2.2, Albumin/Globulin Ratio 1.5 04/09/22 14:50: Lipase 56 04/09/22 16:18: Urine Color Yellow, Urine Appearance Clear, Urine pH 6.0, Ur Specific [place] 1.010, Urine Protein 1+, Urine Glucose (UA) Negative, Urine Ketones Negative, Urine Blood Trace-i, Urine Nitrate Negative, Urine Bilirubin Negative, Urine Urobilinogen 0.2, Ur Leukocyte Esterase Negative, Urine RBC Occasional, Urine WBC None, Ur Squamous Epith Cells Occasional, Urine Bacteria None
--- NOTE | 2022-04-11 12:49 | CARE MANAGER ---
Contacted patient related to hospital discharge. She states now she has the diarrhea and can't control her bowels. We discussed her medication changes and her follow up appointment. Recommended she contact [facility] to schedule appointment for this week. CHUY Romano
== END 2022-04-10 14:06 | disposition home or self-care (01) ==
LOC: ER 21:48 → 2ND 21:51
PROVIDERS: Admitting Provider Family Medicine; Emergency Provider Emergency Medicine; PCP Family Medicine; Visit Provider Family Medicine
DX: K59.00 Constipation, unspecified (principal); Z86.73 Personal history of transient ischemic attack (TIA), and cerebral infarction without residual deficits; Z79.4 Long term (current) use of insulin; N18.9 Chronic kidney disease, unspecified; D64.9 Anemia, unspecified; Z79.01 Long term (current) use of anticoagulants; Z79.02 Long term (current) use of antithrombotics/antiplatelets; Z79.899 Other long term (current) drug therapy; E11.22 Type 2 diabetes mellitus with diabetic chronic kidney disease
CPT/HCPCS: G0378; 74176; 80053; 81001; 82962; 83690; 85025; 99285; C9803; U0003; U0005

== ENCOUNTER 2022-04-19 15:25 | Emergency (ER) | payer MEDICARE, SELFPAY ==
[2022-04-19 17:23] VITALS: BP 154/83; PULSE 87; RESP 16; TEMP 37; O2SAT 98; BMI 24.0
--- NOTE | 2022-04-19 17:41 | CT_ITS ---
PROCEDURE INFORMATION: Exam: CT Abdomen And Pelvis Without Contrast Exam date and time: 04/19/2022 6:45 PM Age: 66 years old Clinical indication: Other: Diarrhea; Abdominal pain; Additional info: Diarrhea, abdominal pain TECHNIQUE: Imaging protocol: Computed tomography of the abdomen and pelvis without contrast. Radiation optimization: All CT scans at this facility use at least one of these dose optimization techniques: automated exposure control; mA and/or kV adjustment per patient size (includes targeted exams where dose is matched to clinical indication); or iterative reconstruction. COMPARISON: CT ABDOMEN PELVIS WO CON 04/09/2022 4:59 PM FINDINGS: Lungs: Small cluster of 1-2 mm nodules in the central right lower lobe on series 3, images 2 and 3 is unchanged in appearance and may be partially calcified although measurable calcification is not verified, probably due to very small size. This may represent chronic changes of small airways disease or prior granulomatous disease. There is a 3.5 mm noncalcified pulmonary nodule in the lingular portion of the left upper lobe. This is unchanged back to 01/04/2022, partially obscured by atelectasis and respiratory motion on 04/09/2022. For patients at low risk (minimal or absent history of smoking and of other known risk factors), no routine follow-up is indicated. For patients at high risk (history of smoking or of other known risk factors), consider optional CT at 12 months from 01/04/2022. (Best et al., Fleischner Society, 2017). Heart: Mild cardiomegaly. There is mild calcification of the aortic valve. Mediastinal space: The visualized distal esophagus is largely contracted without gross abnormality. Liver: Normal contour. No mass lesions. No intrahepatic biliary ductal dilatation. Gallbladder and bile ducts: Normal. No calcified stones. No ductal dilation. Pancreas: Moderate pancreatic atrophy without acute abnormality. No pancreatic ductal dilatation. Spleen: Granulomatous calcifications in the spleen without acute splenic abnormality. Adrenal glands: Normal. No adrenal mass. Kidneys and ureters: Prior right nephrectomy with surgical clips in the right nephrectomy bed and adjacent pericaval distribution. Left kidney demonstrates no hydronephrosis or urolithiasis. Stomach and bowel: The stomach is unremarkable. The small bowel is nondilated with no gross abnormality. Decreased stool burden in the distal colon on today's exam. Moderate distal colonic diverticulosis without changes of diverticulitis. Previous rectal fecal distension has resolved, with only small amounts of rectal stool currently and no gross changes of stercoral colitis visualized. Appendix: The appendix is normal in caliber and demonstrates no evidence of appendicitis. Intraperitoneal space: No free fluid or air. Vasculature: No acute process. No abdominal aortic aneurysm. Lymph nodes: No adenopathy. Urinary bladder: The urinary bladder is largely contracted without gross abnormality. Reproductive: Prior hysterectomy. Bones/joints: No acute osseous abnormalities. L3-L5 fusion without gross hardware complication or change. Moderate-severe disc degenerative changes L2-L3 again noted. Soft tissues: No acute soft tissue abnormalities. Subcutaneous stranding in the infraumbilical anterior abdominal wall bilaterally probably relates to chronic injections, unchanged. Spinal stimulator in place without gross interval change. IMPRESSION: 1. No definite acute process currently. 2. Previous moderate stool burden in the distal colon is significantly diminished. No evidence of rectal fecal impaction
--- NOTE | 2022-04-19 17:42 | HMH.EDGENADL ---
Discharge Plan Disposition Patient Disposition: Home, Self-Care Condition: Fair Prescriptions Prescriptions: New ondansetron [ondansetron] 4 mg tablet,disintegrating 4 mg PO TIDP PRN (Reason: Nausea) Qty: 10 0RF promethazine 25 mg tablet 25 mg PO TID PRN (Reason: nausea and vomiting) Qty: 30 0RF No Action clopidogrel 75 mg tablet 75 mg PO HS cholecalciferol (vitamin D3) 125 mcg (5,000 unit) capsule 125 mcg PO DAILY buspirone 10 mg tablet 20 mg PO BID furosemide 40 mg tablet 20 mg PO Q OTHER DAY PRN (Reason: DIURETIC) insulin aspart U-100 [Novolog Flexpen U-100 Insulin] 100 unit/mL (3 mL) insulin pen 1 sliding scale dose SQ USEASDIRECTD Trintellix 10 mg tablet 10 mg PO DAILY Qty: 30 1RF mecobalamin (vitamin B12) 1,000 mcg tablet,disintegrating 1,000 mcg SUBLINGUAL HS allopurinol 100 mg tablet 100 mg PO BID prednisone 5 mg tablet 2.5 mg PO DAILY 30 Days Qty: 15 duloxetine 60 MG capsule,delayed release(DR/EC) 60 mg PO DAILY montelukast 10 MG tablet 10 mg PO DAILY diclofenac sodium 100 GM gel 1 g TOPICAL NEEDED PRN (Reason: (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) Pain Per Pt) insulin NPH and regular human 100 unit/mL (70-30) suspension 40 unit SQ BID aspirin 81 MG tablet,delayed release (DR/EC) 81 mg PO DAILY fluticasone propionate [Flonase Allergy Relief] 50 mcg/actuation spray,suspension 1 spray NS DAILY Rx Instructions: administer into each nostril rosuvastatin [Crestor] 20 mg tablet 20 mg PO HS hydrocodone-acetaminophen 10-325 mg tablet 1 tab PO QIDP PRN (Reason: Pain) losartan 50 mg tablet 50 mg PO HS Label Comments: TAKE 1 TABLET BY MOUTH AT BEDTIME Trulance 3 mg tablet 3 mg PO DAILY Qty: 1 0RF Metamucil Sugar-Free (aspart) 3.4 gram/5.8 gram powder 2.961446 g PO DAILY Qty: 1 0RF polyethylene glycol 3350 [Miralax] 17 gram/dose powder 17 g PO DAILY Qty: 1 0RF Referrals Follow up/Referrals: Eguene,Amaury Shorty, MD [Primary Care Provider] - See instructions Activity Restrictions/Add. Instructions Additional Instructions/Restrictions: I recommend using your Zofran if you are unable to take your Phenergan. Please try to take your medications daily and follow closely with your PCP. I recommend trying to set an alarm on your phone to remind yourself to take medications. Clinical Impressions Clinical Impression: Diarrhea Instructions Patient Instructions: Nausea and Vomiting-Adult Discharge ED Provider: Aramis Anderson General Adult HPI General Chief complaint: Nausea/Vomiting/Diarrhea Stated complaint: Vomiting for wk weakness Time Seen by Provider: 04/19/22 17:20 Mode of Arrival: Wheelchair Source of Information: Patient and Parent(s) Limitations: No Limitations Description of Symptoms (Recalled from ER Triage Doc. by RN): Pt c/o vomiting x1 week History of Present Illness HPI narrative: Patient is a 66-year-old female who presents with concern for abdominal pain and vomiting. She says she was recently seen and diagnosed with constipation. They were able to successfully treat this but she says that since then she actually developed quite a bit of diarrhea. She has had a couple episodes today. She says that she is also started to have vomiting has gotten progressively worse. She states that she has abdominal pain diffusely throughout her abdomen. Cannot say that there is anywhere and particular that is worse. No blood in her stool. Nonbilious vomiting. Denies any fever or chills. Denies any back pain. Denies any dysuria or frequency. Related Data Home Medications Medication Instructions Recorded Confirmed mecobalamin (vitamin B12) 1,000 1,000 mcg sublingual HS Supplement 11/06/17 04/14/22 mcg disintegrating tablet,sublingual allopurinol 100 mg tablet 100 mg PO BID Gout 04/13/21 04/14/22 cholecalciferol (vitamin D3) 125 125 mcg PO DAILY Sup
[2022-04-19 18:20] LABS: Chloride 100 mmol/L (98-107)
[2022-04-19 18:21] LABS: Potassium 4.7 mmoL/L (3.5-5.1); Sodium 134 mmol/L (136-145)
[2022-04-19 18:22] LABS: Basophils # 0.1 K/mm3 (0-0.2); Basophils % 0.8 % (0.1-2.0); Eosinophils # 0.1 K/mm3 (0.0-0.4); Eosinophils % 1.5 % (0.1-12.0); Hematocrit 31.6 % (37.0-47.0); Hemoglobin 10.2 g/dL (12.2-16.2); Lymphocytes # 1.7 K/mm3 (0.7-4.5); Lymphocytes % 24.6 % (10-50); Mean Corpuscular HGB Conc 32.4 g/dL (31.8-35.4); Mean Corpuscular Hemoglobin 28.6 pg (27.0-31.2); Mean Corpuscular Volume 88.3 fl (81-99); Mean Platelet Volume 8.3 fl (7.4-10.4); Monocytes # 0.5 K/mm3 (0.1-1.0); Monocytes % 6.8 % (1.7-9.3); Neutrophils # 4.6 K/mm3 (1.8-7.8); Neutrophils % 66.4 % (37.0-80.0); Platelet Count 298 K/mm3 (142-424); Red Blood Count 3.58 M/mm3 (4.20-5.40); Red Cell Distribution Width 16.3 % (11.5-17.5); White Blood Count 6.9 K/mm3 (4.8-10.8)
[2022-04-19 18:23] LABS: Alanine Aminotransferase 11 U/L (12-78); Alkaline Phosphatase 90 U/L (38-126); Anion Gap 14.7 mEq/L (5-15); Aspartate Amino Transferase 16 U/L (14-36); Bilirubin,Total 0.4 mg/dl (0.2-1.3); Blood Urea Nitrogen 40 mg/dl (7-17); Carbon Dioxide 24 mmol/L (22.0-30.0); Creatinine Clearance Estimated 24 mL/min (50-200); Estimated Glomerular Filt Rate 21 ml/min (>60); GFR (African American) 26 ML/MIN (>60)
[2022-04-19 18:24] LABS: Albumin Level 3.8 g/dl (3.5-5.0); Albumin/Globulin Ratio 1.6 (1.1-1.8); Calcium 9.4 mg/dl (8.4-10.2); Globulin 2.4 g/dL (1.3-3.2); Glucose 226 mg/dl (74-100); Lipase 95 U/L (23-300); Total Protein,Serum 6.2 g/dl (6.3-8.2)
[2022-04-19 18:29] LABS: C-Reactive Protein 24.2 mg/L (0-4)
[2022-04-19 18:45] LABS: Microscopic, Urine URINE MICROSCOPIC (MICROSCOPIC)
[2022-04-19 18:49] LABS: Appearance,Urine CLEAR (Clear); Blood, Urine TRACE-L (Negative); Color,Urine YELLOW (Yellow); Glucose,Urine (UA) Negative (Negative); Ketones,Urine Negative (Negative); Leukocyte Esterase,Urine Negative (Negative); Nitrate,Urine Negative (Negative); PH,Urine 5.5 (5.0-8.5); Protein,Urine 2+ (Negative); Specific Gravity, Urine >= 1.030 (1.005-1.030); Urobilinogen,Urine 0.2 EU/dl (0.2)
[2022-04-19 19:00] LABS: Bilirubin,Urine 1+ (Negative)
[2022-04-19 19:06] LABS: Amorphous Sediment,Urine 1+ /lpf; Bacteria,Urine 1+ /lpf
[2022-04-19 20:13] VITALS: BP 181/78; PULSE 83; RESP 20; TEMP 36.6; O2SAT 98
== END 2022-04-19 20:15 | disposition home or self-care (01) ==
PROVIDERS: Emergency Provider Student in an Organized Health Care Education/Training Program; PCP Family Medicine
DX: R10.9 Unspecified abdominal pain (principal); R11.2 Nausea with vomiting, unspecified; R19.7 Diarrhea, unspecified; R53.1 Weakness; R20.2 Paresthesia of skin; R94.31 Abnormal electrocardiogram [ECG] [EKG]; I69.30 Unspecified sequelae of cerebral infarction; N18.9 Chronic kidney disease, unspecified; E11.22 Type 2 diabetes mellitus with diabetic chronic kidney disease; M54.9 Dorsalgia, unspecified; G89.29 Other chronic pain; M77.42 Metatarsalgia, left foot; G11.9 Hereditary ataxia, unspecified; J45.909 Unspecified asthma, uncomplicated; F32.A Depression, unspecified; F41.9 Anxiety disorder, unspecified; R09.02 Hypoxemia; M79.7 Fibromyalgia; M06.9 Rheumatoid arthritis, unspecified; F41.1 Generalized anxiety disorder; Z79.51 Long term (current) use of inhaled steroids; Z79.1 Long term (current) use of non-steroidal anti-inflammatories (NSAID); Z79.52 Long term (current) use of systemic steroids; Z79.82 Long term (current) use of aspirin; Z79.899 Other long term (current) drug therapy; Z88.0 Allergy status to penicillin; Z88.2 Allergy status to sulfonamides; Z88.8 Allergy status to other drugs, medicaments and biological substances; Z91.048 Other nonmedicinal substance allergy status; Z90.5 Acquired absence of kidney
CPT/HCPCS: 74176; 80053; 81001; 83690; 85025; 86140; 99285; J2405

== ENCOUNTER 2022-06-03 09:39 | Outpatient (CLI) | payer MEDICARE, SELFPAY ==
[2022-06-03 10:07] VITALS: BP 145/82; PULSE 82; RESP 18; TEMP 36.3; O2SAT 98
[2022-06-03 11:15] VITALS: BP 136/81; PULSE 79; RESP 18; TEMP 36.5; O2SAT 98
== END 2022-06-03 11:15 | disposition home or self-care (01) ==
LOC: INF 09:40
PROVIDERS: PCP Family Medicine; Visit Provider Physician Assistant
DX: E86.0 Dehydration (principal)
CPT/HCPCS: 96360

== ENCOUNTER 2022-06-10 12:10 | Emergency (ER) | payer MEDICARE, SELFPAY ==
[2022-06-10] VITALS (9 sets, daily range): BP systolic 178–196; BP diastolic 82–91; PULSE 83–100; RESP 18; TEMP 36.9; O2SAT 97–100; BMI 28.1
--- NOTE | 2022-06-10 12:14 | PC.NURSE ---
MARK LIRIANO at
--- NOTE | 2022-06-10 12:22 | CT_ITS ---
FINAL REPORT CLINICAL HISTORY: previous stroke, posterior ALVARENGA and neck pain/ FINDINGS: Axial images of the head were obtained without contrast. Coronal reformatted images were also obtained. This study was performed with techniques to keep radiation doses as low as reasonably achievable (ALARA). Individualized dose reduction techniques using automated exposure control or adjustment of mA and/or kV according to the patient's size were employed. There is generalized age appropriate atrophy. There are stable bilateral areas of encephalomalacia posteriorly. There are multiple chronic lacunar infarcts There is no evidence of intracranial hemorrhage or mass. The ventricular size is within normal limits. There is no evidence of shift of the midline structures. No skull abnormality is seen on the bone window images. IMPRESSION: .No acute intracranial abnormality. Stable bilateral areas of encephalomalacia posteriorly. Multiple chronic lacunar infarcts. Reviewed, Interpreted and Dictated by Jesus Manuel Ellington III, MD Transcribed by Payton Richard Authenticated and [facility]
--- NOTE | 2022-06-10 12:22 | CT_ITS ---
FINAL REPORT TECHNIQUE: Thin section axial CT with IV contrast supplemented with multiplanar reconstruction under CT angiogram protocol. 3-D reconstructions were performed. This study was performed with techniques to keep radiation doses as low as reasonably achievable (ALARA). Individualized dose reduction techniques using automated exposure control or adjustment of mA and/or kV according to the patient's size were employed. CLINICAL HISTORY: previous stroke, posterior ALVARENGA and neck pain. Patient had contrasted studies done with a GFR of 17. Spoke with ER doctor and he wanted to continue with contrast with patient's GFR and patient having one kidney. FINDINGS: The distal vertebral, basilar and distal internal carotid arteries have an unremarkable appearance. No aneurysm is seen. Major intracranial vessels are patent without significant stenosis. IMPRESSION: No acute abnormality identified. Reviewed, Interpreted and Dictated by Jesus Manuel Ellington III, MD Transcribed by Payton Richard Authenticated and . [facility]
--- NOTE | 2022-06-10 12:22 | CT_ITS ---
FINAL REPORT TECHNIQUE: Thin section axial CT with IV contrast supplemented with multiplanar reconstruction under CT angiogram protocol. This study was performed with techniques to keep radiation doses as low as reasonably achievable (ALARA). Individualized dose reduction techniques using automated exposure control or adjustment of mA and/or kV according to the patient''s size were employed. NASCET criteria was utilized during interpretation. CLINICAL HISTORY: previous stroke, posterior ALVARENGA and neck pain. Patient had contrasted studies done with a GFR of 17. Spoke with ER doctor and he wanted to continue with contrast with patient's GFR and patient having one kidney. FINDINGS: Aortic arch: Arch shows no significant narrowing. Great vessel origins are widely patent. Right carotid: No significant stenosis is seen of the cervical common or internal carotid artery. Left carotid: No significant stenosis is seen of the cervical common or internal carotid artery. Vertebral: Left vertebral artery is dominant. No significant stenosis is present. IMPRESSION: Acute abnormality identified. Reviewed, Interpreted and Dictated by Jesus Manuel Ellington III, MD Transcribed by Payton Richard Authenticated and [facility]
--- NOTE | 2022-06-10 12:22 | CT_ITS ---
FINAL REPORT CLINICAL HISTORY: previous stroke, posterior ALVARENGA and neck pain FINDINGS: Axial CT images of the cervical spine were obtained without contrast. Sagittal and coronal reformatted images were also obtained. This study was performed with techniques to keep radiation doses as low as reasonably achievable (ALARA). Individualized dose reduction techniques using automated exposure control or adjustment of mA and/or kV according to the patient's size were employed. There is no evidence of fracture or dislocation. There is mild anterolisthesis of C4 on C5. There are moderate to severe degenerative changes worse at C5-6 and C6-7 with disc osteophyte complexes. There is neural foraminal narrowing at C5-6 and C6-7. There is mild central canal stenosis at C5-6 and C6-7. No paraspinous soft tissue abnormality is seen. Limited images of the upper thorax are unremarkable. IMPRESSION: No fracture or acute bony abnormality identified. Moderate to severe degenerative changes, worse at C5-6 and C6-7 with disc osteophyte complexes, neural foraminal narrowing and mild central canal stenosis. Reviewed, Interpreted and Dictated by Jesus Manuel Ellington III, MD Transcribed by Payton Richard Authenticated and [facility]
--- NOTE | 2022-06-10 12:25 | HMH.EDGENADL ---
Discharge Plan Disposition Patient Disposition: Home, Self-Care Condition: Fair Prescriptions Prescriptions: No Action clopidogrel 75 mg tablet 75 mg PO HS cholecalciferol (vitamin D3) 125 mcg (5,000 unit) capsule 125 mcg PO DAILY buspirone 10 mg tablet 20 mg PO BID furosemide 40 mg tablet 20 mg PO Q OTHER DAY PRN (Reason: DIURETIC) insulin aspart U-100 [Novolog Flexpen U-100 Insulin] 100 unit/mL (3 mL) insulin pen 1 sliding scale dose SQ USEASDIRECTD Auvelity 45-105 mg tablet,IR,delayed rel,biphasic 1 tab PO .COMPLEX Qty: 60 2RF Rx Instructions: 1 tab orally 1 tablet in the am for 1 week; then 1 tablet in the am and at bedtime; mecobalamin (vitamin B12) 1,000 mcg tablet,disintegrating 1,000 mcg SUBLINGUAL HS allopurinol 100 mg tablet 100 mg PO BID prednisone 5 mg tablet 2.5 mg PO DAILY 30 Days Qty: 15 bupropion HCl [Wellbutrin XL] 150 mg tablet extended release 24 hr 150 mg PO DAILY Qty: 30 1RF duloxetine 60 MG capsule,delayed release(DR/EC) 60 mg PO DAILY montelukast 10 MG tablet 10 mg PO DAILY diclofenac sodium 100 GM gel 1 g TOPICAL NEEDED PRN (Reason: (Sock Boarder Use Only) Pain Per Pt) insulin NPH and regular human 100 unit/mL (70-30) suspension 40 unit SQ BID aspirin 81 MG tablet,delayed release (DR/EC) 81 mg PO DAILY fluticasone propionate [Flonase Allergy Relief] 50 mcg/actuation spray,suspension 1 spray NS DAILY Rx Instructions: administer into each nostril rosuvastatin [Crestor] 20 mg tablet 20 mg PO HS hydrocodone-acetaminophen 10-325 mg tablet 1 tab PO QIDP PRN (Reason: Pain) losartan 50 mg tablet 50 mg PO HS Label Comments: TAKE 1 TABLET BY MOUTH AT BEDTIME Trulance 3 mg tablet 3 mg PO DAILY Qty: 1 0RF Metamucil Sugar-Free (aspart) 3.4 gram/5.8 gram powder 2.115011 g PO DAILY Qty: 1 0RF polyethylene glycol 3350 [Miralax] 17 gram/dose powder 17 g PO DAILY Qty: 1 0RF ondansetron [ondansetron] 4 mg tablet,disintegrating 4 mg PO TIDP PRN (Reason: Nausea) Qty: 10 0RF promethazine 25 mg tablet 25 mg PO TID PRN (Reason: nausea and vomiting) Qty: 30 0RF Referrals Follow up/Referrals: Amaury Knight MD [Primary Care Provider] - See instructions Activity Restrictions/Add. Instructions Additional Instructions/Restrictions: At this time was felt you are safe to be discharged home. If new or worsening symptoms please do not hesitate to return the emergency department. Please take your medication as prescribed. Please follow-up with your family doctor within 1 week for continued evaluation Clinical Impressions Clinical Impression: Neck pain Instructions Patient Instructions: DI for Neck Pain Discharge ED Provider: Sid Scott General Adult HPI General Chief complaint: Neck Pain/Injury Stated complaint: head and neck pain Time Seen by Provider: 06/10/22 12:25 History of Present Illness HPI narrative: Patient is a 66-year-old female with past medical history of previous CVA with behavioral disturbance and peripheral vision loss residual, chronic back pain with spinal stimulator who presents emergency department for evaluation of posterior headache. Onset was subacute, occurring 2 weeks ago. She has had associated dysuria. Mother at bedside states that she has been increasingly agitated and can get mad easily which is a new development. Patient has neck pain that is worse with ranging it and although her range of motion is limited at baseline she states it has been limited further. Patient does not have any extremity weakness or facial droop. Vision changes are baseline. Per chart review patient has a history of generalized [facility], CKD, chronic back pain, chronic narcotic use, previous occipital infarct, type 2 diabetes. Patient takes daily aspirin and Plavix. Per chart review
--- NOTE | 2022-06-10 12:34 | PC.NURSE ---
FSBS 81
[2022-06-10 12:39] LABS: POC Glucose,Bedside 81 (70-110)
[2022-06-10 12:40] LABS: Basophils % 0.6 % (0.1-2.0); Eosinophils # 0.1 K/mm3 (0.0-0.4); Eosinophils % 1.5 % (0.1-12.0); Hematocrit 31.1 % (37.0-47.0); Hemoglobin 9.9 g/dL (12.2-16.2); Lymphocytes # 1.3 K/mm3 (0.7-4.5); Lymphocytes % 16.7 % (10-50); Mean Corpuscular HGB Conc 31.9 g/dL (31.8-35.4); Mean Corpuscular Hemoglobin 27.9 pg (27.0-31.2); Mean Corpuscular Volume 87.5 fl (81-99); Mean Platelet Volume 8.2 fl (7.4-10.4); Monocytes # 0.4 K/mm3 (0.1-1.0); Monocytes % 5.7 % (1.7-9.3); Neutrophils # 5.8 K/mm3 (1.8-7.8); Neutrophils % 75.5 % (37.0-80.0); Platelet Count 274 K/mm3 (142-424); Red Blood Count 3.56 M/mm3 (4.20-5.40); Red Cell Distribution Width 17.5 % (11.5-17.5); White Blood Count 7.7 K/mm3 (4.8-10.8)
[2022-06-10 12:44] LABS: Chloride 104 mmol/L (98-107); Sodium 138 mmol/L (136-145)
[2022-06-10 12:45] LABS: Potassium 4.7 mmoL/L (3.5-5.1)
[2022-06-10 12:47] LABS: Alanine Aminotransferase 12 U/L (12-78); Albumin Level 3.6 g/dl (3.5-5.0); Albumin/Globulin Ratio 1.6 (1.1-1.8); Alkaline Phosphatase 83 U/L (38-126); Anion Gap 11.7 mEq/L (5-15); Aspartate Amino Transferase 20 U/L (14-36); Bilirubin,Total 0.4 mg/dl (0.2-1.3); Blood Urea Nitrogen 41 mg/dl (7-17); Calcium 9.4 mg/dl (8.4-10.2); Carbon Dioxide 27 mmol/L (22.0-30.0); Estimated Glomerular Filt Rate 17 ml/min (>60); GFR (African American) 21 ML/MIN (>60); Globulin 2.2 g/dL (1.3-3.2); Glucose 115 mg/dl (74-100); Total Protein,Serum 5.8 g/dl (6.3-8.2)
[2022-06-10 12:48] LABS: Creatinine Clearance Estimated 26 mL/min (50-200); Magnesium 1.8 mg/dl (1.6-2.3)
--- NOTE | 2022-06-10 12:54 | ECG_ITS ---
APPROVED REPORT Exam: Resting ECG HR:84 bpm ECG Measurements Heart Rate 84 AXES OK 164 P 73 QRSd 123 QRS 55 QT 386 T 34 QTc 426 Conclusion SINUS RHYTHM MODERATE INTRAVENTRICULAR CONDUCTION DELAY Late R wave progression ABNORMAL ECG UNCONFIRMED REPORT Electronically signed by : Kenny Sylvester MD 06/10/2022 16:36:30
[2022-06-10 13:51] LABS: Microscopic, Urine URINE MICROSCOPIC (MICROSCOPIC)
--- NOTE | 2022-06-10 13:53 | PC.NURSE ---
Pt ambulatory to and from restroom with assistance, hooked back up to fluids and monitor. No other needs at this time
[2022-06-10 13:54] LABS: Appearance,Urine CLEAR (Clear); Bilirubin,Urine Negative (Negative); Blood, Urine TRACE-I (Negative); Color,Urine YELLOW (Yellow); Glucose,Urine (UA) Negative (Negative); Ketones,Urine Negative (Negative); Leukocyte Esterase,Urine Negative (Negative); Nitrate,Urine Negative (Negative); PH,Urine 5.5 (5.0-8.5); Protein,Urine 2+ (Negative); Specific Gravity, Urine >= 1.030 (1.005-1.030); Urobilinogen,Urine 0.2 EU/dl (0.2)
[2022-06-10 13:55] LABS: Coronavirus 19, PCR Not Detected (NotDetected); Influenza A, PCR Not Detected (NotDetected); Influenza B, PCR Not Detected (NotDetected)
[2022-06-10 14:12] LABS: Bacteria,Urine Trace /lpf; Squamous Epithelial Cell,Urine Occasional #/hpf (0-5); WBC,Urine Occasional #/hpf (0-3)
--- NOTE | 2022-06-10 14:40 | PC.NURSE ---
pt returned from radiology via stretcher
--- NOTE | 2022-06-10 14:47 | HMH.ITSTN ---
Patient had contrasted studies done with a GFR of 17. Spoke with ER doctor and he wanted to continue with contrast with patient's GFR and patient having one kidney.
--- NOTE | 2022-06-10 15:52 | PC.NURSE ---
patient placed on bedpan
--- NOTE | 2022-06-10 15:54 | PC.NURSE ---
DR. RODARTE AT BEDSIDE TO DISCUSS POC
--- NOTE | 2022-06-10 16:00 | PC.NURSE ---
pt off of bedpan; ER at for update on POC
--- NOTE | 2022-06-10 16:05 | PC.NURSE ---
Called dietary for a diabetic tray. Spoke with Prachi
[2022-06-10 16:11] LABS: POC Glucose,Bedside 101 (70-110)
--- NOTE | 2022-06-10 16:16 | PC.NURSE ---
CALLED RADIOLOGY ABOUT C-SPINE READING
--- NOTE | 2022-06-10 16:33 | PC.NURSE ---
PT REPOSITIONED IN BED, SUPPER TRAY SET-UP AT THIS TIME
== END 2022-06-10 17:03 | disposition home or self-care (01) ==
PROVIDERS: Emergency Provider Emergency Medicine; PCP Family Medicine
DX: M54.2 Cervicalgia (principal); Z86.73 Personal history of transient ischemic attack (TIA), and cerebral infarction without residual deficits; Z79.02 Long term (current) use of antithrombotics/antiplatelets; Z79.899 Other long term (current) drug therapy; Z79.82 Long term (current) use of aspirin; Z79.4 Long term (current) use of insulin; Z88.0 Allergy status to penicillin; Z88.2 Allergy status to sulfonamides; F41.1 Generalized anxiety disorder; E11.22 Type 2 diabetes mellitus with diabetic chronic kidney disease; N18.9 Chronic kidney disease, unspecified; F19.90 Other psychoactive substance use, unspecified, uncomplicated
CPT/HCPCS: 70450; 70496; 70498; 72125; 80053; 81001; 82962; 83735; 85025; 87086; 87088; 87186; 93005; 96374; 99285; C9803; J2405; Q9967; U0003; U0005

== ENCOUNTER 2022-06-16 12:59 | Inpatient (IN) | payer MEDICARE, SELFPAY ==
[2022-06-16] VITALS (26 sets, daily range): BP systolic 137–237; BP diastolic 54–132; PULSE 95–142; RESP 16–40; TEMP 37.2–39.6; O2SAT 93–100; BMI 20.7; BMI 21.1
--- NOTE | 2022-06-16 13:02 | CT_ITS ---
FINAL REPORT CLINICAL HISTORY: AMS- STROKE PROTOCOL COMPARISON: 06/10/2022 FINDINGS: Axial images of the head were obtained without contrast. Coronal reformatted images were also obtained. This study was performed with techniques to keep radiation doses as low as reasonably achievable (ALARA). Individualized dose reduction techniques using automated exposure control or adjustment of mA and/or kV according to the patient''s size were employed. There is bilateral occipital encephalomalacia, right greater than left, stable from prior exam. There is generalized age-appropriate atrophy. Periventricular low-attenuation areas are seen consistent with mild chronic ischemic changes. There is no evidence of intracranial hemorrhage or mass. There is no evidence of acute infarct. There is no evidence of shift of the midline structures. No skull abnormality is seen on the bone window images. IMPRESSION: Stable occipital encephalomalacia, atrophy and mild periventricular chronic ischemic changes. No acute intracranial abnormality identified. Reviewed, Interpreted and Dictated by Jesus Manuel Ellington III, MD Transcribed by Mattie Turcios Authenticated and [facility]
--- NOTE | 2022-06-16 13:03 | PC.NURSE ---
RADIOLOGY CALLED; STROKE PROTOCOL
--- NOTE | 2022-06-16 13:06 | PC.NURSE ---
pt going to ct
[2022-06-16 13:17] LABS: Basophils # 0.1 K/mm3 (0-0.2); Basophils % 1.3 % (0.1-2.0); Eosinophils # 0.1 K/mm3 (0.0-0.4); Eosinophils % 1.3 % (0.1-12.0); Hematocrit 34.6 % (37.0-47.0); Hemoglobin 10.9 g/dL (12.2-16.2); Lymphocytes # 1.9 K/mm3 (0.7-4.5); Lymphocytes % 27.1 % (10-50); Mean Corpuscular HGB Conc 31.4 g/dL (31.8-35.4); Mean Corpuscular Hemoglobin 27.5 pg (27.0-31.2); Mean Corpuscular Volume 87.3 fl (81-99); Mean Platelet Volume 8.1 fl (7.4-10.4); Monocytes # 0.5 K/mm3 (0.1-1.0); Monocytes % 6.9 % (1.7-9.3); Neutrophils # 4.4 K/mm3 (1.8-7.8); Neutrophils % 63.4 % (37.0-80.0); Platelet Count 302 K/mm3 (142-424); Red Blood Count 3.96 M/mm3 (4.20-5.40); Red Cell Distribution Width 17.5 % (11.5-17.5)
[2022-06-16 13:24] LABS: Chloride 101 mmol/L (98-107); Potassium 4.8 mmoL/L (3.5-5.1); Sodium 135 mmol/L (136-145)
[2022-06-16 13:27] LABS: Alanine Aminotransferase 18 U/L (12-78); Albumin Level 4.1 g/dl (3.5-5.0); Albumin/Globulin Ratio 1.8 (1.1-1.8); Alkaline Phosphatase 92 U/L (38-126); Anion Gap 14.8 mEq/L (5-15); Aspartate Amino Transferase 25 U/L (14-36); Bilirubin,Total 0.4 mg/dl (0.2-1.3); Blood Urea Nitrogen 33 mg/dl (7-17); Calcium 10.1 mg/dl (8.4-10.2); Carbon Dioxide 24 mmol/L (22.0-30.0); Estimated Glomerular Filt Rate 18 ml/min (>60); GFR (African American) 21 ML/MIN (>60); Globulin 2.3 g/dL (1.3-3.2); Glucose 230 mg/dl (74-100); Total Protein,Serum 6.4 g/dl (6.3-8.2)
[2022-06-16 13:28] LABS: INR 0.95 (0.9-1.1); Prothrombin Time 10.3 seconds (10.1-12.5)
--- NOTE | 2022-06-16 13:31 | HMH.EDGENADL ---
Discharge Plan Disposition Patient Disposition: Admitted As Inpatient Condition: Critical Prescriptions Prescriptions: No Action clopidogrel 75 mg tablet 75 mg PO HS cholecalciferol (vitamin D3) 125 mcg (5,000 unit) capsule 125 mcg PO DAILY buspirone 10 mg tablet 20 mg PO BID furosemide 40 mg tablet 20 mg PO Q OTHER DAY PRN (Reason: DIURETIC) insulin aspart U-100 [Novolog Flexpen U-100 Insulin] 100 unit/mL (3 mL) insulin pen 1 sliding scale dose SQ USEASDIRECTD Auvelity 45-105 mg tablet,IR,delayed rel,biphasic 1 tab PO .COMPLEX Qty: 60 2RF Rx Instructions: 1 tab orally 1 tablet in the am for 1 week; then 1 tablet in the am and at bedtime; mecobalamin (vitamin B12) 1,000 mcg tablet,disintegrating 1,000 mcg SUBLINGUAL HS allopurinol 100 mg tablet 100 mg PO BID prednisone 5 mg tablet 2.5 mg PO DAILY 30 Days Qty: 15 bupropion HCl [Wellbutrin XL] 150 mg tablet extended release 24 hr 150 mg PO DAILY Qty: 30 1RF duloxetine 60 MG capsule,delayed release(DR/EC) 60 mg PO DAILY montelukast 10 MG tablet 10 mg PO DAILY diclofenac sodium 100 GM gel 1 g TOPICAL NEEDED PRN (Reason: (Knot Cutter Use Only) Pain Per Pt) insulin NPH and regular human 100 unit/mL (70-30) suspension 40 unit SQ BID aspirin 81 MG tablet,delayed release (DR/EC) 81 mg PO DAILY fluticasone propionate [Flonase Allergy Relief] 50 mcg/actuation spray,suspension 1 spray NS DAILY Rx Instructions: administer into each nostril rosuvastatin [Crestor] 20 mg tablet 20 mg PO HS hydrocodone-acetaminophen 10-325 mg tablet 1 tab PO QIDP PRN (Reason: Pain) losartan 50 mg tablet 50 mg PO HS Label Comments: TAKE 1 TABLET BY MOUTH AT BEDTIME Trulance 3 mg tablet 3 mg PO DAILY Qty: 1 0RF Metamucil Sugar-Free (aspart) 3.4 gram/5.8 gram powder 2.612743 g PO DAILY Qty: 1 0RF polyethylene glycol 3350 [Miralax] 17 gram/dose powder 17 g PO DAILY Qty: 1 0RF ondansetron [ondansetron] 4 mg tablet,disintegrating 4 mg PO TIDP PRN (Reason: Nausea) Qty: 10 0RF promethazine 25 mg tablet 25 mg PO TID PRN (Reason: nausea and vomiting) Qty: 30 0RF Referrals Follow up/Referrals: Amaury Knight MD [Primary Care Provider] - See instructions Clinical Impressions Clinical Impression: Encephalopathy, hypertensive Instructions Patient Instructions: DI for Altered Mental Status Discharge ED Provider: Kyle Javier General Adult HPI General Chief complaint: Altered Mental Status Stated complaint: AMS Time Seen by Provider: 06/16/22 14:00 Mode of Arrival: EMS Source of Information: Parent(s) Limitations: No Limitations Description of Symptoms (Recalled from ER Triage Doc. by RN): Patient was brought in by [facility]. Mother reports the patient woke up around 11am this morning crying and screaming saying she didnt know where she was and that she couldnt see. Mother reports patient was very restless last night up out of bed several times. Mother reports as of yesterday patient was able to get around with a walker and talk but as of this morning had drastically changed. Patient was seen in the ED on 06/10 and discharged home. Patient had a stroke about 2 years ago and has lived with her mother since. Mother reports she had a change in her medications 3 days ago and was put on wellbutrin. History of Present Illness HPI narrative: Patient is brought in by EMS. History obtained from patient's mother. Mother states patient was up all night last night. This morning she was complaining to her that she could not see at all. The patient normally walks around with a walker and was unable to do so today. She did not seem to be able to take direction from her mother. She could not get her to take any of her medications except a dose of Reglan after multiple attempts. She has not eaten today. She has not taken any of her medicines
--- NOTE | 2022-06-16 14:22 | ECG_ITS ---
APPROVED REPORT Exam: Resting ECG HR:123 bpm ECG Measurements Heart Rate 123 AXES QRSd 110 QRS -21 QT 314 T 45 QTc 387 Conclusion Sinus tach Biatrial abnormality Late R wave progression Non-specific IV conduction delay ABNORMAL ECG UNCONFIRMED REPORT Electronically signed by : Kenny Sylvester MD 06/17/2022 16:48:41
--- NOTE | 2022-06-16 14:52 | XR_ITS ---
FINAL REPORT CLINICAL HISTORY: ams COMPARISON: March 11, 2022 FINDINGS: A single portable view of the chest was obtained. A loop recorder is present. The heart size and pulmonary vascularity are within normal limits. The mediastinum is within normal limits. No acute pulmonary abnormality is identified. A spinal stimulator is present. There are degenerative changes of both shoulders with a loose body on the right, stable. IMPRESSION: No active cardiopulmonary disease. Reviewed, Interpreted and Dictated by Jesus Manuel Ellington III, MD Transcribed by Payton Richard Authenticated and [facility]
[2022-06-16 15:18] LABS: Coronavirus 19, PCR Not Detected (NotDetected); Influenza A, PCR Not Detected (NotDetected); Influenza B, PCR Not Detected (NotDetected)
[2022-06-16 15:24] LABS: Microscopic, Urine URINE MICROSCOPIC (MICROSCOPIC)
--- NOTE | 2022-06-16 15:24 | PC.NURSE ---
on the phone with
--- NOTE | 2022-06-16 15:33 | PC.NURSE ---
has been paged
--- NOTE | 2022-06-16 15:34 | PC.NURSE ---
on the phone with
[2022-06-16 15:35] LABS: Appearance,Urine CLEAR (Clear); Bilirubin,Urine Negative (Negative); Blood, Urine 1+ (Negative); Color,Urine YELLOW (Yellow); Glucose,Urine (UA) 1+ (Negative); Ketones,Urine 1+ (Negative); Leukocyte Esterase,Urine Negative (Negative); Nitrate,Urine Negative (Negative); PH,Urine 5.5 (5.0-8.5); Protein,Urine 3+ (Negative); Specific Gravity, Urine >= 1.030 (1.005-1.030); Urobilinogen,Urine 0.2 EU/dl (0.2)
--- NOTE | 2022-06-16 15:48 | PC.NURSE ---
cardene drip titrated to 75ml/hr for b/p of 202/103
[2022-06-16 15:52] LABS: Squamous Epithelial Cell,Urine Occasional #/hpf (0-5); WBC,Urine Occasional #/hpf (0-3)
[2022-06-16 16:29] LABS: Troponin I 0.07 ng/ml (0.00-0.034)
[2022-06-16 16:37] LABS: Troponin I 0.15 ng/ml (0.00-0.034)
[2022-06-16 17:41] LABS: ABG Base Excess -4.2 mmol/L (-2.4-2.3); ABG HCO3 20.2 mmhg (22.0-26.0); ABG Oxygen Saturation 96 % (90-100); ABG PCO2 31.2 mmhg (35.0-45.0); ABG PH 7.43 mmol/L (7.35-7.45); ABG PO2 76.8 mmhg (80-100); ABG TCO2 21.1 mmhg (23-27); Allen's Test Acceptable; Oxygen RA %
[2022-06-16 17:42] LABS: Source Left Radial
[2022-06-16 20:07] LABS: Troponin I 0.48 ng/ml (0.00-0.034)
--- NOTE | 2022-06-16 20:10 | PC.NURSE ---
notified md on critical trop 0.48
--- NOTE | 2022-06-16 20:10 | PC.NURSE ---
report called to Laura VERA
--- NOTE | 2022-06-16 20:28 | PC.NURSE ---
Pt arrived to floor via stretcher @ 2027.
--- NOTE | 2022-06-16 21:04 | PC.NURSE ---
notified MD Sylvester of pt's presentation upon arrival, new orders placed, pt's breathing labored, pt drooling and coughs from time to time, pt's oxygen saturations decreased to 80-88%, 2LNc placed on pt and oxygen saturations increased to 93%; pt withdraws to pain with all 4 extremities, pt only grunts no speech noted, pt does not open eyes even to painful stimuli
[2022-06-16 22:13] LABS: POC Glucose,Bedside 256 (70-110)
[2022-06-16 22:28] LABS: Lactic Acid 2.2 mmol/L (0.7-2.1)
[2022-06-16 22:29] LABS: Basophils # 0.1 K/mm3 (0-0.2); Basophils % 0.4 % (0.1-2.0); Eosinophils % 0.3 % (0.1-12.0); Hematocrit 32.7 % (37.0-47.0); Hemoglobin 10.6 g/dL (12.2-16.2); Lymphocytes # 0.7 K/mm3 (0.7-4.5); Lymphocytes % 5.3 % (10-50); Mean Corpuscular HGB Conc 32.4 g/dL (31.8-35.4); Mean Corpuscular Hemoglobin 27.4 pg (27.0-31.2); Mean Corpuscular Volume 84.7 fl (81-99); Mean Platelet Volume 8.2 fl (7.4-10.4); Monocytes # 0.4 K/mm3 (0.1-1.0); Neutrophils # 11.6 K/mm3 (1.8-7.8); Platelet Count 332 K/mm3 (142-424); Red Blood Count 3.86 M/mm3 (4.20-5.40); Red Cell Distribution Width 17.7 % (11.5-17.5); White Blood Count 12.7 K/mm3 (4.8-10.8)
[2022-06-16 22:31] LABS: MANUAL DIFFERENTIAL MANUAL DIFFERENTIAL (MANUAL DIFF)
[2022-06-16 23:45] LABS: Lymphocytes % 6 % (10-50); Monocytes % 1 % (2-9); Neutrophils % 93 % (42-76); Total Cells Counted 100
[2022-06-16 23:46] LABS: Ovalocytes 1+; Schistocytes 1+
[2022-06-16 23:47] LABS: Platelet Estimate Normal
[2022-06-17] VITALS (18 sets, daily range): BP systolic 94–169; BP diastolic 50–84; PULSE 100–116; RESP 20–33; TEMP 38–39.6; O2SAT 95–100; BMI 21.2
[2022-06-17 00:47] LABS: Reflex Lactic Add Lactic Reflex
[2022-06-17 01:22] LABS: Lactic Acid Follow Up (RFLX 1) 1.9 mmol/L (0.7-2.1)
--- NOTE | 2022-06-17 04:35 | PC.NURSE ---
pt's temp high again, 102.6 orally, rectal tylenol suppository given; also sbp has been below 150mmHg almost all of shift, placing cardene on hold at this time (0400-bp131/66, 0430-bp 134/71) 0500-bp 141/79, cardene remains on hold
[2022-06-17 05:25] LABS: POC Glucose,Bedside 126 (70-110)
--- NOTE | 2022-06-17 06:41 | PC.NURSE ---
0630-bp 168/83, re-started cardene drip at 5mg/hr=50mL/hr; temp going down, temp now 101.9 orally
[2022-06-17 08:42] LABS: Chloride 106 mmol/L (98-107)
[2022-06-17 08:43] LABS: Potassium 5.1 mmoL/L (3.5-5.1); Sodium 135 mmol/L (136-145)
[2022-06-17 08:45] LABS: Blood Urea Nitrogen 41 mg/dl (7-17); Creatinine Clearance Estimated 18 mL/min (50-200); Estimated Glomerular Filt Rate 17 ml/min (>60); GFR (African American) 21 ML/MIN (>60)
[2022-06-17 08:46] LABS: Anion Gap 14.1 mEq/L (5-15); Calcium 9.1 mg/dl (8.4-10.2); Carbon Dioxide 20 mmol/L (22.0-30.0); Glucose 161 mg/dl (74-100)
--- NOTE | 2022-06-17 08:58 | HMH.PHAINT1 ---
Pharmacy Intervention Comments: MEDICATION RECONCILIATION COMPLETED ON PATIENT USING EXTERNAL FILL HISTORY FROM PHARMACY, ARTUR REPORT, AND LIST FROM BEHAVIORAL HEALTH. -MARKY WOODSOND
--- NOTE | 2022-06-17 09:08 | EXP.HP ---
History of Present Illness *Admission Date: 06/16/22 *Reason for visit:: hypertensive crisis *History of present illness: Patient is brought in by EMS.? History obtained from patient's mother. Mother states patient was up all night last night.? This morning she was complaining to her that she could not see at all.? The patient normally walks around with a walker and was unable to do so today.? She did not seem to be able to take direction from her mother.? She could not get her to take any of her medications except a dose of Reglan after multiple attempts.? She has not eaten today.? She has not taken any of her medicines otherwise.? Mother took her blood pressure this morning and it was 200/100 at 8 AM.? Mother states that she previously had been on an antihypertensive medication to protect her kidneys, but it was stopped about 5 weeks ago because her blood pressure was too low. Mother states the patient has been declining for 4 weeks.? She has had steadily decreasing vision.? She already had poor vision due to previous strokes but vision has been decreasing.? She has had problems with fecal impaction and vomiting, was admitted for that and following that had diarrhea.? She has had shoulder and neck pain for the past several weeks.? She was seen in this emergency department 6 days ago and had an extensive work-up including CTA of her head and neck.? She followed up with her primary care. Last night mother states that patient was up all night. (above as per ER physician) Ms. Murry has a very complicated medical history consisting of type 2 diabetes, kidney disease with right kidney removed in 1999, irritable bowel syndrome, asthma, rheumatoid arthritis, factor V Leiden deficiency, right occipital CVA in 2020, chronic back pain, postlaminectomy syndrome, depression and anxiety, hypertension, and renal failure. She has been in the ER and hospitalized multiple times in the last year. She did follow-up with Dr. Knight in the office on 06/14/2022, recent ER visit for neck pain and headache. She has been seen by physical therapy through home health and they began some treatments on her neck. Of note, her research psychologist discontinued her Trintellix and switched her to Wellbutrin recently as well. Dr. Knight did check labs during that visit and her creatinine was 2.5 and her potassium was 5.5. Her GFR was 19. This was relatively stable from previous labs. Patient has not been conscious but does respond to pain. Her mother states she has had odd episodes of breathing since she has been to the hospital. Nursing states her temperature has been 103. Her heart rate and blood pressure have decreased. She is currently on esmolol and nicardipine drip. [facility] Disclaimer: The information contained in this section may have been updated after the patient was seen, as this information can be updated by other users. Medical History (Updated 06/17/22 @ 12:58 by DIANA Sandoval) Abnormal electrocardiography Acquired solitary kidney Acute cerebellar ataxia Allergic rhinitis Allergic rhinitis Allergic rhinitis, unspecified Asthma Chronic back pain Chronic narcotic use CKD (chronic kidney disease) Decreased sensation of lower extremity Diffusion capacity of lung (dl), decreased Fat pad atrophy of foot Fibromyalgia Generalized anxiety disorder Gout History of asthma History of CVA (cerebrovascular accident) Metatarsalgia of both feet Nocturnal hypoxemia Occipital infarction Onychodystrophy Onychoincurvatum Rheumatoid arthritis Tingling of both feet Type 2 diabetes mellitus Surgical History History of arthroscopic knee surgery History of carpal tunnel release History of foot surgery History of right nephrectomy History of spinal fusion Family History Diabetes Hypertension Thyroid disorder Stroke Social History (Reviewed 06/17/22 @ 09:16 by Beth
--- NOTE | 2022-06-17 09:37 | EXP.PHA.CONS ---
Pharmacy Consult Date: 06/17/22 Time: 09:37 Referring provider: DR. PIZARRO Reason for Consult:: VANCOMYCIN DOSING Allergies Allergy/AdvReac Type Severity Reaction Status Date / Time Penicillins [PENICILLINS] Allergy Intermediate I-RASH Verified 05/24/22 14:33 adhesive tape Allergy Unknown Unknown Verified 05/24/22 14:33 allergy reaction pseudoephedrine Allergy Unknown TONGUE Verified 05/24/22 14:33 [PSEUDOEPHEDRINE] PEELS Sulfa (Sulfonamide Allergy Unknown KIDNEYS Verified 05/24/22 14:33 Antibiotics) [SULFA (SULFONAMIDE ANTIBIOTICS)] Home Medications Medication Instructions Recorded Confirmed Type mecobalamin (vitamin B12) 1,000 1,000 mcg sublingual HS Supplement 11/06/17 06/16/22 History mcg disintegrating tablet,sublingual allopurinol 100 mg tablet 100 mg PO BID Gout 04/13/21 06/16/22 History cholecalciferol (vitamin D3) 125 125 mcg PO DAILY Supplement 04/13/21 06/16/22 History mcg (5,000 unit) capsule clopidogrel 75 mg tablet 75 mg PO HS platelet inhibitor 04/13/21 06/16/22 History buspirone 10 mg tablet 20 mg PO BID Anxiety 08/10/21 06/16/22 History duloxetine 60 mg capsule,delayed 60 mg PO DAILY Depression 08/16/21 06/16/22 History release montelukast 10 mg tablet 10 mg PO PM Allergy symptoms 08/16/21 06/17/22 History aspirin 81 mg tablet,delayed 81 mg PO DAILY heart health 08/19/21 06/16/22 History release insulin human U-100 NPH-regulr 40 unit SQ BID Diabetes 08/26/21 06/16/22 History 70-30 mix 100 unit/mL subcutaneous susp prednisone 5 mg tablet 2.5 mg PO DAILY Fibromyalgia 30 11/09/21 06/16/22 History days #15 tabs fluticasone propionate 50 1 spray intranasal DAILY allergies 04/09/22 06/16/22 History mcg/actuation nasal spray,suspension (Flonase Allergy Relief) rosuvastatin 20 mg tablet (Crestor) 20 mg PO HS Cholesterol 04/09/22 06/16/22 History promethazine 25 mg tablet 25 mg PO TID PRN nausea and 04/19/22 06/16/22 Rx vomiting #30 tabs famotidine 20 mg tablet 20 mg PO DAILY GERD 06/16/22 06/16/22 History bupropion HCl 150 mg 24 hr tablet, 150 mg PO DAILY MOOD 06/17/22 06/17/22 History extended release New Prescriptions to Start Prescriptions: Height: 1.65 m Weight: 57.9 kg Laboratory Results:: Laboratory Results - last 24 hr 06/16/22 13:07: WBC 7.0, RBC 3.96 L, Hgb 10.9 L, Hct 34.6 L, MCV 87.3, MCH 27.5, MCHC 31.4 L, RDW 17.5, Plt Count 302, MPV 8.1, Neut % (Auto) 63.4, Lymph % (Auto) 27.1, Ralls % (Auto) 6.9, Eos % (Auto) 1.3, Baso % (Auto) 1.3, Neut # (Auto) 4.4, Lymph # (Auto) 1.9, Ralls # (Auto) 0.5, Eos # (Auto) 0.1, Baso # (Auto) 0.1 06/16/22 13:07: PT 10.3, INR 0.95 06/16/22 13:07: Sodium 135 L, Potassium 4.8, Chloride 101, Carbon Dioxide 24, Anion Gap 14.8, BUN 33 H, Creatinine 2.70 H, Estimated GFR 18 L*, Est GFR ( Amer) 21 L, Glucose 230 H, Calcium 10.1, Total Bilirubin 0.4, AST 25, ALT 18, Alkaline Phosphatase 92, Total Protein 6.4, Albumin 4.1, Globulin 2.3, Albumin/Globulin Ratio 1.8 06/16/22 13:07: Troponin I 0.07 H 06/16/22 14:40: SARS-CoV-2 (PCR) Not detected, Influenza A Untype (PCR) Not detected, Influenza Type B (PCR) Not detected 06/16/22 15:20: Urine Color Yellow, Urine Appearance Clear, Urine pH 5.5, Ur Specific [place] >= 1.030, Urine Protein 3+, Urine Glucose (UA) 1+, Urine Ketones 1+, Urine Blood 1+, Urine Nitrate Negative, Urine Bilirubin Negative, Urine Urobilinogen 0.2, Ur Leukocyte Esterase Negative, Urine RBC None, Urine WBC Occasional, Ur Squamous Epith Cells Occasional, Urine Bacteria None 06/16/22 15:50: Troponin I 0.15 H 06/16/22 17:10: Specimen Source Left radial, O2 % Ra, ABG pH 7.43, ABG pCO2 31.2 L, ABG pO2 76.8 L, ABG HCO3 20.2 L, ABG Total CO2 21.1 L, ABG O2 Saturation 96, ABG Base Excess -4.2 L, Leonel Test Acceptable 06/16/22 19:07: Troponin I 0.48 H 06/16/22 21:26: Lactate 2.2 H 06/16/22 21:54: WBC 12.7 H D, RBC 3.86 L, Hgb 10.6 L, Hct 32.7 L, MCV 84.7, MCH 27.4, MCHC 32.4, RDW 17.7 H, Plt Cou
--- NOTE | 2022-06-17 09:52 | PC.NURSE ---
late entry: notified Marlene Tabor face to face at 0804 that the pt had no rectal tone noted during suppository insertion. Felisa states she will notify Dr Suarez. notified Dr Suarez face to face at 0925 during am rounds that pt has no rectal tone noted during suppository insertion.
--- NOTE | 2022-06-17 10:11 | CA_ITS ---
FINAL REPORT TECHNIQUE: Grayscale, color Doppler and duplex Doppler ultrasound of the kidneys, aorta and renal arteries was performed. Multiple velocities were measured. CLINICAL HISTORY: HTN,DM,PRIOR RIGHT NEPHRECTOMY FINDINGS: Aorta velocity: 161 cm/sec Patient is status post right nephrectomy. Left Kidney: 10.8 cm. No evidence of hydronephrosis or mass. Left intrarenal RI: 0.7 Left renal artery velocity: 144 cm/sec. Left RAR (Renal Artery-Aortic Ratio): 0.9 IMPRESSION: No evidence of significant left renal artery stenosis. CT angiogram or postcontrast MR angiogram would be more sensitive for evaluation of possible renal artery stenosis. Reviewed, Interpreted and Dictated by Jesus Manuel Ellington III, MD Transcribed by Mattie Turcios Authenticated and [facility]
--- NOTE | 2022-06-17 10:11 | US_ITS ---
FINAL REPORT TECHNIQUE: Ultrasound images of the kidneys and bladder were obtained. CLINICAL HISTORY: HTN-- only rt kidney removed FINDINGS: The right kidney is surgically absent. The left kidney measures 9.8 cm in length. It is normal in echogenicity. There is no hydronephrosis. Spleen is normal at 8.8 cm. IMPRESSION: Status post right nephrectomy, otherwise unremarkable exam. Reviewed, Interpreted and Dictated by Jesus Manuel Ellington III, MD Transcribed by Mattie Turcios Authenticated and [facility]
[2022-06-17 11:22] LABS: POC Glucose,Bedside 147 (70-110)
--- NOTE | 2022-06-17 11:27 | CA_ITS ---
APPROVED REPORT EXAM: Comprehensive 2D, Doppler, and color-flow Echocardiogram Power Distributor: Gladys Moya RT(R) Ht: 5 ft 6 in Wt: 125lbs BSA: 1.64 BP: 110/65 mmHg Indications: DM, HTN, IBS, asthma, RA, CVA 2020 2D Dimensions Aortic Root 1.87 cm F: 2.7 - 3.3 LA Volume 32.20 mL LA Volume Index 19.63 mL/m2 (M/F) 16-34 M-Mode Dimensions RVDd 1.94 cm (0.9-2.6) LA Diam 3.74 cm (1.9-4.0) LVDd 5.09 cm (3.5-5.7) Ao Diam 2.40 cm (2.0-3.7) LVDs 3.45 cm (3.5-5.7) IVSd 0.87 cm (0.6-1.1) PWd 0.95 cm (0.6-1.1) EF (Teich) 60.10% FS 32.20% EDV (Teich) 123.20 mL ESV (Teich) 49.10 mL LV Diastology E Decel Time 147.00 (160-240 msec) E/A Ratio 0.8 MED E' 9.10 (< 7 cm/sec) E'/MED E' Ratio 11.76 (>14) LAT E' 8.00 (<10 cm/sec) E/LAT E' Ratio 13.38 (>14) Mitral Valve MV E Max Fidel. 107.00 (40-130 cm/s) MV A Velocity 130.00 (40-130 cm/s) E/A Ratio 0.82 MV Decel. Time 147.00 (160-240 ms) MV PHT 43.00 ms Left Ventricle Left atrium is mildly enlarged, left ventricle is normal size, hyperdynamic left ventricular systolic function, estimated ejection fraction over 65% with no regional wall motion abnormality, grade 1 diastolic dysfunction seen without tissue Doppler evidence of raise left atrial pressure. Right Ventricle Right atrium and right ventricle are normal size and contractility. Aortic Valve Aortic valve is thickened and calcified without aortic stenosis aortic insufficiency. Mitral Valve Mitral valve grossly normal, there is trace mitral regurgitation. Tricuspid Valve Tricuspid valve grossly normal, there is trace tricuspid regurgitation, tricuspid regurgitation jet velocity is inadequate for calculation of the right ventricular systolic pressure. Pulmonic Valve Pulmonic valve is poorly visualized. Great Vessels Aortic root is normal size. Inferior vena cava is normal size with normal inspiratory collapse. Pericardium No significant pericardial effusion noted. Conclusion 1. Normal left ventricular size, mild concentric left ventricular hypertrophy, hyperdynamic left ventricular systolic function, estimated ejection fraction was 65% with no regional wall motion abnormality, grade 1 diastolic dysfunction seen without tissue Doppler evidence of reduced left atrial pressure. 2. Thickened and calcified aortic valve without aortic stenosis aortic insufficiency. 3. Trace mitral and tricuspid regurgitation. 4. No significant pericardial effusion. 5. Inferior vena cava is normal size with normal inspiratory collapse. Electronically signed by : Gil King MD 06/17/2022 13:56:32
--- NOTE | 2022-06-17 13:07 | EXP.CARD.CON ---
History of Present Illness History of Present Illness Consult date: 06/17/22 Requesting physician: Victorino Suarez Chief complaint: HTN emergency Additional Medical History:: Significant past medical history: Diabetes mellitus Chronic kidney disease status post right kidney nephrectomy in 1999 IBS Asthma Rheumatoid arthritis Chronic pain syndrome-with laminectomy syndrome Factor V Leiden deficiency left occipital CVA on with right homonymous hemianopsia and previous right occipital stroke with left homonymous hemianopsia. Depression anxiety Hypertension History of present illness: History obtained from mother at bedside: 66-year-old white female with above past medical history presented to ER with mother yesterday via EMS with complaints of altered mental status, complete loss of vision, and elevated blood pressure. Mother reports that yesterday patient awoke around 1130 screaming and stating she was unable to see anything. Mother reports patient has history of vision loss secondary to previous CVAs that recently has been declining. Mother reports that at baseline patient is able to get around with a walker but as of yesterday she was unable to do so. Mother reports patient has been declining over the past 4 weeks with continued worsening vision loss, headache and neck pain, and problems with constipation and diarrhea. Mother also reports that recently patient had medication changes made in which her Trintellix was switched to Wellbutrin and her BP medication was discontinued due to hypotension. Of note patient was also evaluated in [facility] ER on 06/10/2022 with complaint of severe headache. Upon presentation to ER, blood pressure was noted to be 220/113, pulse 100 and oxygen saturation 97% on room air, and a temp was noted to be 103. CT of head was negative for acute ischemic changes. Chest xray was negative for acute cardiopulmonary process. Labs significant as follow: WBC 7.0 which is trended to 12.7 today, hemoglobin 10.9, sodium 135, potassium 4.8 which is trended to 5.1 today, creatinine 2.7 which is increased to 2.80 today, glucose 230 lactate 2.2 and a troponin of 0.15. EKG upon presentation to ER shows a flutter/tachycardia with a rate of 123. Patient was started on nicardipine drip in ER for blood pressure control and later esmolol drip was added. [facility] Disclaimer: The information contained in this section may have been updated after the patient was seen, as this information can be updated by other users. Medical History (Updated 06/17/22 @ 12:58 by DIANA Sandoval) Abnormal electrocardiography Acquired solitary kidney Acute cerebellar ataxia Allergic rhinitis Allergic rhinitis Allergic rhinitis, unspecified Asthma Chronic back pain Chronic narcotic use CKD (chronic kidney disease) Decreased sensation of lower extremity Diffusion capacity of lung (dl), decreased Fat pad atrophy of foot Fibromyalgia Generalized anxiety disorder Gout History of asthma History of CVA (cerebrovascular accident) Metatarsalgia of both feet Nocturnal hypoxemia Occipital infarction Onychodystrophy Onychoincurvatum Rheumatoid arthritis Tingling of both feet Type 2 diabetes mellitus Surgical History History of arthroscopic knee surgery History of carpal tunnel release History of foot surgery History of right nephrectomy History of spinal fusion Family History Diabetes Hypertension Thyroid disorder Stroke Social History Smoking Status: Never smoker second hand exposure: No alcohol intake: never substance use type: denies use current occupational status: retired Travel in the last 8 weeks: None household members: family housing: house number of children: 0 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
--- NOTE | 2022-06-17 13:37 | PC.NURSE ---
late entry: at start of shift pt cardene drip was noted to be at 5mg/hr, drip increased to 7mg/hr at 1000 r/t bp 169/72 drip decreased to 5mg/hr at 1230 r/t bp 118/48. esmolol increased to 75mcg/kg/min at 1100 following bolus of esmolol. parameters for pt cardene drip per dr trimble verbal orders: keep sbp between 130and 150
--- NOTE | 2022-06-17 13:57 | PC.NURSE ---
Addendum entered by Joceline Hopson RN 06/17/22 14:02: upon administration of tylenol suppository it was noted that pt has decreased to no rectal tone noted. Original Note: during am assessment pt is unrepsonsive to stimuli, pupils are 5mm and reactive. gaze of left eye is inward towards nose, right eye gaze is straight ahead. pt ble are straight and slightly rigid. pt bue are loose and flexible. pt teeth are clenched periodically, bruising and blood noted to pt lower lip and tip of tongue. pt has extensor reflext noted. pt is aphasic
--- NOTE | 2022-06-17 14:30 | PC.NURSE ---
nicole catheter replaced with temp sensing nicole at approx 1230. initial temp 102.1
--- NOTE | 2022-06-17 14:46 | PC.NURSE ---
notified Dr Eli of pt status. pt rectal temp remains elevated in the 102-103 range. pt is receiving 650mg tylenol KS. q4h. per dr eli given 1000mg tylenol IV times 1
[2022-06-17 17:10] LABS: POC Glucose,Bedside 171 (70-110)
[2022-06-17 17:13] LABS: Microscopic, Urine URINE MICROSCOPIC (MICROSCOPIC)
[2022-06-17 17:23] LABS: Appearance,Urine SL CLOUDY (Clear); Bilirubin,Urine Negative (Negative); Blood, Urine 3+ (Negative); Color,Urine YELLOW (Yellow); Glucose,Urine (UA) TRACE (Negative); Ketones,Urine 1+ (Negative); Leukocyte Esterase,Urine 1+ (Negative); Nitrate,Urine Negative (Negative); Protein,Urine 2+ (Negative); Specific Gravity, Urine >= 1.030 (1.005-1.030); Urobilinogen,Urine 0.2 EU/dl (0.2)
[2022-06-17 17:57] LABS: Amorphous Sediment,Urine 1+ /lpf; Bacteria,Urine 3+ /lpf; RBC,Urine 20-50 #/hpf (0-3); Transitional Epi Cells,Urine OCC #/lpf (0-3)
--- NOTE | 2022-06-17 18:45 | PC.NURSE ---
late enrty: 175 Dr Suarez called for update on pt. vss at this time. pt temp is 101.8 pt was not given iv tylenol yet r/t max of 4G of tylenol in 24hrs. admin would put pt at 3600 and pt would be unable to receive any more tylenol until after 2148. states ok at this time that pt has not received dose of iv tylenol.
--- NOTE | 2022-06-17 18:49 | PC.NURSE ---
pt has remained unresponsive this shift, pt does have extensor reflex noted. as the pt temp has gotten lower, pt has been able to spontaneously open her eyes. pt has not had any purposeful movement of eyes or body. temp has remained below 102 since approx 1700. lungs are diminished but clear, pt has scant scleral edema noted. +1 non pitting edema noted in bue.
--- NOTE | 2022-06-17 20:00 | PC.NURSE ---
bp 94/57, held cardene at this time
--- NOTE | 2022-06-17 21:19 | PC.NURSE ---
pt had tonic clonic seizure with smacking of lips, blinking eyes, drawing arms up, and rhythmic movements witnessed by staff, lasted over one minute but did not last two minutes, paging MD Suarez
--- NOTE | 2022-06-17 21:26 | PC.NURSE ---
paged MD Suarez again, called back, notified of pt's tonic clonic seizure, MD ordered 0.5mg ativan once
--- NOTE | 2022-06-17 21:30 | PC.NURSE ---
HR 99, decreased esmolol drip to 50mcg/kg/min
--- NOTE | 2022-06-17 22:00 | PC.NURSE ---
pt had another tonic clonic seizure prior to administering ativan, lasted approximately 30 seconds
[2022-06-18] VITALS (20 sets, daily range): BP systolic 102–170; BP diastolic 63–92; PULSE 85–100; RESP 18–33; TEMP 36.4–38.1; O2SAT 95–100
--- NOTE | 2022-06-18 05:39 | PC.NURSE ---
pt's HR high 80's, placed esmolol drip on hold at this time
--- NOTE | 2022-06-18 08:13 | EXP.ACUTE.PN ---
Subjective *Date: 06/18/22 *Time: 08:28 Interval history: Patient had two seizures throughout the night and had to be given ativan. She is off the esmolol drip and was off the nicardipine drip but it had to be restarted this am due to elevated BP's. She has not been awake at all. Family has made her a DNR. Medical Exam Vital signs and Labs for Last 24 Hours: Vital Signs Temp Pulse Pulse Resp BP Pulse Ox 06/18/22 07:53 95 H 24 147/72 H 95 06/18/22 07:46 99.5 F 06/18/22 06:00 94 H 25 H 151/76 H 97 06/18/22 05:43 99.9 F H 89 33 H 144/63 H 95 06/18/22 04:00 97 H 29 H 142/70 H 97 06/18/22 04:00 99 H 06/18/22 04:00 100.6 F H 06/18/22 02:00 100 H 27 H 142/70 H 98 06/17/22 20:00 104 H 06/18/22 00:00 100 H 06/18/22 01:38 99 06/17/22 20:00 100 06/18/22 00:00 100 H 24 143/68 H 100 06/17/22 23:53 101.5 F H 06/17/22 22:00 100 H 27 H 134/66 100 06/17/22 20:00 112 H 24 94/57 L 100 06/17/22 20:00 100.4 F H 06/17/22 18:00 101.3 F H 106 H 22 125/58 L 100 06/17/22 17:30 101.8 F H 104 H 22 141/58 H 100 06/17/22 16:00 110 H 06/17/22 16:00 101.8 F H 101 H 20 139/57 L 100 06/17/22 15:30 102.0 F H 106 H 20 126/70 100 06/17/22 15:15 107 H 100 06/17/22 14:00 103.1 F H 107 H 22 164/65 H 100 06/17/22 12:00 109 H 22 133/50 L 100 06/17/22 10:00 114 H 24 169/72 H 95 06/17/22 12:00 110 H Intake and Output 12/16/22 12/17/22 12/17/22 19:59 03:59 11:59 Intake Total 4242 / 6602 2360 / 6602 Output Total 755 / 1705 350 / 1705 600 / 1705 Balance 3487 / 4897 -350 / 4897 1760 / 4897 Intake: Intake, Oral Amount 0 / 0 0 / 0 Intake, Other Amount 2415 / 2415 Intake, Total IV Amount 1827 / 4187 2360 / 4187 0.9 % Sodium Chloride 1,000 ml 1764 / 1764 @ 150 mls/hr IV .Q6H40M [facility] Rx# :[id number] Esmolol HCl in Sterile Water 2, 488 / 725 237 / 725 500 mg In 250 ml @ 50 MCG/KG/ MIN 17.01 mls/hr IV .L59G29M [facility] Rx#:[id number] Meropenem 0.5 gm In 0.9 % 100 / 200 100 / 200 Sodium Chloride 100 ml @ 100 mls/hr IV Q12H [facility] Rx#:[id number] Nicardipine HCl 25 mg In 0.9 % 1239 / 1498 259 / 1498 Sodium Chloride 240 ml @ 50 mls /hr IV .Q5H [facility] Rx#:[id number] Output: Output, Urine Amount 755 / 1105 350 / 1105 0 / 1105 Output, Urine Amount (Catheter) 0 / 600 600 / 600 Cooper 0 / 600 600 / 600 Other: Number of Unmeasured Voids 0 1 0 Weight 127 lb 10.362 oz Patient Weight 06/18/22 11:59 Weight 127 lb 10.362 oz Laboratory Results - last 24 hr 06/17/22 08:25: Sodium 135 L, Potassium 5.1, Chloride 106, Carbon Dioxide 20 L, Anion Gap 14.1, BUN 41 H, Creatinine 2.80 H, Estimated Creat Clear 18, Estimated GFR 17 L*, Est GFR ( Amer) 21 L, Glucose 161 H D, Calcium 9.1 06/17/22 11:13: POC Glucose 147 H 06/17/22 12:00: Urine Color Yellow, Urine Appearance Sl cloudy, Urine pH 6.0, Ur Specific [place] >= 1.030, Urine Protein 2+, Urine Glucose (UA) Trace, Urine Ketones 1+, Urine Blood 3+, Urine Nitrate Negative, Urine Bilirubin Negative, Urine Urobilinogen 0.2, Ur Leukocyte Esterase 1+ A, Urine RBC 20-50, Urine WBC 5-10, Ur Squamous Epith Cells 5-10, Ur Transition Epith Cell Occ, Amorphous Sediment 1+, Urine Bacteria 3+ 06/17/22 17:01: POC Glucose 171 H I & O for Labs for Last 24 Hours: Intake & Output 06/15/22 06/16/22 06/17/22 06/18/22 11:59 11:59 11:59 11:59 Intake Total 400 / 400 6602 / 6602 Output Total 1350 / 1350 1705 / 1705 Balance -950 / -950 4897 / 4897 Weight 127 lb 10.362 oz 127 lb 10.362 oz Constitutional: Present obtunded ENT: Present mucous membranes dry Respiratory: Present decreased breath sounds and wheezes Cardiac: Present Reg Rate and Rhythm GI: Present soft; Absent tenderness or guarding Extremities: Present edema (hands and legs) Skin: Present
[2022-06-18 14:54] LABS: Basophils % 0.3 % (0.1-2.0); Eosinophils # 0.4 K/mm3 (0.0-0.4); Eosinophils % 2.8 % (0.1-12.0); Hematocrit 25.9 % (37.0-47.0); Hemoglobin 8.5 g/dL (12.2-16.2); Lymphocytes # 0.6 K/mm3 (0.7-4.5); Lymphocytes % 4.8 % (10-50); Mean Corpuscular Hemoglobin 27.8 pg (27.0-31.2); Mean Corpuscular Volume 84.3 fl (81-99); Monocytes # 0.4 K/mm3 (0.1-1.0); Monocytes % 3.2 % (1.7-9.3); Neutrophils # 11.2 K/mm3 (1.8-7.8); Neutrophils % 88.9 % (37.0-80.0); Platelet Count 196 K/mm3 (142-424); Red Blood Count 3.07 M/mm3 (4.20-5.40); Red Cell Distribution Width 18.2 % (11.5-17.5); White Blood Count 12.6 K/mm3 (4.8-10.8)
[2022-06-18 15:00] LABS: Alanine Aminotransferase 22 U/L (12-78); Albumin Level 2.9 g/dl (3.5-5.0); Albumin/Globulin Ratio 1.3 (1.1-1.8); Alkaline Phosphatase 63 U/L (38-126); Anion Gap 13.9 mEq/L (5-15); Aspartate Amino Transferase 44 U/L (14-36); Bilirubin,Total 0.4 mg/dl (0.2-1.3); Blood Urea Nitrogen 49 mg/dl (7-17); Calcium 7.9 mg/dl (8.4-10.2); Carbon Dioxide 15 mmol/L (22.0-30.0); Chloride 112 mmol/L (98-107); Creatinine Clearance Estimated 23 mL/min (50-200); Estimated Glomerular Filt Rate 22 ml/min (>60); GFR (African American) 27 ML/MIN (>60); Globulin 2.2 g/dL (1.3-3.2); Glucose 168 mg/dl (74-100); Potassium 3.9 mmoL/L (3.5-5.1); Sodium 137 mmol/L (136-145); Total Protein,Serum 5.1 g/dl (6.3-8.2)
[2022-06-18 15:15] LABS: MANUAL DIFFERENTIAL MANUAL DIFFERENTIAL (MANUAL DIFF)
[2022-06-18 15:50] LABS: Lymphocytes % 6 % (10-50); Monocytes % 3 % (2-9); Neutrophils % 91 % (42-76); Total Cells Counted 100
[2022-06-18 15:51] LABS: Ovalocytes 1+; Platelet Estimate Normal; Schistocytes 1+
[2022-06-18 20:39] LABS: POC Glucose,Bedside 134 (70-110)
--- NOTE | 2022-06-18 22:05 | PC.NURSE ---
restarting cardene drip as pt's bp is 170/92, starting drip at 5mg/hr
[2022-06-19] VITALS (28 sets, daily range): BP systolic 128–154; BP diastolic 40–90; PULSE 80–110; RESP 18–29; TEMP 36.9–37.1; O2SAT 93–100; BMI 21.9
--- NOTE | 2022-06-19 00:30 | PC.NURSE ---
bp 125/54, decreased cardene drip to 2.5mg/hr
--- NOTE | 2022-06-19 00:38 | PC.NURSE ---
Cardene decreased to 2.5mg/hr by Denise at this time. BP 125/54
--- NOTE | 2022-06-19 06:09 | PC.NURSE ---
0445-bp 157/72, increased cardene drip to 5mg/hr 0515-bp 157/76, increased cardene drip to 7.5mg/hr 0600-bp 154/62, increased cardene drip to 10mg/hr
--- NOTE | 2022-06-19 06:31 | PC.NURSE ---
bp 157/67, increased cardene drip to 12.5
[2022-06-19 07:55] LABS: POC Glucose,Bedside 187 (70-110)
[2022-06-19 07:55] LABS: POC Glucose,Bedside 113 (70-110)
[2022-06-19 07:55] LABS: POC Glucose,Bedside 99 (70-110)
--- NOTE | 2022-06-19 10:07 | EXP.ACUTE.PN ---
Subjective *Date: 06/19/22 *Time: 10:07 Interval history: Patient's sister states patient has been more alert this morning, has not talked, moving hands and feet a little. Medical Exam Vital signs and Labs for Last 24 Hours: Vital Signs Temp Pulse Pulse Resp BP Pulse Ox FiO2 06/19/22 08:00 98 06/19/22 08:00 99 H 26 H 146/57 H 99 06/19/22 04:00 97 H 06/19/22 07:48 98.4 F 06/19/22 06:00 98.6 F 95 H 21 154/62 H 100 06/19/22 02:00 97 06/19/22 04:00 98.6 F 96 H 29 H 143/80 H 98 06/19/22 03:00 98.6 F 94 H 25 H 147/71 H 93 L 06/19/22 02:00 98 H 27 H 136/76 93 L 06/19/22 02:00 96 H 06/19/22 01:00 98.8 F 97 H 28 H 132/69 93 L 06/19/22 00:00 98 H 27 H 148/52 H 93 L 06/18/22 23:56 98.5 F 06/18/22 23:00 99.0 F 99 H 27 H 141/68 H 97 06/18/22 22:00 99.1 F 93 H 25 H 170/92 H 99 06/18/22 20:00 98 06/18/22 20:00 97 H 06/18/22 20:00 98 H 18 136/69 98 06/18/22 19:44 99.0 F 06/18/22 18:44 28 06/18/22 18:00 98.8 F 96 H 22 141/67 H 100 06/18/22 16:00 88 06/18/22 12:00 90 06/18/22 16:00 98 06/18/22 16:00 98.2 F 85 21 135/80 100 06/18/22 15:20 98.1 F 06/18/22 14:00 97.5 F L 91 H 22 127/68 100 06/18/22 12:00 98.1 F 91 H 24 102/65 L 100 Intake and Output 06/18/22 06/19/22 06/19/22 23:59 07:59 15:59 Intake Total 1093 / 3453 1603 / 1603 Output Total 1050 / 2525 650 / 650 Balance 43 / 928 953 / 953 Intake: Intake, Total IV Amount 1093 / 3453 1603 / 1603 0.9 % Sodium Chloride 1,000 ml 881 / 2645 1255 / 1255 @ 150 mls/hr IV .Q6H40M [facility] Rx# :[id number] Meropenem 0.5 gm In 0.9 % 100 / 200 100 / 100 Sodium Chloride 100 ml @ 100 mls/hr IV Q12H [facility] Rx#:[id number] Nicardipine HCl 25 mg In 0.9 % 112 / 371 248 / 248 Sodium Chloride 240 ml @ 50 mls /hr IV .Q5H [facility] Rx#:[id number] Output: Output, Urine Amount 0 / 875 650 / 650 Output, Urine Amount (Catheter) 1050 / 1650 Cooper 1050 / 1650 Other: Number of Unmeasured Voids 0 0 Weight 131 lb 9.855 oz Patient Weight 06/19/22 23:59 Weight 131 lb 9.855 oz Laboratory Results - last 24 hr 06/17/22 21:21: POC Glucose 187 H 06/18/22 06:15: POC Glucose 113 H 06/18/22 14:45: WBC 12.6 H, RBC 3.07 L, Hgb 8.5 L, Hct 25.9 L, MCV 84.3, MCH 27.8, MCHC 33.0, RDW 18.2 H, Plt Count 196 D, MPV 8.0, Neut % (Auto) 88.9 H, Lymph % (Auto) 4.8 L, [place] % (Auto) 3.2, Eos % (Auto) 2.8, Baso % (Auto) 0.3, Neut # (Auto) 11.2 H, Lymph # (Auto) 0.6 L, [place] # (Auto) 0.4, Eos # (Auto) 0.4, Baso # (Auto) 0.0, Total Counted 100, Neutrophils % (Manual) 91 H, Lymphocytes % (Manual) 6 L, Monocytes % (Manual) 3, Platelet Estimate Normal, Ovalocytes 1+, Schistocytes 1+ 06/18/22 14:45: Sodium 137, Potassium 3.9 D, Chloride 112 H, Carbon Dioxide 15 L, Anion Gap 13.9, BUN 49 H, Creatinine 2.20 H D, Estimated Creat Clear 23, Estimated GFR 22 L, Est GFR ( Amer) 27 L D, Glucose 168 H, Calcium 7.9 L, Total Bilirubin 0.4, AST 44 H D, ALT 22, Alkaline Phosphatase 63, Total Protein 5.1 L, Albumin 2.9 L, Globulin 2.2, Albumin/Globulin Ratio 1.3 06/18/22 20:31: POC Glucose 134 H 06/19/22 06:02: POC Glucose 99 I & O for Labs for Last 24 Hours: Intake & Output 06/16/22 06/17/22 06/18/22 06/19/22 23:59 23:59 23:59 23:59 Intake Total 400 / 400 4242 / 4242 3453 / 3453 1603 / 1603 Output Total 2105 / 2105 2525 / 2525 650 / 650 Balance 400 / 400 2137 / 2137 928 / 928 953 / 953 Weight 126 lb 12.253 oz 127 lb 10.362 oz 131 lb 9.855 oz Microbiology Reports for the Last 24 Hours: Microbiology 06/17/22 12:00 Urine,Catheterized Urine Culture - Preliminary 06/16/22 21:26 Blood Blood Culture - Preliminary NO GROWTH AFTER 48 HOURS 06/16/22 21:26 Blood Blood Culture - Preliminary
[2022-06-19 12:02] LABS: POC Glucose,Bedside 94 (70-110)
[2022-06-19 16:52] LABS: POC Glucose,Bedside 180 (70-110)
--- NOTE | 2022-06-19 18:08 | PC.NURSE ---
pt has been turned Q2 this shift, remains on 2L NC with O2 sats 98-100%, pt has spoken one word phrases several times t/o shift, does localize to pain at times, UOP 600 mL this shift, has pitting edema in LLE and edema in BUE, cardene gtt currently infusing 10 mg/hr, was turned off from 1045 to 1530, but SBP increased to 170-180
--- NOTE | 2022-06-19 18:28 | PC.NURSE ---
pt has been turned Q2 this shift, remains on 2L NC with O2 sats 98-100%, pt has spoken one word phrases several times t/o shift, does localize to pain at times, UOP 600 mL this shift, has pitting edema in LLE and edema in BUE, cardene gtt currently infusing at 7.5 mg/hr, was turned off from 1045 to 1530, but SBP increased to 170-180, has remained afebrile
[2022-06-19 20:08] LABS: POC Glucose,Bedside 161 (70-110)
--- NOTE | 2022-06-19 21:01 | PC.NURSE ---
Nicardipine bag replaced, verified with Cynthia Katz RN. Titrated drip to 2.5 mg/hr due to bp's.
[2022-06-20] VITALS (31 sets, daily range): BP systolic 127–172; BP diastolic 38–91; PULSE 11–117; RESP 18–25; TEMP 36.9–37.5; O2SAT 97–104; BMI 22.6
--- NOTE | 2022-06-20 01:04 | PC.NURSE ---
nicardipine drip titrated back to 5 mg/hr due to systolic blood pressures
--- NOTE | 2022-06-20 04:01 | PC.NURSE ---
Addendum entered by Nathalia Bruner RN 06/20/22 04:05: drip titrated at 0345 Original Note: Nicardipine drip increased to 7.5 due to systolic blood pressures above 150.
--- NOTE | 2022-06-20 05:43 | PC.NURSE ---
Patient not able to speak for most of shift but around 0430 was able to ask where she was at after getting a bath. Patient not able to fully complete sentences and would not say her name when asked. Lung sounds diminished and patient remained on cardene drip, titrated to 7.5 mg/hr. Sinus tach on monitor with frequent pvc's. Patient turned q2 and oral care performed q2. Also noted that patient's eyes would flicker back and forth but stop after 30 seconds to a minute. Patient able to squeeze hands when asked.
--- NOTE | 2022-06-20 06:47 | PC.NURSE ---
Cardene drip titrated to 5 mg due to systolic blood pressures 140's.
--- NOTE | 2022-06-20 08:44 | EXP.PN ---
Subjective *Date: 06/20/22 *Time: 09:11 Interval history: Nursing feels the patient is somewhat better. She has some response and has said a few words. At times her eyes rolled constantly. She has had no further noted seizures. A.m. labs are pending. Drips are on standby. She is n.p.o. Exam Data for Last 24 hours Vital signs and Labs for Last 24 Hours: Temp Pulse Resp BP Pulse Ox FiO2 98.8 F 110 H 21 145/62 H 100 28 06/20/22 06:00 06/20/22 06:45 06/20/22 06:00 06/20/22 06:45 06/20/22 06:00 06/19/22 18:52 Laboratory Results - last 24 hr 06/19/22 10:54: POC Glucose 94 06/19/22 16:38: POC Glucose 180 H 06/19/22 19:59: POC Glucose 161 H I & O for Last 24 hours: Intake & Output 06/17/22 06/18/22 06/19/22 06/20/22 11:59 11:59 11:59 11:59 Intake Total 400 / 400 6602 / 6602 2696 / 2696 3244 / 3244 Output Total 1350 / 1350 1705 / 1705 2225 / 2225 925 / 925 Balance -950 / -950 4897 / 4897 471 / 471 2319 / 2319 Weight 127 lb 10.362 oz 127 lb 10.362 oz 131 lb 9.855 oz 136 lb 0.403 oz Microbiology Reports for the Last 24 Hours: Microbiology 06/17/22 12:00 Urine,Catheterized Urine Culture - Preliminary Constitutional Constitutional: no acute distress Comments: Did open eyes and focus. Tries to answer questions is only able to get 1 word out. *Routine Respiratory Exam Respiratory: Present CTA bilaterally *Routine Cardiovascular Exam Cardiovascular: Present RRR (Monitor showing sinus rhythm with occasional to frequent PVCs.) *Routine Abdominal Exam Abdominal: Present soft and normoactive bowel sounds; Absent tenderness or distended *Routine Extremities Exam Extremities: Absent edema *Routine Neurological Exam Neurological: Present alert (Tries hard to answer questions. Does focus.) Assessment and Plan *Assessment and plan (1) Hypertensive crisis: Status: Acute Category: Medical Code(s): I16.9 - Hypertensive crisis, unspecified (2) Encephalopathy, hypertensive: Status: Acute Category: Medical Code(s): I67.4 - Hypertensive encephalopathy (3) Elevated troponin: Status: Acute Category: Medical Code(s): R77.8 - Other specified abnormalities of plasma proteins (4) Fever: Status: Acute Category: Medical Code(s): R50.9 - Fever, unspecified (5) Leukocytosis: Status: Acute Category: Medical Code(s): D72.829 - Elevated white blood cell count, unspecified (6) History of CVA (cerebrovascular accident): Status: Acute Category: Medical Code(s): Z86.73 - Personal history of transient ischemic attack (TIA), and cerebral infarction without residual deficits (7) Type 2 diabetes mellitus: Status: Chronic Qualifiers: Diabetes mellitus mcfp insulin use: with exterminator use Qualified Code(s): E11.9 - Type 2 diabetes mellitus without complications; Z79.4 - termite helper (current) use of insulin Category: Medical Code(s): E11.9 - Type 2 diabetes mellitus without complications (8) CKD (chronic kidney disease): Status: Acute Category: Medical Code(s): N18.9 - Chronic kidney disease, unspecified (9) Acquired solitary kidney: Status: Acute Category: Medical Code(s): Z90.5 - Acquired absence of kidney (10) UTI (urinary tract infection): Status: Acute Category: Medical Code(s): N39.0 - Urinary tract infection, site not specified (11) Altered mental status: Status: Acute Category: Medical Code(s): R41.82 - Altered mental status, unspecified Plan Patient seems to be improving since changing antibiotics. She is currently on meropenem and vancomycin. She is receiving IV fluids at 150 an hour. We will continue with current care. Dr. Suarez entry - Saw patient, agree with above note. PICC line today.
--- NOTE | 2022-06-20 09:05 | EXP.CARD.PN ---
Subjective Subjective Date: 06/20/22 Time: 09:05 Principal diagnosis: AMS, HTN encephalopathy, DNR Interval history: 66-year-old white female in bed. Minimal response to verbal stimuli but with movement of eyes toward examiner and some random movements of left arm. Nurse relates esmolol and nicardipine discontinued over the weekend due to concerns for blood pressure. Currently blood pressure around 100 mmHg with heart rate also around 100 bpm. She has not taken anything orally. She is DNR. Exam Data for Last 24 hours Vital signs and Labs for Last 24 Hours: Temp Pulse Resp BP Pulse Ox FiO2 98.4 F 110 H 21 145/62 H 100 28 06/20/22 08:00 06/20/22 06:45 06/20/22 06:00 06/20/22 06:45 06/20/22 06:00 06/19/22 18:52 Laboratory Results - last 24 hr 06/19/22 10:54: POC Glucose 94 06/19/22 16:38: POC Glucose 180 H 06/19/22 19:59: POC Glucose 161 H I & O for Last 24 hours: Intake & Output 06/17/22 06/18/22 06/19/22 06/20/22 11:59 11:59 11:59 11:59 Intake Total 400 / 400 6602 / 6602 2696 / 2696 3244 / 3244 Output Total 1350 / 1350 1705 / 1705 2225 / 2225 925 / 925 Balance -950 / -950 4897 / 4897 471 / 471 2319 / 2319 Weight 127 lb 10.362 oz 127 lb 10.362 oz 131 lb 9.855 oz 136 lb 0.403 oz Microbiology Reports for the Last 24 Hours: Microbiology 06/17/22 12:00 Urine,Catheterized Urine Culture - Final Multiple organisms, suggests contamination. *Routine Respiratory Exam Respiratory: Present decreased breath sounds *Routine Cardiovascular Exam Cardiovascular: Present RRR and tachycardia *Routine Extremities Exam Extremities: Present edema Progress Note: A&P Assessment and plan (1) Hypertensive crisis: Status: Acute (2) Encephalopathy, hypertensive: Status: Acute (3) Elevated troponin: Status: Acute (4) Fever: Status: Acute (5) Leukocytosis: Status: Acute (6) History of CVA (cerebrovascular accident): Status: Acute (7) Type 2 diabetes mellitus: Status: Chronic (8) CKD (chronic kidney disease): Status: Acute (9) Acquired solitary kidney: Status: Acute (10) UTI (urinary tract infection): Status: Acute (11) Altered mental status: Status: Acute Assessment and Plan Assessment and Plan for All Diagnoses:: 1. AMS with recent loss of vision-CT of the head upon presentation to ER this admission showed no acute process. 2. Hypertensive emergency, improved with IV esmolol and nicardipine drip, currently controlled off medication. Echo this admission shows mild concentric LVH with hyperdynamic EF of 65%. Grade 1 diastolic dysfunction. No significant valve disease. Would recommend adding back beta-cinthya (IV esmolol or oral metoprolol succinate if taking p.o. medications) as needed for blood pressure and heart rate control. 3. Elevated troponin, mild in setting of acute illness with possible sepsis. Recent myocardial perfusion scan in August of this year showed no evidence of ischemia 4. Acute kidney injury with history of right nephrectomy. Renal artery ultrasound showed no evidence of renal artery stenosis. 5. Fever/Leukocytosis/UTI/possible sepsis-slow improvement after change in Abx over weekend. 6. History of prior CVA x2. 7. Insulin-dependent diabetes mellitus Poor prognosis. Patient is DNR. Nothing further to add from a cardiac standpoint. Please call if needed.
--- NOTE | 2022-06-20 09:12 | XR_ITS ---
FINAL REPORT CLINICAL HISTORY: Confirm PICC line placement COMPARISON: June 16, 2022 FINDINGS: A single portable view of the chest was obtained. A right PICC line is present with the tip in the mid SVC. The heart size and pulmonary vascularity are within normal limits. The mediastinum is within normal limits. There are worsening left lung base opacities, pneumonia or atelectasis. There are severe degenerative changes in the shoulders. IMPRESSION: Worsening left lung base pneumonia or atelectasis. Reviewed, Interpreted and Dictated by Jesus Manuel Ellington III, MD Transcribed by Payton Richard Authenticated and . [facility]
--- NOTE | 2022-06-20 09:36 | DIET.NUTRFU ---
Reviewing nursing notes, patient is able to follow minimal commands, like opening eye. 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 She continues to be NPO with IVF providing hydration. NPO since 06/16, lack of nutrition. If oral nutrition continues to be not feasible may need to consider TF or TPN until condition improves. Reviewed labs, BUN 49 (41) and Cr 2.20 (2.8)
[2022-06-20 11:18] LABS: POC Glucose,Bedside 146 (70-110)
[2022-06-20 11:18] LABS: POC Glucose,Bedside 202 (70-110)
--- NOTE | 2022-06-20 12:45 | EXP.PHA.PN ---
Subjective *Date: 06/20/22 *Time: 12:45 Medical Exam Vital signs and Labs for Last 24 Hours: Vital Signs Temp Pulse Pulse Resp BP Pulse Ox FiO2 06/20/22 12:00 100 H 147/69 H 97 06/20/22 12:00 98.4 F 06/20/22 11:00 98.4 F 92 H 146/67 H 99 06/20/22 08:00 100 H 06/20/22 10:00 98.6 F 102 H 144/61 H 100 06/20/22 09:00 98.6 F 100 H 137/67 99 06/20/22 09:00 98.8 F 102 H 144/61 H 100 06/20/22 08:00 102 H 100 06/20/22 08:00 102 H 156/53 H 100 06/20/22 08:00 98.4 F 06/20/22 06:45 110 H 145/62 H 06/20/22 06:30 105 H 143/68 H 06/20/22 06:15 104 H 148/53 H 06/20/22 06:00 98.8 F 103 H 21 153/77 H 100 06/20/22 05:30 98.4 F 117 H 158/62 H 97 06/20/22 05:01 101 H 151/55 H 99 06/20/22 04:30 101 H 136/65 06/20/22 05:00 90 06/20/22 04:00 99.3 F 06/20/22 03:45 109 H 171/78 H 98 06/20/22 03:30 104 H 157/76 H 104 H 06/20/22 03:00 108 H 172/63 H 98 06/20/22 04:00 103 H 25 H 143/64 H 06/20/22 02:30 92 H 19 135/59 L 99 06/20/22 02:00 99.3 F 107 H 21 148/76 H 99 06/20/22 01:30 106 H 154/53 H 06/20/22 01:23 100 H 06/19/22 20:00 80 06/20/22 01:00 108 H 155/63 H 99 06/20/22 00:45 106 H 154/55 H 100 06/20/22 00:30 104 H 127/38 L 06/20/22 00:00 91 H 145/56 H 100 06/20/22 00:00 97 H 145/56 H 100 06/19/22 23:30 98 H 149/60 H 100 06/19/22 21:30 95 H 147/67 H 100 06/19/22 21:00 98.5 F 98 H 19 146/52 H 100 06/19/22 22:00 98.8 F 98 H 149/90 H 100 06/19/22 21:00 98 H 146/52 H 06/19/22 20:45 96 H 139/68 06/19/22 20:30 98 H 128/57 L 06/19/22 20:15 98 H 144/58 H 06/19/22 20:01 101 H 18 150/63 H 99 06/19/22 19:58 98.6 F 06/19/22 18:52 28 06/19/22 16:00 110 H 06/19/22 18:00 98.6 F 101 H 20 138/56 L 100 06/19/22 15:00 97 H 22 146/71 H 100 06/19/22 13:00 105 H 22 153/68 H 100 06/19/22 16:00 98.8 F 103 H 18 144/82 H 100 06/19/22 16:01 100 06/19/22 14:00 104 H 21 145/83 H 99 Intake and Output 06/19/22 06/20/22 06/20/22 23:59 07:59 15:59 Intake Total 1788 / 3391 1456 / 1456 Output Total 675 / 1325 250 / 250 Balance 1113 / 2066 1206 / 1206 Intake: Intake, Total IV Amount 1788 / 3391 1456 / 1456 0.9 % Sodium Chloride 1,000 ml 831 / 2086 713 / 713 @ 150 mls/hr IV .Q6H40M [facility] Rx# :[id number] Meropenem 0.5 gm In 0.9 % 100 / 200 100 / 100 Sodium Chloride 100 ml @ 100 mls/hr IV Q12H [facility] Rx#:[id number] Nicardipine HCl 25 mg In 0.9 % 607 / 855 643 / 643 Sodium Chloride 240 ml @ 50 mls /hr IV .Q5H [facility] Rx#:[id number] Vancomycin HCl 750 mg In 0.9 % 250 / 250 Sodium Chloride 250 ml @ 125 mls/hr IV Q48H [facility] Rx#:[id number] Output: Output, Urine Amount (Catheter) 675 / 675 250 / 250 Cooper 675 / 675 250 / 250 Other: Number of Unmeasured Voids 0 0 Number of Bowel Movements 1 Weight 61.7 kg Patient Weight 06/20/22 23:59 Weight 61.7 kg Laboratory Results - last 24 hr 06/19/22 16:38: POC Glucose 180 H 06/19/22 19:59: POC Glucose 161 H 06/20/22 05:54: POC Glucose 202 H 06/20/22 11:04: POC Glucose 146 H I & O for Labs for Last 24 Hours: Intake & Output 06/17/22 06/18/22 06/19/22 06/20/22 23:59 23:59 23:59 23:59 Intake Total 4242 / 4242 3453 / 3453 3391 / 3391 1456 / 1456 Output Total 2105 / 2105 2525 / 2525 1325 / 1325 250 / 250 Balance 2137 / 2137 928 / 928 2066 / 2066 1206 / 1206 Weight 57.9 kg 59.7 kg 61.7 kg Microbiology Reports for the Last 24 Hours: Microbiology 06/17/22 12:00 Urine,Catheterized Urine Culture - Final Multiple organisms, suggests contamination. The patient's infection will respond to the chose
--- NOTE | 2022-06-20 15:10 | PC.NURSE ---
received call from CHUY Doss, stated that PICC was good to use
[2022-06-20 16:46] LABS: POC Glucose,Bedside 174 (70-110)
[2022-06-20 20:46] LABS: Chloride 122 mmol/L (98-107); Potassium 3.6 mmoL/L (3.5-5.1); Sodium 148 mmol/L (136-145)
[2022-06-20 20:49] LABS: Anion Gap 12.6 mEq/L (5-15); Blood Urea Nitrogen 48 mg/dl (7-17); Carbon Dioxide 17 mmol/L (22.0-30.0); Creatinine Clearance Estimated 29 mL/min (50-200); Estimated Glomerular Filt Rate 27 ml/min (>60); GFR (African American) 32 ML/MIN (>60); Glucose 136 mg/dl (74-100)
[2022-06-20 21:01] LABS: POC Glucose,Bedside 128 (70-110)
[2022-06-21] VITALS (20 sets, daily range): BP systolic 129–163; BP diastolic 55–106; PULSE 82–110; RESP 15–24; TEMP 37.4–37.9; O2SAT 95–100; BMI 23.6
--- NOTE | 2022-06-21 04:55 | PC.NURSE ---
Pt has slept at intervals this shift. Pt has screamed out a couple of times. When asked if she was in pain, she responded with, I'm hurting . MD consulted. Orders received. Medication administered per aug. Pt BP increased this morning. Pt was placed back on Cardene Gtt. Currently infusing @ 5 mg/hr. Family at bedside.
[2022-06-21 06:08] LABS: POC Glucose,Bedside 164 (70-110)
--- NOTE | 2022-06-21 06:43 | PC.NURSE ---
Cardene titration 0148 Cardene @ 2.5 mg/hr 0215 Cardene @ 5 mg/hr 0645 Cardene @ 2.5 mg/hr
--- NOTE | 2022-06-21 08:07 | EXP.PN ---
Subjective *Date: 06/21/22 *Time: 08:20 Interval history: Patient does speak but is unable to answer questions. Nurses state patient hollowed out during the night and was in pain. She received morphine which seemed to help. Family member at bedside states she rambled on throughout the night. She is off drips and vital signs of been stable. She has had a low-grade periodic temperature. Chest x-ray shows left lower lobe pneumonia. Blood cultures remain negative. Urine culture shows multiple organisms suggesting contamination. Exam Data for Last 24 hours Vital signs and Labs for Last 24 Hours: Temp Pulse Resp BP Pulse Ox FiO2 99.5 F 101 H 20 154/66 H 95 28 06/21/22 03:00 06/21/22 06:00 06/21/22 06:00 06/21/22 06:00 06/21/22 06:00 06/19/22 18:52 Laboratory Results - last 24 hr 06/20/22 05:54: POC Glucose 202 H 06/20/22 11:04: POC Glucose 146 H 06/20/22 16:33: POC Glucose 174 H 06/20/22 20:24: Sodium 148 H, Potassium 3.6, Chloride 122 H, Carbon Dioxide 17 L, Anion Gap 12.6, BUN 48 H, Creatinine 1.90 H, Estimated Creat Clear 29, Estimated GFR 27 L, Est GFR ( Amer) 32 L, Glucose 136 H, Calcium 9.0 06/20/22 20:53: POC Glucose 128 H 06/21/22 05:56: POC Glucose 164 H I & O for Last 24 hours: Intake & Output 06/18/22 06/19/22 06/20/22 06/21/22 11:59 11:59 11:59 11:59 Intake Total 6602 / 6602 2696 / 2696 3244 / 3244 1066 / 1066 Output Total 1705 / 1705 2225 / 2225 925 / 925 775 / 775 Balance 4897 / 4897 471 / 471 2319 / 2319 291 / 291 Weight 127 lb 10.362 oz 131 lb 9.855 oz 136 lb 0.403 oz 141 lb 8.588 oz Microbiology Reports for the Last 24 Hours: Microbiology 06/17/22 12:00 Urine,Catheterized Urine Culture - Final Multiple organisms, suggests contamination. Constitutional Constitutional: no acute distress *Routine Respiratory Exam Respiratory: Present CTA bilaterally *Routine Cardiovascular Exam Cardiovascular: Present RRR *Routine Abdominal Exam Abdominal: Present soft and normoactive bowel sounds; Absent tenderness or distended *Routine Extremities Exam Extremities: Present edema (Edema bilateral arms and legs.) *Routine Neurological Exam Neurological: Absent alert Comments: She is awake and constantly mumbling and rambling. Sometimes able to understand her words. Assessment and Plan *Assessment and plan (1) Hypertensive crisis: Status: Acute Category: Medical Code(s): I16.9 - Hypertensive crisis, unspecified (2) Encephalopathy, hypertensive: Status: Acute Category: Medical Code(s): I67.4 - Hypertensive encephalopathy (3) Elevated troponin: Status: Acute Category: Medical Code(s): R77.8 - Other specified abnormalities of plasma proteins (4) Fever: Status: Acute Category: Medical Code(s): R50.9 - Fever, unspecified (5) Leukocytosis: Status: Acute Category: Medical Code(s): D72.829 - Elevated white blood cell count, unspecified (6) History of CVA (cerebrovascular accident): Status: Acute Category: Medical Code(s): Z86.73 - Personal history of transient ischemic attack (TIA), and cerebral infarction without residual deficits (7) Type 2 diabetes mellitus: Status: Chronic Qualifiers: Diabetes 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
--- NOTE | 2022-06-21 10:35 | DIET.NUTRFU ---
Spoke to nursing patient was able to answer questions during doctor visit. Nurse feels like to is alert x1 and maybe able to participate in swallow eval. Speech was notified. Continues on IVF, Na 148H, BUN 48H, Cr 1.9H, BS [id number] ordered. Urine output is still only 700ml and wt is climbing. CBW is 64kg and was 57kg upon admit. She was given lasix today, anticipate wt loss. Will continue to follow with DIGITAL TECH irene, currently NPO
[2022-06-21 10:56] LABS: MANUAL DIFFERENTIAL MANUAL DIFFERENTIAL (MANUAL DIFF)
[2022-06-21 10:58] LABS: Basophils % 0.2 % (0.1-2.0); Eosinophils # 0.1 K/mm3 (0.0-0.4); Eosinophils % 0.5 % (0.1-12.0); Hematocrit 28.6 % (37.0-47.0); Hemoglobin 9.2 g/dL (12.2-16.2); Lymphocytes # 0.9 K/mm3 (0.7-4.5); Lymphocytes % 8.1 % (10-50); Mean Corpuscular HGB Conc 32.2 g/dL (31.8-35.4); Mean Corpuscular Hemoglobin 27.5 pg (27.0-31.2); Mean Corpuscular Volume 85.2 fl (81-99); Mean Platelet Volume 9.4 fl (7.4-10.4); Monocytes # 0.6 K/mm3 (0.1-1.0); Monocytes % 5.8 % (1.7-9.3); Neutrophils # 9.3 K/mm3 (1.8-7.8); Neutrophils % 85.5 % (37.0-80.0); Platelet Count 242 K/mm3 (142-424); Red Blood Count 3.36 M/mm3 (4.20-5.40); Red Cell Distribution Width 18.2 % (11.5-17.5); White Blood Count 10.8 K/mm3 (4.8-10.8)
[2022-06-21 11:14] LABS: Chloride 124 mmol/L (98-107); Lymphocytes % 16 % (10-50); Monocytes % 4 % (2-9); Neutrophils % 80 % (42-76); Potassium 3.4 mmoL/L (3.5-5.1); Total Cells Counted 100
[2022-06-21 11:16] LABS: Acanthocytes 1+; Anisocytosis 1+; Burr Cells 1+; Hypochromasia 1+; Ovalocytes 1+; Platelet Estimate Normal; Poikilocytosis 1+
[2022-06-21 11:17] LABS: Anion Gap 11.4 mEq/L (5-15); Blood Urea Nitrogen 47 mg/dl (7-17); Carbon Dioxide 18 mmol/L (22.0-30.0); Creatinine Clearance Estimated 30 mL/min (50-200); Estimated Glomerular Filt Rate 27 ml/min (>60); GFR (African American) 32 ML/MIN (>60)
[2022-06-21 11:18] LABS: Calcium 8.9 mg/dl (8.4-10.2); Glucose 139 mg/dl (74-100)
[2022-06-21 11:30] LABS: Sodium 150 mmol/L (136-145)
--- NOTE | 2022-06-21 12:02 | PC.NURSE ---
NA is 150, Jovanna at [facility] and stated she would call me back. Was notified by Jovanna that Dr. Suarez said to discontinue iv maintenance fluid
[2022-06-21 12:29] LABS: POC Glucose,Bedside 141 (70-110)
[2022-06-21 12:40] LABS: Vancomycin,Trough 6.5 ug/mL (5.0-10.0)
--- NOTE | 2022-06-21 13:02 | EXP.PHA.CONS ---
Pharmacy Consult Date: 06/21/22 Time: 13:03 Referring provider: DR SUAREZ Reason for Consult:: VANCOMYCIN DOSE ADJUSTMENT BASED ON TROUGH LEVEL OBTAINED Allergies Allergy/AdvReac Type Severity Reaction Status Date / Time Penicillins [PENICILLINS] Allergy Intermediate I-RASH Verified 05/24/22 14:33 adhesive tape Allergy Unknown Unknown Verified 05/24/22 14:33 allergy reaction pseudoephedrine Allergy Unknown TONGUE Verified 05/24/22 14:33 [PSEUDOEPHEDRINE] PEELS Sulfa (Sulfonamide Allergy Unknown KIDNEYS Verified 05/24/22 14:33 Antibiotics) [SULFA (SULFONAMIDE ANTIBIOTICS)] Home Medications Medication Instructions Recorded Confirmed Type mecobalamin (vitamin B12) 1,000 1,000 mcg sublingual HS Supplement 11/06/17 06/16/22 History mcg disintegrating tablet,sublingual allopurinol 100 mg tablet 100 mg PO BID Gout 04/13/21 06/16/22 History cholecalciferol (vitamin D3) 125 125 mcg PO DAILY Supplement 04/13/21 06/16/22 History mcg (5,000 unit) capsule clopidogrel 75 mg tablet 75 mg PO HS platelet inhibitor 04/13/21 06/16/22 History buspirone 10 mg tablet 20 mg PO BID Anxiety 08/10/21 06/16/22 History duloxetine 60 mg capsule,delayed 60 mg PO DAILY Depression 08/16/21 06/16/22 History release montelukast 10 mg tablet 10 mg PO PM Allergy symptoms 08/16/21 06/17/22 History aspirin 81 mg tablet,delayed 81 mg PO DAILY heart health 08/19/21 06/16/22 History release insulin human U-100 NPH-regulr 40 unit SQ BID Diabetes 08/26/21 06/16/22 History 70-30 mix 100 unit/mL subcutaneous susp prednisone 5 mg tablet 2.5 mg PO DAILY Fibromyalgia 30 11/09/21 06/16/22 History days #15 tabs fluticasone propionate 50 1 spray intranasal DAILY allergies 04/09/22 06/16/22 History mcg/actuation nasal spray,suspension (Flonase Allergy Relief) rosuvastatin 20 mg tablet (Crestor) 20 mg PO HS Cholesterol 04/09/22 06/16/22 History promethazine 25 mg tablet 25 mg PO TID PRN nausea and 04/19/22 06/16/22 Rx vomiting #30 tabs famotidine 20 mg tablet 20 mg PO DAILY GERD 06/16/22 06/16/22 History bupropion HCl 150 mg 24 hr tablet, 150 mg PO DAILY MOOD 06/17/22 06/17/22 History extended release New Prescriptions to Start Prescriptions: Height: 1.65 m Weight: 64.2 kg Laboratory Results:: Laboratory Results - last 24 hr 06/20/22 16:33: POC Glucose 174 H 06/20/22 20:24: Sodium 148 H, Potassium 3.6, Chloride 122 H, Carbon Dioxide 17 L, Anion Gap 12.6, BUN 48 H, Creatinine 1.90 H, Estimated Creat Clear 29, Estimated GFR 27 L, Est GFR ( Amer) 32 L, Glucose 136 H, Calcium 9.0 06/20/22 20:53: POC Glucose 128 H 06/21/22 05:56: POC Glucose 164 H 06/21/22 10:40: Vancomycin Trough 6.5 06/21/22 10:40: WBC 10.8, RBC 3.36 L, Hgb 9.2 L, Hct 28.6 L, MCV 85.2, MCH 27.5, MCHC 32.2, RDW 18.2 H, Plt Count 242, MPV 9.4, Neut % (Auto) 85.5 H, Lymph % (Auto) 8.1 L, [place] % (Auto) 5.8, Eos % (Auto) 0.5, Baso % (Auto) 0.2, Neut # (Auto) 9.3 H, Lymph # (Auto) 0.9, [place] # (Auto) 0.6, Eos # (Auto) 0.1, Baso # (Auto) 0.0, Total Counted 100, Neutrophils % (Manual) 80 H, Lymphocytes % (Manual) 16, Monocytes % (Manual) 4, Platelet Estimate Normal, Hypochromasia 1+, Poikilocytosis 1+, Anisocytosis 1+, Ovalocytes 1+, [place] Cells 1+, Acanthocytes (Spur) 1+ 06/21/22 10:40: Sodium 150 H, Potassium 3.4 L, Chloride 124 H, Carbon Dioxide 18 L, Anion Gap 11.4, BUN 47 H, Creatinine 1.90 H, Estimated Creat Clear 30, Estimated GFR 27 L, Est GFR ( Amer) 32 L, Glucose 139 H, Calcium 8.9 06/21/22 11:27: POC Glucose 141 H Medical History: Medical History (Updated 06/21/22 @ 08:22 by Victorino Suarez MD) Abnormal electrocardiography Acquired solitary kidney Acute cerebellar ataxia Allergic rhinitis Allergic rhinitis Allergic rhinitis, unspecified Asthma Chronic back pain Chronic narcotic use CKD (chronic kidney disease) Decreased sensation of lower extremity Diffusion capacity of lung (dl), decreased Fat pad atrophy
--- NOTE | 2022-06-21 16:20 | HMH.SLDYSPHA ---
Speech & Language Evaluation Speech/Language Dysphagia Evaluation Start: 06/21/22 15:47 Freq: ONCE Status: Active Protocol: Document 06/21/22 15:47 JUSTINA (Rec: 06/21/22 16:19 JUSTINA [id number]) Dysphagia Assess/Goals/Plan Assessment Date of Evaluation: 06/21/22 Evaluation Type Initial Certification Assessment/Problems Pt seen for a clinical bedside swallow evaluation per MD order. Does Patient Qualify for Service Yes Qualify/Failure Comment Based on high aspiration risk, cognitive linguistic status, and concerns for aspiration pna--SUPERVISOR CORE SHOP will follow up with pt for diet tolerance. Recommendations PHYSICIAN CERTIFICATION: The specified therapy services are required, authorized, and reviewed every 30 days. Pt will be seen # times/week 1 for # weeks 1 Diet Recommendations Mechanical Soft Liquid Type Recommendations Normal/Thin SL Swallow Guidelines Assist w/all meals,Alt bite w/ sip thru meal,High aspiration risk,Liquids given*,Place food * Crush Meds Crush all meds Dysphagia Swallow Precautions/Strategies Sitting Upright (90 deg),No Straw,Liquids from Cup,Liquids from Spoon,Small Bites and Sips,Alternate Liquids/Solids Comment Pt would benefit from extra sauces/gravys with mechanical soft ground diet, as well as a puree wash when alternating between bites and sips. She also will require assistance with meals including cues to chew/swallow. Plan Anticipate reaching STG in # weeks 1 Anticipate reaching LTG in # weeks 1 Pt/Guardian verbally ack understanding Yes of dx/prognosis/goals G -code Required No STG-Other Comment/Non-Specific Pt will demonstrate diet tolerance with no overt s/sxs of aspiration with 100% accuracy in a structured setting based on clinical observation. Bookseamer Blindstitch Goals Diet mechanical soft ground with extra sauces and gravys with Liquids Thin Liquids Education Instructions provided SUPERVISOR CORE SHOP educated nursing on increase of oral c
[2022-06-21 16:25] LABS: POC Glucose,Bedside 146 (70-110)
--- NOTE | 2022-06-21 17:52 | PC.NURSE ---
Patient able to tell me her name and try to follow commands, weakness noted in extremities. VS stable on 2.5mg of cardene, blood pressure between 130-150's systolic. Patient on 1.5LNC for comfort. Turned q2, lung sounds diminished. Patient able to pass swallow test and diet initiated.
[2022-06-21 22:26] LABS: POC Glucose,Bedside 136 (70-110)
[2022-06-22] VITALS (20 sets, daily range): BP systolic 115–161; BP diastolic 49–77; PULSE 60–110; RESP 16–23; TEMP 36.7–37.9; O2SAT 93–100; BMI 22.4
[2022-06-22 06:30] LABS: MANUAL DIFFERENTIAL MANUAL DIFFERENTIAL (MANUAL DIFF)
[2022-06-22 06:39] LABS: Basophils % 0.3 % (0.1-2.0); Eosinophils # 0.3 K/mm3 (0.0-0.4); Eosinophils % 2.8 % (0.1-12.0); Hematocrit 28.5 % (37.0-47.0); Hemoglobin 9.2 g/dL (12.2-16.2); Lymphocytes # 1.1 K/mm3 (0.7-4.5); Lymphocytes % 10.4 % (10-50); Mean Corpuscular HGB Conc 32.4 g/dL (31.8-35.4); Mean Corpuscular Volume 86.4 fl (81-99); Mean Platelet Volume 8.4 fl (7.4-10.4); Monocytes # 0.6 K/mm3 (0.1-1.0); Neutrophils # 8.4 K/mm3 (1.8-7.8); Neutrophils % 80.4 % (37.0-80.0); Platelet Count 231 K/mm3 (142-424); Red Blood Count 3.29 M/mm3 (4.20-5.40); Red Cell Distribution Width 18.7 % (11.5-17.5); White Blood Count 10.5 K/mm3 (4.8-10.8)
[2022-06-22 06:41] LABS: Chloride 124 mmol/L (98-107)
[2022-06-22 06:42] LABS: Potassium 3.5 mmoL/L (3.5-5.1)
[2022-06-22 06:44] LABS: Alanine Aminotransferase 22 U/L (12-78); Aspartate Amino Transferase 28 U/L (14-36); Blood Urea Nitrogen 50 mg/dl (7-17); Creatinine Clearance Estimated 26 mL/min (50-200); Estimated Glomerular Filt Rate 24 ml/min (>60); GFR (African American) 29 ML/MIN (>60)
[2022-06-22 06:45] LABS: Albumin Level 2.7 g/dl (3.5-5.0); Albumin/Globulin Ratio 1.3 (1.1-1.8); Alkaline Phosphatase 66 U/L (38-126); Anion Gap 12.5 mEq/L (5-15); Bilirubin,Total 0.5 mg/dl (0.2-1.3); Calcium 9.1 mg/dl (8.4-10.2); Carbon Dioxide 19 mmol/L (22.0-30.0); Globulin 2.1 g/dL (1.3-3.2); Glucose 159 mg/dl (74-100); Total Protein,Serum 4.8 g/dl (6.3-8.2)
[2022-06-22 07:00] LABS: Sodium 152 mmol/L (136-145)
--- NOTE | 2022-06-22 07:34 | PC.NURSE ---
Pt alert to person. Will say name and birthday. Cardene continues at 2.5 mg. No changes t/o night to drip. Systolic bps in 130s-140s t/o night. Pt has been talking aloud in room but conversation does not make since. Eyes continue to flick to the right when open. Pt lung sounds diminished. Call light within reach.
[2022-06-22 07:49] LABS: Anisocytosis 1+; Eosinophils % 1 % (0-3); Hypochromasia 1+; Lymphocytes % 4 % (10-50); Monocytes % 1 % (2-9); Neutrophils % 94 % (42-76); Platelet Estimate Normal; Total Cells Counted 100
--- NOTE | 2022-06-22 07:53 | EXP.PN ---
Subjective *Date: 06/22/22 *Time: 08:50 Interval history: Patient states she hurts. She cannot tell me where. She denies shortness of breath. She states she thinks she can walk. Per nursing: She is on and off Cardene drip to maintain lower blood pressure. She was able to eat a little yesterday. She has had a good urinary output and edema is less. Creatinine did increase to 2.102 this morning. She has had a low-grade fever. Exam Data for Last 24 hours Vital signs and Labs for Last 24 Hours: Temp Pulse Resp BP Pulse Ox FiO2 100.2 F H 97 H 20 149/69 H 99 1.5 06/22/22 06:00 06/22/22 06:00 06/22/22 06:00 06/22/22 06:00 06/22/22 06:00 06/21/22 10:00 Laboratory Results - last 24 hr 06/21/22 10:40: Vancomycin Trough 6.5 06/21/22 10:40: WBC 10.8, RBC 3.36 L, Hgb 9.2 L, Hct 28.6 L, MCV 85.2, MCH 27.5, MCHC 32.2, RDW 18.2 H, Plt Count 242, MPV 9.4, Neut % (Auto) 85.5 H, Lymph % (Auto) 8.1 L, [place] % (Auto) 5.8, Eos % (Auto) 0.5, Baso % (Auto) 0.2, Neut # (Auto) 9.3 H, Lymph # (Auto) 0.9, [place] # (Auto) 0.6, Eos # (Auto) 0.1, Baso # (Auto) 0.0, Total Counted 100, Neutrophils % (Manual) 80 H, Lymphocytes % (Manual) 16, Monocytes % (Manual) 4, Platelet Estimate Normal, Hypochromasia 1+, Poikilocytosis 1+, Anisocytosis 1+, Ovalocytes 1+, [place] Cells 1+, Acanthocytes (Spur) 1+ 06/21/22 10:40: Sodium 150 H, Potassium 3.4 L, Chloride 124 H, Carbon Dioxide 18 L, Anion Gap 11.4, BUN 47 H, Creatinine 1.90 H, Estimated Creat Clear 30, Estimated GFR 27 L, Est GFR ( Amer) 32 L, Glucose 139 H, Calcium 8.9 06/21/22 11:27: POC Glucose 141 H 06/21/22 16:19: POC Glucose 146 H 06/21/22 19:48: POC Glucose 136 H 06/22/22 06:21: WBC 10.5, RBC 3.29 L, Hgb 9.2 L, Hct 28.5 L, MCV 86.4, MCH 28.0, MCHC 32.4, RDW 18.7 H, Plt Count 231, MPV 8.4, Neut % (Auto) 80.4 H, Lymph % (Auto) 10.4, [place] % (Auto) 6.0, Eos % (Auto) 2.8, Baso % (Auto) 0.3, Neut # (Auto) 8.4 H, Lymph # (Auto) 1.1, [place] # (Auto) 0.6, Eos # (Auto) 0.3, Baso # (Auto) 0.0, Total Counted 100, Neutrophils % (Manual) 94 H, Lymphocytes % (Manual) 4 L, Monocytes % (Manual) 1 L, Eosinophils % (Manual) 1, Platelet Estimate Normal, Hypochromasia 1+, Anisocytosis 1+ 06/22/22 06:21: Sodium 152 H*, Potassium 3.5, Chloride 124 H, Carbon Dioxide 19 L, Anion Gap 12.5, BUN 50 H, Creatinine 2.10 H, Estimated Creat Clear 26, Estimated GFR 24 L, Est GFR ( Amer) 29 L, Glucose 159 H, Calcium 9.1, Total Bilirubin 0.5, AST 28, ALT 22, Alkaline Phosphatase 66, Total Protein 4.8 L, Albumin 2.7 L, Globulin 2.1, Albumin/Globulin Ratio 1.3 I & O for Last 24 hours: Intake & Output 06/19/22 06/20/22 06/21/22 06/22/22 11:59 11:59 11:59 11:59 Intake Total 2696 / 2696 3244 / 3244 1066 / 1066 1129 / 1129 Output Total 2225 / 2225 925 / 925 1125 / 1125 1440 / 1440 Balance 471 / 471 2319 / 2319 -59 / -59 -311 / -311 Weight 131 lb 9.855 oz 136 lb 0.403 oz 141 lb 8.588 oz 134 lb 11.239 oz Microbiology Reports for the Last 24 Hours: Microbiology 06/16/22 21:26 Blood Blood Culture - Final NO GROWTH AFTER 5 DAYS 06/16/22 21:26 Blood Blood Culture - Final NO GROWTH AFTER 5 DAYS Constitutional Constitutional: no acute distress Comments: Answers questions appropriately. Words are clear. *Routine HEENT Exam Eye: Present other (Rapid alternating movement) ENT: Present mucous membranes moist Comments: Tongue and lips look 100% better today without exudate. *Routine Respiratory Exam Respiratory: Present CTA bilaterally (Anteriorly and posteriorly) *Routine Cardiovascular Exam Cardiovascular: Present RRR Comments: Monitor showing sinus rhythm *Routine Abdominal Exam Abdominal: Present soft and normoactive bowel sounds; Absent tenderness or distended *Routine Exam Comments: Cooper catheter to bedside drainage *Routine Extremities Exam Extremities: Present edema (Bilateral arms and legs.); Absent calf tenderness Comments: She can move both
--- NOTE | 2022-06-22 11:39 | DIET.NUTRFU ---
chart reviewed, oral diet initiated yesterday after bedside swallow eval. EXECUTIVE SALES MANAGER ordered ground diet with thin liquids, no straws, gravies and sauces to keep thing moist and assistance with meals. Staff is assisting with intake, this morning patient refused. Oral intake continues to be poor, not meeting nutritional needs putting her at risk for weight loss. nacl was last given on 06/21, Na high at 152H, BUN 50H Cr 2.0- worse then 06/21. BS elevated form 130-164, insulin ordered. LBM 06/20, urine out good at 1115ml on 06/21. lasix given 06/21. will provide glucerna with tray to help meet caloric and protein needs if consumed.
[2022-06-22 12:03] LABS: POC Glucose,Bedside 108 (70-110)
[2022-06-22 17:01] LABS: POC Glucose,Bedside 120 (70-110)
--- NOTE | 2022-06-22 18:27 | PC.NURSE ---
Patient more alert this morning and around noon. Patient able to say name and where she was but confused to time and situation. Patient able to answer simple questions but still states inappropriate statements such as get the hotdog off the stove. VS stable enough to turn cardene drip off around 1530 after metoprolol given this am. Lung sounds diminished. Patient on 1.5LNC.
--- NOTE | 2022-06-22 18:32 | PC.NURSE ---
Patient given tylenol for low grade fever, when asked patient if she was in pain she she said no.
[2022-06-23] VITALS (12 sets, daily range): BP systolic 132–184; BP diastolic 61–74; PULSE 42–72; RESP 15–20; TEMP 36.4–37.3; O2SAT 94–100; BMI 22.4
[2022-06-23 01:03] LABS: POC Glucose,Bedside 164 (70-110)
[2022-06-23 01:21] LABS: POC Glucose,Bedside 109 (70-110)
[2022-06-23 05:27] LABS: POC Glucose,Bedside 128 (70-110)
--- NOTE | 2022-06-23 05:45 | PC.NURSE ---
NO ACUTE CHANGES SINCE PREVIOUS ASSESSMENT. PT REMAINS LETHARGIC THIS SHIFT. LUNG SOUNDS DIMINISHED. TOLERATING 1L NASAL CANNULA WELL. PT HAD A HARD TIME AROUSING ENOUGH TO TAKE NIGHT TIME MEDS. VSS. BEING TURNED Q2HRS. BUE REMAIN SWOLLEN WITH +3 EDEMA. PRABHAKAR DRAINING ADEQAUATE AMOUNTS OF URINE.
[2022-06-23 06:27] LABS: Basophils % 0.3 % (0.1-2.0); Eosinophils # 0.3 K/mm3 (0.0-0.4); Eosinophils % 3.4 % (0.1-12.0); Hematocrit 26.7 % (37.0-47.0); Hemoglobin 8.5 g/dL (12.2-16.2); Lymphocytes # 1.2 K/mm3 (0.7-4.5); Lymphocytes % 13.8 % (10-50); Mean Corpuscular HGB Conc 31.9 g/dL (31.8-35.4); Mean Corpuscular Hemoglobin 27.8 pg (27.0-31.2); Mean Corpuscular Volume 87.1 fl (81-99); Mean Platelet Volume 8.6 fl (7.4-10.4); Monocytes # 0.4 K/mm3 (0.1-1.0); Monocytes % 4.9 % (1.7-9.3); Neutrophils # 6.7 K/mm3 (1.8-7.8); Neutrophils % 77.6 % (37.0-80.0); Platelet Count 224 K/mm3 (142-424); Red Blood Count 3.07 M/mm3 (4.20-5.40); Red Cell Distribution Width 18.7 % (11.5-17.5); White Blood Count 8.6 K/mm3 (4.8-10.8)
[2022-06-23 06:32] LABS: Chloride 125 mmol/L (98-107)
[2022-06-23 06:33] LABS: Potassium 3.8 mmoL/L (3.5-5.1)
[2022-06-23 06:36] LABS: Anion Gap 9.8 mEq/L (5-15); Blood Urea Nitrogen 53 mg/dl (7-17); Calcium 8.6 mg/dl (8.4-10.2); Carbon Dioxide 23 mmol/L (22.0-30.0); Creatinine Clearance Estimated 30 mL/min (50-200); Estimated Glomerular Filt Rate 28 ml/min (>60); GFR (African American) 34 ML/MIN (>60); Glucose 122 mg/dl (74-100)
[2022-06-23 07:14] LABS: Sodium 154 mmol/L (136-145)
--- NOTE | 2022-06-23 08:11 | PC.NURSE ---
Dr. Sylvester came to floor and why he was paged, notified that patient's sodium was 154. Normal saline 75 ml/hr iv maintenance ordered.
--- NOTE | 2022-06-23 08:49 | PC.NURSE ---
Spoke to Dr. Suarez about patient's sodium level 154. IV fluids not started and d/c'd
--- NOTE | 2022-06-23 09:01 | EXP.ACUTE.PN ---
Subjective *Date: 06/23/22 *Time: 09:01 Interval history: No new issues noted overnight. Medical Exam Vital signs and Labs for Last 24 Hours: Vital Signs Temp Pulse Pulse Resp BP Pulse Ox 06/23/22 08:00 97.5 F L 06/23/22 06:00 62 16 148/68 H 94 L 06/23/22 04:00 70 16 144/65 H 100 06/23/22 04:00 97.7 F 06/22/22 20:00 60 06/23/22 00:00 60 06/23/22 04:00 70 06/23/22 02:00 72 16 149/67 H 99 06/23/22 00:00 66 16 156/70 H 96 06/22/22 22:00 69 16 143/68 H 99 06/22/22 20:00 98.0 F 70 18 139/60 98 06/23/22 00:00 98.2 F 06/22/22 10:00 98 H 23 161/74 H 98 06/22/22 11:00 106 H 21 155/75 H 100 06/22/22 12:00 94 H 23 154/59 H 99 06/22/22 13:00 74 23 115/61 93 L 06/22/22 14:00 68 21 126/56 L 100 06/22/22 15:00 66 21 132/55 L 98 06/22/22 16:00 67 21 129/58 L 99 06/22/22 17:00 66 20 138/66 98 06/22/22 18:00 71 18 153/77 H 100 06/22/22 16:00 66 06/22/22 12:00 95 H 06/22/22 15:53 99.0 F 06/22/22 11:44 100.2 F H Intake and Output 06/22/22 06/23/22 06/23/22 23:59 07:59 15:59 Intake Total 0 / 0 0 / 0 Output Total 0 / 1550 650 / 650 0 / 650 Balance 0 / -1550 -650 / -650 0 / -650 Intake: Intake, Oral Amount 0 / 0 0 / 0 Output: Output, Urine Amount 0 / 1000 650 / 650 0 / 650 Other: Number of Unmeasured Voids 0 0 0 Weight 134 lb 7.712 oz Patient Weight 06/23/22 23:59 Weight 134 lb 7.712 oz Laboratory Results - last 24 hr 06/22/22 06:24: POC Glucose 164 H 06/22/22 11:43: POC Glucose 108 06/22/22 16:48: POC Glucose 120 H 06/22/22 20:33: POC Glucose 109 06/23/22 05:19: POC Glucose 128 H 06/23/22 06:10: WBC 8.6, RBC 3.07 L, Hgb 8.5 L, Hct 26.7 L, MCV 87.1, MCH 27.8, MCHC 31.9, RDW 18.7 H, Plt Count 224, MPV 8.6, Neut % (Auto) 77.6, Lymph % (Auto) 13.8, [place] % (Auto) 4.9, Eos % (Auto) 3.4, Baso % (Auto) 0.3, Neut # (Auto) 6.7, Lymph # (Auto) 1.2, [place] # (Auto) 0.4, Eos # (Auto) 0.3, Baso # (Auto) 0.0 06/23/22 06:10: Sodium 154 H*, Potassium 3.8, Chloride 125 H, Carbon Dioxide 23, Anion Gap 9.8, BUN 53 H, Creatinine 1.80 H, Estimated Creat Clear 30, Estimated GFR 28 L, Est GFR ( Amer) 34 L, Glucose 122 H D, Calcium 8.6 I & O for Labs for Last 24 Hours: Intake & Output 06/20/22 06/21/22 06/22/22 06/23/22 23:59 23:59 23:59 23:59 Intake Total 2115 / 2115 1536 / 1536 0 / 0 0 / 0 Output Total 700 / 700 1115 / 1115 1550 / 1550 650 / 650 Balance 1415 / 1415 421 / 421 -1550 / -1550 -650 / -650 Weight 136 lb 0.403 oz 141 lb 8.588 oz 134 lb 11.239 oz 134 lb 7.712 oz Constitutional: Present obtunded Respiratory: Present decreased breath sounds and wheezes Cardiac: Present Reg Rate and Rhythm GI: Present soft; Absent tenderness or guarding Extremities: Present edema (hands and legs) Assessment and Plan *Assessment and plan (1) Hypertensive crisis: Status: Acute Category: Medical Code(s): I16.9 - Hypertensive crisis, unspecified (2) Encephalopathy, hypertensive: Status: Acute Category: Medical Code(s): I67.4 - Hypertensive encephalopathy (3) Elevated troponin: Status: Acute Category: Medical Code(s): R77.8 - Other specified abnormalities of plasma proteins (4) Fever: Status: Acute Category: Medical Code(s): R50.9 - Fever, unspecified (5) Leukocytosis: Status: Acute Category: Medical Code(s): D72.829 - Elevated white blood cell count, unspecified (6) History of CVA (cerebrovascular accident): Status: Acute Category: Medical Code(s): Z86.73 - Personal history of transient ischemic attack (TIA), and cerebral infarction without residual deficits (7) Type 2 diabetes mellitus: Status: Chronic Qualifiers: Diabetes mellitus alarm mechanic insulin use: with alarm mechanic use Qualified Code(s): E11.9 - Type 2 d
[2022-06-23 12:24] LABS: POC Glucose,Bedside 135 (70-110)
--- NOTE | 2022-06-23 13:42 | DIET.NUTRFU ---
Patient was reported to be holding food in oral cavity from breakfast during rounds. FOOD TASTER consulted to review. Patient's po intake is very poor, refusal of most meals. Labs: Na 154H, BUN 53, Cr 1.8. +3 edema noted today, IVF discontinued. She is already ordered glucerna with trays.
[2022-06-23 16:16] LABS: POC Glucose,Bedside 114 (70-110)
--- NOTE | 2022-06-23 18:05 | PC.NURSE ---
Patient blood pressure started to rise to 170's 190's after being moved rooms. Dr. Suarez notified and another dose of amlodipine given. Blood pressure still raised so prn clonidine given. Blood pressure began to stabilize with systolic in 140's to 150's. Morphine given for back pain. Patient remained stable on room air and turned q2.
[2022-06-23 21:48] LABS: POC Glucose,Bedside 233 (70-110)
[2022-06-23 21:48] LABS: POC Glucose,Bedside 224 (70-110)
[2022-06-24] VITALS (7 sets, daily range): BP systolic 149–169; BP diastolic 53–81; PULSE 50–77; RESP 14–19; TEMP 36.6–37.6; O2SAT 1–100; BMI 21.9
[2022-06-24 05:56] LABS: Basophils % 0.3 % (0.1-2.0); Eosinophils # 0.4 K/mm3 (0.0-0.4); Eosinophils % 5.4 % (0.1-12.0); Hematocrit 25.9 % (37.0-47.0); Hemoglobin 8.1 g/dL (12.2-16.2); Lymphocytes # 1.2 K/mm3 (0.7-4.5); Lymphocytes % 17.4 % (10-50); Mean Corpuscular HGB Conc 31.5 g/dL (31.8-35.4); Mean Corpuscular Hemoglobin 27.5 pg (27.0-31.2); Mean Corpuscular Volume 87.2 fl (81-99); Mean Platelet Volume 8.7 fl (7.4-10.4); Monocytes # 0.5 K/mm3 (0.1-1.0); Monocytes % 6.4 % (1.7-9.3); Neutrophils % 70.5 % (37.0-80.0); Platelet Count 205 K/mm3 (142-424); Red Blood Count 2.97 M/mm3 (4.20-5.40); Red Cell Distribution Width 19.1 % (11.5-17.5); White Blood Count 7.1 K/mm3 (4.8-10.8)
[2022-06-24 06:02] LABS: Chloride 121 mmol/L (98-107); Potassium 4.2 mmoL/L (3.5-5.1)
[2022-06-24 06:05] LABS: Anion Gap 8.2 mEq/L (5-15); Blood Urea Nitrogen 54 mg/dl (7-17); Calcium 8.5 mg/dl (8.4-10.2); Carbon Dioxide 25 mmol/L (22.0-30.0); Creatinine Clearance Estimated 29 mL/min (50-200); Estimated Glomerular Filt Rate 28 ml/min (>60); GFR (African American) 34 ML/MIN (>60); Glucose 165 mg/dl (74-100)
[2022-06-24 06:07] LABS: Sodium 150 mmol/L (136-145)
--- NOTE | 2022-06-24 06:16 | PC.NURSE ---
lab called with sodium level 150, pt sodium level was 154 yesterday, will pass along in report to oncoming nurse to inform md upon rounds.
[2022-06-24 06:17] LABS: POC Glucose,Bedside 192 (70-110)
--- NOTE | 2022-06-24 06:28 | PC.NURSE ---
pt is alert to name and was able to state her birthday and stated that she was in a hospital but stated [facility], skin pwd with edema 2-3+, f/c to bsd, pt turn q2, redness to buttocks area and pressure dressing in place, telemetry reveals periods of bradycardia down to 47 at times, b/p remains stable, sodium level 150 this am down from 154 yesterday, will inform md upon rounds.
--- NOTE | 2022-06-24 07:33 | P.PN_ITS ---
Subjective *Date: 06/24/22 *Time: 07:33 Medical Exam Vital signs and Labs for Last 24 Hours: Vital Signs Temp Pulse Pulse Resp BP Pulse Ox 06/24/22 04:00 50 L 06/24/22 04:00 98.4 F 62 19 154/74 H 97 06/23/22 22:00 100 06/23/22 20:00 60 06/24/22 00:00 55 L 06/23/22 20:00 70 100 06/24/22 00:00 98.7 F 53 L 18 149/53 H 100 06/23/22 21:30 70 06/23/22 20:00 98.2 F 60 15 132/61 100 06/23/22 16:00 42 L 06/23/22 12:00 60 06/23/22 08:00 60 06/23/22 15:14 98.6 F 67 17 154/70 H 99 06/23/22 11:34 99.2 F 53 L 20 184/74 H 100 06/23/22 08:00 97.5 F L Intake and Output 06/23/22 06/23/22 06/24/22 15:59 23:59 07:59 Intake Total 30 / 370 240 / 370 1006 / 1006 Output Total 400 / 1200 150 / 1200 725 / 725 Balance -370 / -830 90 / -830 281 / 281 Intake: Intake, Oral Amount 30 / 270 240 / 270 Intake, Total IV Amount 1006 / 1006 0.45% NaCl w/20mEq KCL 1,000 ml 806 / 806 @ 50 mls/hr IV .Q20H MANUEL Rx#: [id number] Meropenem 0.5 gm In 0.9 % 200 / 200 Sodium Chloride 100 ml @ 100 mls/hr IV Q12H MANUEL Rx#:[id number] Output: Output, Urine Amount 0 / 800 150 / 800 725 / 725 Output, Urine Amount (Catheter) 400 / 400 Cooper 400 / 400 Other: Number of Unmeasured Voids 0 0 0 Weight 59.8 kg Patient Weight 06/24/22 23:59 Weight 59.8 kg Laboratory Results - last 24 hr 06/23/22 11:51: POC Glucose 135 H 06/23/22 15:53: POC Glucose 114 H 06/23/22 20:31: POC Glucose 224 H 06/23/22 21:28: POC Glucose 233 H 06/24/22 05:38: POC Glucose 192 H 06/24/22 05:42: WBC 7.1, RBC 2.97 L, Hgb 8.1 L, Hct 25.9 L, MCV 87.2, MCH 27.5, MCHC 31.5 L, RDW 19.1 H, Plt Count 205, MPV 8.7, Neut % (Auto) 70.5, Lymph % (Auto) 17.4, [place] % (Auto) 6.4, Eos % (Auto) 5.4, Baso % (Auto) 0.3, Neut # (Auto) 5.0, Lymph # (Auto) 1.2, [place] # (Auto) 0.5, Eos # (Auto) 0.4, Baso # (Auto) 0.0 06/24/22 05:42: Sodium 150 H, Potassium 4.2, Chloride 121 H, Carbon Dioxide 25, Anion Gap 8.2, BUN 54 H, Creatinine 1.80 H, Estimated Creat Clear 29, Estimated GFR 28 L, Est GFR ( Amer) 34 L, Glucose 165 H D, Calcium 8.5 I & O for Labs for Last 24 Hours: Intake & Output 06/21/22 06/22/22 06/23/22 06/24/22 23:59 23:59 23:59 23:59 Intake Total 1536 / 1536 0 / 0 270 / 370 1006 / 1006 Output Total 1115 / 1115 1550 / 1550 1200 / 1200 725 / 725 Balance 421 / 421 -1550 / -1550 -930 / -830 281 / 281 Weight 64.2 kg 61.1 kg 61 kg 59.8 kg The patient's infection will respond to the chosen ABx?: Yes (empiric therapy) Is the patient receiving the right drug, dose, and route?: Yes Could a more targeted ABx be ordered?: No (cultures have no c&s)
--- NOTE | 2022-06-24 09:05 | EXP.ACUTE.PN ---
Subjective *Date: 06/24/22 *Time: 09:05 Interval history: Pt was transferred out of step down unit yesterday, no new complaints. Medical Exam Vital signs and Labs for Last 24 Hours: Vital Signs Temp Pulse Pulse Resp BP Pulse Ox 06/24/22 04:00 50 L 06/24/22 04:00 98.4 F 62 19 154/74 H 97 06/23/22 22:00 100 06/23/22 20:00 60 06/24/22 00:00 55 L 06/23/22 20:00 70 100 06/24/22 00:00 98.7 F 53 L 18 149/53 H 100 06/23/22 21:30 70 06/23/22 20:00 98.2 F 60 15 132/61 100 06/23/22 16:00 42 L 06/23/22 12:00 60 06/23/22 15:14 98.6 F 67 17 154/70 H 99 06/23/22 11:34 99.2 F 53 L 20 184/74 H 100 Intake and Output 06/23/22 06/24/22 06/24/22 23:59 07:59 15:59 Intake Total 240 / 370 1006 / 1006 Output Total 150 / 1200 725 / 725 Balance 90 / -830 281 / 281 Intake: Intake, Oral Amount 240 / 270 Intake, Total IV Amount 1006 / 1006 0.45% NaCl w/20mEq KCL 1,000 ml 806 / 806 @ 50 mls/hr IV .Q20H MANUEL Rx#: [id number] Meropenem 0.5 gm In 0.9 % 200 / 200 Sodium Chloride 100 ml @ 100 mls/hr IV Q12H MANUEL Rx#:[id number] Output: Output, Urine Amount 150 / 800 725 / 725 Other: Number of Unmeasured Voids 0 0 Weight 131 lb 13.383 oz Patient Weight 06/24/22 23:59 Weight 131 lb 13.383 oz Laboratory Results - last 24 hr 06/23/22 11:51: POC Glucose 135 H 06/23/22 15:53: POC Glucose 114 H 06/23/22 20:31: POC Glucose 224 H 06/23/22 21:28: POC Glucose 233 H 06/24/22 05:38: POC Glucose 192 H 06/24/22 05:42: WBC 7.1, RBC 2.97 L, Hgb 8.1 L, Hct 25.9 L, MCV 87.2, MCH 27.5, MCHC 31.5 L, RDW 19.1 H, Plt Count 205, MPV 8.7, Neut % (Auto) 70.5, Lymph % (Auto) 17.4, [place] % (Auto) 6.4, Eos % (Auto) 5.4, Baso % (Auto) 0.3, Neut # (Auto) 5.0, Lymph # (Auto) 1.2, [place] # (Auto) 0.5, Eos # (Auto) 0.4, Baso # (Auto) 0.0 06/24/22 05:42: Sodium 150 H, Potassium 4.2, Chloride 121 H, Carbon Dioxide 25, Anion Gap 8.2, BUN 54 H, Creatinine 1.80 H, Estimated Creat Clear 29, Estimated GFR 28 L, Est GFR ( Amer) 34 L, Glucose 165 H D, Calcium 8.5 I & O for Labs for Last 24 Hours: Intake & Output 06/21/22 06/22/22 06/23/22 06/24/22 23:59 23:59 23:59 23:59 Intake Total 1536 / 1536 0 / 0 270 / 370 1006 / 1006 Output Total 1115 / 1115 1550 / 1550 1200 / 1200 725 / 725 Balance 421 / 421 -1550 / -1550 -930 / -830 281 / 281 Weight 141 lb 8.588 oz 134 lb 11.239 oz 134 lb 7.712 oz 131 lb 13.383 oz Constitutional: Present no acute distress (awakens to voice, answers a few questions) Respiratory: Present decreased breath sounds Cardiac: Present Reg Rate and Rhythm GI: Present soft; Absent tenderness or guarding Extremities: Present edema (hands and legs) Assessment and Plan *Assessment and plan (1) Hypertensive crisis: Status: Acute Category: Medical Code(s): I16.9 - Hypertensive crisis, unspecified (2) Encephalopathy, hypertensive: Status: Acute Category: Medical Code(s): I67.4 - Hypertensive encephalopathy (3) Elevated troponin: Status: Acute Category: Medical Code(s): R77.8 - Other specified abnormalities of plasma proteins (4) Fever: Status: Acute Category: Medical Code(s): R50.9 - Fever, unspecified (5) Leukocytosis: Status: Acute Category: Medical Code(s): D72.829 - Elevated white blood cell count, unspecified (6) History of CVA (cerebrovascular accident): Status: Acute Category: Medical Code(s): Z86.73 - Personal history of transient ischemic attack (TIA), and cerebral infarction without residual deficits (7) Type 2 diabetes mellitus: Status: Chronic Qualifiers: Diabetes mellitus mcc insulin use: with mcc use Qualified Code(s): E11.9 - Type 2 diabetes mellitus without complications; Z79.4 - longterm (current) use of insulin Category: Medical
--- NOTE | 2022-06-24 09:56 | HMH.PTEV ---
Physical Therapy Evaluation Rehab PT IP Evaluation Start: 06/23/22 16:39 Freq: ONCE Status: Active Protocol: Document 06/24/22 09:51 ROMELIA (Rec: 06/24/22 09:56 ROMELIA [id number]) Subjective/History History History 66 yowf adm to [facility] with hypertensive encephalopathy. She reports she lives with family, no steps to enter the home, she was using a walker for ambulation prior to adm. Chronic ill health with multiple co-morbidities at baseline. Subjective Subjective Pt c/o back pain, but unable to rate when asked. Remains very lethargic. Rehab PT IP Eval Objective Appearance Patient Behavior Appropriate,Sedated Patient Orientation Person,Place,Birthday,Year Difficulty following instructions moderate Speech Pattern Clear,Soft-Spoken Ambulation Patient Able to Ambulate No Balance Ability to Arise Unable Sitting Balance Leans or slides in chair Dynamic Sitting Balance Ability Poor Transfers Bed Transfer Ability Maximum x 2 (75% assist) ROM All Extremities PT ROM Status WFL Abnormal ROM Comment PROM MMT All Extremities PT MMT ABN Abnormal MMT Grade grossly 2/5 Rehab PT IP prob,goals,plan Problems Date of Evaluation: 06/24/22 PT IP Problems Bed Mobility,Transfers Rehab Potential Rehab Potential Fair Plan PT Intervention Plan Bed Mobility,Transfers, Therapeutic Exercise PT Plan Frequency Daily Duration LOS Discharge Goals Bed Transfer Ability Moderate x 2 (50% assist) Sit to Stand Chair Transfer Ability Maximum x 2 (75% assist) Discharge Plan PT Discharge Plan Pt is currently most appropriate for rehab placement. G -code Required No Eval Complexity Eval Charge Codes 02052 - Moderate Complexity PHYSICIAN CERTIFICATION: I certify the specified therapy services for Harini Murry are required, authorized, and reviewed every 30 days.
--- NOTE | 2022-06-24 10:12 | HMH.OTEV ---
OT Inpatient Evaluation Rehab OT IP Evaluation Start: 06/23/22 16:39 Freq: ONCE Status: Active Protocol: Document 06/24/22 10:01 HUMAIRA (Rec: 06/24/22 10:11 HUMAIRA [id number]) Rehab OT IP Assessment Subjective History Patient is brought in by EMS.? History obtained from patient 's mother. Mother states patient was up all night last night.? This morning she was complaining to her that she could not see at all.? The patient normally walks around with a walker and was unable to do so today.? She did not seem to be able to take direction from her mother.? She could not get her to take any of her medications except a dose of Reglan after multiple attempts .? She has not eaten today.? She has not taken any of her medicines otherwise.? Mother took her blood pressure this morning and it was 200/100 at 8 AM.? Mother states that she previously had been on an antihypertensive medication to protect her kidneys, but it was stopped about 5 weeks ago because her blood pressure was too low. Mother states the patient has been declining for 4 weeks.? She has had steadily decreasing vision.? She already had poor vision due to previous strokes but vision has been decreasing.? She has had problems with fecal impaction and vomiting, was admitted for that and following that had diarrhea.? She has had shoulder and neck pain for the past several weeks.? She was seen in this emergency department 6 days ago and had an extensive work- up including CTA of her head and neck.? She followed up
[2022-06-24 12:47] LABS: POC Glucose,Bedside 105 (70-110)
[2022-06-24 13:49] LABS: Vancomycin,Trough 12.7 ug/mL (5.0-10.0)
--- NOTE | 2022-06-24 13:52 | DIET.NUTRFU ---
Refusal of both breakfast and lunch today, only 25% consumed at each meal 06/23. Supplements are already in place. When tried to visit she was very lethargic, did not wake up to questions. Na 150H (154H), BUN 54H, Cr 1.8H, glucose 165H. Therapy was to eval today, recommended rehab with limited participation. Noted to have 2-3+edema.Staff to continue to encourage and assist with meals
[2022-06-24 18:59] LABS: Vancomycin,Peak 27.5 ug/ml (11-39)
--- NOTE | 2022-06-24 19:01 | PC.NURSE ---
Blood pressures slightly elevated today but stable. Heart rate between 60 and 71, no bradycardia noted. Patient on 1LNC. No pain reported during shift. No other changes noted.
[2022-06-25] VITALS (9 sets, daily range): BP systolic 130–174; BP diastolic 52–78; PULSE 68–80; RESP 16–22; TEMP 36.7–37.6; O2SAT 91–100; BMI 22.7
[2022-06-25 01:48] LABS: POC Glucose,Bedside 125 (70-110)
[2022-06-25 05:29] LABS: POC Glucose,Bedside 104 (70-110)
--- NOTE | 2022-06-25 06:06 | PC.NURSE ---
Pt is A&O to Person, place, and situation. She is now on RA and tolerating well with O2 sats >95%. SBP 154-168 this shift. HR 69-77. Generalized +2 pitting edema noted. 2 BMs this shift. No SSI required. Pt has been turned Q2 HR this shift. Extremities elevated. Call light within reach
--- NOTE | 2022-06-25 10:10 | EXP.ACUTE.PN ---
Subjective *Date: 06/25/22 *Time: 10:10 Interval history: Patient with no new complaints today. Medical Exam Vital signs and Labs for Last 24 Hours: Vital Signs Temp Pulse Pulse Resp BP Pulse Ox 06/25/22 08:00 98.2 F 78 16 143/52 H 91 L 06/25/22 04:00 99.0 F 77 16 168/78 H 98 06/25/22 00:00 70 06/24/22 20:00 70 06/25/22 04:00 70 06/24/22 20:00 100 06/25/22 00:00 98.4 F 69 16 156/71 H 98 06/24/22 20:00 97.9 F 77 18 154/75 H 1 L 06/24/22 16:00 76 06/24/22 12:00 60 06/24/22 16:00 98.5 F 77 16 169/71 H 100 06/24/22 17:07 69 19 161/76 H 100 06/24/22 12:00 99.7 F H 66 16 165/74 H 100 Intake and Output 06/24/22 06/25/22 06/25/22 23:59 07:59 15:59 Intake Total 360 / 1486 Output Total 1050 / 1050 Balance 360 / -739 -1050 / -1050 Intake: Intake, Oral Amount 360 / 480 Output: Output, Urine Amount 1050 / 1050 Other: Number of Unmeasured Voids 0 0 Weight 136 lb 7.458 oz Patient Weight 06/25/22 23:59 Weight 136 lb 7.458 oz Laboratory Results - last 24 hr 06/24/22 12:37: Vancomycin Trough 12.7 H 06/24/22 12:37: POC Glucose 105 06/24/22 17:40: Vancomycin Peak 27.5 06/24/22 21:03: POC Glucose 125 H 06/25/22 05:19: POC Glucose 104 I & O for Labs for Last 24 Hours: Intake & Output 06/22/22 06/23/22 06/24/22 06/25/22 23:59 23:59 23:59 23:59 Intake Total 0 / 0 270 / 370 1486 / 1486 Output Total 1550 / 1550 1200 / 1200 1525 / 2225 1050 / 1050 Balance -1550 / -1550 -930 / -830 -39 / -739 -1050 / -1050 Weight 134 lb 11.239 oz 134 lb 7.712 oz 131 lb 13.383 oz 136 lb 7.458 oz Constitutional: Present no acute distress (awakens to voice, answers a few questions) Respiratory: Present decreased breath sounds Cardiac: Present Reg Rate and Rhythm GI: Present soft; Absent tenderness or guarding Extremities: Present edema (hands and legs) Assessment and Plan *Assessment and plan (1) Hypertensive crisis: Status: Acute Category: Medical Code(s): I16.9 - Hypertensive crisis, unspecified (2) Encephalopathy, hypertensive: Status: Acute Category: Medical Code(s): I67.4 - Hypertensive encephalopathy (3) Elevated troponin: Status: Acute Category: Medical Code(s): R77.8 - Other specified abnormalities of plasma proteins (4) Fever: Status: Acute Category: Medical Code(s): R50.9 - Fever, unspecified (5) Leukocytosis: Status: Acute Category: Medical Code(s): D72.829 - Elevated white blood cell count, unspecified (6) History of CVA (cerebrovascular accident): Status: Acute Category: Medical Code(s): Z86.73 - Personal history of transient ischemic attack (TIA), and cerebral infarction without residual deficits (7) Type 2 diabetes mellitus: Status: Chronic Qualifiers: Diabetes mellitus nursing home insulin use: with director long term care use Qualified Code(s): E11.9 - Type 2 diabetes mellitus without complications; 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 Category: Medical Code(s): E11.9 - Type 2 diabetes mellitus without complications (8) CKD (chronic kidney disease): Status: Acute Category: Medical Code(s): N18.9 - Chronic kidney disease, unspecified (9) Acquired solitary kidney: Status: Acute Category: Medical Code(s): Z90.5 - Acquired absence of kidney (10) UTI (urinary tract infection): Status: Acute Category: Medical Code(s): N39.0 - Urinary tract infection, site not specified (11) Altered mental status: Status: Acute Category: Medical Code(s): R41.82 - Altered mental status, unspecified (12) Pneumonia: Status: Acute Category: Medical Code(s): J18.9 - Pneumonia, unspecified organism (13) Nystagmus: Status: Acute Category: Medical Code(s): H55.
--- NOTE | 2022-06-25 12:37 | EXP.PHA.CONS ---
Pharmacy Consult Date: 06/25/22 Time: 12:38 Referring provider: DR. PIZARRO Reason for Consult:: VANCOMYCIN LEVELS Allergies Allergy/AdvReac Type Severity Reaction Status Date / Time Penicillins [PENICILLINS] Allergy Intermediate I-RASH Verified 05/24/22 14:33 adhesive tape Allergy Unknown Unknown Verified 05/24/22 14:33 allergy reaction pseudoephedrine Allergy Unknown TONGUE Verified 05/24/22 14:33 [PSEUDOEPHEDRINE] PEELS Sulfa (Sulfonamide Allergy Unknown KIDNEYS Verified 05/24/22 14:33 Antibiotics) [SULFA (SULFONAMIDE ANTIBIOTICS)] Home Medications Medication Instructions Recorded Confirmed Type mecobalamin (vitamin B12) 1,000 1,000 mcg sublingual HS Supplement 11/06/17 06/16/22 History mcg disintegrating tablet,sublingual allopurinol 100 mg tablet 100 mg PO BID Gout 04/13/21 06/16/22 History cholecalciferol (vitamin D3) 125 125 mcg PO DAILY Supplement 04/13/21 06/16/22 History mcg (5,000 unit) capsule clopidogrel 75 mg tablet 75 mg PO HS platelet inhibitor 04/13/21 06/16/22 History buspirone 10 mg tablet 20 mg PO BID Anxiety 08/10/21 06/16/22 History duloxetine 60 mg capsule,delayed 60 mg PO DAILY Depression 08/16/21 06/16/22 History release montelukast 10 mg tablet 10 mg PO PM Allergy symptoms 08/16/21 06/17/22 History aspirin 81 mg tablet,delayed 81 mg PO DAILY heart health 08/19/21 06/16/22 History release insulin human U-100 NPH-regulr 40 unit SQ BID Diabetes 08/26/21 06/16/22 History 70-30 mix 100 unit/mL subcutaneous susp prednisone 5 mg tablet 2.5 mg PO DAILY Fibromyalgia 30 11/09/21 06/16/22 History days #15 tabs fluticasone propionate 50 1 spray intranasal DAILY allergies 04/09/22 06/16/22 History mcg/actuation nasal spray,suspension (Flonase Allergy Relief) rosuvastatin 20 mg tablet (Crestor) 20 mg PO HS Cholesterol 04/09/22 06/16/22 History promethazine 25 mg tablet 25 mg PO TID PRN nausea and 04/19/22 06/16/22 Rx vomiting #30 tabs famotidine 20 mg tablet 20 mg PO DAILY GERD 06/16/22 06/16/22 History bupropion HCl 150 mg 24 hr tablet, 150 mg PO DAILY MOOD 06/17/22 06/17/22 History extended release New Prescriptions to Start Prescriptions: Height: 1.65 m Weight: 61.9 kg Laboratory Results:: Laboratory Results - last 24 hr 06/24/22 12:37: Vancomycin Trough 12.7 H 06/24/22 12:37: POC Glucose 105 06/24/22 17:40: Vancomycin Peak 27.5 06/24/22 21:03: POC Glucose 125 H 06/25/22 05:19: POC Glucose 104 Medical History: Medical History (Updated 06/22/22 @ 08:00 by Shyla Bethea APRN) Abnormal electrocardiography Acquired solitary kidney Acute cerebellar ataxia Allergic rhinitis Allergic rhinitis Allergic rhinitis, unspecified Asthma Chronic back pain Chronic narcotic use CKD (chronic kidney disease) Decreased sensation of lower extremity Diffusion capacity of lung (dl), decreased Fat pad atrophy of foot Fibromyalgia Generalized anxiety disorder Gout History of asthma History of CVA (cerebrovascular accident) Metatarsalgia of both feet Nocturnal hypoxemia Occipital infarction Onychodystrophy Onychoincurvatum Rheumatoid arthritis Tingling of both feet Type 2 diabetes mellitus Assessment and Plan Assessment and plan all Dx Assessment and Plan for all problems:: PATIENT'S VANCOMCYIN PEAK AND TROUGH WERE 27.5 MCG/ML AND 12.7 MCG/ML, RESPECTIVELY.
--- NOTE | 2022-06-25 16:20 | INFXCTL.NOTE ---
pt had an episode of confusion today.
--- NOTE | 2022-06-25 16:21 | PC.NURSE ---
pt alert x4, had one episode of confusion this shift. ra with sats at 99%. 2 bm this shift, the first bm was loose and the last one was formed. lungs diminished. bue and ble +2 pitting edema. bed alarm on for pt safety. pt has ate less than 25% of meals this shift, but will drink fluids. nicole in place with adequate uop. 1600 b/p 174/75. will continue to monitor vs.
[2022-06-25 17:40] LABS: POC Glucose,Bedside 151 (70-110)
[2022-06-25 22:41] LABS: POC Glucose,Bedside 157 (70-110)
[2022-06-26] VITALS (9 sets, daily range): BP systolic 137–177; BP diastolic 48–80; PULSE 60–90; RESP 15–20; TEMP 36.5–36.8; O2SAT 97–100; BMI 21.7
--- NOTE | 2022-06-26 07:05 | PC.NURSE ---
NO ACUTE CHANGES. PT HAS BEEN CONFUSED THIS SHIFT HOLLERING OUT FOR HER GLASSES AND THAT SHE NEEDS TO GO TO [place]. HAS BEEN TURNED Q2HRS. BED ALARM IN PLACE. BUE REMAIN SWOLLEN +2 AND PITTING.
--- NOTE | 2022-06-26 10:49 | EXP.ACUTE.PN ---
Subjective *Date: 06/26/22 *Time: 10:49 Interval history: Patient with no new complaints today, states she feels tired. Medical Exam Vital signs and Labs for Last 24 Hours: Vital Signs Temp Pulse Pulse Resp BP Pulse Ox 06/26/22 07:38 98.0 F 81 18 148/63 H 97 06/26/22 04:00 60 06/26/22 04:25 97.7 F 78 20 151/55 H 98 06/25/22 20:00 80 06/26/22 00:00 60 06/25/22 23:36 99.0 F 68 16 130/62 99 06/25/22 20:00 99.6 F 78 22 169/72 H 96 06/25/22 16:00 80 06/25/22 12:00 80 06/25/22 15:52 98.1 F 76 16 174/75 H 99 06/25/22 11:47 99.1 F 80 16 166/70 H 100 Intake and Output 06/25/22 06/26/22 06/26/22 23:59 07:59 15:59 Intake Total 240 / 360 240 / 240 Output Total 1100 / 2150 875 / 875 0 / 875 Balance -860 / -1790 -635 / -635 0 / -635 Intake: Intake, Oral Amount 240 / 360 240 / 240 Output: Output, Urine Amount 1100 / 2150 875 / 875 0 / 875 Other: Number of Unmeasured Voids 0 0 0 Number of Bowel Movements 1 Weight 130 lb 8.218 oz Patient Weight 06/26/22 23:59 Weight 130 lb 8.218 oz Laboratory Results - last 24 hr 06/25/22 17:09: POC Glucose 151 H 06/25/22 21:10: POC Glucose 157 H I & O for Labs for Last 24 Hours: Intake & Output 06/23/22 06/24/22 06/25/22 06/26/22 23:59 23:59 23:59 23:59 Intake Total 270 / 370 1486 / 1486 360 / 360 240 / 240 Output Total 1200 / 1200 1525 / 2225 2150 / 2150 875 / 875 Balance -930 / -830 -39 / -739 -1790 / -1790 -635 / -635 Weight 134 lb 7.712 oz 131 lb 13.383 oz 136 lb 7.458 oz 130 lb 8.218 oz Constitutional: Present no acute distress (awakens to voice, answers a few questions) Respiratory: Present decreased breath sounds Cardiac: Present Reg Rate and Rhythm GI: Present soft; Absent tenderness or guarding Extremities: Present edema (hands and legs) Assessment and Plan *Assessment and plan (1) Hypertensive crisis: Status: Acute Category: Medical Code(s): I16.9 - Hypertensive crisis, unspecified (2) Encephalopathy, hypertensive: Status: Acute Category: Medical Code(s): I67.4 - Hypertensive encephalopathy (3) Elevated troponin: Status: Acute Category: Medical Code(s): R77.8 - Other specified abnormalities of plasma proteins (4) Fever: Status: Acute Category: Medical Code(s): R50.9 - Fever, unspecified (5) Leukocytosis: Status: Acute Category: Medical Code(s): D72.829 - Elevated white blood cell count, unspecified (6) History of CVA (cerebrovascular accident): Status: Acute Category: Medical Code(s): Z86.73 - Personal history of transient ischemic attack (TIA), and cerebral infarction without residual deficits (7) Type 2 diabetes mellitus: Status: Chronic Qualifiers: Diabetes mellitus snf insulin use: with snf use Qualified Code(s): E11.9 - Type 2 diabetes mellitus without complications; 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 Category: Medical Code(s): E11.9 - Type 2 diabetes mellitus without complications (8) CKD (chronic kidney disease): Status: Acute Category: Medical Code(s): N18.9 - Chronic kidney disease, unspecified (9) Acquired solitary kidney: Status: Acute Category: Medical Code(s): Z90.5 - Acquired absence of kidney (10) UTI (urinary tract infection): Status: Acute Category: Medical Code(s): N39.0 - Urinary tract infection, site not specified (11) Altered mental status: Status: Acute Category: Medical Code(s): R41.82 - Altered mental status, unspecified (12) Pneumonia: Status: Acute Category: Medical Code(s): J18.9 - Pneumonia, unspecified organism (13) Nystagmus: Status: Acute Category: Medical Code(s): H55.00 - Unspecified nystagmus (14) Debility: Status: Acute
[2022-06-26 12:12] LABS: Basophils % 0.4 % (0.1-2.0); Eosinophils # 0.2 K/mm3 (0.0-0.4); Eosinophils % 2.5 % (0.1-12.0); Hematocrit 24.6 % (37.0-47.0); Hemoglobin 8.3 g/dL (12.2-16.2); Lymphocytes # 0.6 K/mm3 (0.7-4.5); Lymphocytes % 8.7 % (10-50); Mean Corpuscular HGB Conc 33.7 g/dL (31.8-35.4); Mean Corpuscular Hemoglobin 27.9 pg (27.0-31.2); Mean Corpuscular Volume 82.9 fl (81-99); Mean Platelet Volume 9.1 fl (7.4-10.4); Monocytes # 0.3 K/mm3 (0.1-1.0); Monocytes % 4.7 % (1.7-9.3); Neutrophils # 5.9 K/mm3 (1.8-7.8); Neutrophils % 83.6 % (37.0-80.0); Platelet Count 167 K/mm3 (142-424); Red Blood Count 2.97 M/mm3 (4.20-5.40); Red Cell Distribution Width 19.3 % (11.5-17.5); White Blood Count 7.1 K/mm3 (4.8-10.8)
[2022-06-26 12:17] LABS: Chloride 108 mmol/L (98-107); Potassium 4.2 mmoL/L (3.5-5.1); Sodium 137 mmol/L (136-145)
[2022-06-26 12:20] LABS: Blood Urea Nitrogen 36 mg/dl (7-17); Creatinine Clearance Estimated 40 mL/min (50-200); Estimated Glomerular Filt Rate 41 ml/min (>60); GFR (African American) 50 ML/MIN (>60)
[2022-06-26 12:21] LABS: Anion Gap 9.2 mEq/L (5-15); Carbon Dioxide 24 mmol/L (22.0-30.0); Glucose 118 mg/dl (74-100)
[2022-06-26 12:32] LABS: POC Glucose,Bedside 124 (70-110)
--- NOTE | 2022-06-26 16:00 | PC.NURSE ---
Patient VSS, B/L clear to auscultation, B/L hands and forearms edematous, lethargic yet arouses to name, oriented to name & place, and follows commands.
[2022-06-26 17:16] LABS: POC Glucose,Bedside 120 (70-110)
[2022-06-26 20:29] LABS: POC Glucose,Bedside 122 (70-110)
[2022-06-26 21:23] LABS: POC Glucose,Bedside 124 (70-110)
[2022-06-27] VITALS: BP 165/45; PULSE 70; PULSE 74; RESP 16; TEMP 36.6; O2SAT 94
[2022-06-27 04:00] VITALS: BP 145/53; PULSE 70; PULSE 74; RESP 18; TEMP 36.6; O2SAT 91; BMI 23.1
[2022-06-27 05:45] LABS: POC Glucose,Bedside 103 (70-110)
[2022-06-27 08:00] VITALS: BP 153/57; PULSE 68; PULSE 80; RESP 18; TEMP 37.2; O2SAT 96
--- NOTE | 2022-06-27 08:45 | EXP.ACUTE.PN ---
Subjective *Date: 06/27/22 *Time: 08:45 Interval history: Patient with no new complaints today. She states she feels tired and her back hurts. Medical Exam Vital signs and Labs for Last 24 Hours: Vital Signs Temp Pulse Pulse Resp BP Pulse Ox 06/27/22 08:00 99.0 F 68 18 153/57 H 96 06/27/22 04:00 70 06/27/22 04:00 97.9 F 74 18 145/53 H 91 L 06/27/22 00:00 70 06/26/22 20:00 90 06/27/22 00:00 98 F 74 16 165/45 H 94 L 06/26/22 20:00 100 06/26/22 20:00 98 F 86 15 177/48 H 100 06/26/22 16:00 76 06/26/22 15:32 97.9 F 79 18 166/72 H 100 06/26/22 12:00 71 06/26/22 12:00 98.2 F 74 18 137/80 100 Intake and Output 06/26/22 06/27/22 06/27/22 23:59 07:59 15:59 Intake Total 1085 / 1445 700 / 700 Output Total 0 / 1450 500 / 500 Balance 1085 / -5 200 / 200 Intake: Intake, Oral Amount 360 / 720 Intake, Total IV Amount 725 / 725 700 / 700 0.45% NaCl w/20mEq KCL 1,000 ml 375 / 375 600 / 600 @ 50 mls/hr IV .Q20H [facility] Rx#: [id number] Meropenem 1 gm In 0.9 % Sodium 100 / 100 100 / 100 Chloride 100 ml @ 100 mls/hr IV Q12H [facility] Rx#:[id number] Vancomycin HCl 1,000 mg In 0.9 250 / 250 % Sodium Chloride 250 ml @ 125 mls/hr IV Q36H [facility] Rx#:[id number] Output: Output, Urine Amount 0 / 1450 500 / 500 Other: Number of Unmeasured Voids 0 0 Weight 138 lb 10.732 oz Patient Weight 06/27/22 23:59 Weight 138 lb 10.732 oz Laboratory Results - last 24 hr 06/26/22 12:00: WBC 7.1, RBC 2.97 L, Hgb 8.3 L, Hct 24.6 L, MCV 82.9, MCH 27.9, MCHC 33.7, RDW 19.3 H, Plt Count 167, MPV 9.1, Neut % (Auto) 83.6 H, Lymph % (Auto) 8.7 L, [place] % (Auto) 4.7, Eos % (Auto) 2.5, Baso % (Auto) 0.4, Neut # (Auto) 5.9, Lymph # (Auto) 0.6 L, [place] # (Auto) 0.3, Eos # (Auto) 0.2, Baso # (Auto) 0.0 06/26/22 12:00: Sodium 137, Potassium 4.2, Chloride 108 H, Carbon Dioxide 24, Anion Gap 9.2, BUN 36 H D, Creatinine 1.30 H D, Estimated Creat Clear 40, Estimated GFR 41 L, Est GFR ( Amer) 50 L D, Glucose 118 H, Calcium 8.0 L 06/26/22 12:00: POC Glucose 124 H 06/26/22 16:44: POC Glucose 120 H 06/26/22 20:14: POC Glucose 122 H 06/26/22 21:16: POC Glucose 124 H 06/27/22 05:19: POC Glucose 103 I & O for Labs for Last 24 Hours: Intake & Output 06/24/22 06/25/22 06/26/22 06/27/22 23:59 23:59 23:59 23:59 Intake Total 1486 / 1486 360 / 360 1445 / 1445 700 / 700 Output Total 1525 / 2225 2150 / 2150 1450 / 1450 500 / 500 Balance -39 / -739 -1790 / -1790 -5 / -5 200 / 200 Weight 131 lb 13.383 oz 136 lb 7.458 oz 130 lb 8.218 oz 138 lb 10.732 oz Constitutional: Present no acute distress (awakens to voice, answers a few questions) Respiratory: Present decreased breath sounds Cardiac: Present Reg Rate and Rhythm GI: Present soft; Absent tenderness or guarding Extremities: Present edema (hands and legs) Assessment and Plan *Assessment and plan (1) Hypertensive crisis: Status: Acute Category: Medical Code(s): I16.9 - Hypertensive crisis, unspecified (2) Encephalopathy, hypertensive: Status: Acute Category: Medical Code(s): I67.4 - Hypertensive encephalopathy (3) Elevated troponin: Status: Acute Category: Medical Code(s): R77.8 - Other specified abnormalities of plasma proteins (4) Fever: Status: Acute Category: Medical Code(s): R50.9 - Fever, unspecified (5) Leukocytosis: Status: Acute Category: Medical Code(s): D72.829 - Elevated white blood cell count, unspecified (6) History of CVA (cerebrovascular accident): Status: Acute Category: Medical Code(s): Z86.73 - Personal history of transient ischemic attack (TIA), and cerebral infarction without residual deficits (7) Type 2 diabetes mellitus: Status: Chronic Qualifiers: Diabetes mellitus custodial insulin use: with custodial
--- NOTE | 2022-06-27 08:48 | XR_ITS ---
PROCEDURE INFORMATION: Exam: XR Chest Exam date and time: 06/27/2022 9:34 AM Age: 66 years old Clinical indication: Pain; Shortness of breath; Other: N/a; Additional info: SOA TECHNIQUE: Imaging protocol: Radiologic exam of the chest. Views: 1 view. COMPARISON: CR XR CHEST PORTABLE PICC PLAC 06/20/2022 1:39 PM FINDINGS: Tubes, catheters and devices: PICC line from the right with the tip projecting over the central venous structures/superior vena cava. Lungs: Mild airspace disease within the left lung base. Pleural spaces: Unremarkable. No pleural effusion. No pneumothorax. Heart/Mediastinum: Unremarkable. No cardiomegaly. Bones/joints: Unremarkable. IMPRESSION: Mild airspace disease within the left lung base. Left pleural effusion. Mildly improved aeration.
[2022-06-27 09:14] LABS: Basophils % 0.5 % (0.1-2.0); Eosinophils # 0.1 K/mm3 (0.0-0.4); Eosinophils % 1.8 % (0.1-12.0); Hematocrit 24.9 % (37.0-47.0); Hemoglobin 8.1 g/dL (12.2-16.2); Lymphocytes # 0.9 K/mm3 (0.7-4.5); Lymphocytes % 11.8 % (10-50); Mean Corpuscular HGB Conc 32.7 g/dL (31.8-35.4); Mean Corpuscular Hemoglobin 28.2 pg (27.0-31.2); Mean Corpuscular Volume 86.4 fl (81-99); Mean Platelet Volume 9.5 fl (7.4-10.4); Monocytes # 0.4 K/mm3 (0.1-1.0); Monocytes % 5.6 % (1.7-9.3); Neutrophils # 6.3 K/mm3 (1.8-7.8); Neutrophils % 80.3 % (37.0-80.0); Platelet Count 156 K/mm3 (142-424); Red Blood Count 2.88 M/mm3 (4.20-5.40); Red Cell Distribution Width 19.2 % (11.5-17.5); White Blood Count 7.8 K/mm3 (4.8-10.8)
[2022-06-27 09:18] LABS: Chloride 108 mmol/L (98-107); Potassium 4.4 mmoL/L (3.5-5.1); Sodium 135 mmol/L (136-145)
[2022-06-27 09:20] LABS: Blood Urea Nitrogen 36 mg/dl (7-17); Creatinine Clearance Estimated 35 mL/min (50-200); Estimated Glomerular Filt Rate 32 ml/min (>60); GFR (African American) 39 ML/MIN (>60)
[2022-06-27 09:21] LABS: Anion Gap 7.4 mEq/L (5-15); Calcium 7.8 mg/dl (8.4-10.2); Carbon Dioxide 24 mmol/L (22.0-30.0); Glucose 129 mg/dl (74-100)
--- NOTE | 2022-06-27 11:06 | SW/DCPLANNER ---
Addendum entered by Linda Oropeza 06/28/22 12:36: [facility] not able to accept this patient at this time. I called and updated patient's mother: mother is open to [facility], [facility] and [facility]. I will fax information to all three facilities to review and follow up with patient, family and MD. Addendum entered by Linda Oropeza 06/27/22 15:11: [facility] stated that she will be onsite to evaluate this patient tomorrow morning. I will update patient's family. Original Note: PT/OT evaluated this patient and recommended placement at time of discharge. Discharge date is unknown. I attempted to speak with patient about discharge plans and she is agreeable to placement but was unable to answer any of my other questions. I did call and speak with patients mother: agreeable to placement and prefers [facility]. I will fax patient information to [facility]. I have suggested patient's mother to speak with family about other facilities incase [facility] can not accept: [facility], [facility] and [facility]. I will continue to follow up with [facility] at this time,
[2022-06-27 12:00] VITALS: BP 135/61; PULSE 74; RESP 16; TEMP 36.8; O2SAT 100
[2022-06-27 12:01] LABS: POC Glucose,Bedside 172 (70-110)
[2022-06-27 15:32] VITALS: BP 142/65; PULSE 70; RESP 16; TEMP 37.1; O2SAT 97
[2022-06-27 17:48] LABS: POC Glucose,Bedside 115 (70-110)
[2022-06-27 20:00] VITALS: BP 154/60; PULSE 80; RESP 20; TEMP 36.9; O2SAT 98
[2022-06-27 21:53] LABS: POC Glucose,Bedside 166 (70-110)
[2022-06-28] VITALS (7 sets, daily range): BP systolic 133–168; BP diastolic 52–62; PULSE 67–82; RESP 18–22; TEMP 36.4–37.3; O2SAT 94–99; BMI 24.7
--- NOTE | 2022-06-28 03:50 | PC.NURSE ---
Pt. is alert and oriented times 2. Has swelling in both hand and feet. F/C In place with good urinary output. Oxygen 1L as needed. Turn q2 hours. She has a stage 2 to her bottom with a dressing in place. Takes her pills whole in applesauce. She is NSR with a BBB on telemetry.
[2022-06-28 06:01] LABS: POC Glucose,Bedside 139 (70-110)
--- NOTE | 2022-06-28 08:43 | EXP.ACUTE.PN ---
Subjective *Date: 06/28/22 *Time: 08:43 Interval history: No new issues reported overnight. Medical Exam Vital signs and Labs for Last 24 Hours: Vital Signs Temp Pulse Pulse Resp BP Pulse Ox 06/28/22 04:00 98.0 F 73 20 168/56 H 98 06/28/22 04:00 70 06/28/22 00:00 80 06/28/22 00:00 98.3 F 78 18 142/53 H 99 06/27/22 20:00 98.4 F 80 20 154/60 H 98 06/27/22 12:00 74 06/27/22 15:32 98.8 F 70 16 142/65 H 97 06/27/22 12:00 98.3 F 74 16 135/61 100 Intake and Output 06/27/22 06/28/22 06/28/22 23:59 07:59 15:59 Intake Total 240 / 2020 690 / 690 Output Total 500 / 1000 250 / 250 Balance -260 / 1020 440 / 440 Intake: Intake, Oral Amount 240 / 1320 240 / 240 Intake, Total IV Amount 450 / 450 Meropenem 1 gm In 0.9 % Sodium 450 / 450 Chloride 100 ml @ 100 mls/hr IV Q12H [facility] Rx#:[id number] Output: Output, Urine Amount 500 / 1000 250 / 250 Other: Number of Unmeasured Voids 0 0 Weight 140 lb Patient Weight 06/28/22 23:59 Weight 140 lb Laboratory Results - last 24 hr 06/27/22 09:00: WBC 7.8, RBC 2.88 L, Hgb 8.1 L, Hct 24.9 L, MCV 86.4, MCH 28.2, MCHC 32.7, RDW 19.2 H, Plt Count 156, MPV 9.5, Neut % (Auto) 80.3 H, Lymph % (Auto) 11.8, [place] % (Auto) 5.6, Eos % (Auto) 1.8, Baso % (Auto) 0.5, Neut # (Auto) 6.3, Lymph # (Auto) 0.9, [place] # (Auto) 0.4, Eos # (Auto) 0.1, Baso # (Auto) 0.0 06/27/22 09:00: Sodium 135 L, Potassium 4.4, Chloride 108 H, Carbon Dioxide 24, Anion Gap 7.4, BUN 36 H, Creatinine 1.60 H D, Estimated Creat Clear 35, Estimated GFR 32 L, Est GFR ( Amer) 39 L D, Glucose 129 H, Calcium 7.8 L 06/27/22 11:50: POC Glucose 172 H 06/27/22 17:28: POC Glucose 115 H 06/27/22 21:45: POC Glucose 166 H 06/28/22 05:47: POC Glucose 139 H I & O for Labs for Last 24 Hours: Intake & Output 06/25/22 06/26/22 06/27/22 06/28/22 23:59 23:59 23:59 23:59 Intake Total 360 / 360 1445 / 1445 1900 / 2020 690 / 690 Output Total 2150 / 2150 1450 / 1450 1000 / 1000 250 / 250 Balance -1790 / -1790 -5 / -5 900 / 1020 440 / 440 Weight 136 lb 7.458 oz 130 lb 8.218 oz 138 lb 10.732 oz 140 lb Comment:: Sleeping this morning. Respiratory: Present decreased breath sounds Cardiac: Present Reg Rate and Rhythm GI: Present soft; Absent tenderness or guarding Extremities: Present edema (hands and legs) Assessment and Plan *Assessment and plan (1) Hypertensive crisis: Status: Acute Category: Medical Code(s): I16.9 - Hypertensive crisis, unspecified (2) Encephalopathy, hypertensive: Status: Acute Category: Medical Code(s): I67.4 - Hypertensive encephalopathy (3) Elevated troponin: Status: Acute Category: Medical Code(s): R77.8 - Other specified abnormalities of plasma proteins (4) Fever: Status: Acute Category: Medical Code(s): R50.9 - Fever, unspecified (5) Leukocytosis: Status: Acute Category: Medical Code(s): D72.829 - Elevated white blood cell count, unspecified (6) History of CVA (cerebrovascular accident): Status: Acute Category: Medical Code(s): Z86.73 - Personal history of transient ischemic attack (TIA), and cerebral infarction without residual deficits (7) Type 2 diabetes mellitus: Status: Chronic Qualifiers: 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
--- NOTE | 2022-06-28 09:56 | P.PN_ITS ---
Subjective *Date: 06/28/22 *Time: 09:56 Medical Exam Vital signs and Labs for Last 24 Hours: Vital Signs Temp Pulse Pulse Resp BP Pulse Ox 06/28/22 08:00 99.1 F 72 20 133/52 L 98 06/28/22 04:00 98.0 F 73 20 168/56 H 98 06/28/22 04:00 70 06/28/22 00:00 80 06/28/22 00:00 98.3 F 78 18 142/53 H 99 06/27/22 20:00 98.4 F 80 20 154/60 H 98 06/27/22 12:00 74 06/27/22 15:32 98.8 F 70 16 142/65 H 97 06/27/22 12:00 98.3 F 74 16 135/61 100 Intake and Output 06/27/22 06/28/22 06/28/22 23:59 07:59 15:59 Intake Total 240 / 2020 690 / 750 60 / 750 Output Total 500 / 1000 250 / 250 Balance -260 / 1020 440 / 500 60 / 500 Intake: Intake, Oral Amount 240 / 1320 240 / 300 60 / 300 Intake, Total IV Amount 450 / 450 Meropenem 1 gm In 0.9 % Sodium 450 / 450 Chloride 100 ml @ 100 mls/hr IV Q12H [facility] Rx#:[id number] Output: Output, Urine Amount 500 / 1000 250 / 250 Other: Number of Unmeasured Voids 0 0 Weight 63.503 kg Patient Weight 06/28/22 23:59 Weight 63.503 kg Laboratory Results - last 24 hr 06/27/22 11:50: POC Glucose 172 H 06/27/22 17:28: POC Glucose 115 H 06/27/22 21:45: POC Glucose 166 H 06/28/22 05:47: POC Glucose 139 H I & O for Labs for Last 24 Hours: Intake & Output 06/25/22 06/26/22 06/27/22 06/28/22 23:59 23:59 23:59 23:59 Intake Total 360 / 360 1445 / 1445 1900 / 2020 750 / 750 Output Total 2150 / 2150 1450 / 1450 1000 / 1000 250 / 250 Balance -1790 / -1790 -5 / -5 900 / 1020 500 / 500 Weight 61.9 kg 59.2 kg 62.9 kg 63.503 kg The patient's infection will respond to the chosen ABx?: Yes (BLOOD CX NEGATIVE, SPUTUM UNCOLLECTED) Is the patient receiving the right drug, dose, and route?: Yes Could a more targeted ABx be ordered?: No
[2022-06-28 11:13] LABS: POC Glucose,Bedside 144 (70-110)
--- NOTE | 2022-06-28 18:34 | PC.NURSE ---
aox4, nicole remains in place. c/o pain x2 and was treated per mar with good effectiveness. q2turn, new dsg applied to coccyx this shift.
[2022-06-28 21:00] LABS: POC Glucose,Bedside 108 (70-110)
[2022-06-28 21:08] LABS: POC Glucose,Bedside 134 (70-110)
[2022-06-29] VITALS (18 sets, daily range): BP systolic 100–166; BP diastolic 50–96; PULSE 60–99; RESP 8–20; TEMP 36.1–43; O2SAT 95–100; BMI 24.7
--- NOTE | 2022-06-29 00:49 | PC.NURSE ---
PT STATED SCREAMING OUT ABOUT MIDNIGHT THAT SHE WAS IN SO MUCH PAIN IN HER ARM AND BELLY. THIS RN AND A TECH WENT IN TO REPOSITION PT AND PT WAS GIVEN 2MG OF IV MORPHINE PER MAR. PT HAS CONTINUED TO SCREAM OUT THAT SHE IS IN SO MUCH PAIN. PT BELLY REMAINS SOFT AND NON DISTENDED. PT HAD A SMALL BROWN LOOSE BM AT THE BEGINNING OF THE SHIFT.
[2022-06-29 01:34] LABS: Vancomycin,Trough 16.5 ug/mL (5.0-10.0)
--- NOTE | 2022-06-29 01:50 | PC.NURSE ---
PT STATED THAT SHE HAS SOME BUT VERY LITTLE RELIEF AFTER SECOND DOSE OF IV MORPHINE. PT APPEARS TO BE LESS RESTLESS AND IS NOT SCREAMING OUT BUT IS STILL MOANING IN SOME PAIN. ABD REMAINS SOFT AND NOT DISTENDED.
--- NOTE | 2022-06-29 02:34 | CT_ITS ---
PROCEDURE INFORMATION: Exam: CT Abdomen Without Contrast Exam date and time: 06/29/2022 3:09 AM Age: 66 years old Clinical indication: Abdominal pain TECHNIQUE: Imaging protocol: Computed tomography of the abdomen without contrast. Radiation optimization: All CT scans at this facility use at least one of these dose optimization techniques: automated exposure control; mA and/or kV adjustment per patient size (includes targeted exams where dose is matched to clinical indication); or iterative reconstruction. COMPARISON: CT ABDOMEN PELVIS WO CON 04/19/2022 6:45 PM FINDINGS: Lungs: Bilateral basilar compressive atelectatic changes. Pleural spaces: There is a moderate size right pleural effusion. There is a small left pleural effusion. Heart: The heart is large in size. Liver: Normal. No mass. Gallbladder and bile ducts: Normal. No calcified stones. No ductal dilation. Pancreas: Normal. No ductal dilation. Spleen: There are granulomas of the spleen. Adrenal glands: Normal. No mass. Kidneys and ureters: The right kidney has been removed. Stomach and bowel: Diverticulosis. Fluid in segments of the large bowel and also within small bowel loops. Thickened appearance of the li of the stomach. Suggestion of a distal gastric antral anterior wall defect containing air series 3, image 37. Thickened appearance of the descending duodenum with surrounding inflammatory like changes. Appendix: Normal appendix. Intraperitoneal space: [id number] amount of free air in the anterior upper abdomen. Small amount of free fluid. Vasculature: Unremarkable. No abdominal aortic aneurysm. Lymph nodes: Unremarkable. No enlarged lymph nodes. Urinary bladder: Bladder partially decompressed by a Cooper. Bones/joints: Degenerative changes of the spine. Lower lumbar spine hardware. Soft tissues: There is diffuse soft tissue anasarca. IMPRESSION: 1. Free air and fluid in the abdomen. There appears to be perforation of the distal stomach possibly secondary to an ulcer. Gastritis suspected. There also appears to be duodenitis. 2. Basilar consolidations and pleural effusions.
--- NOTE | 2022-06-29 02:43 | PC.NURSE ---
SPOKE WITH SAFETY ADMINISTRATOR ROBERT ABOUT PT'S UNRELIEVED ABD PAIN. ORDERED A STAT CT OF ABD WITHOUT CONTRAST. PT CONTINUES TO SCREAM OUT THAT HER PAIN IS KILLING HER. PT REPOSITIONED.
--- NOTE | 2022-06-29 03:22 | PC.NURSE ---
PT BACK FROM AT. PT TOLERATED SCAN WELL.
--- NOTE | 2022-06-29 03:49 | PC.NURSE ---
SPOKE WITH MD JONES. STATED HE WANTED SURGERY TO SEE PT. HOUSE NOTIFIED AT THIS TIME.
--- NOTE | 2022-06-29 04:01 | PC.NURSE ---
PT ABD REMAINS SOFT, NON-DISTENDED, AND TENDER. BOWEL SOUNDS ARE ARE HYPOACTIVE. PT HAS HAD 2 SMALL BM'S THIS SHIFT. PT CURRENTLY STATES THAT HER STOMACH STILL HURTS.
--- NOTE | 2022-06-29 04:16 | PC.NURSE ---
SPOKE WITH MD LUKE. STATED HE WAS ON HIS WAY TO SEE PT. ALSO ATTEMPTED TO REACH PT'S MOTHER AT THIS TIME. WENT TO [employer]. WILL TRY AGAIN.
--- NOTE | 2022-06-29 04:21 | PC.NURSE ---
spoke with Dr. Deluna, requested OR team to be called in for Exploratory Lap.
[2022-06-29 04:38] LABS: POC Glucose,Bedside 115 (70-110)
--- NOTE | 2022-06-29 04:44 | EXP.SURG.CON ---
History of Present Illness *Admission Date: 06/16/22 *Reason for visit:: Abdominal pain, free air *History of present illness: Patient is a 66-year-old female who is chronically debilitated having previous strokes. She had presented to the emergency department by EMS and was admitted on 06/16/2022 with findings of hypertensive crisis. She has had problems with fecal impaction and vomiting. Her past medical history is rather complex with history of type 2 diabetes, chronic kidney disease with previous nephrectomy in 1999, irritable bowel syndrome , asthma, rheumatoid arthritis, factor V Leiden deficiency, previous right occipital CVA in 2020, chronic pain, depression, anxiety, hypertension. She has remained an inpatient for the past 2 weeks. Reportedly earlier this morning after midnight she had called out screaming and pain. Pain was quite severe. She did undergo a CT scan which reveals findings of free air and fluid in the abdomen which what appears to be perforation of the distal stomach possibly secondary to an ulcer. Surgery was contacted by primary care service. Reportedly no prior history of ulcers according to the record. Patient does reportedly take famotidine as a home medication. [facility] Disclaimer: The information contained in this section may have been updated after the patient was seen, as this information can be updated by other users. Medical History (Updated 06/29/22 @ 04:53 by Jesus Manuel Deluna MD) Abnormal electrocardiography Acquired solitary kidney Acute cerebellar ataxia Allergic rhinitis Allergic rhinitis Allergic rhinitis, unspecified Asthma Chronic back pain Chronic narcotic use CKD (chronic kidney disease) Decreased sensation of lower extremity Diffusion capacity of lung (dl), decreased Fat pad atrophy of foot Fibromyalgia Generalized anxiety disorder Gout History of asthma History of CVA (cerebrovascular accident) Metatarsalgia of both feet Nocturnal hypoxemia Occipital infarction Onychodystrophy Onychoincurvatum Rheumatoid arthritis Tingling of both feet Type 2 diabetes mellitus Surgical History History of arthroscopic knee surgery History of carpal tunnel release History of foot surgery History of right nephrectomy History of spinal fusion Family History Diabetes Hypertension Thyroid disorder Stroke Social History Smoking Status: Never smoker second hand exposure: No alcohol intake: never substance use type: denies use current occupational status: retired Travel in the last 8 weeks: None household members: family housing: house number of children: 0 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 [employer] current occupational exposures/hazards: No caffeine: No Meds Home Medications and Allergies Home Medications Medication Instructions Recorded Confirmed Type mecobalamin (vitamin B12) 1,000 1,000 mcg sublingual HS Supplement 11/06/17 06/16/22 History mcg disintegrating tablet,sublingual allopurinol 100 mg tablet 100 mg PO BID Gout 04/13/21 06/16/22 History cholecalciferol (vitamin D3) 125 125 mcg PO DAILY Supplement 04/13/21 06/16/22 History mcg (5,000 unit) capsule clopidogrel 75 mg tablet 75 mg PO HS platelet inhibitor 04/13/21 06/16/22 History buspirone 10 mg tablet 20 mg PO BID Anxiety 08/10/21 06/16/22 History duloxetine 60 mg capsule,delayed 60 mg PO DAILY Depression 08/16/21 06/16/22 History release montelukast 10 mg tablet 10 mg PO PM Allergy symptoms 08/16/21 06/17/22 History aspirin 81 mg tablet,delayed 81 mg PO DAILY heart health 08/19/21 06/16/22 History release insulin human U-100 NPH-regulr 40 unit SQ BID Diabetes 08/26/21 06/16/22 History 70-30 mix 100 unit/mL subcutaneous susp prednisone 5 mg tablet 2.5 mg PO DAILY Fibromyalgia 30 11/09/21
--- NOTE | 2022-06-29 04:51 | PC.NURSE ---
MOTHER-CELINE- UPDATED ON PT CONDITION AT 0420. CONSENT FOR SURGERY VERIFIED OVER THE PHONE AT THIS TIME WITH TWO NURSES. HOSPICE ART THERAPIST AWARE.
--- NOTE | 2022-06-29 05:07 | PC.NURSE ---
pt left the floor for surgery at this time
--- NOTE | 2022-06-29 08:01 | DIET.NUTRFU ---
Meal intake reviewed, continues to be poor. She was up in chair 06/28 for meals. She was noted to have abdominal pain 06/28, screaming out. Had 2 BM 06/28. Provider noted 06/28: GI: Present soft; Absent tenderness or guarding, Extremities: Present edema (hands and legs)Plan for emergent exploratory laparotomy for probable perforated ulcer today. Currently NPO for sx, will continue to follow
--- NOTE | 2022-06-29 08:37 | SUR.OPER ---
Received call from Sabina Whitfield RN @ [phone] pt to be transferred to via air methods. Pt remains in OR @ this time. supervisor bleach plant Hitesh Collins RN updating family.
--- NOTE | 2022-06-29 09:05 | EXP.ANES.I ---
[facility] Anesthesia Record Part I Anesthesia Record I Intake, IV Amount: 2,600 Estimated blood loss (mL): 50 Urine output (mL): 50 Blood Products used (#): none Blood Pressure: 144/68 SaO2: 100 Pulse Rate: 71 Respiratory Rate: 8 Temperature: 97 F Patient is:: Intubated Stable to PACU at:: 08:57
--- NOTE | 2022-06-29 09:14 | P.PN_ITS ---
[facility] Disclaimer: The information contained in this section may have been updated after the patient was seen, as this information can be updated by other users. Medical History (Updated 06/29/22 @ 04:53 by Jesus Manuel Deluna MD) Abnormal electrocardiography Acquired solitary kidney Acute cerebellar ataxia Allergic rhinitis Allergic rhinitis Allergic rhinitis, unspecified Asthma Chronic back pain Chronic narcotic use CKD (chronic kidney disease) Decreased sensation of lower extremity Diffusion capacity of lung (dl), decreased Fat pad atrophy of foot Fibromyalgia Generalized anxiety disorder Gout History of asthma History of CVA (cerebrovascular accident) Metatarsalgia of both feet Nocturnal hypoxemia Occipital infarction Onychodystrophy Onychoincurvatum Rheumatoid arthritis Tingling of both feet Type 2 diabetes mellitus Surgical History History of arthroscopic knee surgery History of carpal tunnel release History of foot surgery History of right nephrectomy History of spinal fusion Family History Diabetes Hypertension Thyroid disorder Stroke Social History Smoking Status: Never smoker second hand exposure: No alcohol intake: never substance use type: denies use current occupational status: retired Travel in the last 8 weeks: None household members: family housing: house number of children: 0 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 [employer] current occupational exposures/hazards: No caffeine: No [facility] Anesthesia Checklist Patient Identification Patient Identification: Arm Band Structural Data Admitted From: Inpatient Planned Operative Procedure/s: esploratory Lap NPO Status Verified Time NPO: 00:00 Additional verifications Patient : No Anesthesia Reactions: No Hx Blood Transfusions: No Blood Transfusion Reaction: No Cephalosporin Allergy: No Previous Colonoscopy: Yes Airway Assessment C-Spine Mobility Assessed: Yes TMJ Mobility Assessed: Yes Dentition: Poor Dentition Neurological Assessment Level of Consciousness: Lethargic Hx Seizures: No Numbness or tingling in extremities: No Anesthesia Plan Anesthesia Risk discussed: Yes ASA Class: III Anesthesia Type: General
[2022-06-29 09:28] LABS: ABG Base Excess -5.4 mmol/L (-2.4-2.3); ABG HCO3 19.5 mmhg (22.0-26.0); ABG Oxygen Saturation 99 % (90-100); ABG PCO2 32.8 mmhg (35.0-45.0); ABG PH 7.39 mmol/L (7.35-7.45); ABG PO2 217.3 mmhg (80-100); ABG TCO2 20.6 mmhg (23-27)
[2022-06-29 09:31] LABS: Allen's Test acceptable; Oxygen 80% %; PEEP 5; Tidal Volume 420; Vent Rate 18
[2022-06-29 10:13] LABS: Basophils % 0.1 % (0.1-2.0); Eosinophils % 0.3 % (0.1-12.0); Hematocrit 24.1 % (37.0-47.0); Hemoglobin 8.1 g/dL (12.2-16.2); Lymphocytes # 0.5 K/mm3 (0.7-4.5); Lymphocytes % 4.4 % (10-50); Mean Corpuscular HGB Conc 33.5 g/dL (31.8-35.4); Mean Corpuscular Hemoglobin 28.5 pg (27.0-31.2); Mean Corpuscular Volume 85.2 fl (81-99); Mean Platelet Volume 9.6 fl (7.4-10.4); Monocytes # 0.3 K/mm3 (0.1-1.0); Neutrophils # 9.8 K/mm3 (1.8-7.8); Neutrophils % 92.3 % (37.0-80.0); Platelet Count 126 K/mm3 (142-424); Red Blood Count 2.83 M/mm3 (4.20-5.40); Red Cell Distribution Width 19.2 % (11.5-17.5); White Blood Count 10.7 K/mm3 (4.8-10.8)
[2022-06-29 10:19] LABS: MANUAL DIFFERENTIAL MANUAL DIFFERENTIAL (MANUAL DIFF)
--- NOTE | 2022-06-29 10:26 | SUR.OPER ---
0825- decision made by to transfer pt to another facility. blending supervisor aware and transfer in process. 0856- detailed Report given to carolrn an ellie lund in pacu after transporting pt with ambu bag while intubated with veronica velazquez and veronica to. Respiratory at bedside.
[2022-06-29 10:29] LABS: Lymphocytes % 8 % (10-50); Monocytes % 2 % (2-9); Neutrophils % 89 % (42-76); Ovalocytes 1+; Platelet Estimate Slight Decrease; Total Cells Counted 100
[2022-06-29 10:33] LABS: Anion Gap 12.2 mEq/L (5-15); Blood Urea Nitrogen 53 mg/dl (7-17); Calcium 7.4 mg/dl (8.4-10.2); Carbon Dioxide 18 mmol/L (22.0-30.0); Chloride 107 mmol/L (98-107); Creatinine Clearance Estimated 31 mL/min (50-200); Estimated Glomerular Filt Rate 28 ml/min (>60); GFR (African American) 34 ML/MIN (>60); Glucose 163 mg/dl (74-100); Sodium 131 mmol/L (136-145)
[2022-06-29 10:38] LABS: Potassium 6.2 mmoL/L (3.5-5.1)
[2022-06-29 10:44] LABS: POC Glucose,Bedside 169 (70-110)
--- NOTE | 2022-06-29 11:03 | EXP.OP.NOTE ---
Date of procedure: 06/29/22 Pre-op Diagnosis:: Acute surgical abdomen, pneumoperitoneum, peritonitis Post-op Diagnosis:: Same Procedure performed:: Exploratory laparotomy, lysis of adhesions, mobilization of right colon and stomach, partial Chris maneuver Surgeon:: Jesus Manuel Deluna MD STEEL GRINDER:: Other Anesthesia: GETA Estimated blood loss (mL): 50 Operative findings:: Patient is a 66-year-old female who is chronically debilitated, progressively over several months, having previous strokes.? She had presented to the emergency department by EMS and was admitted on 06/16/2022 with findings of hypertensive crisis and sepsis.? Her past medical history is rather complex with history of type 2 diabetes, chronic kidney disease with previous laparoscopic right nephrectomy in 1999, irritable bowel syndrome , asthma, rheumatoid arthritis, factor V Leiden deficiency, previous right occipital CVA in 2020 with some residual visual deficit, chronic pain, depression, anxiety, hypertension.? She has remained an inpatient for the past 2 weeks.? Earlier this morning after midnight she had called out screaming in pain.? Pain was quite severe.? She did undergo a CT scan which revealed findings of free air and fluid in the abdomen. There appears to be perforation of the distal stomach possibly secondary to an ulcer. Gastritis suspected. There also appears to be duodenitis. ? Surgery was contacted by primary care service explosives detonator at 3:55 AM.? Reportedly no prior history of ulcers according to the record.? Patient was seen and examined on the medical surgical floor as a consult and had findings of diffuse guarding with rebound and peritonitis. She appeared to have significant systemic inflammatory response. Arrangements were made for emergent laparotomy. Of note, the patient had previous occipital stroke in 2020. In August 2021 she had a near syncopal episode with some visual changes when she was evaluated in the emergency department she had a hemoglobin of 8.4. She was admitted for inpatient management and surgical consultation was obtained for possible symptomatic anemia from a potential GI source. Her baseline hemoglobin is approximately 10. Interestingly after she had been admitted her hemoglobin was noted to be 11.4. At that time it appeared unclear if she was truly having symptomatic anemia and that her neurologic symptoms were possibly from another etiology. Therefore immediate endoscopic measures were not undertaken. She had ongoing symptoms of headache, confusion, visual changes, and difficulty ambulating. CT scan of the head revealed new left occipital encephalomalacia consistent with an interval infarct. I had seen her back in the office in follow-up on 08/30/21 after her hospitalization. At that time she had no clinical evidence of blood loss or anemia. She had consultations with neurology and cardiology as an outpatient. Due to recurrent posterior circulation CVAs she continued to have symptoms of visual changes, occasional staring, glassy eyes , verbal unresponsiveness. Patient had never had any symptoms of melena or hematochezia. I saw her back in the office on 10/19/2021. I had her undergo repeat blood work. She did have a stool for occult blood which was negative. Consideration was being given for possible EGD and possible colonoscopy but the patient declined this. She was seen back in the office once again on 11/04/2021 and her blood work, hemoglobin, remained essentially at baseline and stool for occult blood was negative. I discussed proceeding with endoscopic evaluation with the patient. However, she never proceeded with this. She has been seen in the emergency department numerous times subsequently in the past several months for a variety of issues including urinary tract infections, fall, constipation and abdominal pain, diarrhea, posterior headache and neck pain with some mental status changes. Operative note:: Patient was taken emergently to the oper
--- NOTE | 2022-06-29 11:35 | P.PNANES_ITS ---
[facility] Anesthesia Record Part I Anesthesia Record I Intake, IV Amount: 2,600 Estimated blood loss (mL): 25 Urine output (mL): 50 Blood Products used (#): none Blood Pressure: 144/68 SaO2: 100 Pulse Rate: 71 Respiratory Rate: 10 Temperature: 97 F Patient is:: Intubated, Stable, Unarousable and Ventilator Stable to PACU at:: 08:57
--- NOTE | 2022-06-29 11:46 | SUR.PHASEI ---
0856 - PT ARRIVED TO PACU, RECEIVED BEDSIDE REPORT FROM Sabina SALEH RN. RT @ BEDSIDE, PT PLACED ON VENT W/ SETTINGS FOLLOWS: FIO2 80%, TV 420, RATE 18, PEEP 5. PUPILS PERRLA. PT WILL OPEN HER EYES, BUT UNABLE TO FOLLOW COMMANDS. 18 FR NGT PRESENT IN L NARE @ 58 CM TO CONT LOW WALL SUCTION. LUNGS CTA. PULSES EQUAL AND PRESENT THROUGHOUT. BBB NOTED ON TELY, RATE 70'S. ABDOMEN SOFT, W/ ACTIVE BS IN ALL QUADS. MIDLINE INCISION PRESENT TO ABDOMEN, DRESSING IS 4X4 AND TAPE, C/D/I. PRABHAKAR CATH TO DRAIN AT BEDSIDE W/ CLEAR STRAW COLORED URINE. SCUDS IN PLACE TO BLE. DUAL LUMEN PICC IN PLACE TO DANDY, PROPOFOL @ 40 MCG/KG/MIN INFUSING, VIOLET GTT @ 20 MCG/MIN TO SUSTAIN MAP > 65. 0907 - ATTEMPTED TO CALL REPORT TO , UNABLE TO CALL REPORT D/T CAPACITY COMMAND UNSURE OF WHERE PT IS GOING AT THIS TIME. 0921 - DETAILED REPORT CALLED TO HANG @ OR, CALL BACK # LEFT FOR ANY FURTHER QUESTIONS. 0927 - [facility] CONTACTED FOR FLIGHT 0933 - [facility] CALLED BACK ACCEPTING FLIGHT 0944 - [facility] ETA 9 MIN 0955 - [facility] @ BEDSIDE. REPORT GIVEN TO SHREE. 1032 - PT LEFT PACU @ THIS TIME W/ [facility] PERSONNEL. 1050 - SPOKE TO CHANA @ SURGERY, RELAYED PT'S CRITICAL POTASSIUM RESULTS FROM BMP.
--- NOTE | 2022-06-29 12:10 | SUR.PHASEI ---
0856 - PT ARRIVED TO PACU, RECEIVED BEDSIDE REPORT FROM Sabina SALEH RN. RT @ BEDSIDE, PT PLACED ON VENT W/ SETTINGS FOLLOWS: FIO2 80%, TV 420, RATE 18, PEEP 5. PUPILS PERRLA. PT WILL OPEN HER EYES, BUT UNABLE TO FOLLOW COMMANDS. 18 FR NGT PRESENT IN L NARE @ 58 CM TO CONT LOW WALL SUCTION. LUNGS CTA. PULSES EQUAL AND PRESENT THROUGHOUT. BBB NOTED ON TELY, RATE 70'S. ABDOMEN SOFT, W/ ACTIVE BS IN ALL QUADS. MIDLINE INCISION PRESENT TO ABDOMEN, DRESSING IS 4X4 AND TAPE, C/D/I. PRABHAKAR CATH TO DRAIN AT BEDSIDE W/ CLEAR STRAW COLORED URINE. SCUDS IN PLACE TO BLE. DUAL LUMEN PICC IN PLACE TO DANDY, PROPOFOL @ 40 MCG/KG/MIN INFUSING, VIOLET GTT @ 20 MCG/MIN TO SUSTAIN MAP > 65. 0907 - ATTEMPTED TO CALL REPORT TO , UNABLE TO CALL REPORT D/T CAPACITY COMMAND UNSURE OF WHERE PT IS GOING AT THIS TIME. 0921 - DETAILED REPORT CALLED TO HANG @ OR, CALL BACK # LEFT FOR ANY FURTHER QUESTIONS. DR LUKE @ BEDSIDE, ORDERS RECEIVED FOR CBC, BMP, AND TYPE AND SCREEN. LAB NOTIFIED. 0927 - [facility] CONTACTED FOR FLIGHT 0930 - FAMILY @ BEDSIDE, UPDATED ON POC 0933 - [facility] CALLED BACK ACCEPTING FLIGHT 0944 - [facility] ETA 9 MIN 0955 - [facility] @ BEDSIDE. REPORT GIVEN TO SHREE. 1032 - PT LEFT PACU @ THIS TIME W/ [facility] PERSONNEL. 1050 - SPOKE TO CHANA @ SURGERY, RELAYED PT'S CRITICAL POTASSIUM RESULTS FROM BMP.
--- NOTE | 2022-06-29 13:27 | P.PN_ITS ---
[facility] Disclaimer: The information contained in this section may have been updated after the patient was seen, as this information can be updated by other users. Medical History (Updated 06/29/22 @ 04:53 by Jesus Manuel Deluna MD) Abnormal electrocardiography Acquired solitary kidney Acute cerebellar ataxia Allergic rhinitis Allergic rhinitis Allergic rhinitis, unspecified Asthma Chronic back pain Chronic narcotic use CKD (chronic kidney disease) Decreased sensation of lower extremity Diffusion capacity of lung (dl), decreased Fat pad atrophy of foot Fibromyalgia Generalized anxiety disorder Gout History of asthma History of CVA (cerebrovascular accident) Metatarsalgia of both feet Nocturnal hypoxemia Occipital infarction Onychodystrophy Onychoincurvatum Rheumatoid arthritis Tingling of both feet Type 2 diabetes mellitus Surgical History History of arthroscopic knee surgery History of carpal tunnel release History of foot surgery History of right nephrectomy History of spinal fusion Family History Diabetes Hypertension Thyroid disorder Stroke Social History Smoking Status: Never smoker second hand exposure: No alcohol intake: never substance use type: denies use current occupational status: retired Travel in the last 8 weeks: None household members: family housing: house number of children: 0 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 [employer] current occupational exposures/hazards: No caffeine: No [facility] Anesthesia Checklist Patient Identification Patient Identification: Arm Band and Family Structural Data Admitted From: Inpatient Planned Operative Procedure/s: ORIF left distal Femur Consent for Planned Operative Procedure(s) Verified: Yes Verified Documents: Surgical Consent and History and Physical NPO Status Verified Time NPO: 00:00 Additional verifications Anesthesia Reactions: No Hx Blood Transfusions: No Blood Transfusion Reaction: No Cephalosporin Allergy: No Airway Assessment C-Spine Mobility Assessed: Yes TMJ Mobility Assessed: Yes Dentition: Good Dentition Neurological Assessment Level of Consciousness: Awake, Alert, Appropriate and Follows Commands Hx Seizures: No Numbness or tingling in extremities: No Anesthesia Plan Anesthesia Risk discussed: Yes ASA Class: III Anesthesia Type: General
--- NOTE | 2022-06-29 15:41 | EXP.ANES.II ---
[facility] Anesthesia Record Part II Anesthesia Record Part II Discharge Time: 10:32 Destination: Unknown PACU nurse assessment reviewed?: Yes Patient Condition:: Critical Anesthesia Complications:: None Swallowing reflex intact?: No Cyanosis?: No Blood Pressure: 110/58 Pulse Rate: 69 Temperature: 98.3 F Mental Status: Unresponsive Pain level:: 0 Nausea and/or vomitting:: None Intake, IV Amount: 0 Comments:: Pt was tranferred to via helicopter. Pt remained intubated and sedated throughout PACU stay
--- NOTE | 2022-07-04 21:42 | EXP.DC.SUM ---
General Admission date:: 06/16/22 Discharge date: 06/29/22 HPI HPI HPI: Mother states patient was up all night last night.? This morning she was complaining to her that she could not see at all.? The patient normally walks around with a walker and was unable to do so today.? She did not seem to be able to take direction from her mother.? She could not get her to take any of her medications except a dose of Reglan after multiple attempts.? She has not eaten today.? She has not taken any of her medicines otherwise.? Mother took her blood pressure this morning and it was 200/100 at 8 AM.? Mother states that she previously had been on an antihypertensive medication to protect her kidneys, but it was stopped about 5 weeks ago because her blood pressure was too low. Mother states the patient has been declining for 4 weeks.? She has had steadily decreasing vision.? She already had poor vision due to previous strokes but vision has been decreasing.? She has had problems with fecal impaction and vomiting, was admitted for that and following that had diarrhea.? She has had shoulder and neck pain for the past several weeks.? She was seen in this emergency department 6 days ago and had an extensive work-up including CTA of her head and neck.? She followed up with her primary care.? Last night mother states that patient was up all night. (above as per ER physician) Ms. Murry has a very complicated medical history consisting of type 2 diabetes, kidney disease with right kidney removed in 1999, irritable bowel syndrome, asthma, rheumatoid arthritis, factor V Leiden deficiency, right occipital CVA in 2020, chronic back pain, postlaminectomy syndrome, depression and anxiety, hypertension, and renal failure.? She has been in the ER and hospitalized multiple times in the last year.? She did follow-up with Dr. Knight in the office on 06/14/2022, recent ER visit for neck pain and headache.? She has been seen by physical therapy through home health and they began some treatments on her neck.? Of note, her clinical psychologist private practice discontinued her Trintellix and switched her to Wellbutrin recently as well.? Dr. Knight did check labs during that visit and her creatinine was 2.5 and her potassium was 5.5.? Her GFR was 19.? This was relatively stable from previous labs. Patient has not been conscious but does respond to pain.? Her mother states she has had odd episodes of breathing since she has been to the hospital.? Nursing states her temperature has been 103.? Her heart rate and blood pressure have decreased.? She is currently on esmolol and? nicardipine drip. Hospital Course Hospital Course Hospital Course: The patient's head CT showed stable occipital encephalomalacia, atrophy, and mild periventricular chronic ischemic changes. There was nothing acute. Chest x-ray showed nothing acute. She presented as a patient with hypertensive delirium, but then appeared to be septic as she developed a fever of 103. Her antibiotics were changed to vancomycin and meropenem empirically while cultures were pending. She was seen in consultation by cardiology. They wanted her on esmolol and nicardipine drips for blood pressure and heart rate control. Her echo showed an EF of 65% with grade 1 diastolic dysfunction. They felt her troponin was elevated in the setting of acute illness as her EKG was negative for acute ischemic changes. Her kidney function was elevated, but her renal artery ultrasound and kidney ultrasound were negative for acute process. They also felt the patient was septic and recommended metoprolol tartrate 100 mg twice daily for her hypertension. The patient had seizures throughout the initial night and had to be given Ativan. She was able to be weaned off the esmolol drip and was initially off the nicardipine drip, but this had to be restarted due to elevated blood pressures. Her family decided to make her DNR. Her blood cultures returned showing no growth at 48 hours. Her labs beg
== END 2022-06-29 10:32 | disposition short-term general hospital (02) | DRG 981 ==
LOC: ER 15:47 → 2ND 20:54
PROVIDERS: Internal Medicine Adolescent Medicine; Nurse Practitioner Family; Physician Assistant; Surgery; Admitting Provider Family Medicine; Emergency Provider Emergency Medicine; PCP Family Medicine; Visit Provider Family Medicine
PROC: 0DNU0ZZ Release Omentum, Open Approach (ICD-10-PCS; CPT 49000; principal; 2022-06-29 05:00)
DX: I67.4 Hypertensive encephalopathy (principal); J18.9 Pneumonia, unspecified organism; K26.5 Chronic or unspecified duodenal ulcer with perforation; K65.8 Other peritonitis; I16.1 Hypertensive emergency; N17.9 Acute kidney failure, unspecified; N39.0 Urinary tract infection, site not specified; D68.51 Activated protein C resistance; D68.2 Hereditary deficiency of other clotting factors; I16.9 Hypertensive crisis, unspecified; K66.0 Peritoneal adhesions (postprocedural) (postinfection); Z79.899 Other long term (current) drug therapy; Z90.5 Acquired absence of kidney; N18.9 Chronic kidney disease, unspecified; I69.398 Other sequelae of cerebral infarction; Z79.02 Long term (current) use of antithrombotics/antiplatelets; H53.461 Homonymous bilateral field defects, right side; Z79.4 Long term (current) use of insulin; H53.462 Homonymous bilateral field defects, left side; M06.9 Rheumatoid arthritis, unspecified; K58.9 Irritable bowel syndrome, unspecified; I12.9 Hypertensive chronic kidney disease with stage 1 through stage 4 chronic kidney disease, or unspecified chronic kidney disease; E11.22 Type 2 diabetes mellitus with diabetic chronic kidney disease; G89.29 Other chronic pain; M54.9 Dorsalgia, unspecified; M79.7 Fibromyalgia; Z66 Do not resuscitate; R56.9 Unspecified convulsions
CPT/HCPCS: 49999; 44005; 31500; 94002; 36415; 36569; 51702; 70450; 71045; 74150; 76770; 80048; 80053; 80202; 81001; 82803; 82962; 83605; 84484; 85007; 85014; 85018; 85025; 85048; 85049; 85610; 86850; 87040; 87070; 87086; 87205; 92526; 92610; 93005; 93306; 93976; 97110; 97162; 97165; 97530; 99291; C1751; C9803; J0131; J1335; J1956; J2185; J2405; J3370; U0003; U0005